=== PATIENT | female | born 1950 | race Caucasian/White ===

== ENCOUNTER 2016-12-27 14:44 | Observation (INO) | payer MEDICARE ==
[~2016-12-27] VITALS: Ht 157.5 cm; Wt 54.1 kg
[2016-12-27] MEDS ORDERED: ASPI1TAB PO (15:02)
[2016-12-27] MEDS ORDERED: POTA99TA PO (15:02)
[2016-12-27] MEDS ORDERED: VITA100066 PO (15:02)
[2016-12-27] MEDS ORDERED: SULF50TA PO (15:02)
[2016-12-27] MEDS ORDERED: B-12100010 PO (15:02)
[2016-12-27] MEDS ORDERED: LISI-538 PO (15:02)
[2016-12-27] MEDS ORDERED: COMBAER6 INH (15:02)
[2016-12-27] MEDS ORDERED: LABETALOL HCL 100 MG/20 ML VIAL IV STA (15:17)
[2016-12-27 15:29] LABS: BASO % 0.6 % (0.0-1.0); EOS # 0.1 K/mm3 (0.0-0.50); EOS % 1.9 % (0.0-3.0); LARGE UNSTAINED CELL # 0.1 K/mm3 (0.0-0.4); LYMPH # 1.9 K/mm3 (1.5-4.5); LYMPH % 31.5 % (24.0-44.0); MEAN CORPUSCULAR HGB CONC 33.1 g/dl (32.0-36.5); MEAN CORPUSCULAR VOLUME 96.8 fl (80.0-96.0); MONO # 0.3 K/mm3 (0.0-0.8); MONO % 5.4 % (0.0-5.0); NEUTROPHILS # 3.6 K/mm3 (1.8-7.7); NEUTROPHILS % 58.7 % (36.0-66.0); PLATELET COUNT, AUTOMATED 366 k/mm3 (150-450); RED CELL DISTRIBUTION WIDTH 13.3 % (11.5-14.5); WHITE BLOOD COUNT 6.2 K/mm3 (4.0-10.0)
[2016-12-27] MEDS ORDERED: GI COCKTAIL 50ML BTL(HYOSCYAMINE/MAALOX/LIDOCAINE VISCOUS)(1:3:1) PO ONE (15:30)
[2016-12-27] MEDS ORDERED: ASPIRIN 81 MG CHEW TABLET PO ONE (15:30)
[2016-12-27 15:53] LABS: ALBUMIN 4.2 GM/DL (3.2-5.2); ALBUMIN/GLOBULIN RATIO 1.68 (1.00-1.93); ALKALINE PHOSPHATASE 63 U/L (45-117); ALT/SGPT 17 U/L (12-78); ANION GAP 8 MEQ/L (8-16); AST/SGOT 19 U/L (15-37); BILIRUBIN,DIRECT 0.2 MG/DL (0.0-0.2); BILIRUBIN,TOTAL 0.5 MG/DL (0.2-1.0); BLOOD UREA NITROGEN 9 MG/DL (7-18); CALCIUM LEVEL 8.3 MG/DL (8.8-10.2); CARBON DIOXIDE LEVEL 26 MEQ/L (21-32); CHLORIDE LEVEL 100 MEQ/L (98-107); CREATININE FOR GFR 0.71 MG/DL (0.55-1.02); FREE T4 1.23 NG/DL (0.76-1.46); GLOMERULAR FILTRATION RATE > 60.0 (>45); GLUCOSE, FASTING 110 MG/DL (80-110); POTASSIUM SERUM 3.6 MEQ/L (3.5-5.1); SODIUM LEVEL 134 MEQ/L (136-145); TOTAL PROTEIN 6.7 GM/DL (6.4-8.2)
--- NOTE | 2016-12-27 17:18 | REP ---
CHEST, TWO VIEWS: REASON: Chest pain. FINDINGS: The superior mediastinal structures are midline. The cardiac silhouette is unremarkable in size, shape, and position. The diaphragmatic surfaces of the lungs are regular, and the costophrenic angles are clear. The pulmonary do are clear. The imaged osseous structures are intact. The lung do are hyper-expanded. IMPRESSION: There is no acute cardiopulmonary disease. Signed by Kvng Strickland DO 12/28/2016 09:55 A
[2016-12-27] MEDS ORDERED: METOPROLOL TART 25 MG TABLET PO ONE (17:30)
[2016-12-27] MEDS ORDERED: ENOXAPARIN 60 MG/0.6 ML SYR (J1650) SC ONE (21:15)
[2016-12-27] MEDS ORDERED: ACETAMINOPHEN 500 MG TAB PO PRN (22:30)
[2016-12-27] MEDS ORDERED: ARTI99.0 OU (22:45)
[2016-12-27] MEDS ORDERED: amLODIPine 10 MG TAB PO SCH (23:30)
[2016-12-27 23:45] VITALS: BP 173/83
[2016-12-28] MEDS: SENOKOT S TAB PO SCH ×3 (00:34→20:35)
[2016-12-28] MEDS: METOPROLOL TART 25 MG TABLET PO SCH ×3 (00:36→20:36)
[2016-12-28] MEDS: PANTOPRAZOLE 40MG INJ (PROTONIX) (C9113) IV SCH ×2 (00:36→20:36)
[2016-12-28] MEDS: sulfaSALAzine 500 MG TABEC PO SCH ×3 (00:37→20:35)
[2016-12-28] MEDS: IPRATROPIUM 0.5MG/ALBUTEROL 2.5MG INH SOL UD 3ML (DUONEB)(J7620) NEB SCH ×4 (01:25→23:33)
[2016-12-28 04:24] VITALS: BP 108/56
--- NOTE | 2016-12-28 06:36 | ECGEPIP ---
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
--- NOTE | 2016-12-28 06:48 | ECGEPIP ---
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
[2016-12-28 08:00] VITALS: BP 136/61
--- NOTE | 2016-12-28 08:29 | IPNPDOC ---
Subjective Date Seen The patient was seen on 12/28/16. Subjective Chief Complaint/HPI The patient is a 66-year-old female admitted with a reason for visit of Chest Pain;Hypertensive Urgency. Events since last encounter Pt states feeling better today. Pt denies any CP, SOB, Abd pain. Constitutional: Denies: Chills, Fever Pulmonary: Denies: Dyspnea Cardiovascular: Denies: Chest Pain, Palpitations Gastrointestinal: Denies: Nausea, Vomiting, Abdominal Pain Objective Physical Examination General Exam: Positive: Alert, No Acute Distress Neck Exam: Positive: Supple, Negative: JVD Chest Exam: Positive: Clear to auscultation Heart Exam: Positive: Rate Normal, Regular Rhythm Abdomen Exam: Positive: Normal bowel sounds, Soft, Negative: Tenderness Extremity Exam: Negative: Edema Assessment /Plan Problems (1) Elevated troponin Status: Acute Problem Specific Plan: Consult Specialist, Repeat Labs Problem Text: peak T-I 0.25 ( creatinine 0.6)/peak CPK 140 (baseline 70s) CAD risk factors: nicotine use, hyperlipidemia 2B (untreated), hypertension, RA , age 66, strong FH premature CAD (1 brother had first [place] at 38 and another of masssive [place] at 54! and 4/6 siblings c CAD) concern hypertensive response was 2 to ischemia-favor transfer for cath I consulted Dr Alvarez, who will seen the pt later. Dr Alvarez felt that pt's trop elevation was due to uncontrolled blood pressure which cause trop leak. Pt is on lisinopril and metoprolol. Pt is on aspirin. He defers checking echo and favors holding off on restarting statin therapy at present time due to pt's h/o intolerance to statins. 12/27/16 EKG NSR 85 bpm s repolarization abnormality 07/2013 low risk NST (2) Hypertensive urgency Status: Acute Problem Specific Plan: Consult Specialist, Repeat Labs Problem Text: I consulted Dr Alvarez, who will seen the pt later. Blood pressures improved. Pt is on lisinopril and metoprolol. (3) HTN (hypertension) Problem Text: Stable BPs on lisinopril and metoprolol. (4) Tobacco use Problem Text: Patient not ready to quit (5) Hyperlipemia Status: Chronic Response to Treatment: Uncontrolled Problem Text: intolerant to atorva 20 and rosuva 5 2 LE myalgia s CPK elevation t/c PCSK9i if confirmed CAD Plan/VTE VTE Prophylaxis Ordered?: Yes VS, I&O, 24H, Fishbone Vital Signs/I&O Vital Signs Date Time Temp Pulse Resp B/P (MAP) Pulse Ox O2 Delivery O2 Flow Rate FiO2 12/28/16 04:29 Room Air 12/28/16 04:24 98.8 59 18 108/56 (73) 93 I&O- Last 24 Hours up to 6 AM 12/28/16 06:00 Intake Total 240 ml Output Total 1250 ml Balance -1010 ml Laboratory Data 24H LABS Laboratory Tests 2 12/27/16 15:18: White Blood Count 6.2, Red Blood Count 4.54, Hemoglobin 14.5, Hematocrit 43.9, Mean Corpuscular Volume 96.8H, Mean Corpuscular Hemoglobin 32.0, Mean Corpuscular Hemoglobin Concent 33.1, Red Cell Distribution Width 13.3, Platelet Count 366, Neutrophils (%) (Auto) 58.7, Lymphocytes (%) (Auto) 31.5, Monocytes ( %) (Auto) 5.4H, Eosinophils (%) (Auto) 1.9, Basophils (%) (Auto) 0.6, Neutrophils # (Auto) 3.6, Lymphocytes # (Auto) 1.9, Monocytes # (Auto) 0.3, Eosinophils # (Auto) 0.1, Basophils # (Auto) 0.0, Large Unclassified Cells % 2.0 , Large Unclassified Cells # 0.1, Anion Gap 8, Glomerular Filtration Rate > 60.0 , Calcium Level 8.3L, Aspartate Amino Transf (AST/SGOT) 19, Alanine Aminotransferase (ALT/SGPT) 17, Alkaline Phosphatase 63, Total Bilirubin 0.5, Direct Bilirubin 0.2, Total Creatine Kinase 140, Creatine Kinase MB 1.7, Creatine Kinase MB Relative Index 1.21, Troponin I < 0.02, B-Type Natriuretic Peptide 27.2, Total Protein 6.7, Albumin 4.2, Albumin/Globulin Ratio 1.68, Thyroid Stimulating Hormone (TSH) 2.430, Free Thyroxine 1.23 12/27/16 19:44: Total Creatine Kinase 115, Creatine Kinase MB 1.8, Creatine Kinase MB Relative Index 1.56, Troponin I 0.25#H 12/28/16 01:53: Total Creatine Kinase 112, Creatine Kinase MB 2.3, Creatine Kinase MB Relative Index 2.05, Troponin I 0.16#H CBC/BMP Laboratory Tests 12/27/16 15:18 Red Blood Count 4.54, Mean Corpuscular Volume 96.8 H, Mean Corpuscular Hemoglobin 32.0, Mean Corpuscular Hemoglobin Concent 33.1, Red Cell Distribution Width 13.3, Neutrophils (%) (Auto) 58.7, Lymphocytes (%) (Auto) 31.5, Monocytes (%) (Auto) 5.4 H, Eosinophils (%) (Auto) 1.9, Basophils (%) ( Auto) 0.6, Neutrophils # (Auto) 3.6, Lymphocytes # (Auto) 1.9, Monocytes # (Auto ) 0.3, Eosinophils # (Auto) 0.1, Basophils # (Auto) 0.0 Jose Elias Jane December 28, 2016 08:29 Alex Johnson M.D. December 28, 2016 16:58
[2016-12-28] MEDS ORDERED: LISINOPRIL 20 MG TAB PO SCH (09:00)
[2016-12-28] MEDS: VITAMIN D 1,000 INTERNATIONAL UNITS TABLET PO SCH (09:12)
[2016-12-28] MEDS: CYANOCOBALAMIN 500 MCG TAB PO SCH (09:13)
[2016-12-28] MEDS: POLYVINYL ALCOHOL OPHTH SOLN 15 ML(LIQUITEARS) OU SCH (09:14)
[2016-12-28] MEDS: ASPIRIN 81 MG ENTERIC TAB PO SCH (09:14)
[2016-12-28 09:27] LABS: ALBUMIN 3.6 GM/DL (3.2-5.2); ALBUMIN/GLOBULIN RATIO 1.57 (1.00-1.93); ALKALINE PHOSPHATASE 58 U/L (45-117); ALT/SGPT 17 U/L (12-78); ANION GAP 7 MEQ/L (8-16); AST/SGOT 17 U/L (15-37); BILIRUBIN,TOTAL 0.7 MG/DL (0.2-1.0); BLOOD UREA NITROGEN 7 MG/DL (7-18); CALCIUM LEVEL 8.2 MG/DL (8.8-10.2); CARBON DIOXIDE LEVEL 28 MEQ/L (21-32); CHLORIDE LEVEL 99 MEQ/L (98-107); CREATININE FOR GFR 0.64 MG/DL (0.55-1.02); GLOMERULAR FILTRATION RATE > 60.0 (>45); GLUCOSE, FASTING 95 MG/DL (80-110); POTASSIUM SERUM 4.3 MEQ/L (3.5-5.1); SODIUM LEVEL 134 MEQ/L (136-145); TOTAL PROTEIN 5.9 GM/DL (6.4-8.2)
--- NOTE | 2016-12-28 09:35 | HPE ---
DATE OF ADMISSION: 12/27/2016 PRIMARY CARE PROVIDER: Ami Magdaleno. CHIEF COMPLAINT: Tingling and burning sensation across the chest wall. Very high blood pressures noted at home. PAST MEDICAL HISTORY: Hypertension. Hyperlipidemia. Chronic obstructive pulmonary disease (COPD). Gastroesophageal reflux disease (GERD). Anxiety. Panic disorder. Chronic sinusitis. MRIs. Rheumatoid arthritis. Vitamin D deficiency. HISTORY OF PRESENT ILLNESS: This is a 66-year-old female who had been very stressed out at work for the past 2 weeks and has been having higher than her usual blood pressure ranges at home. Today she felt a little off from her usual self. She felt kind of burning sensation and pain across her chest. She checked her blood pressure which showed 191/100 at home so she came to the emergency room for evaluation. In the ED, she continued to complain of this chest discomfort, tingling and numbness and on initial presentation, her blood pressure was noted to be 216/106. Patient was diagnosed with hypertensive urgency, received 20 mg of labetalol IV followed by metoprolol by mouth and aspirin. Her blood pressure improved. She has blood work done with cardiac enzymes and EKG. All blood work was within normal limits and the EKG showed sinus rhythm without any signs of any ischemia. In view of her persisting chest pain, her cardiac enzymes were repeated after 4 hours which showed mild elevation in troponins to 0.25 with normal CK and CK-MB. Repeat EKG did not show any active changes to this type of ischemia. The ED physician consulted with seasonal greenery bundler social media executive and he suggested to admit the patient for observation overnight and to give her one dose of therapeutic Lovenox 1 mg/kg. So the patient has been admitted to the Family Medicine service for chest pain, rule out ACS and hypertensive urgency. PAST SURGICAL HISTORY: Cholecystectomy. Appendectomy. Total abdominal hysterectomy. Anterior discectomy and fusion with cadaver bone and hardware at the cervical spine. ALLERGIES: ATORVASTATIN causes leg cramps and weakness. FAMILY HISTORY: Nothing significant. SOCIAL HISTORY: Patient smokes about half a pack per day. Does not drink alcohol or use any recreational drugs. HOME MEDICATIONS: - Combivent inhaler one puff four times a day - Artificial tears one drops both eyes daily - aspirin 81 mg daily - cholecalciferol 1000 mg daily - cyanocobalamin 1000 mcg by mouth daily - lisinopril 20 mg by mouth daily - potassium 99 mg by mouth daily - sulfasalazine 500 mg by mouth twice daily REVIEW OF SYSTEMS: Patient denied any fever or chills. Denied any cough or phlegm. Does complain of some congestion and chronic sinus congestion. Denies any palpitations but does say that she feels very tense and nervous and she continued to complain of persistent pain and burning sensation across her chest wall. She does also feel bloated and some epigastric discomfort and she feels her stomach is pressing up causing her difficulty in breathing. She denied any constipation. Denies any diarrhea, any vomiting or nausea. PHYSICAL EXAMINATION: Vital signs: Blood pressure 169/94, pulse 69, temperature 98.1, pulse oximetry 93% on room air. General: Patient awake, alert, oriented times three, lying down in bed in no acute distress. HEENT: Normocephalic, atraumatic. Moist mucous membranes. Anicteric eyes. Chest: Clear to auscultation. Cardiovascular: S1, S2, regular. No rub, murmur or gallop. Abdomen: Soft, nontender, bowel sounds present. Extremities: No edema. LABORATORY DATA: WBC 6.2, hemoglobin 14.5, platelets 366. Sodium 134, potassium 3.6, chloride 100, bicarbonate 26, BUN 9, creatinine 0.7, glucose 110, calcium 8.3. Cardiac enzymes first set negative. Second set has positive troponins of 0.25. BNP 27.2. Liver function tests are normal. TSH is 2.43. Chest x-ray did not show any acute cardiopulmonary disease. EKG reviewed showed sinus rhythm. No acute ST-T changes. ASSESSMENT AND PLAN: This is a 66-year-old female admitted for chest pain, rule out ACS and hypertensive urgency. PLAN: Chest pain. Will repeat cardiac enzymes. Will repeat EKG if required. Patient received one dose of therapeutic Lovenox. If troponins remain elevated or are rising , we will continue with Lovenox therapeutic dosage. Will continue with aspirin. Patient already received beta shira in the ED. Will continue with beta shira from tomorrow morning. Patient does not want to take any statin because it gives her leg cramps and pain. Hypertensive urgency. Patient received labetalol and metoprolol in the ED. Will continue the patient on lisinopril home doses and will add amlodipine 10 mg daily. Will also continue metoprolol twice daily from tomorrow morning. Chronic obstructive pulmonary disease (COPD). Will continue with albuterol/ipratropium inhalation and nebulizer solution. Gastroesophageal reflux disease. Will start the patient on pantoprazole. Hyperlipidemia. Patient does not like to take statins. Deep venous thrombosis (DVT) prophylaxis has been ordered. Gastrointestinal (GI ) prophylaxis has been ordered. MTDD
[2016-12-28] MEDS ORDERED: SLF 3 ML SYR IV PRN (10:00)
[2016-12-28 12:00] VITALS: BP 130/63
[2016-12-28] MEDS: SLF 3 ML SYR IV SCH ×2 (14:27→20:37)
[2016-12-28 16:00] VITALS: BP_SYST 155; BP_DIAS 50; BP_DIAS 62
[2016-12-28 17:40] LABS: CHOLESTEROL LEVEL 186 MG/DL (<200); TRIGLYCERIDES LEVEL 69 MG/DL (<150)
[2016-12-28] MEDS: CARVedilol 6.25 MG TAB PO SCH (18:00)
[2016-12-28 19:01] VITALS: BP 128/65
--- NOTE | 2016-12-28 20:17 | ECGEPIP ---
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
[2016-12-28 20:30] VITALS: BP 143/74
[2016-12-28] MEDS: LISINOPRIL 10 MG TAB PO SCH (20:35)
[2016-12-28] MEDS ORDERED: ENOXAPARIN 40 MG/0.4 ML SYRINGE (J1650) SC SCH (21:00)
[2016-12-29 00:32] VITALS: BP 131/70
[2016-12-29] MEDS: CARVedilol 6.25 MG TAB PO SCH ×3 (00:52→11:53)
[2016-12-29 04:32] VITALS: BP 130/68
[2016-12-29] MEDS: SLF 3 ML SYR IV SCH ×2 (05:10→13:20)
[2016-12-29 05:53] LABS: BASO % 0.7 % (0.0-1.0); EOS # 0.2 K/mm3 (0.0-0.50); EOS % 2.9 % (0.0-3.0); LARGE UNSTAINED CELL # 0.2 K/mm3 (0.0-0.4); LARGE UNSTAINED CELL % 2.2 % (0.0-4.0); LYMPH # 2.6 K/mm3 (1.5-4.5); LYMPH % 39.2 % (24.0-44.0); MEAN CORPUSCULAR HEMOGLOBIN 32.4 pg (27.0-33.0); MEAN CORPUSCULAR HGB CONC 33.3 g/dl (32.0-36.5); MEAN CORPUSCULAR VOLUME 97.2 fl (80.0-96.0); MONO # 0.6 K/mm3 (0.0-0.8); MONO % 8.8 % (0.0-5.0); NEUTROPHILS # 3.1 K/mm3 (1.8-7.7); NEUTROPHILS % 46.1 % (36.0-66.0); PLATELET COUNT, AUTOMATED 322 k/mm3 (150-450); RED CELL DISTRIBUTION WIDTH 13.6 % (11.5-14.5); WHITE BLOOD COUNT 6.6 K/mm3 (4.0-10.0)
[2016-12-29 06:15] LABS: ALBUMIN 3.1 GM/DL (3.2-5.2); ALBUMIN/GLOBULIN RATIO 1.29 (1.00-1.93); ALKALINE PHOSPHATASE 57 U/L (45-117); ALT/SGPT 16 U/L (12-78); ANION GAP 4 MEQ/L (8-16); AST/SGOT 15 U/L (15-37); BILIRUBIN,TOTAL 0.3 MG/DL (0.2-1.0); BLOOD UREA NITROGEN 11 MG/DL (7-18); CALCIUM LEVEL 7.6 MG/DL (8.8-10.2); CARBON DIOXIDE LEVEL 29 MEQ/L (21-32); CHLORIDE LEVEL 102 MEQ/L (98-107); CREATININE FOR GFR 0.61 MG/DL (0.55-1.02); GLOMERULAR FILTRATION RATE > 60.0 (>45); GLUCOSE, FASTING 89 MG/DL (80-110); POTASSIUM SERUM 3.8 MEQ/L (3.5-5.1); SODIUM LEVEL 135 MEQ/L (136-145); TOTAL PROTEIN 5.5 GM/DL (6.4-8.2)
--- NOTE | 2016-12-29 07:36 | IPNPDOC ---
Subjective Date Seen The patient was seen on 12/29/16. Subjective Chief Complaint/HPI The patient is a 66-year-old female admitted with a reason for visit of Chest Pain;Hypertensive Urgency. Events since last encounter Pt states she feels about the same. Denies CP, SOB, Abd pain. Constitutional: Denies: Chills, Fever Pulmonary: Denies: Dyspnea Cardiovascular: Denies: Chest Pain Gastrointestinal: Denies: Nausea, Vomiting, Abdominal Pain Objective Physical Examination General Exam: Positive: Alert, No Acute Distress Neck Exam: Positive: Supple, Negative: JVD Chest Exam: Positive: Clear to auscultation Heart Exam: Positive: Rate Normal, Regular Rhythm Abdomen Exam: Positive: Normal bowel sounds, Soft, Negative: Tenderness Extremity Exam: Negative: Edema Assessment /Plan Problems (1) Elevated troponin Status: Acute Problem Specific Plan: Consult Specialist, Repeat Labs Problem Text: 12/29 - Cardiology consulted. Most recent Trops have trended down and returned to normal. 12/28 - peak T-I 0.25 ( creatinine 0.6)/peak CPK 140 (baseline 70s) CAD risk factors: nicotine use, hyperlipidemia 2B (untreated), hypertension, RA , age 66, strong FH premature CAD (1 brother had first [place] at 38 and another of masssive [place] at 54! and 4/6 siblings c CAD) concern hypertensive response was 2 to ischemia-favor transfer for cath I consulted Dr Alvarez, who will seen the pt later. Dr Alvarez felt that pt's trop elevation was due to uncontrolled blood pressure which cause trop leak. Pt is on lisinopril and metoprolol. Pt is on aspirin. He defers checking echo and favors holding off on restarting statin therapy at present time due to pt's h/o intolerance to statins. 12/27/16 EKG NSR 85 bpm s repolarization abnormality 07/2013 low risk NST (2) Hypertensive urgency Status: Acute Problem Specific Plan: Consult Specialist, Repeat Labs Problem Text: 12/29 - Cardiology consulted 12/28 - I consulted Dr Alvarez, who will seen the pt later. Blood pressures improved. Pt is on lisinopril and metoprolol. (3) HTN (hypertension) Problem Text: Stable BPs on lisinopril and metoprolol. (4) Tobacco use Problem Text: Patient states not ready to quit. Declined Alcides patch. (5) Hyperlipemia Status: Chronic Response to Treatment: Uncontrolled Problem Text: intolerant to atorva 20 and rosuva 5 2 LE myalgia s CPK elevation t/c PCSK9i if confirmed CAD Plan/VTE VTE Prophylaxis Ordered?: Yes VS, I&O, 24H, Fishbone Vital Signs/I&O Vital Signs Date Time Temp Pulse Resp B/P (MAP) Pulse Ox O2 Delivery O2 Flow Rate FiO2 12/29/16 05:10 52 130/76 12/29/16 04:32 99.4 18 94 Room Air I&O- Last 24 Hours up to 6 AM 12/29/16 06:00 Intake Total 1920 ml Output Total 2000 ml Balance -80 ml Laboratory Data 24H LABS Laboratory Tests 2 12/28/16 08:01: Anion Gap 7L, Glomerular Filtration Rate > 60.0, Blood Urea Nitrogen 7, Creatinine 0.64, Sodium Level 134L, Potassium Level 4.3, Chloride Level 99, Carbon Dioxide Level 28, Calcium Level 8.2L, Aspartate Amino Transf (AST/SGOT) 17, Alanine Aminotransferase (ALT/SGPT) 17, Alkaline Phosphatase 58, Total Bilirubin 0.7, Triglycerides Level 69, LDL Cholesterol 105.2H, Total Protein 5.9L, Albumin 3.6, C-Reactive Protein, Quantitative < 0.30, Albumin/Globulin Ratio 1.57, Total Cholesterol 186, Non-HDL Cholesterol (LDL + VLDL) 119, Total HDL Cholesterol 67, Cholesterol/HDL Ratio 2.776, Vitamin B12 Level 1423H 12/28/16 08:03: Total Creatine Kinase 118, Creatine Kinase MB 1.9, Creatine Kinase MB Relative Index 1.61, Troponin I 0.09# 12/28/16 13:56: Total Creatine Kinase 129, Creatine Kinase MB 1.3, Creatine Kinase MB Relative Index 1.00, Troponin I 0.06# 12/29/16 05:33: Anion Gap 4L, Glomerular Filtration Rate > 60.0, Blood Urea Nitrogen 11#, Creatinine 0.61, Sodium Level 135L, Potassium Level 3.8, Chloride Level 102, Carbon Dioxide Level 29, Calcium Level 7.6L, Aspartate Amino Transf (AST/SGOT) 15, Alanine Aminotransferase (ALT/SGPT) 16, Alkaline Phosphatase 57, Total Bilirubin 0.3#, Total Protein 5.5L, Albumin 3.1L, Albumin/Globulin Ratio 1.29, White Blood Count 6.6, Red Blood Count 3.98L, Hemoglobin 12.9, Hematocrit 38.7, Mean Corpuscular Volume 97.2H, Mean Corpuscular Hemoglobin 32.4, Mean Corpuscular Hemoglobin Concent 33.3, Red Cell Distribution Width 13.6, Platelet Count 322, Neutrophils (%) (Auto) 46.1, Lymphocytes (%) (Auto) 39.2, Monocytes ( %) (Auto) 8.8H, Eosinophils (%) (Auto) 2.9, Basophils (%) (Auto) 0.7, Neutrophils # (Auto) 3.1, Lymphocytes # (Auto) 2.6, Monocytes # (Auto) 0.6, Eosinophils # (Auto) 0.2, Basophils # (Auto) 0.0, Large Unclassified Cells % 2.2 , Large Unclassified Cells # 0.2 CBC/BMP Laboratory Tests 12/28/16 08:01 Calcium Level 8.2 L, Aspartate Amino Transf (AST/SGOT) 17, Alanine Aminotransferase (ALT/SGPT) 17, Alkaline Phosphatase 58, Total Bilirubin 0.7, Triglycerides Level 69, LDL Cholesterol 105.2 H, Total Protein 5.9 L, Albumin 3.6 12/29/16 05:33 Calcium Level 7.6 L, Aspartate Amino Transf (AST/SGOT) 15, Alanine Aminotransferase (ALT/SGPT) 16, Alkaline Phosphatase 57, Total Bilirubin 0.3 #, Total Protein 5.5 L, Albumin 3.1 L, Red Blood Count 3.98 L, Mean Corpuscular Volume 97.2 H, Mean Corpuscular Hemoglobin 32.4, Mean Corpuscular Hemoglobin Concent 33.3, Red Cell Distribution Width 13.6, Neutrophils (%) (Auto) 46.1, Lymphocytes (%) (Auto) 39.2, Monocytes (%) (Auto) 8.8 H, Eosinophils (%) (Auto) 2.9, Basophils (%) (Auto) 0.7, Neutrophils # (Auto) 3.1, Lymphocytes # (Auto) 2.6, Monocytes # (Auto) 0.6, Eosinophils # (Auto) 0.2, Basophils # (Auto) 0.0 Jose Elias Jane RPA-Kiley December 29, 2016 07:36
[2016-12-29 08:00] VITALS: BP 127/79
--- NOTE | 2016-12-29 08:18 | REP ---
Duplex carotid sonography: History: Bruit. Comparison carotid sonography is from May 13, 2015. Findings: Antegrade flow was observed in both vertebral arteries. Right carotid: The right common carotid artery is remarkable for some minimal plaquing and diffuse intimal thickening. There is moderate mixed plaquing in the bulb and proximal ICA and proximal ECA on the right side on two-dimensional scanning. Color-flow and spectral Doppler interrogation are unremarkable in the ICA. ICA velocities have not increased since the prior study. Velocity chart right carotid: Right CCA PSV 91 cm/s ICA PSV 84 EDV 19 Right ECA PSV 138 Right ICA/CCA ratio normal 0.9 Impression: 16-49% category narrowing the right ICA by Doppler velocity criteria. Velocities have not increased since the prior study. Left carotid: Left common carotid artery shows diffuse intimal thickening. There is moderate mixed plaquing in the bulb and proximal ICA on two-dimensional scanning on the left side. Color flow and spectral Doppler interrogation are unremarkable on the left. No significantly elevated velocities are seen. Velocity chart left carotid: Left CCA PSV 98 cm/s Left ICA PSV 110 EDV 30 Left ECA PSV 89 Left ICA/CCA ratio normal 1.1 Impression: 16-49% category narrowing in the left ICA by Doppler velocity criteria. Velocities have not increased significantly on the left since the prior study. Signed by Car Macias MD 12/29/2016 08:28 A
[2016-12-29] MEDS: METOPROLOL TART 25 MG TABLET PO SCH (08:27)
[2016-12-29] MEDS: LISINOPRIL 10 MG TAB PO SCH (08:27)
[2016-12-29] MEDS: SENOKOT S TAB PO SCH (08:27)
[2016-12-29] MEDS: CYANOCOBALAMIN 500 MCG TAB PO SCH (08:28)
[2016-12-29] MEDS: sulfaSALAzine 500 MG TABEC PO SCH (08:28)
[2016-12-29] MEDS: VITAMIN D 1,000 INTERNATIONAL UNITS TABLET PO SCH (08:28)
[2016-12-29] MEDS: POLYVINYL ALCOHOL OPHTH SOLN 15 ML(LIQUITEARS) OU SCH (08:28)
[2016-12-29] MEDS: ASPIRIN 81 MG ENTERIC TAB PO SCH (08:28)
[2016-12-29] MEDS: IPRATROPIUM 0.5MG/ALBUTEROL 2.5MG INH SOL UD 3ML (DUONEB)(J7620) NEB SCH (08:34)
[2016-12-29 11:53] VITALS: BP 129/74
[2016-12-29 12:00] VITALS: BP 129/74
[2016-12-29] MEDS ORDERED: METO25TAB PO (12:16)
[2016-12-29] MEDS ORDERED: CARV12.5 PO (12:16)
[2016-12-29] MEDS ORDERED: CARVedilol 6.25 MG TAB PO SCH ×2 (13:41→18:00)
--- NOTE | 2016-12-29 21:37 | DSES ---
DATE OF ADMISSION: 12/27/2016 DATE OF DISCHARGE: 12/29/2016 REASON FOR ADMISSION: The patient was admitted on the evening of December 27 after presenting with transient substernal burning and chest discomfort associated with dramatically high blood pressure. Blood pressures documented in the ED were over 200, specifically 226/105, that was the highest on December 27 at 15:31 and 15:41. She received amlodipine, which was not continued. She received metoprolol, which was continued. She received 20 mg IV labetalol dose. After admission her medication continued with lisinopril 10 mg by mouth twice a day, carvedilol 6.25 mg every 6 hours and metoprolol 25 mg by mouth twice a day. She is also on sulfasalazine 500 mg twice a day, Senokot and albuterol, ipratropium nebs which is chronic medication related to COPD. She does smoke one half pack per day despite having multiple family members with coronary artery disease and being closely monitored very cardiology with frequent EKG stress tests or nuclear medicine stress tests, the last with being slightly or 2 years ago and she is scheduled for a new one soon. Her estate administrator is Dr. Alvarez. During her ER observation and it was noted that her laboratory findings demonstrated a slightly elevated troponin, specifically 0.02, less than 0.020 at 15:18 on 12/27. Repeat at 19:44 was 0.25. At 01:53 on December 28 was 0.16 and it is been 0.09 and 0.06 subsequently. EKG did not show ST-segment changes or evidence of infarction. Cardiology has been consulted and cell phone call has been made to Dr. Alvarez to follow up on this consult to advise that the is being discharged and request instructions for followup. At this time condition is satisfactory. She remained symptom free. Blood pressures is 129/74. She is relatively bradycardic with pulse of 56-48. She ambulates well on the unit without lightheadedness, chest pain, palpitations or dyspnea. She denies wheezing. On exam she has no wheezing. Good air flow throughout and regular rhythm, although she has is slow, she has no pedal edema. IMPRESSION: Accelerated hypertensive urgency with troponin elevation which is likely a product of <<3:25>> . So at this point the patient will be discharged. She will have a pharmacologic stress test scheduled for tomorrow with Dr. Alvarez. He will see of the following day. For now we will send her home on the metoprolol 25 mg by mouth twice a day. Although carvedilol has been ordered at 6.25 mg four times a day she has only received one of these doses, the others have been held through so it looks like she does not require the carvedilol and so she will go namita just on metoprolol 25 twice a day along with lisinopril 20 mg daily. Activity will be as tolerated. She is encouraged to quit smoking and pharmacologic assistance is offered. Follow up as noted. She should follow a 2 grams sodium diet.
--- NOTE | 2016-12-30 09:32 | ECHO ---
DATE OF PROCEDURE: 12/28/2016 AGE: 66 GENDER: Female REFERRING PHYSICIAN: Dr. Alex Johnson. HEIGHT: 62 inches. WEIGHT: 119 pounds. BODY SURFACE AREA: 1.54 sq m. INPATIENT: PCU Room 3227 INDICATION: Chest pain. MEASUREMENTS: 2D MEASUREMENTS: RV - 2.9 cm LV- 4.2 cm Septum - 1.0 cm Posterior wall - 1.0 cm Aortic root - 3.5 cm LA - 3.4 cm LVEF - 65% DOPPLER MEASUREMENTS: AV - 1.4 m/s LVOT - 1.2 m/s LVOT diameter - 2.0 cm MV-E: 79 A: 76 EA ratio 1 Early mitral deacceleration time 183 ms E-prime - 6 A-prime - 9 E/E prime ratio 12.9 PV - 0.8 m/s Pulmonary artery acceleration time 162 ms RVSP - 30 mmHg IVC - 1.9 cm COMMENTS: Normal sinus rhythm without intraventricular conduction disturbance. Normal cardiac chamber sizes and LV wall thickness. On real-time imaging from the parasternal and apical projections, wall motion was symmetrical and normal to hyperkinetic. Mildly thickened mitral annulus but normal leaflet thickness and excursion with no posterior systolic buckling. Three equal size aortic cusps with marginally thickened cusp edges but adequate cusp separation. Normal aortic root size. No apparent intracardiac mass or pericardial effusion. Color flow Doppler study taken from the parasternal and apical projection showed very mild mitral but no aortic insufficiency and very mild tricuspid insufficiency. Guided continuous wave Doppler of her aortic valve showed a normal peak systolic velocity against LV outflow tract obstruction. Pulsed and continuous wave Doppler of her LV inflow tract taken from the apical four-chamber projection showed normal diastolic filling velocities against mitral stenosis. The filling pattern was currently normal against LV diastolic dysfunction. Current estimated mean left atrial pressure using pulsed and tissue Doppler of her mitral annulus was within normal limits. Pulsed and continuous wave Doppler of her pulmonary trunk showed a normal peak systolic velocity against RV outflow tract obstruction. Her pulmonary artery acceleration time was normal against an elevated pulmonary vascular resistance. Guided continuous wave Doppler of her tricuspid valve allowed our estimation of her right ventricular systolic pressure (upper limits of normal to borderline increased). Her inferior vena cava was of normal size with normal respiratory collapse against an elevated central venous pressure at this time. CONCLUSIONS: Normal left ventricular size, wall thickness and wall motion. Normal left atrial size in current Doppler assessment of LV diastolic function and estimated mean left atrial pressure. Normal right heart chamber sizes and contraction with Doppler evidence of borderline pulmonary hypertension. Mild degenerative changes of the mitral and aortic valvular apparatus without functional valvular abnormality.
== END 2016-12-29 14:32 | disposition home or self-care (01) ==
LOC: M ED 15:40 → M ED INP 22:28 → M PCU 23:46
PROVIDERS: ADMIT Internal Medicine Nephrology; ATTEND Family Medicine
DX: I16.0 Hypertensive urgency (principal); R07.9 Chest pain, unspecified; E78.4 Other hyperlipidemia; K21.9 Gastro-esophageal reflux disease without esophagitis; F41.9 Anxiety disorder, unspecified; E55.9 Vitamin D deficiency, unspecified; M06.9 Rheumatoid arthritis, unspecified; Z79.82 Long term (current) use of aspirin; Z79.899 Other long term (current) drug therapy; R06.02 Shortness of breath
CPT/HCPCS: 36415; 71020; 80048; 80053; 80061; 80076; 82550; 82553; 82607; 83880; 84439; 84443; 84484; 85025; 86140; 93005; 93041; 93306; 93880; 94640; 94760; 96372; 96374; 96375; 96376; 99285; C9113; G0378; J1650

== ENCOUNTER → 2017-01-20 | Outpatient (CLI) | payer MEDICARE ==
[~2017-01-20] MED LIST: ARTI99.0 OU; ASPI1TAB PO; B-12100010 PO; CARV12.5 PO; COMBAER6 INH; LISI-538 PO; METO25TAB PO; POTA99TA PO; SULF50TA PO; VITA100066 PO
[2017-01-20 18:13] LABS: ALBUMIN 4.1 GM/DL (3.2-5.2); ANION GAP 7 MEQ/L (8-16); BLOOD UREA NITROGEN 7 MG/DL (7-18); CALCIUM LEVEL 9.2 MG/DL (8.8-10.2); CARBON DIOXIDE LEVEL 31 MEQ/L (21-32); CHLORIDE LEVEL 94 MEQ/L (98-107); CREATININE FOR GFR 0.68 MG/DL (0.55-1.02); GLOMERULAR FILTRATION RATE > 60.0 (>45); GLUCOSE, FASTING 140 MG/DL (80-110); MAGNESIUM LEVEL 2.2 MG/DL (1.8-2.4); PHOSPHORUS LEVEL 2.8 MG/DL (2.5-4.9); POTASSIUM SERUM 3.8 MEQ/L (3.5-5.1); SODIUM LEVEL 132 MEQ/L (136-145)
== END ==
LOC: M LAB 17:07
PROVIDERS: ATTEND Internal Medicine Cardiovascular Disease
DX: I11.9 Hypertensive heart disease without heart failure (principal)

== ENCOUNTER → 2017-07-29 | Outpatient (CLI) | payer MEDICARE ==
[~2017-07-29] MED LIST changes: +METO25TA4 PO; -METO25TAB PO
[2017-07-29 13:31] LABS: ALBUMIN/GLOBULIN RATIO 1.48 (1.00-1.93); ALKALINE PHOSPHATASE 59 U/L (45-117); ALT/SGPT 10 U/L (12-78); ANION GAP 10 MEQ/L (8-16); AST/SGOT 13 U/L (7-37); BILIRUBIN,TOTAL 0.5 MG/DL (0.2-1.0); BLOOD UREA NITROGEN 12 MG/DL (7-18); CALCIUM LEVEL 8.8 MG/DL (8.8-10.2); CARBON DIOXIDE LEVEL 28 MEQ/L (21-32); CHLORIDE LEVEL 96 MEQ/L (98-107); CHOLESTEROL LEVEL 191 MG/DL (<200); CREATININE FOR GFR 0.54 MG/DL (0.55-1.02); GLOMERULAR FILTRATION RATE > 60.0 (>45); GLUCOSE, FASTING 79 MG/DL (80-110); POTASSIUM SERUM 3.9 MEQ/L (3.5-5.1); SODIUM LEVEL 134 MEQ/L (136-145); TOTAL PROTEIN 6.7 GM/DL (6.4-8.2); TRIGLYCERIDES LEVEL 44 MG/DL (<150)
== END ==
LOC: M WUC 09:40
PROVIDERS: ATTEND Physician Assistant
DX: I11.9 Hypertensive heart disease without heart failure (principal); E78.00 Pure hypercholesterolemia, unspecified

== ENCOUNTER → 2018-02-01 | Outpatient (CLI) | payer MEDICARE ==
[2018-02-01 08:19] LABS: ALBUMIN 3.8 GM/DL (3.2-5.2); ALBUMIN/GLOBULIN RATIO 1.58 (1.00-1.93); ALKALINE PHOSPHATASE 61 U/L (45-117); ALT/SGPT 14 U/L (12-78); ANION GAP 5 MEQ/L (8-16); AST/SGOT 17 U/L (7-37); BILIRUBIN,TOTAL 0.4 MG/DL (0.2-1.0); BLOOD UREA NITROGEN 12 MG/DL (7-18); CALCIUM LEVEL 8.7 MG/DL (8.8-10.2); CARBON DIOXIDE LEVEL 29 MEQ/L (21-32); CHLORIDE LEVEL 105 MEQ/L (98-107); CREATININE FOR GFR 0.69 MG/DL (0.55-1.30); GLOMERULAR FILTRATION RATE > 60.0 (>45); GLUCOSE, FASTING 90 MG/DL (70-100); POTASSIUM SERUM 4.6 MEQ/L (3.5-5.1); SODIUM LEVEL 139 MEQ/L (136-145); TOTAL PROTEIN 6.2 GM/DL (6.4-8.2)
== END ==
LOC: M LAB 07:24
DX: I11.9 Hypertensive heart disease without heart failure (principal); E78.00 Pure hypercholesterolemia, unspecified
CPT/HCPCS: 80053

== ENCOUNTER → 2018-08-04 | Outpatient (CLI) | payer MEDICARE ==
[2018-08-04 07:38] LABS: ALBUMIN 3.7 GM/DL (3.2-5.2); ALBUMIN/GLOBULIN RATIO 1.48 (1.00-1.93); ALKALINE PHOSPHATASE 59 U/L (45-117); ALT/SGPT 13 U/L (12-78); ANION GAP 8 MEQ/L (8-16); AST/SGOT 16 U/L (7-37); BILIRUBIN,TOTAL 0.4 MG/DL (0.2-1.0); BLOOD UREA NITROGEN 10 MG/DL (7-18); CALCIUM LEVEL 8.6 MG/DL (8.8-10.2); CARBON DIOXIDE LEVEL 27 MEQ/L (21-32); CHLORIDE LEVEL 106 MEQ/L (98-107); CHOLESTEROL LEVEL 200 MG/DL (<200); CREATININE FOR GFR 0.64 MG/DL (0.55-1.30); GLOMERULAR FILTRATION RATE > 60.0 (>45); GLUCOSE, FASTING 99 MG/DL (70-100); HDL CHOLESTEROL 66 MG/DL (>40); LDL CHOLESTEROL 125 MG/DL (<100); NON-HDL-C 134 MG/DL; POTASSIUM SERUM 4.3 MEQ/L (3.5-5.1); SODIUM LEVEL 141 MEQ/L (136-145); TOTAL PROTEIN 6.2 GM/DL (6.4-8.2); TRIGLYCERIDES LEVEL 46 MG/DL (<150)
== END ==
LOC: M LAB 06:44
DX: I11.9 Hypertensive heart disease without heart failure (principal); E78.00 Pure hypercholesterolemia, unspecified
CPT/HCPCS: 80053

== ENCOUNTER → 2018-08-10 | Outpatient (CLI) | payer MEDICARE ==
--- NOTE | 2018-08-10 20:08 | REP ---
HISTORY: Carotid arterial disease followup. COMPARISON: 12/28/2016. There is echogenic material seen along the carotid arterial phan bilaterally and some of which casts and acoustic shadow. Right Left CCA systolic 91.0 cm/s 85.8 cm/s CCA diastolic 28.8 cm/s 30.5 cm/s ICA systolic 73.9 cm/s 92.9 cm/s ICA diastolic 29.7 cm/s 46.1 cm/s ICA/CCA ratio 0.81 1.08 Analysis of the spectral waveforms shows bilateral internal carotid arterial spectral broadening. IMPRESSION: There has been essentially no change from the prior exam. There is evidence of less than 50% stenosis of the internal carotid artery bilaterally and secondary to both calcified and noncalcified plaque formation. This is according to the NASCET consensus criteria. Electronically Signed by Kvng Strickland DO 08/11/2018 03:49 P
== END ==
LOC: M RAD 13:44
PROVIDERS: ATTEND Physician Assistant
DX: I65.23 Occlusion and stenosis of bilateral carotid arteries (principal)

== ENCOUNTER → 2020-02-06 | Outpatient (REF) | payer MEDICARE ==
[~2020-02-06] MED LIST changes: -ARTI99.0 OU; -ASPI1TAB PO; +ASPI81TA26 PO; -LISI-538 PO; +LISI20TA33 PO; +POLYOPD OU; +SULF500T41 PO; -SULF50TA PO
[2020-02-06 13:41] LABS: ALBUMIN 3.8 GM/DL (3.2-5.2); ALT/SGPT 17 U/L (12-78); BILIRUBIN,TOTAL 0.5 MG/DL (0.2-1.0); BLOOD UREA NITROGEN 11 MG/DL (7-18); CALCIUM LEVEL 9.1 MG/DL (8.8-10.2); CARBON DIOXIDE LEVEL 29 MEQ/L (21-32); CHLORIDE LEVEL 98 MEQ/L (98-107); CHOLESTEROL LEVEL 195 MG/DL (<200); CREATININE FOR GFR 0.64 MG/DL (0.55-1.30); FREE T4 1.23 NG/DL (0.76-1.46); GLOMERULAR FILTRATION RATE > 60.0 (>45); GLUCOSE, FASTING 82 MG/DL (70-100); HDL CHOLESTEROL 60 MG/DL (>40); LDL CHOLESTEROL 119 MG/DL (<100); NON-HDL-C 135 MG/DL; POTASSIUM SERUM 4.8 MEQ/L (3.5-5.1); SODIUM LEVEL 133 MEQ/L (136-145); TOTAL PROTEIN 6.4 GM/DL (6.4-8.2); TRIGLYCERIDES LEVEL 80 MG/DL (<150)
[2020-02-06 13:50] LABS: MALB URINE SIEMENS 15.4 MG/L; MAU/CREAT RATIO 13.7 MCG/MG (0.0-30.0)
[2020-02-06 13:57] LABS: HEMATOCRIT 43.7 % (36.0-47.0); HEMOGLOBIN 14.5 g/dl (12.0-15.5); MEAN CORPUSCULAR HEMOGLOBIN 31.4 pg (27.0-33.0); MEAN CORPUSCULAR HGB CONC 33.2 g/dl (32.0-36.5); MEAN CORPUSCULAR VOLUME 94.6 fl (80.0-96.0); PLATELET COUNT, AUTOMATED 363 10^3/uL (150-450); RED BLOOD COUNT 4.62 10^6/uL (4.00-5.40); WHITE BLOOD COUNT 5.8 10^3/uL (4.0-10.0)
== END ==
LOC: M SFHCADAM 10:58
PROVIDERS: ATTEND Physician Assistant
DX: J44.9 Chronic obstructive pulmonary disease, unspecified (principal); I25.10 Atherosclerotic heart disease of native coronary artery without angina pectoris; I10 Essential (primary) hypertension; F17.218 Nicotine dependence, cigarettes, with other nicotine-induced disorders; E78.2 Mixed hyperlipidemia; Z12.11 Encounter for screening for malignant neoplasm of colon

== ENCOUNTER → 2020-05-22 | Outpatient (CLI) | payer MEDICARE ==
[~2020-05-22] MED LIST changes: +LISI-538 PO; -LISI20TA33 PO
--- NOTE | 2020-05-29 14:37 | REP ---
CT CHEST WITHOUT CONTRAST: LOW-DOSE SCREENING EXAM HISTORY: Nicotine dependence. COMPARISON: No comparison chest CT. Comparison chest x-ray 12/27/2016. CT FINDINGS: The lungs are quite hyperinflated and advanced emphysematous changes are noted bilaterally in the upper lobes and to a lesser extent in the lower lobes. There is no evidence of pleural effusion, mass, or infiltrate. There is some linear fibrosis in the right middle lobe anteriorly. There is granulomatous calcification in the left upper lobe on Page 44 of 95. There is a tiny subpleural granulomatous nodule in the right lower lobe on Page 55. There is another tiny granulomatous subpleural nodule in the right upper lobe on Page 23. No significant noncalcified pulmonary nodule is seen. Vascular calcification is observed. IMPRESSION: Advanced emphysematous changes. Lung-RADS Category 1 findings. Repeat screening exam suggested in one year. MTDD
== END ==
LOC: M RAD 09:37
PROVIDERS: ATTEND Nurse Practitioner Adult Health
DX: Z12.2 Encounter for screening for malignant neoplasm of respiratory organs (principal); F17.218 Nicotine dependence, cigarettes, with other nicotine-induced disorders; J43.9 Emphysema, unspecified

== ENCOUNTER → 2020-10-02 | Outpatient (CLI) | payer MEDICARE ==
[~2020-10-02] MED LIST changes: -LISI-538 PO; +LISI20TA33 PO
[2020-10-02 11:04] LABS: BLOOD UREA NITROGEN 11 MG/DL (7-18); CALCIUM LEVEL 9.1 MG/DL (8.8-10.2); CARBON DIOXIDE LEVEL 30 MEQ/L (21-32); CHLORIDE LEVEL 98 MEQ/L (98-107); CREATININE FOR GFR 0.58 MG/DL (0.55-1.30); GLOMERULAR FILTRATION RATE > 60.0 (>39); GLUCOSE, FASTING 100 MG/DL (70-100); POTASSIUM SERUM 4.3 MEQ/L (3.5-5.1); SODIUM LEVEL 135 MEQ/L (136-145)
== END ==
LOC: M LAB 09:53
PROVIDERS: ATTEND Physician Assistant
DX: I11.9 Hypertensive heart disease without heart failure (principal)

== ENCOUNTER → 2021-02-04 | Outpatient (CLI) | payer MEDICARE ==
--- NOTE | 2021-02-04 18:27 | REP ---
INDICATION: ACUTE RIGHT SIDED LOW BACK PAIN WITHOUT SCIATICA. COMPARISON: None. TECHNIQUE: Five views lumbosacral spine. FINDINGS: There is no compression fracture or malalignment. There is normal lumbar lordosis. There is very mild disc space narrowing at virtually all levels. There is sclerosis and spurring at the posterior facet joints of L5-S1. Posterior elements are intact. Metallic clips are seen in the right upper quadrant. There appears to be some degree of osteopenia. IMPRESSION: No fracture or dislocation. Mild degenerative changes. <Electronically signed by Nickolas Peters > 02/04/21 [id number]
== END ==
LOC: M ADAMS 15:25
PROVIDERS: ATTEND Physician Assistant
DX: M51.37 Other intervertebral disc degeneration, lumbosacral region (principal); M54.5 Low back pain

== ENCOUNTER → 2021-04-22 | Outpatient (CLI) | payer MEDICARE ==
[2021-04-22 14:12] LABS: BASO % 0.4 % (0.0-1.0); HEMOGLOBIN 14.9 g/dl (12.0-15.5); LYMPH # 1.2 10^3/uL (1.5-5.0); LYMPH % 13.5 % (24.0-44.0); MEAN CORPUSCULAR HEMOGLOBIN 31.5 pg (27.0-33.0); MEAN CORPUSCULAR HGB CONC 33.9 g/dl (32.0-36.5); MONO # 0.5 10^3/uL (0.0-0.8); MONO % 5.3 % (2.0-8.0); NEUTROPHILS # 7.2 10^3/uL (1.5-8.5); NEUTROPHILS % 80.1 % (36.0-66.0); PLATELET COUNT, AUTOMATED 482 10^3/uL (150-450); RED BLOOD COUNT 4.73 10^6/uL (4.00-5.40)
[2021-04-22 14:55] LABS: ALBUMIN 3.8 GM/DL (3.2-5.2); ALT/SGPT 21 U/L (12-78); BILIRUBIN,TOTAL 0.5 MG/DL (0.2-1.0); BLOOD UREA NITROGEN 9 MG/DL (7-18); CALCIUM LEVEL 9.4 MG/DL (8.8-10.2); CARBON DIOXIDE LEVEL 29 MEQ/L (21-32); CHLORIDE LEVEL 97 MEQ/L (98-107); CHOLESTEROL LEVEL 215 MG/DL (<200); CHOLESTEROL RISK RATIO 2.687 (<5); CREATININE FOR GFR 0.53 MG/DL (0.55-1.30); FREE T4 1.09 NG/DL (0.76-1.46); GLOMERULAR FILTRATION RATE > 60.0 (>39); GLUCOSE, FASTING 98 MG/DL (70-100); HDL CHOLESTEROL 80 MG/DL (>40); LDL CHOLESTEROL 124 MG/DL (<100); NON-HDL-C 135 MG/DL; POTASSIUM SERUM 4.7 MEQ/L (3.5-5.1); SODIUM LEVEL 132 MEQ/L (136-145); TOTAL PROTEIN 6.6 GM/DL (6.4-8.2); TRIGLYCERIDES LEVEL 53 MG/DL (<150)
[2021-04-22 14:59] LABS: CREATININE, URINE 26.8 MG/DL; MALB URINE SIEMENS < 5.0 MG/L; MAU/CREAT RATIO 18.6 MCG/MG (0.0-30.0)
[2021-04-22 16:53] LABS: TOTAL 25(OH) VITAMIN D 59.8 NG/ML (30.0-100.0)
== END ==
LOC: M LAB 12:52
PROVIDERS: ATTEND Physician Assistant
DX: E78.2 Mixed hyperlipidemia (principal); I10 Essential (primary) hypertension; J44.9 Chronic obstructive pulmonary disease, unspecified; I25.10 Atherosclerotic heart disease of native coronary artery without angina pectoris; F17.218 Nicotine dependence, cigarettes, with other nicotine-induced disorders; Z79.899 Other long term (current) drug therapy

== ENCOUNTER → 2021-05-02 | Outpatient (CLI) | payer MEDICARE ==
--- NOTE | 2021-05-02 13:06 | REP ---
INDICATION: OCCLUSION AND STENOSIS OF MIAH CAROTID COMPARISON: 08/10/2018. TECHNIQUE: Real-time ultrasound evaluation and duplex Doppler interrogation of the extracranial carotid vasculature is performed. FINDINGS: There is moderate plaquing and narrowing in both carotid bulbs extending into the internal and external carotid arteries. Luminal narrowing is less than 50%. There is no evidence of hemodynamically significant stenosis of either internal carotid artery. Normal flow velocities are seen. The vertebral arteries demonstrate normal direction of flow. RIGHT LEFT Peak systolic velocity ICA 92.0 cm/s 92.5 cm/s End diastolic velocity ICA 20.3 cm/s 28.9 cm/s Peak systolic velocity CCA 87.3 cm/s 120.3cm/s Peak systolic velocity ECA 137 cm/s 101.8 cm/s ICA/CCA ratio 1.05 0.77 IMPRESSION: Bilateral luminal narrowing of the internal carotid arteries less than 50%. No evidence of hemodynamically significant stenosis. <Electronically signed by Nickolas Peters > 05/02/21 [id number]
== END ==
LOC: M RAD 10:01
PROVIDERS: ATTEND Physician Assistant
DX: I65.23 Occlusion and stenosis of bilateral carotid arteries (principal)

== ENCOUNTER 2021-05-20 11:20 | Emergency (ER) | payer MEDICARE ==
[~2021-05-20] VITALS: Ht 154.9 cm; Wt 51.8 kg
[2021-05-20] MEDS ORDERED: PARO30TA4 (11:53)
[2021-05-20] MEDS ORDERED: LOSA50TA88 (11:53)
[2021-05-20] MEDS ORDERED: SPIR12.9 (11:53)
[2021-05-20] MEDS ORDERED: SYMB16INH (11:53)
[2021-05-20] MEDS ORDERED: SPIR-10 (11:53)
[2021-05-20] MEDS ORDERED: BISO5TAB14 (11:53)
[2021-05-20] MEDS ORDERED: CYCL5TAB (11:53)
[2021-05-20] MEDS ORDERED: NAPR-837 PO (12:56)
[2021-05-20] MEDS ORDERED: CYCL-707 PO (12:56)
[2021-05-20 13:17] VITALS: BP 166/93
== END 2021-05-20 13:24 | disposition home or self-care (01) ==
LOC: M ED 11:20
DX: S23.3XXA Sprain of ligaments of thoracic spine, initial encounter (principal); X58.XXXA Exposure to other specified factors, initial encounter; Y92.9 Unspecified place or not applicable; Y93.9 Activity, unspecified; Y99.9 Unspecified external cause status; I11.9 Hypertensive heart disease without heart failure; J44.9 Chronic obstructive pulmonary disease, unspecified; F17.200 Nicotine dependence, unspecified, uncomplicated; Z79.82 Long term (current) use of aspirin; Z79.899 Other long term (current) drug therapy

== ENCOUNTER → 2021-06-09 | Outpatient (CLI) | payer MEDICARE ==
[~2021-06-09] MED LIST changes: +BISO5TAB14; +CYCL-707 PO; +CYCL5TAB; +LOSA50TA88; +NAPR-837 PO; +PARO30TA4; +SPIR-10; +SPIR12.9; +SYMB16INH
--- NOTE | 2021-06-09 09:55 | REP ---
INDICATION: NICOTINE DEPENDENCE COMPARISON: 05/22/2020 TECHNIQUE: Axial noncontrast images from the thoracic inlet to the upper abdomen using low-dose lung screening technique (LDCT). FINDINGS: Advanced emphysematous changes with scattered scarring again noted and essentially unchanged. No acute consolidation, suspicious nodule, or mass. No effusion. No pneumothorax. Tracheobronchial tree is patent. Mediastinum demonstrates stable atherosclerotic changes to the aorta and coronary arteries. IMPRESSION: Lung-RADS category 1. Advanced emphysematous changes. Management recommendations include annual low-dose CT surveillance. <Electronically signed by Stephen Jordan > 06/09/21 0920
== END ==
LOC: M RAD 08:55
PROVIDERS: ATTEND Nurse Practitioner Adult Health
DX: Z12.2 Encounter for screening for malignant neoplasm of respiratory organs (principal); F17.210 Nicotine dependence, cigarettes, uncomplicated

== ENCOUNTER → 2021-07-21 | Outpatient (CLI) | payer MEDICARE ==
[~2021-07-21] MED LIST changes: +AUGM875T28 PO; +LOSA50TA28; -LOSA50TA88
== END ==
LOC: M RAD 15:31
PROVIDERS: ATTEND Nurse Practitioner Adult Health
DX: R05.9 Cough, unspecified (principal); R06.02 Shortness of breath; J43.9 Emphysema, unspecified

== ENCOUNTER → 2021-07-22 | Outpatient (REF) | payer MEDICARE | LOC: M LAB REF 12:37 | PROVIDERS: ATTEND Nurse Practitioner Adult Health | DX: R05.9 Cough, unspecified (principal); R06.02 Shortness of breath ==

== ENCOUNTER → 2021-08-05 | Outpatient (CLI) | payer MEDICARE ==
[~2021-08-05] MED LIST changes: -AUGM875T28 PO; -LOSA50TA28; +LOSA50TA88
--- NOTE | 2021-08-05 16:44 | REP ---
INDICATION: CHR OBSTRUCTIVE PULMON DISEASE WITH (ACUTE) LOWER RESP INFCT. COMPARISON: 07/21/2021 TECHNIQUE: PA and lateral FINDINGS: The cardiomediastinal silhouette lung do are unchanged. Persistent bibasilar opacities are noted status quo. There is evidence of bullous emphysematous change status quo. There is no change in the osseous structures. There is thoracic kyphosis and multiple thoracic vertebral body compression deformities of various grades status quo. IMPRESSION: Persistent bibasilar opacities an although unchanged from 07/21/2021 representing a change from the next latest prior of 12/27/2016. Contrast-enhanced chest CT is warranted. <Electronically signed by Kvng Strickland > 08/05/21 1640
== END ==
LOC: M RAD 15:55
PROVIDERS: ATTEND Nurse Practitioner Adult Health
DX: J44.0 Chronic obstructive pulmonary disease with (acute) lower respiratory infection (principal)

== ENCOUNTER → 2021-08-06 | Outpatient (CLI) | payer MEDICARE ==
--- NOTE | 2021-08-06 15:29 | REPVR ---
PROCEDURE INFORMATION: Exam: MR Lumbar Spine Without Contrast Exam date and time: 08/06/2021 2:42 PM Age: 71 years old Clinical indication: Low back pain; Additional info: Vertebrogenic low back pain TECHNIQUE: Imaging protocol: Multiplanar magnetic resonance images of the lumbar spine without intravenous contrast. COMPARISON: DX SPINE LS COMPLETE 02/04/2021 3:06 PM FINDINGS: Vertebrae: Mild exaggeration of the lumbar lordosis. 2 mm of grade 1 degenerative anterolisthesis of L4 on L5. Recent appearing acute or subacute [id number] T11 superior endplate compression without retropulsion; moderate bone marrow edema evident on the STIR sequence with correlative T1 hypointensity as well as conspicuity of fracture line on the sagittal T2 weighted sequence. Spinal epidural space: No evidence of epidural hematoma. Spinal cord: The conus medullaris ends normally. Disc desiccation throughout. Mild disc height loss at L4-L5. There is mild lower thoracic degenerative disc disease consisting mostly of prevertebral spondylosis. T10-T11: Evaluated on the sagittal imaging. Mild degenerative changes. No stenoses. L1-L2: Mild disc bulge as well as moderate facet arthropathy and ligamentum flavum buckling. No stenoses. L2-L3: Moderate facet arthropathy and ligamentum flavum buckling. No stenoses. L3-L4: Moderate facet arthropathy and ligamentum flavum buckling causing mild left lateral recess stenosis. The central spinal canal is patent. No significant foraminal stenoses. L4-L5: Anterolisthesis with pseudobulging of the intervertebral disc. Severe facet arthropathy with ankylosis across the facet joint spaces. The central spinal canal remains patent. No significant foraminal stenoses. L5-S1: Mild disc bulge as well as moderate facet arthropathy. The central spinal canal remains patent. Right lateral recess stenosis is mild. No significant foraminal stenoses. Other bones/joints: Bone marrow signal intensity appears diffusely heterogeneous on the T1 weighted imaging probably reflecting osseous demineralization. Soft tissues: Unremarkable. 1.9 cm cystic lesion in the left paravertebral region at the T12-L1 level assessed on the sagittal imaging only, image 1 series 401, probably benign potentially an exophytic kidney cyst. IMPRESSION: A recent, acute or subacute [id number] T11 superior endplate compression fracture. Electronically signed by: Precious Bautista On 08/06/2021 15:28:46 PM
== END ==
LOC: M RAD 13:48
PROVIDERS: ATTEND Physician Assistant
DX: M54.51 Vertebrogenic low back pain (principal)

== ENCOUNTER → 2021-08-08 | Outpatient (REF) | payer MEDICARE ==
[~2021-08-08] MED LIST changes: +AUGM875T28 PO; +LOSA50TA28; -LOSA50TA88
== END ==
LOC: M LAB REF 13:56
PROVIDERS: ATTEND Nurse Practitioner Adult Health
DX: J44.0 Chronic obstructive pulmonary disease with (acute) lower respiratory infection (principal)

== ENCOUNTER → 2021-09-12 | Outpatient (CLI) | payer MEDICARE | LOC: M RAD 15:34 | PROVIDERS: ATTEND Physician Assistant | DX: S22.060A Wedge compression fracture of T7-T8 vertebra, initial encounter for closed fracture (principal); M51.24 Other intervertebral disc displacement, thoracic region ==

== ENCOUNTER → 2021-10-06 | Outpatient (CLI) | payer MEDICARE ==
[2021-10-06 14:53] LABS: BASO # 0.1 10^3/uL (0.0-0.2); BASO % 0.8 % (0.0-1.0); HEMATOCRIT 49.8 % (36.0-47.0); HEMOGLOBIN 16.8 g/dl (12.0-15.5); LYMPH # 1.4 10^3/uL (1.5-5.0); LYMPH % 19.8 % (24.0-44.0); MEAN CORPUSCULAR HEMOGLOBIN 30.3 pg (27.0-33.0); MEAN CORPUSCULAR HGB CONC 33.7 g/dl (32.0-36.5); MEAN CORPUSCULAR VOLUME 89.7 fl (80.0-96.0); MONO # 0.8 10^3/uL (0.0-0.8); NEUTROPHILS # 4.9 10^3/uL (1.5-8.5); NEUTROPHILS % 67.8 % (36.0-66.0); PLATELET COUNT, AUTOMATED 440 10^3/uL (150-450); RED BLOOD COUNT 5.55 10^6/uL (4.00-5.40); WHITE BLOOD COUNT 7.3 10^3/uL (4.0-10.0)
[2021-10-06 15:19] LABS: CALCIUM LEVEL 9.8 MG/DL (8.8-10.2); CREATININE FOR GFR 1.02 MG/DL (0.55-1.30); GLOMERULAR FILTRATION RATE 56.9 (>39); POTASSIUM SERUM 4.1 MEQ/L (3.5-5.1)
== END ==
LOC: M LAB 14:17
PROVIDERS: ATTEND Physician Assistant
DX: R06.02 Shortness of breath (principal)

== ENCOUNTER 2021-12-19 09:30 | Outpatient (RCR) | payer MEDICARE | END 2021-12-20 | LOC: M PT 09:30 | PROVIDERS: ATTEND Orthopaedic Surgery | DX: M48.54XD Collapsed vertebra, not elsewhere classified, thoracic region, subsequent encounter for fracture with routine healing (principal) ==

== ENCOUNTER 2022-01-14 09:28 | Outpatient (RCR) | payer MEDICARE | END 2022-01-20 | LOC: M PT 09:28 | PROVIDERS: ATTEND Orthopaedic Surgery | DX: M48.54XD Collapsed vertebra, not elsewhere classified, thoracic region, subsequent encounter for fracture with routine healing (principal) ==

== ENCOUNTER 2022-02-04 09:27 | Outpatient (RCR) | payer MEDICARE | END 2022-02-19 | LOC: M PT 09:27 | PROVIDERS: ATTEND Orthopaedic Surgery | DX: M48.54XD Collapsed vertebra, not elsewhere classified, thoracic region, subsequent encounter for fracture with routine healing (principal) ==

== ENCOUNTER 2022-03-10 13:06 | Inpatient (IN) | payer MEDICARE ==
[~2022-03-10] VITALS: Ht 157.5 cm; Wt 48.3 kg
[~2022-03-10 13:06] MED LIST changes: -BISO5TAB14; +BISO5TAB14 PO; -LOSA50TA28; +LOSA50TA28 PO; -PARO30TA4; +PARO30TA4 PO; -SYMB16INH; +SYMB16INH INH
[2022-03-10 14:09] LABS: BASO % 0.7 % (0.0-1.0); EOS % 0.5 % (0.0-3.0); HEMATOCRIT 41.5 % (36.0-47.0); HEMOGLOBIN 14.3 g/dl (12.0-15.5); LYMPH # 1.4 10^3/uL (1.5-5.0); LYMPH % 25.3 % (24.0-44.0); MEAN CORPUSCULAR HEMOGLOBIN 31.6 pg (27.0-33.0); MEAN CORPUSCULAR HGB CONC 34.5 g/dl (32.0-36.5); MEAN CORPUSCULAR VOLUME 91.8 fl (80.0-96.0); MONO # 0.6 10^3/uL (0.0-0.8); MONO % 10.8 % (2.0-8.0); NEUTROPHILS # 3.4 10^3/uL (1.5-8.5); NEUTROPHILS % 62.3 % (36.0-66.0); PLATELET COUNT, AUTOMATED 351 10^3/uL (150-450); RED BLOOD COUNT 4.52 10^6/uL (4.00-5.40); WHITE BLOOD COUNT 5.5 10^3/uL (4.0-10.0)
[2022-03-10] MEDS ORDERED: COMBIVENT RESPIMAT 100-20MCG INHALER 4GM INH STA (14:43)
[2022-03-10 14:45] LABS: ALBUMIN 3.9 GM/DL (3.2-5.2); ALT/SGPT 13 U/L (12-78); BILIRUBIN,DIRECT 0.2 MG/DL (0.0-0.2); BILIRUBIN,TOTAL 0.7 MG/DL (0.2-1.0); BLOOD UREA NITROGEN 11 MG/DL (7-18); CALCIUM LEVEL 9.3 MG/DL (8.8-10.2); CARBON DIOXIDE LEVEL 27 MEQ/L (21-32); CHLORIDE LEVEL 99 MEQ/L (98-107); CREATININE FOR GFR 0.61 MG/DL (0.55-1.30); GLOMERULAR FILTRATION RATE > 60.0 (>39); GLUCOSE, FASTING 102 MG/DL (70-100); POTASSIUM SERUM 4.4 MEQ/L (3.5-5.1); SODIUM LEVEL 130 MEQ/L (136-145); TOTAL PROTEIN 6.6 GM/DL (6.4-8.2)
[2022-03-10] MEDS ORDERED: ONDANSETRON 4MG 2ML VIAL IV ONE (14:45)
[2022-03-10] MEDS ORDERED: methylPREDNISolone 125MG 2ML VIAL IV ONE (14:45)
[2022-03-10 14:59] LABS: BASO % 0.4 % (0.0-1.0); HEMATOCRIT 42.1 % (36.0-47.0); HEMOGLOBIN 14.6 g/dl (12.0-15.5); LYMPH # 1.2 10^3/uL (1.5-5.0); MEAN CORPUSCULAR HEMOGLOBIN 31.7 pg (27.0-33.0); MEAN CORPUSCULAR HGB CONC 34.7 g/dl (32.0-36.5); MEAN CORPUSCULAR VOLUME 91.3 fl (80.0-96.0); MONO # 0.7 10^3/uL (0.0-0.8); MONO % 8.6 % (2.0-8.0); NEUTROPHILS % 75.6 % (36.0-66.0); PLATELET COUNT, AUTOMATED 339 10^3/uL (150-450); RED BLOOD COUNT 4.61 10^6/uL (4.00-5.40)
[2022-03-10 15:32] LABS: CK-MB VALUE MASS 2.9 NG/ML (<3.6); MB/CK RELATIVE INDEX 2.87 (< OR =4)
[2022-03-10 15:39] LABS: BLOOD UREA NITROGEN 10 MG/DL (7-18); CALCIUM LEVEL 9.1 MG/DL (8.8-10.2); CARBON DIOXIDE LEVEL 26 MEQ/L (21-32); CHLORIDE LEVEL 99 MEQ/L (98-107); CREATININE FOR GFR 0.57 MG/DL (0.55-1.30); FREE T4 1.26 NG/DL (0.76-1.46); GLOMERULAR FILTRATION RATE > 60.0 (>39); GLUCOSE, FASTING 103 MG/DL (70-100); LIPASE 114 U/L (73-393); NT-PRO BNP 177 PG/ML (<125); POTASSIUM SERUM 4.2 MEQ/L (3.5-5.1); SODIUM LEVEL 130 MEQ/L (136-145)
[2022-03-10 16:32] LABS: CK-MB VALUE MASS 2.6 NG/ML (<3.6); MB/CK RELATIVE INDEX 3.21 (< OR =4)
[2022-03-10] MEDS ORDERED: ISOVUE-370 76% 100ML VIAL As Ordered ONE (16:54)
[2022-03-10] MEDS: SYMBICORT 160/4.5MCG INHALER 6GM INH SCH (20:00)
[2022-03-10] MEDS ORDERED: MOM 30ML SUSPENSION UDC PO PRN (22:10)
[2022-03-10] MEDS ORDERED: guaiFENesin DM LIQ 10ML UD PO PRN (22:10)
[2022-03-10] MEDS ORDERED: ACETAMINOPHEN TAB 650MG DOSE (2X325MG) PO PRN (22:10)
[2022-03-10] MEDS ORDERED: SULF500T41 PO (22:17)
[2022-03-10] MEDS ORDERED: POTA99CA2 PO (22:17)
[2022-03-10] MEDS ORDERED: HOME MED LIST COMPLETE! XX SCH (22:20)
[2022-03-10] MEDS ORDERED: POLYVINYL ALCOHOL OPHTH SOLN 15 ML(LIQUITEARS) OU PRN (22:45)
[2022-03-10] MEDS: methylPREDNISolone 125MG 2ML VIAL IV SCH (23:11)
[2022-03-10] MEDS: guaiFENesin ER 600 MG TAB PO SCH (23:11)
[2022-03-11] VITALS (9 sets, daily range): BP systolic 111–133; BP diastolic 55–71; O2SAT 94–96
[2022-03-11] MEDS: sulfaSALAzine 500 MG TABEC PO SCH ×3 (01:48→21:11)
[2022-03-11] MEDS: IPRATROPIUM 0.5MG/ALBUTEROL 2.5MG INH SOL UD 3ML (DUONEB) NEB SCH ×4 (02:00→19:29)
[2022-03-11 06:31] LABS: HEMATOCRIT 41.3 % (36.0-47.0); HEMOGLOBIN 14.3 g/dl (12.0-15.5); MEAN CORPUSCULAR HEMOGLOBIN 31.7 pg (27.0-33.0); MEAN CORPUSCULAR HGB CONC 34.6 g/dl (32.0-36.5); MEAN CORPUSCULAR VOLUME 91.6 fl (80.0-96.0); PLATELET COUNT, AUTOMATED 339 10^3/uL (150-450); RED BLOOD COUNT 4.51 10^6/uL (4.00-5.40); WHITE BLOOD COUNT 7.5 10^3/uL (4.0-10.0)
[2022-03-11] MEDS: methylPREDNISolone 125MG 2ML VIAL IV SCH ×3 (06:39→23:45)
[2022-03-11 06:48] LABS: INR 1.05; PROTHROMBIN TIME 14.1 SECONDS (12.7-14.5)
[2022-03-11 07:00] LABS: BLOOD UREA NITROGEN 21 MG/DL (7-18); CALCIUM LEVEL 8.5 MG/DL (8.8-10.2); CARBON DIOXIDE LEVEL 26 MEQ/L (21-32); CHLORIDE LEVEL 95 MEQ/L (98-107); CREATININE FOR GFR 0.63 MG/DL (0.55-1.30); GLOMERULAR FILTRATION RATE > 60.0 (>39); GLUCOSE, FASTING 119 MG/DL (70-100); POTASSIUM SERUM 4.4 MEQ/L (3.5-5.1); SODIUM LEVEL 127 MEQ/L (136-145)
[2022-03-11] MEDS: TIOTROPIUM INHALER/CAPSULE (SPIRIVA) INH SCH (08:52)
[2022-03-11] MEDS: SYMBICORT 160/4.5MCG INHALER 6GM INH SCH ×2 (08:52→19:31)
[2022-03-11] MEDS: amLODIPine 5 MG TAB PO SCH ×2 (09:00→21:00)
[2022-03-11] MEDS: bisoproloL fumarate 5 MG TAB PO SCH (09:00)
[2022-03-11] MEDS ORDERED: SPIRONOLACTONE 12.5MG PER 1/2 TABLET PO SCH (09:00)
[2022-03-11] MEDS ORDERED: LOSARTAN 50MG TABLET PO SCH (09:00)
[2022-03-11] MEDS: ENOXAPARIN 40MG/0.4ML SYRINGE (J1650 PER 10MG) SC SCH (11:23)
[2022-03-11] MEDS: ASPIRIN 81MG ENTERIC TABLET PO SCH (11:24)
[2022-03-11] MEDS: guaiFENesin ER 600 MG TAB PO SCH ×2 (11:24→21:10)
[2022-03-11] MEDS: ALBUTEROL SULFATE 2.5 MG/0.5 ML INH NEB SOLN NEB PRN (12:23)
[2022-03-11] MEDS: SODIUM CHLORIDE 1 GM TAB PO SCH ×2 (12:30→18:11)
[2022-03-12] VITALS (14 sets, daily range): BP systolic 113–119; BP diastolic 58–62; O2SAT 92–96
[2022-03-12] MEDS: IPRATROPIUM 0.5MG/ALBUTEROL 2.5MG INH SOL UD 3ML (DUONEB) NEB SCH ×4 (02:00→19:37)
[2022-03-12] MEDS: methylPREDNISolone 125MG 2ML VIAL IV SCH ×3 (06:41→23:35)
[2022-03-12 07:56] LABS: HEMOGLOBIN 13.4 g/dl (12.0-15.5); MEAN CORPUSCULAR HEMOGLOBIN 31.2 pg (27.0-33.0); MEAN CORPUSCULAR HGB CONC 33.5 g/dl (32.0-36.5); PLATELET COUNT, AUTOMATED 357 10^3/uL (150-450); WHITE BLOOD COUNT 10.8 10^3/uL (4.0-10.0)
[2022-03-12 08:22] LABS: BLOOD UREA NITROGEN 27 MG/DL (7-18); CALCIUM LEVEL 8.5 MG/DL (8.8-10.2); CARBON DIOXIDE LEVEL 27 MEQ/L (21-32); CHLORIDE LEVEL 95 MEQ/L (98-107); CREATININE FOR GFR 0.59 MG/DL (0.55-1.30); GLOMERULAR FILTRATION RATE > 60.0 (>39); GLUCOSE, FASTING 119 MG/DL (70-100); MAGNESIUM LEVEL 1.9 MG/DL (1.8-2.4); POTASSIUM SERUM 4.7 MEQ/L (3.5-5.1); SODIUM LEVEL 128 MEQ/L (136-145)
[2022-03-12] MEDS: TIOTROPIUM INHALER/CAPSULE (SPIRIVA) INH SCH (08:48)
[2022-03-12] MEDS: SYMBICORT 160/4.5MCG INHALER 6GM INH SCH ×2 (08:49→19:37)
[2022-03-12] MEDS: amLODIPine 5 MG TAB PO SCH ×2 (09:00→21:00)
[2022-03-12] MEDS: SODIUM CHLORIDE 1 GM TAB PO SCH (09:05)
[2022-03-12] MEDS: sulfaSALAzine 500 MG TABEC PO SCH ×2 (09:06→22:59)
[2022-03-12] MEDS: ASPIRIN 81MG ENTERIC TABLET PO SCH (09:07)
[2022-03-12] MEDS: guaiFENesin ER 600 MG TAB PO SCH ×2 (09:07→22:59)
[2022-03-12] MEDS: bisoproloL fumarate 5 MG TAB PO SCH (09:07)
[2022-03-12] MEDS: ENOXAPARIN 40MG/0.4ML SYRINGE (J1650 PER 10MG) SC SCH (09:08)
[2022-03-12] MEDS ORDERED: TOLVAPTAN 7.5 MG HALF-TAB PO ONE (12:00)
[2022-03-12 13:24] LABS: BLOOD UREA NITROGEN 26 MG/DL (7-18); CALCIUM LEVEL 8.6 MG/DL (8.8-10.2); CARBON DIOXIDE LEVEL 26 MEQ/L (21-32); CHLORIDE LEVEL 99 MEQ/L (98-107); CREATININE FOR GFR 0.59 MG/DL (0.55-1.30); GLOMERULAR FILTRATION RATE > 60.0 (>39); GLUCOSE, FASTING 107 MG/DL (70-100); POTASSIUM SERUM 4.9 MEQ/L (3.5-5.1); SODIUM LEVEL 131 MEQ/L (136-145)
[2022-03-12] MEDS ORDERED: PROHANCE 279.3MG/ML 15ML VIAL As Ordered ONE (15:39)
[2022-03-12 18:48] LABS: BLOOD UREA NITROGEN 21 MG/DL (7-18); CALCIUM LEVEL 8.8 MG/DL (8.8-10.2); CARBON DIOXIDE LEVEL 32 MEQ/L (21-32); CHLORIDE LEVEL 98 MEQ/L (98-107); CREATININE FOR GFR 0.56 MG/DL (0.55-1.30); GLOMERULAR FILTRATION RATE > 60.0 (>39); GLUCOSE, FASTING 102 MG/DL (70-100); POTASSIUM SERUM 4.6 MEQ/L (3.5-5.1); SODIUM LEVEL 132 MEQ/L (136-145)
[2022-03-13] VITALS (11 sets, daily range): BP systolic 116–146; BP diastolic 57–70; O2SAT 93–97
[2022-03-13] MEDS: ALBUTEROL SULFATE 2.5 MG/0.5 ML INH NEB SOLN NEB PRN (00:46)
[2022-03-13] MEDS: IPRATROPIUM 0.5MG/ALBUTEROL 2.5MG INH SOL UD 3ML (DUONEB) NEB SCH ×7 (02:00→23:09)
[2022-03-13 06:47] LABS: HEMATOCRIT 42.1 % (36.0-47.0); HEMOGLOBIN 14.1 g/dl (12.0-15.5); MEAN CORPUSCULAR HEMOGLOBIN 31.2 pg (27.0-33.0); MEAN CORPUSCULAR HGB CONC 33.5 g/dl (32.0-36.5); MEAN CORPUSCULAR VOLUME 93.1 fl (80.0-96.0); PLATELET COUNT, AUTOMATED 362 10^3/uL (150-450); RED BLOOD COUNT 4.52 10^6/uL (4.00-5.40); WHITE BLOOD COUNT 8.9 10^3/uL (4.0-10.0)
[2022-03-13] MEDS: methylPREDNISolone 125MG 2ML VIAL IV SCH ×3 (06:51→23:13)
[2022-03-13 07:46] LABS: BLOOD UREA NITROGEN 22 MG/DL (7-18); CALCIUM LEVEL 8.7 MG/DL (8.8-10.2); CARBON DIOXIDE LEVEL 31 MEQ/L (21-32); CHLORIDE LEVEL 98 MEQ/L (98-107); CREATININE FOR GFR 0.62 MG/DL (0.55-1.30); GLOMERULAR FILTRATION RATE > 60.0 (>39); GLUCOSE, FASTING 116 MG/DL (70-100); MAGNESIUM LEVEL 2.1 MG/DL (1.8-2.4); POTASSIUM SERUM 4.8 MEQ/L (3.5-5.1); SODIUM LEVEL 133 MEQ/L (136-145)
[2022-03-13] MEDS: SYMBICORT 160/4.5MCG INHALER 6GM INH SCH ×2 (07:47→20:20)
[2022-03-13] MEDS: TIOTROPIUM INHALER/CAPSULE (SPIRIVA) INH SCH (07:47)
[2022-03-13] MEDS: sulfaSALAzine 500 MG TABEC PO SCH ×2 (08:39→20:59)
[2022-03-13] MEDS: ENOXAPARIN 40MG/0.4ML SYRINGE (J1650 PER 10MG) SC SCH (08:39)
[2022-03-13] MEDS: amLODIPine 5 MG TAB PO SCH ×2 (08:40→20:54)
[2022-03-13] MEDS: ASPIRIN 81MG ENTERIC TABLET PO SCH (08:40)
[2022-03-13] MEDS: bisoproloL fumarate 5 MG TAB PO SCH (08:40)
[2022-03-13] MEDS: guaiFENesin ER 600 MG TAB PO SCH ×2 (08:40→20:59)
[2022-03-13] MEDS: MAALOX 30 ML SUSP *UDC PO PRN (08:49)
[2022-03-13] MEDS ORDERED: guaiFENesin ER 600 MG TAB PO ONE (09:15)
[2022-03-14] VITALS: BP 129/72
[2022-03-14 04:00] VITALS: BP 141/82
[2022-03-14] MEDS: IPRATROPIUM 0.5MG/ALBUTEROL 2.5MG INH SOL UD 3ML (DUONEB) NEB SCH ×5 (04:39→19:40)
[2022-03-14 05:54] LABS: HEMATOCRIT 37.9 % (36.0-47.0); MEAN CORPUSCULAR HGB CONC 34.3 g/dl (32.0-36.5); MEAN CORPUSCULAR VOLUME 90.5 fl (80.0-96.0); PLATELET COUNT, AUTOMATED 308 10^3/uL (150-450); RED BLOOD COUNT 4.19 10^6/uL (4.00-5.40)
[2022-03-14 06:21] LABS: BLOOD UREA NITROGEN 20 MG/DL (7-18); CALCIUM LEVEL 8.3 MG/DL (8.8-10.2); CARBON DIOXIDE LEVEL 25 MEQ/L (21-32); CHLORIDE LEVEL 97 MEQ/L (98-107); CREATININE FOR GFR 0.52 MG/DL (0.55-1.30); GLOMERULAR FILTRATION RATE > 60.0 (>39); GLUCOSE, FASTING 112 MG/DL (70-100); MAGNESIUM LEVEL 1.8 MG/DL (1.8-2.4); POTASSIUM SERUM 4.5 MEQ/L (3.5-5.1); SODIUM LEVEL 129 MEQ/L (136-145)
[2022-03-14] MEDS: methylPREDNISolone 125MG 2ML VIAL IV SCH (06:24)
[2022-03-14] MEDS: SYMBICORT 160/4.5MCG INHALER 6GM INH SCH ×2 (07:40→19:41)
[2022-03-14] MEDS: TIOTROPIUM INHALER/CAPSULE (SPIRIVA) INH SCH (07:40)
[2022-03-14] MEDS: sulfaSALAzine 500 MG TABEC PO SCH ×2 (09:23→20:34)
[2022-03-14] MEDS: ASPIRIN 81MG ENTERIC TABLET PO SCH (09:23)
[2022-03-14] MEDS: guaiFENesin ER 600 MG TAB PO SCH ×2 (09:23→20:34)
[2022-03-14] MEDS: amLODIPine 5 MG TAB PO SCH ×2 (09:23→20:34)
[2022-03-14] MEDS: bisoproloL fumarate 5 MG TAB PO SCH (09:24)
[2022-03-14] MEDS: ENOXAPARIN 40MG/0.4ML SYRINGE (J1650 PER 10MG) SC SCH (09:24)
[2022-03-14] MEDS: MAALOX 30 ML SUSP *UDC PO PRN (09:29)
[2022-03-14] MEDS ORDERED: TOLVAPTAN 15 MG TAB (SAMSCA) PO ONE (09:30)
[2022-03-14] MEDS: methylPREDNISolone 40MG 1ML VIAL IV SCH ×2 (13:16→22:07)
[2022-03-14 14:00] VITALS: BP 166/70
[2022-03-14 20:00] VITALS: BP 136/70
[2022-03-15] MEDS: IPRATROPIUM 0.5MG/ALBUTEROL 2.5MG INH SOL UD 3ML (DUONEB) NEB SCH ×7 (01:07→23:34)
[2022-03-15] MEDS: methylPREDNISolone 40MG 1ML VIAL IV SCH ×3 (05:53→22:11)
[2022-03-15 06:58] LABS: HEMATOCRIT 38.3 % (36.0-47.0); HEMOGLOBIN 13.3 g/dl (12.0-15.5); MEAN CORPUSCULAR HEMOGLOBIN 31.1 pg (27.0-33.0); MEAN CORPUSCULAR HGB CONC 34.7 g/dl (32.0-36.5); MEAN CORPUSCULAR VOLUME 89.7 fl (80.0-96.0); PLATELET COUNT, AUTOMATED 314 10^3/uL (150-450); RED BLOOD COUNT 4.27 10^6/uL (4.00-5.40)
[2022-03-15 07:27] LABS: BLOOD UREA NITROGEN 15 MG/DL (7-18); CALCIUM LEVEL 7.8 MG/DL (8.8-10.2); CARBON DIOXIDE LEVEL 25 MEQ/L (21-32); CHLORIDE LEVEL 93 MEQ/L (98-107); CREATININE FOR GFR 0.45 MG/DL (0.55-1.30); GLOMERULAR FILTRATION RATE > 60.0 (>39); GLUCOSE, FASTING 97 MG/DL (70-100); MAGNESIUM LEVEL 1.9 MG/DL (1.8-2.4); POTASSIUM SERUM 4.3 MEQ/L (3.5-5.1); SODIUM LEVEL 126 MEQ/L (136-145)
[2022-03-15] MEDS ORDERED: TOLVAPTAN 15 MG TAB (SAMSCA) PO ONE (07:35)
[2022-03-15] MEDS ORDERED: MUCI600T31 PO (07:36)
[2022-03-15] MEDS ORDERED: PRED10TA2 PO (07:36)
[2022-03-15] MEDS ORDERED: AMLO1TAB24 PO (07:36)
[2022-03-15] MEDS ORDERED: BACITAB PO (07:38)
[2022-03-15] MEDS: SYMBICORT 160/4.5MCG INHALER 6GM INH SCH ×2 (07:38→19:52)
[2022-03-15] MEDS: TIOTROPIUM INHALER/CAPSULE (SPIRIVA) INH SCH (07:38)
[2022-03-15] MEDS ORDERED: MOXI1TAB PO (07:38)
[2022-03-15] MEDS: ASPIRIN 81MG ENTERIC TABLET PO SCH (08:52)
[2022-03-15] MEDS: amLODIPine 5 MG TAB PO SCH ×2 (08:52→22:12)
[2022-03-15] MEDS: guaiFENesin ER 600 MG TAB PO SCH ×2 (08:52→22:12)
[2022-03-15] MEDS: sulfaSALAzine 500 MG TABEC PO SCH ×2 (08:52→22:12)
[2022-03-15] MEDS: ENOXAPARIN 40MG/0.4ML SYRINGE (J1650 PER 10MG) SC SCH (08:53)
[2022-03-15] MEDS: bisoproloL fumarate 5 MG TAB PO SCH (08:53)
[2022-03-15] MEDS: SODIUM CHLORIDE 1 GM TAB PO SCH ×3 (09:16→22:11)
[2022-03-15] MEDS: MAALOX 30 ML SUSP *UDC PO PRN (09:39)
[2022-03-15 10:15] VITALS: O2SAT 94
[2022-03-15 12:00] VITALS: BP 145/75
[2022-03-15 14:27] LABS: BLOOD UREA NITROGEN 13 MG/DL (7-18); CALCIUM LEVEL 7.9 MG/DL (8.8-10.2); CARBON DIOXIDE LEVEL 29 MEQ/L (21-32); CHLORIDE LEVEL 93 MEQ/L (98-107); CREATININE FOR GFR 0.47 MG/DL (0.55-1.30); GLOMERULAR FILTRATION RATE > 60.0 (>39); GLUCOSE, FASTING 95 MG/DL (70-100); POTASSIUM SERUM 4.1 MEQ/L (3.5-5.1); SODIUM LEVEL 127 MEQ/L (136-145)
[2022-03-15 20:00] VITALS: O2SAT 93
[2022-03-15 20:33] LABS: BLOOD UREA NITROGEN 14 MG/DL (7-18); CALCIUM LEVEL 7.8 MG/DL (8.8-10.2); CARBON DIOXIDE LEVEL 26 MEQ/L (21-32); CHLORIDE LEVEL 97 MEQ/L (98-107); GLOMERULAR FILTRATION RATE > 60.0 (>39); GLUCOSE, FASTING 123 MG/DL (70-100); POTASSIUM SERUM 4.1 MEQ/L (3.5-5.1); SODIUM LEVEL 130 MEQ/L (136-145)
[2022-03-15 21:00] VITALS: O2SAT 95
[2022-03-15 22:00] VITALS: O2SAT 93
[2022-03-15 23:00] VITALS: O2SAT 91
[2022-03-16] VITALS (10 sets, daily range): BP systolic 168–190; BP diastolic 80–81; O2SAT 91–96
[2022-03-16 02:13] LABS: BLOOD UREA NITROGEN 12 MG/DL (7-18); CALCIUM LEVEL 7.6 MG/DL (8.8-10.2); CARBON DIOXIDE LEVEL 27 MEQ/L (21-32); CHLORIDE LEVEL 97 MEQ/L (98-107); CREATININE FOR GFR 0.44 MG/DL (0.55-1.30); GLOMERULAR FILTRATION RATE > 60.0 (>39); GLUCOSE, FASTING 114 MG/DL (70-100); POTASSIUM SERUM 4.1 MEQ/L (3.5-5.1); SODIUM LEVEL 129 MEQ/L (136-145)
[2022-03-16] MEDS: IPRATROPIUM 0.5MG/ALBUTEROL 2.5MG INH SOL UD 3ML (DUONEB) NEB SCH ×2 (04:00→07:22)
[2022-03-16] MEDS ORDERED: bisoproloL fumarate 5 MG TAB PO SCH (06:10)
[2022-03-16] MEDS: methylPREDNISolone 40MG 1ML VIAL IV SCH (06:55)
[2022-03-16] MEDS: TIOTROPIUM INHALER/CAPSULE (SPIRIVA) INH SCH (07:22)
[2022-03-16] MEDS: SYMBICORT 160/4.5MCG INHALER 6GM INH SCH (07:22)
[2022-03-16] MEDS: sulfaSALAzine 500 MG TABEC PO SCH (07:27)
[2022-03-16] MEDS: ASPIRIN 81MG ENTERIC TABLET PO SCH (07:28)
[2022-03-16] MEDS: guaiFENesin ER 600 MG TAB PO SCH (07:28)
[2022-03-16] MEDS: ENOXAPARIN 40MG/0.4ML SYRINGE (J1650 PER 10MG) SC SCH (07:29)
[2022-03-16 07:42] LABS: HEMATOCRIT 40.3 % (36.0-47.0); HEMOGLOBIN 14.1 g/dl (12.0-15.5); MEAN CORPUSCULAR HEMOGLOBIN 31.3 pg (27.0-33.0); MEAN CORPUSCULAR VOLUME 89.4 fl (80.0-96.0); PLATELET COUNT, AUTOMATED 341 10^3/uL (150-450); RED BLOOD COUNT 4.51 10^6/uL (4.00-5.40); WHITE BLOOD COUNT 7.6 10^3/uL (4.0-10.0)
[2022-03-16 08:10] LABS: BLOOD UREA NITROGEN 11 MG/DL (7-18); CALCIUM LEVEL 8.4 MG/DL (8.8-10.2); CARBON DIOXIDE LEVEL 26 MEQ/L (21-32); CHLORIDE LEVEL 97 MEQ/L (98-107); GLOMERULAR FILTRATION RATE > 60.0 (>39); GLUCOSE, FASTING 90 MG/DL (70-100); MAGNESIUM LEVEL 1.9 MG/DL (1.8-2.4); POTASSIUM SERUM 4.5 MEQ/L (3.5-5.1); SODIUM LEVEL 128 MEQ/L (136-145)
[2022-03-16] MEDS: SODIUM CHLORIDE 1 GM TAB PO SCH (09:00)
[2022-03-16] MEDS ORDERED: COZA50TA PO (10:29)
[2022-03-16] MEDS ORDERED: LOSARTAN 50MG TABLET PO ONE (10:45)
[2022-03-17] MEDS ORDERED: LOSARTAN 50MG TABLET PO SCH (09:00)
== END 2022-03-16 12:35 | disposition home or self-care (01) | DRG 189 ==
LOC: M ED 13:06 → M ED INP 22:10 → M 4MAIN 03-11 01:11
PROVIDERS: ADMIT Internal Medicine; ATTEND General Practice
DX: J96.21 Acute and chronic respiratory failure with hypoxia (principal); J44.1 Chronic obstructive pulmonary disease with (acute) exacerbation; E87.1 Hypo-osmolality and hyponatremia; I10 Essential (primary) hypertension; E78.5 Hyperlipidemia, unspecified; F17.210 Nicotine dependence, cigarettes, uncomplicated; M06.9 Rheumatoid arthritis, unspecified; I16.0 Hypertensive urgency; K76.9 Liver disease, unspecified; Z79.899 Other long term (current) drug therapy; Z79.82 Long term (current) use of aspirin; Z79.52 Long term (current) use of systemic steroids

== ENCOUNTER → 2022-04-21 | Outpatient (REF) | payer MEDICARE ==
[~2022-04-21] MED LIST changes: +AMLO1TAB24 PO; +BACITAB PO; +COZA50TA PO; +MOXI1TAB PO; +MUCI600T31 PO; +POTA99CA2 PO; +PRED10TA2 PO
[2022-04-21 15:00] LABS: BASO % 0.4 % (0.0-1.0); HEMATOCRIT 38.7 % (36.0-47.0); LYMPH # 1.5 10^3/uL (1.5-5.0); LYMPH % 18.9 % (24.0-44.0); MEAN CORPUSCULAR HEMOGLOBIN 31.2 pg (27.0-33.0); MEAN CORPUSCULAR HGB CONC 33.6 g/dl (32.0-36.5); MEAN CORPUSCULAR VOLUME 92.8 fl (80.0-96.0); MONO # 0.9 10^3/uL (0.0-0.8); MONO % 10.8 % (2.0-8.0); NEUTROPHILS # 5.6 10^3/uL (1.5-8.5); NEUTROPHILS % 69.3 % (36.0-66.0); PLATELET COUNT, AUTOMATED 354 10^3/uL (150-450); RED BLOOD COUNT 4.17 10^6/uL (4.00-5.40); WHITE BLOOD COUNT 8.1 10^3/uL (4.0-10.0)
[2022-04-21 15:47] LABS: ALBUMIN 3.8 GM/DL (3.2-5.2); ALT/SGPT 15 U/L (12-78); BILIRUBIN,TOTAL 0.6 MG/DL (0.2-1.0); BLOOD UREA NITROGEN 17 MG/DL (7-18); CALCIUM LEVEL 9.4 MG/DL (8.8-10.2); CARBON DIOXIDE LEVEL 28 MEQ/L (21-32); CHLORIDE LEVEL 98 MEQ/L (98-107); GLOMERULAR FILTRATION RATE > 60.0 (>39); GLUCOSE, FASTING 103 MG/DL (70-100); POTASSIUM SERUM 4.8 MEQ/L (3.5-5.1); SODIUM LEVEL 132 MEQ/L (136-145); TOTAL PROTEIN 6.7 GM/DL (6.4-8.2)
== END ==
LOC: M SFHCADAM 12:10
PROVIDERS: ATTEND Physician Assistant
DX: K76.9 Liver disease, unspecified (principal); R63.4 Abnormal weight loss; E87.1 Hypo-osmolality and hyponatremia

== ENCOUNTER → 2022-09-23 | Outpatient (CLI) | payer MEDICARE ==
[2022-09-23 12:51] LABS: BLOOD UREA NITROGEN 19 MG/DL (9-23); CALCIUM LEVEL 9.3 MG/DL (8.3-10.6); CARBON DIOXIDE LEVEL 31 MMOL/L (20-31); CHLORIDE LEVEL 103 MMOL/L (98-107); CREATININE FOR GFR 0.66 MG/DL (0.55-1.30); GLOMERULAR FILTRATION RATE > 60.0 (>39); GLUCOSE, FASTING 83 MG/DL (74-106); POTASSIUM SERUM 4.2 MMOL/L (3.5-5.1); SODIUM LEVEL 139 MMOL/L (136-145)
== END ==
LOC: M LAB 11:35
PROVIDERS: ATTEND Nurse Practitioner Adult Health
DX: I10 Essential (primary) hypertension (principal); K76.9 Liver disease, unspecified

== ENCOUNTER → 2022-09-25 | Outpatient (CLI) | payer MEDICARE ==
[~2022-09-25] MED LIST changes: +ISOVUE-370 76% 100ML VIAL As Ordered ONE
== END ==
LOC: M RAD 16:01
PROVIDERS: ATTEND Physician Assistant
DX: K76.9 Liver disease, unspecified (principal)
CPT/HCPCS: 74177; Q9967

== ENCOUNTER → 2022-10-12 | Outpatient (CLI) | payer MEDICARE ==
[~2022-10-12] MED LIST changes: -ISOVUE-370 76% 100ML VIAL As Ordered ONE
== END ==
LOC: M RAD 15:10
PROVIDERS: ATTEND Nurse Practitioner Adult Health
DX: J44.9 Chronic obstructive pulmonary disease, unspecified (principal)

== ENCOUNTER → 2022-10-12 | Outpatient (REF) | payer MEDICARE | LOC: M LAB REF 16:54 | PROVIDERS: ATTEND Nurse Practitioner Adult Health | DX: J44.9 Chronic obstructive pulmonary disease, unspecified (principal) ==

== ENCOUNTER → 2022-11-11 | Outpatient (REF) | payer MEDICARE | LOC: M LAB REF 12:54 | PROVIDERS: ATTEND Nurse Practitioner Adult Health | DX: J44.0 Chronic obstructive pulmonary disease with (acute) lower respiratory infection (principal) ==

== ENCOUNTER → 2022-11-16 | Outpatient (REF) | payer MEDICARE | LOC: M LAB REF 16:16 | PROVIDERS: ATTEND Nurse Practitioner Adult Health | DX: J44.0 Chronic obstructive pulmonary disease with (acute) lower respiratory infection (principal) ==

== ENCOUNTER → 2022-12-02 | Outpatient (REF) | payer MEDICARE ==
[~2022-12-02] MED LIST changes: +ARTIDRO4 OU; -POLYOPD OU; +PRED20TA PO
== END ==
LOC: M LAB REF 18:10
PROVIDERS: ATTEND Nurse Practitioner Adult Health
DX: J44.0 Chronic obstructive pulmonary disease with (acute) lower respiratory infection (principal)

== ENCOUNTER → 2022-12-04 | Outpatient (CLI) | payer MEDICARE ==
[2022-12-04 14:12] LABS: CALCIUM LEVEL 9.1 MG/DL (8.3-10.6); POTASSIUM SERUM 4.2 MMOL/L (3.5-5.1)
== END ==
LOC: M LAB 12:58
PROVIDERS: ATTEND Internal Medicine Critical Care Medicine
DX: J47.9 Bronchiectasis, uncomplicated (principal)

== ENCOUNTER 2022-12-08 10:32 | Emergency (ER) | payer MEDICARE ==
[~2022-12-08] VITALS: Ht 154.9 cm; Wt 50.9 kg
[~2022-12-08 10:32] MED LIST changes: -PRED20TA PO
[2022-12-08] MEDS ORDERED: methylPREDNISolone 125MG 2ML VIAL IV ONE (11:30)
[2022-12-08] MEDS ORDERED: IPRATROPIUM 0.5MG/ALBUTEROL 2.5MG INH SOL UD 3ML (DUONEB) NEB ONE (11:30)
[2022-12-08 12:33] LABS: VENOUS BASE EXCESS 2.8 (-2.0-2.0); VENOUS HCO3 29.1 MEQ/L (23.0-27.0); VENOUS O2 SATURATION 95.1 % (60.0-80.0); VENOUS PARTIAL PRESSURE CO2 51.9 mmHg (38.0-50.0); VENOUS PARTIAL PRESSURE O2 76.1 mmHg (30.0-50.0); VENOUS PH 7.367 UNITS (7.330-7.430); VENOUS STANDARD HCO3 26.9 MEQ/L; VENOUS TOTAL CO2 30.7 MEQ/L (24.0-28.0)
[2022-12-08 12:48] LABS: BASO % 0.4 % (0.0-1.0); EOS % 0.1 % (0.0-3.0); HEMATOCRIT 36.4 % (36.0-47.0); HEMOGLOBIN 12.2 g/dl (12.0-15.5); LYMPH # 1.1 10^3/uL (1.5-5.0); LYMPH % 13.5 % (24.0-44.0); MEAN CORPUSCULAR HEMOGLOBIN 31.2 pg (27.0-33.0); MEAN CORPUSCULAR HGB CONC 33.5 g/dl (32.0-36.5); MEAN CORPUSCULAR VOLUME 93.1 fl (80.0-96.0); MONO # 0.7 10^3/uL (0.0-0.8); MONO % 8.8 % (2.0-8.0); NEUTROPHILS # 6.4 10^3/uL (1.5-8.5); NEUTROPHILS % 76.7 % (36.0-66.0); PLATELET COUNT, AUTOMATED 372 10^3/uL (150-450); RED BLOOD COUNT 3.91 10^6/uL (4.00-5.40); WHITE BLOOD COUNT 8.3 10^3/uL (4.0-10.0)
[2022-12-08 12:56] LABS: ALBUMIN 3.6 G/DL (3.2-5.2); ALKALINE PHOSPHATASE 73 U/L (46-116); ALT/SGPT < 9 U/L (7.0-40); AST/SGOT 17 U/L (<34); BILIRUBIN,DIRECT 0.3 MG/DL (<0.4); BLOOD UREA NITROGEN 16 MG/DL (9-23); CALCIUM LEVEL 8.9 MG/DL (8.3-10.6); CARBON DIOXIDE LEVEL 29 MMOL/L (20-31); CHLORIDE LEVEL 100 MMOL/L (98-107); CREATININE FOR GFR 0.64 MG/DL (0.55-1.30); GLOMERULAR FILTRATION RATE > 60.0 (>39); GLUCOSE, FASTING 84 MG/DL (74-106); POTASSIUM SERUM 4.2 MMOL/L (3.5-5.1); SODIUM LEVEL 135 MMOL/L (136-145); TOTAL PROTEIN 6.3 G/DL (5.7-8.2)
[2022-12-08 12:58] LABS: THYROID STIMULATING HORMONE 2.085 uIU/ML (0.55-4.78)
[2022-12-08] MEDS ORDERED: ACETAMINOPHEN 500 MG TAB PO ONE (14:30)
[2022-12-08 14:45] VITALS: BP 139/84
[2022-12-08] MEDS ORDERED: PRED20TA PO (14:56)
== END 2022-12-08 15:25 | disposition home or self-care (01) ==
LOC: M ED 10:32
DX: J44.1 Chronic obstructive pulmonary disease with (acute) exacerbation (principal); I10 Essential (primary) hypertension; E78.5 Hyperlipidemia, unspecified; F41.0 Panic disorder [episodic paroxysmal anxiety]; Z87.891 Personal history of nicotine dependence; Z88.1 Allergy status to other antibiotic agents; Z79.82 Long term (current) use of aspirin; Z79.52 Long term (current) use of systemic steroids; Z79.899 Other long term (current) drug therapy
CPT/HCPCS: 36415; 71045; 80048; 80076; 82803; 83605; 83880; 84443; 85025; 87040; 87486; 87581; 87633; 87798; 93005; 94640; 94760; 96374; 99285; J2930

== ENCOUNTER 2022-12-26 14:15 | Inpatient (IN) | payer MEDICARE ==
[~2022-12-26] VITALS: Ht 152.4 cm; Wt 55.6 kg
[~2022-12-26 14:15] MED LIST changes: -COZA50TA PO; +LOSA-528 PO; +PRED20TA PO
[2022-12-26] MEDS ORDERED: IPRATROPIUM 0.02% SOLN 0.5MG 2.5ML NEB NEB ONE (14:30)
[2022-12-26] MEDS ORDERED: methylPREDNISolone 125MG 2ML VIAL IV ONE (14:30)
[2022-12-26] MEDS ORDERED: LEVALBUTEROL 1.25MG 0.5ML CONCENTRATE NEB NEB ONE (14:30)
[2022-12-26] MEDS ORDERED: ACETAMINOPHEN 325 MG TAB PO ONE (14:40)
[2022-12-26 15:05] LABS: BASO % 0.3 % (0.0-1.0); EOS % 0.1 % (0.0-3.0); HEMATOCRIT 37.6 % (36.0-47.0); HEMOGLOBIN 12.8 g/dl (12.0-15.5); LYMPH # 0.5 10^3/uL (1.5-5.0); LYMPH % 3.3 % (24.0-44.0); MEAN CORPUSCULAR VOLUME 88.3 fl (80.0-96.0); MONO # 0.8 10^3/uL (0.0-0.8); MONO % 5.3 % (2.0-8.0); NEUTROPHILS # 14.1 10^3/uL (1.5-8.5); NEUTROPHILS % 90.3 % (36.0-66.0); PLATELET COUNT, AUTOMATED 359 10^3/uL (150-450); RED BLOOD COUNT 4.26 10^6/uL (4.00-5.40); WHITE BLOOD COUNT 15.6 10^3/uL (4.0-10.0)
[2022-12-26 15:28] LABS: ALBUMIN 2.8 G/DL (3.2-5.2); ALKALINE PHOSPHATASE 79 U/L (46-116); ALT/SGPT 14 U/L (7.0-40); AST/SGOT 26 U/L (<34); BILIRUBIN,DIRECT 0.5 MG/DL (<0.4); BILIRUBIN,TOTAL 1.3 MG/DL (0.3-1.2); BLOOD UREA NITROGEN 18 MG/DL (9-23); CALCIUM LEVEL 8.1 MG/DL (8.3-10.6); CARBON DIOXIDE LEVEL 26 MMOL/L (20-31); CHLORIDE LEVEL 87 MMOL/L (98-107); CREATININE FOR GFR 0.72 MG/DL (0.55-1.30); GLOMERULAR FILTRATION RATE > 60.0 (>39); GLUCOSE, FASTING 104 MG/DL (74-106); POTASSIUM SERUM 4.6 MMOL/L (3.5-5.1); SODIUM LEVEL 123 MMOL/L (136-145)
[2022-12-26 15:30] LABS: THYROXINE (T4) 7.9 UG/DL (4.5-10.9)
[2022-12-26 15:31] LABS: THYROID STIMULATING HORMONE 1.764 uIU/ML (0.55-4.78)
[2022-12-26] MEDS ORDERED: cefTRIAXone SOD 1 GM in D5W MINI-BAG PLUS 50 ML IV ONE (16:00)
[2022-12-26] MEDS ORDERED: AZITHROMYCIN INJ 500 MG, VIAL MATE ADAPTER 1 EACH in D5W 250 ML IV ONE (16:00)
[2022-12-26] MEDS ORDERED: ISOVUE-370 76% 100ML VIAL As Ordered ONE (16:00)
[2022-12-26] MEDS ORDERED: ACETAMINOPHEN TAB 650MG DOSE (2X325MG) PO PRN (18:00)
[2022-12-26] MEDS ORDERED: PRED10TA2 PO (18:16)
[2022-12-26] MEDS ORDERED: LOSA100T46 PO (18:16)
[2022-12-26] MEDS ORDERED: HYDR-643 PO (18:16)
[2022-12-26] MEDS ORDERED: SPIR-10 PO (18:16)
[2022-12-26] MEDS ORDERED: AMOX875T PO (18:16)
[2022-12-26] MEDS ORDERED: ALBU2.5V10 NEB (18:16)
[2022-12-26] MEDS ORDERED: HOME MED LIST COMPLETE! XX SCH (18:20)
[2022-12-26] MEDS: SYMBICORT 160/4.5MCG INHALER 6GM INH SCH (20:00)
[2022-12-26] MEDS: ALBUTEROL SULFATE 2.5MG/0.5ML INH NEB SOLN NEB SCH ×2 (20:00→23:19)
[2022-12-26 20:25] VITALS: BP 100/64
[2022-12-27] VITALS (7 sets, daily range): BP systolic 106–117; BP diastolic 64–74; O2SAT 91–94
[2022-12-27] MEDS ORDERED: IPRATROPIUM 0.5MG/ALBUTEROL 2.5MG INH SOL UD 3ML (DUONEB) NEB PRN (00:25)
[2022-12-27 01:04] LABS: BLOOD UREA NITROGEN 18 MG/DL (9-23); CALCIUM LEVEL 7.7 MG/DL (8.3-10.6); CARBON DIOXIDE LEVEL 27 MMOL/L (20-31); CHLORIDE LEVEL 88 MMOL/L (98-107); CREATININE FOR GFR 0.64 MG/DL (0.55-1.30); GLOMERULAR FILTRATION RATE > 60.0 (>39); GLUCOSE, FASTING 174 MG/DL (74-106); SODIUM LEVEL 122 MMOL/L (136-145)
[2022-12-27] MEDS: SODIUM CHLORIDE 1 GM TAB PO SCH ×2 (01:08→08:50)
[2022-12-27] MEDS: ALBUTEROL SULFATE 2.5MG/0.5ML INH NEB SOLN NEB SCH ×6 (02:44→23:49)
[2022-12-27 04:00] LABS: OSMOLALITY URINE 586 MOSM/KG (50-1400)
[2022-12-27 04:31] LABS: SODIUM,RANDOM URINE < 10 MMOL/L
[2022-12-27] MEDS: NS 1,000 ML IV SCH ×2 (07:05→17:13)
[2022-12-27 07:18] LABS: BASO % 0.1 % (0.0-1.0); HEMATOCRIT 34.1 % (36.0-47.0); HEMOGLOBIN 11.7 g/dl (12.0-15.5); LYMPH # 0.5 10^3/uL (1.5-5.0); LYMPH % 5.5 % (24.0-44.0); MEAN CORPUSCULAR HEMOGLOBIN 30.2 pg (27.0-33.0); MEAN CORPUSCULAR HGB CONC 34.3 g/dl (32.0-36.5); MEAN CORPUSCULAR VOLUME 88.1 fl (80.0-96.0); MONO # 0.3 10^3/uL (0.0-0.8); NEUTROPHILS # 7.8 10^3/uL (1.5-8.5); NEUTROPHILS % 90.8 % (36.0-66.0); PLATELET COUNT, AUTOMATED 352 10^3/uL (150-450); RED BLOOD COUNT 3.87 10^6/uL (4.00-5.40); WHITE BLOOD COUNT 8.5 10^3/uL (4.0-10.0)
[2022-12-27] MEDS: SYMBICORT 160/4.5MCG INHALER 6GM INH SCH ×2 (07:21→19:08)
[2022-12-27] MEDS: TIOTROPIUM INHALER/CAPSULE (SPIRIVA) INH SCH (07:21)
[2022-12-27 07:46] LABS: BLOOD UREA NITROGEN 17 MG/DL (9-23); CALCIUM LEVEL 7.8 MG/DL (8.3-10.6); CARBON DIOXIDE LEVEL 29 MMOL/L (20-31); CHLORIDE LEVEL 90 MMOL/L (98-107); CREATININE FOR GFR 0.61 MG/DL (0.55-1.30); GLOMERULAR FILTRATION RATE > 60.0 (>39); GLUCOSE, FASTING 124 MG/DL (74-106); POTASSIUM SERUM 4.3 MMOL/L (3.5-5.1); SODIUM LEVEL 123 MMOL/L (136-145)
[2022-12-27] MEDS ORDERED: methylPREDNISolone 40MG 1ML VIAL IV SCH (08:00)
[2022-12-27] MEDS: methylPREDNISolone 40MG 1ML VIAL IV SCH ×2 (08:49→17:12)
[2022-12-27] MEDS: PANTOPRAZOLE 40MG TAB (PROTONIX) PO SCH (08:50)
[2022-12-27] MEDS: ASPIRIN 81MG ENTERIC TABLET PO SCH (08:50)
[2022-12-27] MEDS: bisoproloL fumarate 5 MG TAB PO SCH (09:00)
[2022-12-27 14:39] LABS: BLOOD UREA NITROGEN 19 MG/DL (9-23); CALCIUM LEVEL 8.3 MG/DL (8.3-10.6); CARBON DIOXIDE LEVEL 25 MMOL/L (20-31); CHLORIDE LEVEL 92 MMOL/L (98-107); CREATININE FOR GFR 0.58 MG/DL (0.55-1.30); GLOMERULAR FILTRATION RATE > 60.0 (>39); GLUCOSE, FASTING 131 MG/DL (74-106); POTASSIUM SERUM 3.7 MMOL/L (3.5-5.1); SODIUM LEVEL 124 MMOL/L (136-145)
[2022-12-27] MEDS: cefTRIAXone SOD 1 GM in D5W MINI-BAG PLUS 50 ML IV SCH (17:12)
[2022-12-27] MEDS: AZITHROMYCIN 250MG TABLET PO SCH (20:26)
[2022-12-27 21:58] LABS: BLOOD UREA NITROGEN 20 MG/DL (9-23); CALCIUM LEVEL 7.6 MG/DL (8.3-10.6); CARBON DIOXIDE LEVEL 26 MMOL/L (20-31); CHLORIDE LEVEL 94 MMOL/L (98-107); CREATININE FOR GFR 0.61 MG/DL (0.55-1.30); GLOMERULAR FILTRATION RATE > 60.0 (>39); GLUCOSE, FASTING 160 MG/DL (74-106); SODIUM LEVEL 126 MMOL/L (136-145)
[2022-12-28] MEDS: methylPREDNISolone 40MG 1ML VIAL IV SCH ×3 (00:20→16:36)
[2022-12-28] MEDS: NS 1,000 ML IV SCH ×3 (03:22→21:31)
[2022-12-28] MEDS: ALBUTEROL SULFATE 2.5MG/0.5ML INH NEB SOLN NEB SCH ×6 (03:25→23:12)
[2022-12-28 06:00] VITALS: BP 132/79
[2022-12-28 06:00] LABS: BASO % 0.2 % (0.0-1.0); HEMATOCRIT 28.3 % (36.0-47.0); HEMOGLOBIN 9.8 g/dl (12.0-15.5); LYMPH # 0.5 10^3/uL (1.5-5.0); LYMPH % 3.8 % (24.0-44.0); MEAN CORPUSCULAR HEMOGLOBIN 31.1 pg (27.0-33.0); MEAN CORPUSCULAR HGB CONC 34.6 g/dl (32.0-36.5); MEAN CORPUSCULAR VOLUME 89.8 fl (80.0-96.0); MONO # 0.3 10^3/uL (0.0-0.8); MONO % 2.6 % (2.0-8.0); NEUTROPHILS # 11.3 10^3/uL (1.5-8.5); NEUTROPHILS % 92.6 % (36.0-66.0); PLATELET COUNT, AUTOMATED 314 10^3/uL (150-450); RED BLOOD COUNT 3.15 10^6/uL (4.00-5.40); WHITE BLOOD COUNT 12.2 10^3/uL (4.0-10.0)
[2022-12-28] MEDS: SYMBICORT 160/4.5MCG INHALER 6GM INH SCH ×2 (06:12→18:57)
[2022-12-28] MEDS: TIOTROPIUM INHALER/CAPSULE (SPIRIVA) INH SCH (06:12)
[2022-12-28 06:30] LABS: BLOOD UREA NITROGEN 16 MG/DL (9-23); CALCIUM LEVEL 7.7 MG/DL (8.3-10.6); CARBON DIOXIDE LEVEL 24 MMOL/L (20-31); CHLORIDE LEVEL 97 MMOL/L (98-107); CREATININE FOR GFR 0.58 MG/DL (0.55-1.30); GLOMERULAR FILTRATION RATE > 60.0 (>39); GLUCOSE, FASTING 131 MG/DL (74-106); POTASSIUM SERUM 4.7 MMOL/L (3.5-5.1); SODIUM LEVEL 129 MMOL/L (136-145)
[2022-12-28] MEDS: ASPIRIN 81MG ENTERIC TABLET PO SCH (08:50)
[2022-12-28] MEDS: PANTOPRAZOLE 40MG TAB (PROTONIX) PO SCH (08:50)
[2022-12-28] MEDS: bisoproloL fumarate 5 MG TAB PO SCH (08:51)
[2022-12-28 09:13] LABS: OSMOLALITY URINE 422 MOSM/KG (50-1400)
[2022-12-28 09:41] LABS: SODIUM,RANDOM URINE < 10 MMOL/L
[2022-12-28 14:00] VITALS: BP 110/61
[2022-12-28] MEDS: cefTRIAXone SOD 1 GM in D5W MINI-BAG PLUS 50 ML IV SCH (17:00)
[2022-12-28 17:19] LABS: BLOOD UREA NITROGEN 19 MG/DL (9-23); CALCIUM LEVEL 7.5 MG/DL (8.3-10.6); CARBON DIOXIDE LEVEL 24 MMOL/L (20-31); CHLORIDE LEVEL 99 MMOL/L (98-107); CREATININE FOR GFR 0.59 MG/DL (0.55-1.30); GLOMERULAR FILTRATION RATE > 60.0 (>39); GLUCOSE, FASTING 141 MG/DL (74-106); POTASSIUM SERUM 4.2 MMOL/L (3.5-5.1); SODIUM LEVEL 130 MMOL/L (136-145)
[2022-12-28 21:00] VITALS: BP 112/63
[2022-12-28] MEDS: AZITHROMYCIN 250MG TABLET PO SCH (21:29)
[2022-12-29] MEDS: methylPREDNISolone 40MG 1ML VIAL IV SCH ×3 (00:22→21:09)
[2022-12-29] MEDS: ALBUTEROL SULFATE 2.5MG/0.5ML INH NEB SOLN NEB SCH ×3 (03:21→11:16)
[2022-12-29 05:58] LABS: BASO % 0.1 % (0.0-1.0); HEMATOCRIT 28.4 % (36.0-47.0); HEMOGLOBIN 9.5 g/dl (12.0-15.5); LYMPH # 0.5 10^3/uL (1.5-5.0); LYMPH % 4.4 % (24.0-44.0); MEAN CORPUSCULAR HEMOGLOBIN 30.4 pg (27.0-33.0); MEAN CORPUSCULAR HGB CONC 33.5 g/dl (32.0-36.5); MEAN CORPUSCULAR VOLUME 90.7 fl (80.0-96.0); MONO # 0.2 10^3/uL (0.0-0.8); MONO % 2.1 % (2.0-8.0); NEUTROPHILS # 9.6 10^3/uL (1.5-8.5); NEUTROPHILS % 92.4 % (36.0-66.0); PLATELET COUNT, AUTOMATED 334 10^3/uL (150-450); RED BLOOD COUNT 3.13 10^6/uL (4.00-5.40); WHITE BLOOD COUNT 10.4 10^3/uL (4.0-10.0)
[2022-12-29 06:00] VITALS: BP 136/88
[2022-12-29 06:18] LABS: BLOOD UREA NITROGEN 16 MG/DL (9-23); CALCIUM LEVEL 7.6 MG/DL (8.3-10.6); CARBON DIOXIDE LEVEL 26 MMOL/L (20-31); CHLORIDE LEVEL 100 MMOL/L (98-107); CREATININE FOR GFR 0.62 MG/DL (0.55-1.30); GLOMERULAR FILTRATION RATE > 60.0 (>39); GLUCOSE, FASTING 116 MG/DL (74-106); POTASSIUM SERUM 4.4 MMOL/L (3.5-5.1); SODIUM LEVEL 132 MMOL/L (136-145)
[2022-12-29] MEDS: NS 1,000 ML IV SCH (07:42)
[2022-12-29] MEDS: SYMBICORT 160/4.5MCG INHALER 6GM INH SCH ×2 (07:58→19:46)
[2022-12-29] MEDS: TIOTROPIUM INHALER/CAPSULE (SPIRIVA) INH SCH (07:58)
[2022-12-29] MEDS: bisoproloL fumarate 5 MG TAB PO SCH (08:50)
[2022-12-29] MEDS: PANTOPRAZOLE 40MG TAB (PROTONIX) PO SCH (08:50)
[2022-12-29] MEDS: ASPIRIN 81MG ENTERIC TABLET PO SCH (08:50)
[2022-12-29] MEDS: guaiFENesin ER 600 MG TAB PO SCH ×2 (13:06→21:09)
[2022-12-29] MEDS: CEFEPIME HCL 2 GM in D5W MINI-BAG PLUS 50 ML IV SCH (13:06)
[2022-12-29 14:00] VITALS: BP 150/74
[2022-12-29] MEDS: IPRATROPIUM 0.5MG/ALBUTEROL 2.5MG INH SOL UD 3ML (DUONEB) NEB SCH ×3 (15:11→23:12)
[2022-12-29] MEDS: LOSARTAN 50MG TABLET PO SCH (17:05)
[2022-12-29 20:00] VITALS: BP 123/65
[2022-12-29] MEDS: AZITHROMYCIN 250MG TABLET PO SCH (21:09)
[2022-12-30] MEDS: CEFEPIME HCL 2 GM in D5W MINI-BAG PLUS 50 ML IV SCH ×3 (00:01→20:23)
[2022-12-30] MEDS: IPRATROPIUM 0.5MG/ALBUTEROL 2.5MG INH SOL UD 3ML (DUONEB) NEB SCH ×6 (02:59→23:21)
[2022-12-30 06:00] VITALS: BP 145/70
[2022-12-30 06:25] VITALS: BP 145/70
[2022-12-30 06:42] LABS: BASO % 0.1 % (0.0-1.0); HEMATOCRIT 32.3 % (36.0-47.0); HEMOGLOBIN 10.5 g/dl (12.0-15.5); LYMPH # 0.6 10^3/uL (1.5-5.0); LYMPH % 6.5 % (24.0-44.0); MEAN CORPUSCULAR HEMOGLOBIN 29.9 pg (27.0-33.0); MEAN CORPUSCULAR HGB CONC 32.5 g/dl (32.0-36.5); MONO # 0.4 10^3/uL (0.0-0.8); MONO % 3.9 % (2.0-8.0); NEUTROPHILS # 8.7 10^3/uL (1.5-8.5); NEUTROPHILS % 88.4 % (36.0-66.0); PLATELET COUNT, AUTOMATED 433 10^3/uL (150-450); RED BLOOD COUNT 3.51 10^6/uL (4.00-5.40); WHITE BLOOD COUNT 9.9 10^3/uL (4.0-10.0)
[2022-12-30 07:00] LABS: BLOOD UREA NITROGEN 14 MG/DL (9-23); CALCIUM LEVEL 7.9 MG/DL (8.3-10.6); CARBON DIOXIDE LEVEL 28 MMOL/L (20-31); CHLORIDE LEVEL 102 MMOL/L (98-107); CREATININE FOR GFR 0.57 MG/DL (0.55-1.30); GLOMERULAR FILTRATION RATE > 60.0 (>39); GLUCOSE, FASTING 102 MG/DL (74-106); POTASSIUM SERUM 4.6 MMOL/L (3.5-5.1); SODIUM LEVEL 134 MMOL/L (136-145)
[2022-12-30] MEDS: TIOTROPIUM INHALER/CAPSULE (SPIRIVA) INH SCH (07:32)
[2022-12-30] MEDS: SYMBICORT 160/4.5MCG INHALER 6GM INH SCH ×2 (07:32→19:08)
[2022-12-30] MEDS: guaiFENesin ER 600 MG TAB PO SCH ×2 (08:37→20:23)
[2022-12-30] MEDS: LOSARTAN 50MG TABLET PO SCH (08:37)
[2022-12-30] MEDS: ASPIRIN 81MG ENTERIC TABLET PO SCH (08:37)
[2022-12-30] MEDS: bisoproloL fumarate 5 MG TAB PO SCH (08:38)
[2022-12-30] MEDS: methylPREDNISolone 40MG 1ML VIAL IV SCH ×2 (08:38→20:23)
[2022-12-30] MEDS: PANTOPRAZOLE 40MG TAB (PROTONIX) PO SCH (08:38)
[2022-12-30] MEDS: ENOXAPARIN 40MG/0.4ML SYRINGE (J1650 PER 10MG) SC SCH (08:38)
[2022-12-30] MEDS: MIRALAX *UNIT DOSE* 17GM PACKET PO SCH (13:41)
[2022-12-30 14:00] VITALS: BP 135/80
[2022-12-30 20:00] VITALS: BP 135/79
[2022-12-31] MEDS: IPRATROPIUM 0.5MG/ALBUTEROL 2.5MG INH SOL UD 3ML (DUONEB) NEB SCH ×5 (03:22→19:48)
[2022-12-31] MEDS: CEFEPIME HCL 2 GM in D5W MINI-BAG PLUS 50 ML IV SCH (04:23)
[2022-12-31 05:39] LABS: BASO % 0.1 % (0.0-1.0); HEMOGLOBIN 10.2 g/dl (12.0-15.5); LYMPH # 0.6 10^3/uL (1.5-5.0); LYMPH % 6.8 % (24.0-44.0); MEAN CORPUSCULAR HEMOGLOBIN 29.9 pg (27.0-33.0); MEAN CORPUSCULAR HGB CONC 32.9 g/dl (32.0-36.5); MEAN CORPUSCULAR VOLUME 90.9 fl (80.0-96.0); MONO # 0.3 10^3/uL (0.0-0.8); MONO % 3.6 % (2.0-8.0); NEUTROPHILS # 7.1 10^3/uL (1.5-8.5); NEUTROPHILS % 88.3 % (36.0-66.0); PLATELET COUNT, AUTOMATED 435 10^3/uL (150-450); RED BLOOD COUNT 3.41 10^6/uL (4.00-5.40)
[2022-12-31 05:58] LABS: BLOOD UREA NITROGEN 17 MG/DL (9-23); CALCIUM LEVEL 7.6 MG/DL (8.3-10.6); CARBON DIOXIDE LEVEL 30 MMOL/L (20-31); CHLORIDE LEVEL 102 MMOL/L (98-107); CREATININE FOR GFR 0.63 MG/DL (0.55-1.30); GLOMERULAR FILTRATION RATE > 60.0 (>39); GLUCOSE, FASTING 117 MG/DL (74-106); POTASSIUM SERUM 4.6 MMOL/L (3.5-5.1); SODIUM LEVEL 134 MMOL/L (136-145)
[2022-12-31 06:00] VITALS: BP 142/78
[2022-12-31] MEDS: SYMBICORT 160/4.5MCG INHALER 6GM INH SCH ×2 (07:39→19:48)
[2022-12-31] MEDS: TIOTROPIUM INHALER/CAPSULE (SPIRIVA) INH SCH (07:39)
[2022-12-31] MEDS: CIPROFLOXACIN 250MG TAB PO SCH ×2 (07:48→17:31)
[2022-12-31] MEDS: MIRALAX *UNIT DOSE* 17GM PACKET PO SCH ×2 (08:58→21:04)
[2022-12-31] MEDS: methylPREDNISolone 40MG 1ML VIAL IV SCH ×2 (08:58→21:04)
[2022-12-31] MEDS: ENOXAPARIN 40MG/0.4ML SYRINGE (J1650 PER 10MG) SC SCH (08:59)
[2022-12-31] MEDS: PANTOPRAZOLE 40MG TAB (PROTONIX) PO SCH (08:59)
[2022-12-31] MEDS: ASPIRIN 81MG ENTERIC TABLET PO SCH (08:59)
[2022-12-31] MEDS: guaiFENesin ER 600 MG TAB PO SCH ×2 (08:59→21:07)
[2022-12-31] MEDS: LOSARTAN 50MG TABLET PO SCH (09:00)
[2022-12-31] MEDS: bisoproloL fumarate 5 MG TAB PO SCH (09:01)
[2022-12-31] MEDS ORDERED: MOM 30ML SUSPENSION UDC PO ONE (10:30)
[2022-12-31] MEDS: DOCUSATE SODIUM 100MG CAPSULE PO SCH ×2 (10:43→21:04)
[2022-12-31 14:00] VITALS: BP 142/78
[2022-12-31] MEDS ORDERED: BISACODYL 10MG SUPP PR PRN (14:00)
[2022-12-31] MEDS ORDERED: LACTULOSE 20GM/30ML SYRUP UDC PO ONE (19:20)
[2022-12-31 20:00] VITALS: BP 159/78
[2023-01-01] MEDS: IPRATROPIUM 0.5MG/ALBUTEROL 2.5MG INH SOL UD 3ML (DUONEB) NEB SCH ×2 (01:56→07:12)
[2023-01-01] MEDS: CIPROFLOXACIN 250MG TAB PO SCH (05:33)
[2023-01-01 06:00] VITALS: BP 152/74
[2023-01-01 06:36] LABS: BASO % 0.2 % (0.0-1.0); HEMATOCRIT 32.1 % (36.0-47.0); HEMOGLOBIN 10.6 g/dl (12.0-15.5); LYMPH # 0.9 10^3/uL (1.5-5.0); MEAN CORPUSCULAR HEMOGLOBIN 30.3 pg (27.0-33.0); MEAN CORPUSCULAR VOLUME 91.7 fl (80.0-96.0); MONO # 0.6 10^3/uL (0.0-0.8); MONO % 6.7 % (2.0-8.0); NEUTROPHILS # 7.6 10^3/uL (1.5-8.5); NEUTROPHILS % 81.3 % (36.0-66.0); PLATELET COUNT, AUTOMATED 499 10^3/uL (150-450); WHITE BLOOD COUNT 9.4 10^3/uL (4.0-10.0)
[2023-01-01 07:00] LABS: BLOOD UREA NITROGEN 19 MG/DL (9-23); CALCIUM LEVEL 7.7 MG/DL (8.3-10.6); CARBON DIOXIDE LEVEL 34 MMOL/L (20-31); CHLORIDE LEVEL 97 MMOL/L (98-107); CREATININE FOR GFR 0.65 MG/DL (0.55-1.30); GLOMERULAR FILTRATION RATE > 60.0 (>39); GLUCOSE, FASTING 105 MG/DL (74-106); POTASSIUM SERUM 4.6 MMOL/L (3.5-5.1); SODIUM LEVEL 134 MMOL/L (136-145)
[2023-01-01] MEDS: TIOTROPIUM INHALER/CAPSULE (SPIRIVA) INH SCH (07:10)
[2023-01-01] MEDS: SYMBICORT 160/4.5MCG INHALER 6GM INH SCH (07:11)
[2023-01-01] MEDS: DOCUSATE SODIUM 100MG CAPSULE PO SCH (08:29)
[2023-01-01] MEDS: MIRALAX *UNIT DOSE* 17GM PACKET PO SCH (08:29)
[2023-01-01] MEDS: ASPIRIN 81MG ENTERIC TABLET PO SCH (08:30)
[2023-01-01] MEDS: guaiFENesin ER 600 MG TAB PO SCH (08:30)
[2023-01-01] MEDS: PANTOPRAZOLE 40MG TAB (PROTONIX) PO SCH (08:30)
[2023-01-01] MEDS: ENOXAPARIN 40MG/0.4ML SYRINGE (J1650 PER 10MG) SC SCH (08:31)
[2023-01-01 08:33] VITALS: BP 146/78
[2023-01-01] MEDS: bisoproloL fumarate 5 MG TAB PO SCH (08:33)
[2023-01-01] MEDS: LOSARTAN 50MG TABLET PO SCH (08:33)
[2023-01-01] MEDS ORDERED: predniSONE 20 MG TAB PO SCH (09:00)
[2023-01-01] MEDS ORDERED: SPIRONOLACTONE 12.5MG PER 1/2 TABLET PO SCH (09:00)
[2023-01-01] MEDS ORDERED: CIPR750T2 PO (10:42)
[2023-01-01] MEDS ORDERED: MUCI600T31 PO (10:42)
[2023-01-01] MEDS ORDERED: PRED10TA2 PO (10:42)
[2023-01-01] MEDS ORDERED: MIRA1POW3 PO (10:42)
== END 2023-01-01 13:00 | disposition home or self-care (01) | DRG 178 ==
LOC: M ED 14:15 → M ED INP 17:57 → M MSPAV 20:25
PROVIDERS: ADMIT Internal Medicine Nephrology; ATTEND Internal Medicine
DX: J15.1 Pneumonia due to Pseudomonas (principal); J44.0 Chronic obstructive pulmonary disease with (acute) lower respiratory infection; J96.11 Chronic respiratory failure with hypoxia; E87.1 Hypo-osmolality and hyponatremia; I10 Essential (primary) hypertension; K59.00 Constipation, unspecified; E78.5 Hyperlipidemia, unspecified; M06.9 Rheumatoid arthritis, unspecified; R91.8 Other nonspecific abnormal finding of lung field; K21.9 Gastro-esophageal reflux disease without esophagitis; K64.8 Other hemorrhoids; E55.9 Vitamin D deficiency, unspecified; K44.9 Diaphragmatic hernia without obstruction or gangrene; Z88.8 Allergy status to other drugs, medicaments and biological substances; Z79.899 Other long term (current) drug therapy; Z79.82 Long term (current) use of aspirin; Z79.52 Long term (current) use of systemic steroids; M40.204 Unspecified kyphosis, thoracic region

== ENCOUNTER → 2023-01-08 | Outpatient (CLI) | payer MEDICARE ==
[~2023-01-08] MED LIST changes: +ALBU2.5V10 NEB; +AMOX875T PO; +CIPR750T2 PO; +HYDR-643 PO; +LOSA100T46 PO; +MIRA1POW3 PO; +SPIR-10 PO
== END ==
LOC: M RAD 11:16
PROVIDERS: ATTEND Physician Assistant
DX: R60.0 Localized edema (principal)

== ENCOUNTER → 2023-01-08 | Outpatient (REF) | payer MEDICARE ==
[2023-01-08 13:33] LABS: ALBUMIN 3.2 G/DL (3.2-5.2); ALKALINE PHOSPHATASE 53 U/L (46-116); ALT/SGPT 23 U/L (7.0-40); AST/SGOT 16 U/L (<34); BILIRUBIN,TOTAL 0.9 MG/DL (0.3-1.2); BLOOD UREA NITROGEN 15 MG/DL (9-23); CALCIUM LEVEL 8.6 MG/DL (8.3-10.6); CARBON DIOXIDE LEVEL 37 MMOL/L (20-31); CHLORIDE LEVEL 98 MMOL/L (98-107); CREATININE FOR GFR 0.71 MG/DL (0.55-1.30); GLOMERULAR FILTRATION RATE > 60.0 (>39); GLUCOSE, FASTING 68 MG/DL (74-106); POTASSIUM SERUM 4.2 MMOL/L (3.5-5.1); SODIUM LEVEL 138 MMOL/L (136-145); TOTAL PROTEIN 5.5 G/DL (5.7-8.2)
== END ==
LOC: M SFHCADAM 10:22
PROVIDERS: ATTEND Physician Assistant
DX: R60.0 Localized edema (principal); E87.1 Hypo-osmolality and hyponatremia; J15.1 Pneumonia due to Pseudomonas

== ENCOUNTER → 2023-01-14 | Outpatient (REF) | payer MEDICARE | LOC: M LAB REF 14:39 | PROVIDERS: ATTEND Internal Medicine Pulmonary Disease | DX: J44.0 Chronic obstructive pulmonary disease with (acute) lower respiratory infection (principal) ==

== ENCOUNTER → 2023-01-20 | Outpatient (CLI) | payer MEDICARE | LOC: M RAD 11:55 | PROVIDERS: ATTEND Internal Medicine Pulmonary Disease | DX: J44.0 Chronic obstructive pulmonary disease with (acute) lower respiratory infection (principal) ==

== ENCOUNTER → 2023-02-24 | Outpatient (CLI) | payer MEDICARE | LOC: M RAD 09:57 | PROVIDERS: ATTEND Internal Medicine Pulmonary Disease | DX: J44.0 Chronic obstructive pulmonary disease with (acute) lower respiratory infection (principal) ==

== ENCOUNTER 2023-03-15 19:37 | Emergency (ER) | payer MEDICARE ==
[~2023-03-15] VITALS: Ht 154.9 cm; Wt 56.5 kg
[2023-03-15] MEDS ORDERED: ROCURONIUM BROMIDE 50MG/5ML VIAL ONE (19:38)
[2023-03-15] MEDS ORDERED: ETOMIDATE INJ 20MG/10ML VIAL ONE (19:38)
[2023-03-15] MEDS ORDERED: propofoL 200 MG/20 ML VIAL As Ordered ONE (19:59)
[2023-03-15] MEDS ORDERED: PROPOFOL 1,000 MG/100 ML VIAL As Ordered ONE (20:00)
[2023-03-15] MEDS: propofoL 1,000 MG in IV 1 EA IV SCH (20:05)
[2023-03-15] MEDS ORDERED: NS 1,000 ML IV ONE (20:05)
[2023-03-15 20:09] LABS: BASO # 0.1 10^3/uL (0.0-0.2); BASO % 0.4 % (0.0-1.0); EOS # 0.1 10^3/uL (0.0-0.5); EOS % 0.7 % (0.0-3.0); HEMATOCRIT 37.1 % (36.0-47.0); HEMOGLOBIN 11.6 g/dl (12.0-15.5); LYMPH # 3.2 10^3/uL (1.5-5.0); LYMPH % 23.4 % (24.0-44.0); MEAN CORPUSCULAR HEMOGLOBIN 29.9 pg (27.0-33.0); MEAN CORPUSCULAR HGB CONC 31.3 g/dl (32.0-36.5); MEAN CORPUSCULAR VOLUME 95.6 fl (80.0-96.0); MONO # 1.1 10^3/uL (0.0-0.8); MONO % 7.7 % (2.0-8.0); NEUTROPHILS % 66.5 % (36.0-66.0); PLATELET COUNT, AUTOMATED 471 10^3/uL (150-450); RED BLOOD COUNT 3.88 10^6/uL (4.00-5.40); WHITE BLOOD COUNT 13.6 10^3/uL (4.0-10.0)
[2023-03-15 20:23] LABS: ABG BASE EXCESS -0.6 (-2.0-2.0); ABG HCO3 25.1 MMOL/L (22.0-26.0); ABG O2 SATURATION 99.4 % (95.0-99.0); ABG PARTIAL PRESSURE CO2 45.5 mmHg (35.0-45.0); ABG PARTIAL PRESSURE O2 245.9 mmHg (75.0-100.0); ABG TOTAL CO2 26.5 MMOL/L (23.0-31.0); ABG pH (ARTERIAL) 7.359 UNITS (7.350-7.450)
[2023-03-15 20:27] LABS: ALBUMIN 3.5 G/DL (3.2-5.2); ALKALINE PHOSPHATASE 67 U/L (46-116); ALT/SGPT 16 U/L (7.0-40); AST/SGOT 25 U/L (<34); BILIRUBIN,TOTAL 0.4 MG/DL (0.3-1.2); BLOOD UREA NITROGEN 14 MG/DL (9-23); CALCIUM LEVEL 8.6 MG/DL (8.3-10.6); CARBON DIOXIDE LEVEL 26 MMOL/L (20-31); CHLORIDE LEVEL 100 MMOL/L (98-107); GLOMERULAR FILTRATION RATE > 60.0 (>39); GLUCOSE, FASTING 194 MG/DL (74-106); POTASSIUM SERUM 4.3 MMOL/L (3.5-5.1); SODIUM LEVEL 135 MMOL/L (136-145); TOTAL PROTEIN 6.1 G/DL (5.7-8.2)
[2023-03-15 20:38] LABS: PROCALCITONIN 0.08 ng/ml
[2023-03-15] MEDS ORDERED: LR 1,000 ML IV SCH (21:25)
[2023-03-15] MEDS ORDERED: MIDAZOLAM INJ 2MG/2ML VIAL IV ONE (22:00)
[2023-03-15] MEDS ORDERED: MIDAZOLAM INJ 2MG/2ML VIAL As Ordered ONE (22:01)
[2023-03-15] MEDS ORDERED: MIDAZOLAM 100MG/100ML-0.9%NACL 100 MG in IV 1 EA IV SCH (22:20)
[2023-03-15 22:23] VITALS: O2SAT 100
[2023-03-15] MEDS ORDERED: dexmedeTOMidine 200 MCG in IV 1 EA IV SCH (23:55)
[2023-03-16] MEDS: propofoL 1,000 MG in IV 1 EA IV SCH (00:04)
[2023-03-16] MEDS ORDERED: NOREPINEPHRINE 4MG IN D5 250ML 4 MG in IV 1 EA IV SCH ×2 (00:55)
[2023-03-16 01:17] VITALS: BP 116/76; TEMP 97.9; O2SAT 100
== END 2023-03-16 02:20 | disposition short-term general hospital (02) ==
LOC: M ED 19:37
DX: J96.90 Respiratory failure, unspecified, unspecified whether with hypoxia or hypercapnia (principal); T20.00XA Burn of unspecified degree of head, face, and neck, unspecified site, initial encounter; T31.0 Burns involving less than 10% of body surface; W36.8XXA Explosion and rupture of other gas cylinder, initial encounter; I10 Essential (primary) hypertension; J44.9 Chronic obstructive pulmonary disease, unspecified; F17.200 Nicotine dependence, unspecified, uncomplicated; F10.10 Alcohol abuse, uncomplicated; Z79.52 Long term (current) use of systemic steroids; Z79.82 Long term (current) use of aspirin; Z79.899 Other long term (current) drug therapy
CPT/HCPCS: 31500; 36600; 71045; 80053; 82375; 82803; 83605; 83735; 83880; 84145; 85025; 87635; 93005; 96365; 96366; 96375; 99285; J2250

== ENCOUNTER → 2023-04-12 | Outpatient (REF) | payer MEDICARE | LOC: M LAB REF 14:27 | PROVIDERS: ATTEND Internal Medicine Pulmonary Disease | DX: J44.0 Chronic obstructive pulmonary disease with (acute) lower respiratory infection (principal) ==

== ENCOUNTER → 2023-05-24 | Outpatient (REF) | payer MEDICARE ==
[~2023-05-24] MED LIST changes: +ALBU8.5H INH; +FLUT22IN INH; +PARO5TAB PO
== END ==
LOC: M LAB REF 17:34
PROVIDERS: ATTEND Internal Medicine Pulmonary Disease
DX: J44.9 Chronic obstructive pulmonary disease, unspecified (principal)

== ENCOUNTER 2023-05-27 03:18 | Inpatient (IN) | payer MEDICARE ==
[~2023-05-27] VITALS: Ht 154.9 cm; Wt 48.3 kg
[~2023-05-27 03:18] MED LIST changes: -ALBU8.5H INH; -FLUT22IN INH; -PARO5TAB PO; -SPIR12.9; +SPIR12.9 INH
[2023-05-27] MEDS: IPRATROPIUM 0.5MG/ALBUTEROL 2.5MG INH SOL UD 3ML (DUONEB) NEB SCH ×3 (03:39→04:29)
[2023-05-27 03:41] LABS: ABG BASE EXCESS 0.6 (-2.0-2.0); ABG HCO3 27.2 MMOL/L (22.0-26.0); ABG O2 SATURATION 94.3 % (95.0-99.0); ABG PARTIAL PRESSURE CO2 51.8 mmHg (35.0-45.0); ABG PARTIAL PRESSURE O2 73.7 mmHg (75.0-100.0); ABG TOTAL CO2 28.8 MMOL/L (23.0-31.0); ABG pH (ARTERIAL) 7.338 UNITS (7.350-7.450)
[2023-05-27 03:43] LABS: BASO # 0.1 10^3/uL (0.0-0.2); BASO % 0.5 % (0.0-1.0); EOS # 0.1 10^3/uL (0.0-0.5); EOS % 1.1 % (0.0-3.0); HEMATOCRIT 38.1 % (36.0-47.0); HEMOGLOBIN 12.4 g/dl (12.0-15.5); LYMPH % 17.3 % (24.0-44.0); MEAN CORPUSCULAR HEMOGLOBIN 29.4 pg (27.0-33.0); MEAN CORPUSCULAR HGB CONC 32.5 g/dl (32.0-36.5); MEAN CORPUSCULAR VOLUME 90.3 fl (80.0-96.0); MONO # 1.2 10^3/uL (0.0-0.8); MONO % 10.2 % (2.0-8.0); NEUTROPHILS # 8.1 10^3/uL (1.5-8.5); NEUTROPHILS % 70.2 % (36.0-66.0); PLATELET COUNT, AUTOMATED 491 10^3/uL (150-450); RED BLOOD COUNT 4.22 10^6/uL (4.00-5.40); WHITE BLOOD COUNT 11.6 10^3/uL (4.0-10.0)
[2023-05-27 04:08] LABS: CK-MB VALUE MASS 3.5 NG/ML (<3.6)
[2023-05-27 04:11] LABS: ALBUMIN 3.4 G/DL (3.2-5.2); ALKALINE PHOSPHATASE 84 U/L (46-116); ALT/SGPT 10 U/L (7.0-40); AST/SGOT 20 U/L (<34); BILIRUBIN,DIRECT 0.2 MG/DL (<0.4); BILIRUBIN,TOTAL 0.5 MG/DL (0.3-1.2); BLOOD UREA NITROGEN 18 MG/DL (9-23); CALCIUM LEVEL 8.9 MG/DL (8.3-10.6); CARBON DIOXIDE LEVEL 30 MMOL/L (20-31); CHLORIDE LEVEL 99 MMOL/L (98-107); CPK CREATINE PHOSPHOKINASE 65 U/L (34-145); CREATININE FOR GFR 0.71 MG/DL (0.55-1.30); GLOMERULAR FILTRATION RATE > 60.0 (>39); GLUCOSE, FASTING 131 MG/DL (74-106); MB/CK RELATIVE INDEX 5.38 (< OR =4); POTASSIUM SERUM 4.4 MMOL/L (3.5-5.1); SODIUM LEVEL 130 MMOL/L (136-145); TOTAL PROTEIN 6.1 G/DL (5.7-8.2)
[2023-05-27] MEDS ORDERED: ISOVUE-370 76% 100ML VIAL As Ordered ONE (05:09)
[2023-05-27 05:50] LABS: CK-MB VALUE MASS 3.6 NG/ML (<3.6)
[2023-05-27 05:51] LABS: MB/CK RELATIVE INDEX 5.9 (< OR =4)
[2023-05-27] MEDS ORDERED: MED REC IN PROGRESS XX SCH (07:10)
[2023-05-27] MEDS ORDERED: PRED10TA2 PO (07:47)
[2023-05-27] MEDS ORDERED: PARO5TAB PO (07:47)
[2023-05-27] MEDS ORDERED: AMLO1TAB24 PO (07:47)
[2023-05-27] MEDS ORDERED: ALBU8.5H INH (07:47)
[2023-05-27] MEDS ORDERED: FLUT22IN INH (07:47)
[2023-05-27] MEDS ORDERED: HOME MED LIST COMPLETE! XX SCH (07:50)
[2023-05-27] MEDS: FLUTICASONE HFA 220 MCG 12 GM INHALER (FLOVENT) INH SCH ×2 (08:00→20:00)
[2023-05-27] MEDS ORDERED: amLODIPine 5 MG TAB PO SCH (09:00)
[2023-05-27] MEDS ORDERED: SPIRONOLACTONE 12.5MG PER 1/2 TABLET PO SCH (09:00)
[2023-05-27] MEDS: methylPREDNISolone 40MG 1ML VIAL IV SCH ×2 (09:01→17:45)
[2023-05-27] MEDS: ENOXAPARIN 40MG/0.4ML SYRINGE (J1650 PER 10MG) SC SCH (09:01)
[2023-05-27] MEDS: ASPIRIN 81MG ENTERIC TABLET PO SCH (09:01)
[2023-05-27] MEDS: PARoxetine 10MG TABLET PO SCH (09:02)
[2023-05-27] MEDS: bisoproloL fumarate 5 MG TAB PO SCH (09:02)
[2023-05-27] MEDS: ALBUTEROL SULFATE 2.5MG/0.5ML INH NEB SOLN NEB SCH ×5 (09:14→23:45)
[2023-05-27] MEDS: TIOTROPIUM INHALER/CAPSULE (SPIRIVA) INH SCH (09:15)
[2023-05-27] MEDS: SYMBICORT 160/4.5MCG INHALER 6GM INH SCH ×2 (09:15→19:12)
[2023-05-27 09:32] VITALS: BP 152/82; TEMP 97.9; O2SAT 98
[2023-05-27] MEDS: DOXYCYCLINE HYCLATE 100MG TABLET PO SCH ×2 (12:03→20:53)
[2023-05-27 14:00] VITALS: BP 125/66; TEMP 98.2; O2SAT 94
[2023-05-27] MEDS: DICLOFENAC EPOLAMINE 1.3% PATCH TOP SCH (17:48)
[2023-05-27 22:05] VITALS: BP 129/68; TEMP 98.2; O2SAT 90
[2023-05-28] MEDS: methylPREDNISolone 40MG 1ML VIAL IV SCH ×3 (00:56→17:19)
[2023-05-28] MEDS: ALBUTEROL SULFATE 2.5MG/0.5ML INH NEB SOLN NEB SCH ×6 (03:13→23:01)
[2023-05-28] MEDS: DICLOFENAC EPOLAMINE 1.3% PATCH TOP SCH ×2 (05:34→17:19)
[2023-05-28 06:20] VITALS: BP 129/70; TEMP 98.1; O2SAT 94
[2023-05-28 06:50] LABS: BASO % 0.1 % (0.0-1.0); HEMATOCRIT 35.6 % (36.0-47.0); HEMOGLOBIN 11.9 g/dl (12.0-15.5); LYMPH % 6.7 % (24.0-44.0); MEAN CORPUSCULAR HEMOGLOBIN 29.7 pg (27.0-33.0); MEAN CORPUSCULAR HGB CONC 33.4 g/dl (32.0-36.5); MEAN CORPUSCULAR VOLUME 88.8 fl (80.0-96.0); MONO # 0.5 10^3/uL (0.0-0.8); MONO % 3.1 % (2.0-8.0); NEUTROPHILS # 13.9 10^3/uL (1.5-8.5); NEUTROPHILS % 89.4 % (36.0-66.0); PLATELET COUNT, AUTOMATED 491 10^3/uL (150-450); RED BLOOD COUNT 4.01 10^6/uL (4.00-5.40); WHITE BLOOD COUNT 15.5 10^3/uL (4.0-10.0)
[2023-05-28] MEDS ORDERED: ACETAMINOPHEN TAB 650MG DOSE (2X325MG) PO ONE (07:00)
[2023-05-28 07:08] LABS: BLOOD UREA NITROGEN 30 MG/DL (9-23); CALCIUM LEVEL 8.8 MG/DL (8.3-10.6); CARBON DIOXIDE LEVEL 29 MMOL/L (20-31); CHLORIDE LEVEL 96 MMOL/L (98-107); GLOMERULAR FILTRATION RATE > 60.0 (>39); GLUCOSE, FASTING 128 MG/DL (74-106); POTASSIUM SERUM 4.7 MMOL/L (3.5-5.1); SODIUM LEVEL 131 MMOL/L (136-145)
[2023-05-28] MEDS: TIOTROPIUM INHALER/CAPSULE (SPIRIVA) INH SCH (07:40)
[2023-05-28] MEDS: SYMBICORT 160/4.5MCG INHALER 6GM INH SCH ×2 (07:40→19:38)
[2023-05-28] MEDS: FLUTICASONE HFA 220 MCG 12 GM INHALER (FLOVENT) INH SCH ×2 (07:41→19:36)
[2023-05-28] MEDS: DOXYCYCLINE HYCLATE 100MG TABLET PO SCH ×2 (08:28→22:28)
[2023-05-28] MEDS: ENOXAPARIN 40MG/0.4ML SYRINGE (J1650 PER 10MG) SC SCH (08:28)
[2023-05-28] MEDS: ASPIRIN 81MG ENTERIC TABLET PO SCH (08:28)
[2023-05-28] MEDS: PARoxetine 10MG TABLET PO SCH (08:29)
[2023-05-28] MEDS: bisoproloL fumarate 5 MG TAB PO SCH (08:29)
[2023-05-28] MEDS ORDERED: ONDANSETRON 4MG 2ML VIAL IV PRN (10:20)
[2023-05-28] MEDS: guaiFENesin ER TABLET 600 MG TAB PO SCH ×2 (11:16→22:28)
[2023-05-28] MEDS: SENNA 8.6 MG TAB (SENOKOT) PO SCH ×2 (11:16→22:28)
[2023-05-28 14:00] VITALS: BP 132/86; TEMP 97.7; O2SAT 93
[2023-05-28 20:16] VITALS: BP 134/85; TEMP 98.2; O2SAT 92
[2023-05-28 22:15] VITALS: O2SAT 92
[2023-05-29] VITALS (11 sets, daily range): BP systolic 135–140; BP diastolic 83; TEMP 97.9–98.2; O2SAT 91–96
[2023-05-29] MEDS ORDERED: MAALOX 30 ML SUSP *UDC PO ONE
[2023-05-29] MEDS: methylPREDNISolone 40MG 1ML VIAL IV SCH ×4 (00:06→23:06)
[2023-05-29] MEDS: ALBUTEROL SULFATE 2.5MG/0.5ML INH NEB SOLN NEB SCH ×6 (03:00→23:21)
[2023-05-29] MEDS: DICLOFENAC EPOLAMINE 1.3% PATCH TOP SCH ×2 (05:31→17:47)
[2023-05-29 06:16] LABS: BASO % 0.1 % (0.0-1.0); HEMOGLOBIN 12.1 g/dl (12.0-15.5); LYMPH # 0.9 10^3/uL (1.5-5.0); LYMPH % 5.1 % (24.0-44.0); MEAN CORPUSCULAR HEMOGLOBIN 29.7 pg (27.0-33.0); MEAN CORPUSCULAR HGB CONC 33.6 g/dl (32.0-36.5); MEAN CORPUSCULAR VOLUME 88.2 fl (80.0-96.0); MONO # 0.6 10^3/uL (0.0-0.8); MONO % 3.5 % (2.0-8.0); NEUTROPHILS # 15.4 10^3/uL (1.5-8.5); NEUTROPHILS % 90.7 % (36.0-66.0); PLATELET COUNT, AUTOMATED 548 10^3/uL (150-450); RED BLOOD COUNT 4.08 10^6/uL (4.00-5.40)
[2023-05-29 06:42] LABS: BLOOD UREA NITROGEN 34 MG/DL (9-23); CARBON DIOXIDE LEVEL 28 MMOL/L (20-31); CHLORIDE LEVEL 96 MMOL/L (98-107); CREATININE FOR GFR 0.78 MG/DL (0.55-1.30); GLOMERULAR FILTRATION RATE > 60.0 (>39); GLUCOSE, FASTING 121 MG/DL (74-106); POTASSIUM SERUM 4.8 MMOL/L (3.5-5.1); SODIUM LEVEL 132 MMOL/L (136-145)
[2023-05-29] MEDS: TIOTROPIUM INHALER/CAPSULE (SPIRIVA) INH SCH (07:51)
[2023-05-29] MEDS: FLUTICASONE HFA 220 MCG 12 GM INHALER (FLOVENT) INH SCH ×2 (07:51→19:47)
[2023-05-29] MEDS: SYMBICORT 160/4.5MCG INHALER 6GM INH SCH ×2 (07:51→19:47)
[2023-05-29] MEDS: bisoproloL fumarate 5 MG TAB PO SCH (08:20)
[2023-05-29] MEDS: PARoxetine 10MG TABLET PO SCH (08:20)
[2023-05-29] MEDS: ASPIRIN 81MG ENTERIC TABLET PO SCH (08:20)
[2023-05-29] MEDS: DOXYCYCLINE HYCLATE 100MG TABLET PO SCH ×2 (08:20→23:06)
[2023-05-29] MEDS: ENOXAPARIN 40MG/0.4ML SYRINGE (J1650 PER 10MG) SC SCH (08:20)
[2023-05-29] MEDS: SENNA 8.6 MG TAB (SENOKOT) PO SCH ×2 (08:21→23:06)
[2023-05-29] MEDS: guaiFENesin ER TABLET 600 MG TAB PO SCH ×2 (08:21→23:06)
[2023-05-29] MEDS: OMEPRAZOLE 20MG CAP PO SCH (17:02)
[2023-05-29] MEDS ORDERED: NS 1,000 ML IV ONE (18:00)
[2023-05-30] MEDS: methylPREDNISolone 40MG 1ML VIAL IV SCH ×4 (03:12→20:28)
[2023-05-30] MEDS: ALBUTEROL SULFATE 2.5MG/0.5ML INH NEB SOLN NEB SCH ×6 (03:20→23:15)
[2023-05-30 05:25] VITALS: BP 150/86; TEMP 97.6; O2SAT 96
[2023-05-30] MEDS: DICLOFENAC EPOLAMINE 1.3% PATCH TOP SCH ×2 (05:45→18:04)
[2023-05-30 06:21] LABS: BASO % 0.1 % (0.0-1.0); HEMATOCRIT 35.9 % (36.0-47.0); HEMOGLOBIN 12.1 g/dl (12.0-15.5); LYMPH # 0.8 10^3/uL (1.5-5.0); LYMPH % 5.6 % (24.0-44.0); MEAN CORPUSCULAR HEMOGLOBIN 29.9 pg (27.0-33.0); MEAN CORPUSCULAR HGB CONC 33.7 g/dl (32.0-36.5); MEAN CORPUSCULAR VOLUME 88.6 fl (80.0-96.0); MONO # 0.4 10^3/uL (0.0-0.8); NEUTROPHILS # 12.4 10^3/uL (1.5-8.5); NEUTROPHILS % 90.5 % (36.0-66.0); PLATELET COUNT, AUTOMATED 486 10^3/uL (150-450); RED BLOOD COUNT 4.05 10^6/uL (4.00-5.40); WHITE BLOOD COUNT 13.7 10^3/uL (4.0-10.0)
[2023-05-30 06:45] LABS: BLOOD UREA NITROGEN 32 MG/DL (9-23); CALCIUM LEVEL 8.5 MG/DL (8.3-10.6); CARBON DIOXIDE LEVEL 28 MMOL/L (20-31); CHLORIDE LEVEL 100 MMOL/L (98-107); CREATININE FOR GFR 0.71 MG/DL (0.55-1.30); GLOMERULAR FILTRATION RATE > 60.0 (>39); GLUCOSE, FASTING 105 MG/DL (74-106); POTASSIUM SERUM 4.9 MMOL/L (3.5-5.1); SODIUM LEVEL 132 MMOL/L (136-145)
[2023-05-30] MEDS: SYMBICORT 160/4.5MCG INHALER 6GM INH SCH ×2 (07:44→19:20)
[2023-05-30] MEDS: TIOTROPIUM INHALER/CAPSULE (SPIRIVA) INH SCH (07:45)
[2023-05-30] MEDS: FLUTICASONE HFA 220 MCG 12 GM INHALER (FLOVENT) INH SCH ×2 (07:47→19:20)
[2023-05-30] MEDS: ENOXAPARIN 40MG/0.4ML SYRINGE (J1650 PER 10MG) SC SCH (08:56)
[2023-05-30] MEDS: OMEPRAZOLE 20MG CAP PO SCH (08:56)
[2023-05-30] MEDS: DOXYCYCLINE HYCLATE 100MG TABLET PO SCH ×2 (08:57→20:28)
[2023-05-30] MEDS: PARoxetine 10MG TABLET PO SCH (08:57)
[2023-05-30] MEDS: SENNA 8.6 MG TAB (SENOKOT) PO SCH ×2 (08:57→20:28)
[2023-05-30] MEDS: bisoproloL fumarate 5 MG TAB PO SCH (08:58)
[2023-05-30] MEDS: ASPIRIN 81MG ENTERIC TABLET PO SCH (08:59)
[2023-05-30] MEDS: guaiFENesin ER TABLET 600 MG TAB PO SCH ×2 (08:59→20:28)
[2023-05-30] MEDS ORDERED: SODIUM CHLORIDE 0.9% 500 ML IV ONE (11:00)
[2023-05-30 14:00] VITALS: BP 158/91; TEMP 98.2; O2SAT 96
[2023-05-30] MEDS: amLODIPine 5 MG TAB PO SCH (15:17)
[2023-05-30 19:24] VITALS: O2SAT 93
[2023-05-30 20:48] VITALS: BP 143/78; TEMP 97.2; O2SAT 97
[2023-05-31] MEDS: methylPREDNISolone 40MG 1ML VIAL IV SCH ×4 (02:59→20:51)
[2023-05-31] MEDS: ALBUTEROL SULFATE 2.5MG/0.5ML INH NEB SOLN NEB SCH ×6 (03:23→23:48)
[2023-05-31 05:53] VITALS: BP 142/78; TEMP 98.1; O2SAT 94
[2023-05-31] MEDS: DICLOFENAC EPOLAMINE 1.3% PATCH TOP SCH ×2 (06:01→18:21)
[2023-05-31 06:22] LABS: BASO % 0.1 % (0.0-1.0); HEMATOCRIT 33.8 % (36.0-47.0); HEMOGLOBIN 11.5 g/dl (12.0-15.5); LYMPH # 0.7 10^3/uL (1.5-5.0); LYMPH % 6.3 % (24.0-44.0); MEAN CORPUSCULAR VOLUME 88.3 fl (80.0-96.0); MONO # 0.6 10^3/uL (0.0-0.8); MONO % 5.2 % (2.0-8.0); NEUTROPHILS # 9.2 10^3/uL (1.5-8.5); NEUTROPHILS % 87.5 % (36.0-66.0); PLATELET COUNT, AUTOMATED 458 10^3/uL (150-450); RED BLOOD COUNT 3.83 10^6/uL (4.00-5.40); WHITE BLOOD COUNT 10.6 10^3/uL (4.0-10.0)
[2023-05-31 06:40] LABS: BLOOD UREA NITROGEN 31 MG/DL (9-23); CALCIUM LEVEL 8.5 MG/DL (8.3-10.6); CARBON DIOXIDE LEVEL 28 MMOL/L (20-31); CHLORIDE LEVEL 100 MMOL/L (98-107); CREATININE FOR GFR 0.61 MG/DL (0.55-1.30); GLOMERULAR FILTRATION RATE > 60.0 (>39); GLUCOSE, FASTING 110 MG/DL (74-106); POTASSIUM SERUM 4.5 MMOL/L (3.5-5.1); SODIUM LEVEL 131 MMOL/L (136-145)
[2023-05-31] MEDS: TIOTROPIUM INHALER/CAPSULE (SPIRIVA) INH SCH (07:22)
[2023-05-31] MEDS: SYMBICORT 160/4.5MCG INHALER 6GM INH SCH ×2 (07:23→20:25)
[2023-05-31] MEDS: FLUTICASONE HFA 220 MCG 12 GM INHALER (FLOVENT) INH SCH ×2 (07:23→20:25)
[2023-05-31] MEDS: ASPIRIN 81MG ENTERIC TABLET PO SCH (08:52)
[2023-05-31] MEDS: OMEPRAZOLE 20MG CAP PO SCH (08:52)
[2023-05-31] MEDS: PARoxetine 10MG TABLET PO SCH (08:53)
[2023-05-31] MEDS: MIRALAX *UNIT DOSE* 17GM PACKET PO SCH (08:53)
[2023-05-31] MEDS: DOXYCYCLINE HYCLATE 100MG TABLET PO SCH (08:53)
[2023-05-31] MEDS: SENNA 8.6 MG TAB (SENOKOT) PO SCH ×2 (08:53→20:53)
[2023-05-31] MEDS: guaiFENesin ER TABLET 600 MG TAB PO SCH ×2 (08:53→20:52)
[2023-05-31] MEDS: ENOXAPARIN 40MG/0.4ML SYRINGE (J1650 PER 10MG) SC SCH (08:54)
[2023-05-31] MEDS: bisoproloL fumarate 5 MG TAB PO SCH (08:56)
[2023-05-31] MEDS: amLODIPine 5 MG TAB PO SCH (08:56)
[2023-05-31] MEDS ORDERED: NS 1,000 ML IV ONE (10:45)
[2023-05-31 14:00] VITALS: BP 139/79; TEMP 98.1; O2SAT 96
[2023-05-31 20:46] VITALS: BP 142/80; TEMP 97.5; O2SAT 94
[2023-05-31] MEDS: CEFDINIR 300 MG CAP (OMNICEF) PO SCH (20:51)
[2023-06-01] MEDS: methylPREDNISolone 40MG 1ML VIAL IV SCH ×4 (03:21→20:58)
[2023-06-01] MEDS: ALBUTEROL SULFATE 2.5MG/0.5ML INH NEB SOLN NEB SCH ×4 (03:50→15:07)
[2023-06-01 05:15] VITALS: BP 140/72; TEMP 97.9; O2SAT 94
[2023-06-01] MEDS: DICLOFENAC EPOLAMINE 1.3% PATCH TOP SCH ×2 (05:44→17:04)
[2023-06-01 06:24] LABS: BASO % 0.1 % (0.0-1.0); HEMATOCRIT 33.6 % (36.0-47.0); HEMOGLOBIN 11.2 g/dl (12.0-15.5); LYMPH # 0.7 10^3/uL (1.5-5.0); LYMPH % 5.9 % (24.0-44.0); MEAN CORPUSCULAR HEMOGLOBIN 29.7 pg (27.0-33.0); MEAN CORPUSCULAR HGB CONC 33.3 g/dl (32.0-36.5); MEAN CORPUSCULAR VOLUME 89.1 fl (80.0-96.0); MONO # 0.6 10^3/uL (0.0-0.8); NEUTROPHILS # 9.7 10^3/uL (1.5-8.5); PLATELET COUNT, AUTOMATED 451 10^3/uL (150-450); RED BLOOD COUNT 3.77 10^6/uL (4.00-5.40)
[2023-06-01 06:42] LABS: BLOOD UREA NITROGEN 29 MG/DL (9-23); CALCIUM LEVEL 8.3 MG/DL (8.3-10.6); CARBON DIOXIDE LEVEL 28 MMOL/L (20-31); CHLORIDE LEVEL 100 MMOL/L (98-107); CREATININE FOR GFR 0.57 MG/DL (0.55-1.30); GLOMERULAR FILTRATION RATE > 60.0 (>39); GLUCOSE, FASTING 112 MG/DL (74-106); POTASSIUM SERUM 4.5 MMOL/L (3.5-5.1); SODIUM LEVEL 132 MMOL/L (136-145)
[2023-06-01] MEDS: TIOTROPIUM INHALER/CAPSULE (SPIRIVA) INH SCH (07:30)
[2023-06-01] MEDS: SYMBICORT 160/4.5MCG INHALER 6GM INH SCH (07:31)
[2023-06-01] MEDS: FLUTICASONE HFA 220 MCG 12 GM INHALER (FLOVENT) INH SCH ×2 (07:31→19:51)
[2023-06-01] MEDS: MIRALAX *UNIT DOSE* 17GM PACKET PO SCH (09:00)
[2023-06-01] MEDS: CEFDINIR 300 MG CAP (OMNICEF) PO SCH (09:41)
[2023-06-01] MEDS: ASPIRIN 81MG ENTERIC TABLET PO SCH (09:41)
[2023-06-01] MEDS: guaiFENesin ER TABLET 600 MG TAB PO SCH ×2 (09:42→20:59)
[2023-06-01] MEDS: OMEPRAZOLE 20MG CAP PO SCH (09:42)
[2023-06-01] MEDS: SENNA 8.6 MG TAB (SENOKOT) PO SCH ×2 (09:42→20:58)
[2023-06-01] MEDS: PARoxetine 10MG TABLET PO SCH (09:42)
[2023-06-01] MEDS: amLODIPine 5 MG TAB PO SCH (09:43)
[2023-06-01] MEDS: bisoproloL fumarate 5 MG TAB PO SCH (09:43)
[2023-06-01] MEDS: ENOXAPARIN 40MG/0.4ML SYRINGE (J1650 PER 10MG) SC SCH (09:43)
[2023-06-01] MEDS: DOXYCYCLINE HYCLATE 100MG TABLET PO SCH ×2 (10:32→20:59)
[2023-06-01 14:00] VITALS: BP 156/86; TEMP 98.2; O2SAT 94
[2023-06-01 14:59] LABS: OSMOLALITY URINE 886 MOSM/KG (50-1400)
[2023-06-01 15:04] LABS: SODIUM,RANDOM URINE 47 MMOL/L
[2023-06-01] MEDS: CEFEPIME HCL 2 GM in D5W MINI-BAG PLUS 50 ML IV SCH (17:39)
[2023-06-01] MEDS: FORMOTEROL FUMARATE 20 MCG/2 ML INHALATION SOLUTION (PERFOROMIST) INH SCH (19:55)
[2023-06-01] MEDS: IPRATROPIUM 0.5MG/ALBUTEROL 2.5MG INH SOL UD 3ML (DUONEB) NEB SCH (19:55)
[2023-06-01 20:48] VITALS: BP 157/87; TEMP 98.6; O2SAT 94
[2023-06-02] MEDS: IPRATROPIUM 0.5MG/ALBUTEROL 2.5MG INH SOL UD 3ML (DUONEB) NEB SCH ×7 (00:20→23:20)
[2023-06-02] MEDS: CEFEPIME HCL 2 GM in D5W MINI-BAG PLUS 50 ML IV SCH ×3 (01:01→17:07)
[2023-06-02] MEDS: methylPREDNISolone 40MG 1ML VIAL IV SCH ×4 (02:00→20:18)
[2023-06-02 05:00] VITALS: BP 157/81; TEMP 98.1; O2SAT 94
[2023-06-02] MEDS: DICLOFENAC EPOLAMINE 1.3% PATCH TOP SCH ×2 (05:53→17:06)
[2023-06-02 06:33] LABS: BASO % 0.1 % (0.0-1.0); HEMATOCRIT 33.9 % (36.0-47.0); HEMOGLOBIN 11.3 g/dl (12.0-15.5); LYMPH # 0.7 10^3/uL (1.5-5.0); LYMPH % 4.7 % (24.0-44.0); MEAN CORPUSCULAR HEMOGLOBIN 29.4 pg (27.0-33.0); MEAN CORPUSCULAR HGB CONC 33.3 g/dl (32.0-36.5); MEAN CORPUSCULAR VOLUME 88.3 fl (80.0-96.0); MONO # 0.7 10^3/uL (0.0-0.8); MONO % 4.8 % (2.0-8.0); NEUTROPHILS # 13.7 10^3/uL (1.5-8.5); NEUTROPHILS % 89.6 % (36.0-66.0); PLATELET COUNT, AUTOMATED 446 10^3/uL (150-450); RED BLOOD COUNT 3.84 10^6/uL (4.00-5.40); WHITE BLOOD COUNT 15.3 10^3/uL (4.0-10.0)
[2023-06-02 06:43] LABS: BLOOD UREA NITROGEN 29 MG/DL (9-23); CALCIUM LEVEL 8.1 MG/DL (8.3-10.6); CARBON DIOXIDE LEVEL 27 MMOL/L (20-31); CHLORIDE LEVEL 99 MMOL/L (98-107); CREATININE FOR GFR 0.56 MG/DL (0.55-1.30); GLOMERULAR FILTRATION RATE > 60.0 (>39); GLUCOSE, FASTING 118 MG/DL (74-106); POTASSIUM SERUM 4.5 MMOL/L (3.5-5.1); SODIUM LEVEL 130 MMOL/L (136-145)
[2023-06-02] MEDS: FLUTICASONE HFA 220 MCG 12 GM INHALER (FLOVENT) INH SCH ×2 (07:10→19:17)
[2023-06-02] MEDS: SODIUM CHLORIDE HYPERTONIC 3% 4ML NEB SOL INH SCH (07:20)
[2023-06-02] MEDS: FORMOTEROL FUMARATE 20 MCG/2 ML INHALATION SOLUTION (PERFOROMIST) INH SCH ×2 (07:20→19:17)
[2023-06-02 07:51] VITALS: BP 157/82; O2SAT 95
[2023-06-02] MEDS: MIRALAX *UNIT DOSE* 17GM PACKET PO SCH (08:48)
[2023-06-02] MEDS: SENNA 8.6 MG TAB (SENOKOT) PO SCH ×2 (08:49→20:18)
[2023-06-02] MEDS: amLODIPine 5 MG TAB PO SCH ×2 (08:50→20:19)
[2023-06-02] MEDS: OMEPRAZOLE 20MG CAP PO SCH (08:50)
[2023-06-02] MEDS: ASPIRIN 81MG ENTERIC TABLET PO SCH (08:50)
[2023-06-02] MEDS: PARoxetine 10MG TABLET PO SCH (08:50)
[2023-06-02] MEDS: guaiFENesin ER TABLET 600 MG TAB PO SCH ×2 (08:51→20:18)
[2023-06-02] MEDS: DOXYCYCLINE HYCLATE 100MG TABLET PO SCH ×2 (08:51→20:18)
[2023-06-02] MEDS: ENOXAPARIN 40MG/0.4ML SYRINGE (J1650 PER 10MG) SC SCH (08:51)
[2023-06-02] MEDS: bisoproloL fumarate 5 MG TAB PO SCH (09:25)
[2023-06-02 14:00] VITALS: BP 140/76; TEMP 98.4; O2SAT 96
[2023-06-02] MEDS ORDERED: SALIVA SUBSTITUTE(MOUTHKOTE) BTL MT PRN (16:30)
[2023-06-02 20:57] VITALS: BP 146/82; TEMP 98.2; O2SAT 93
[2023-06-03] MEDS: CEFEPIME HCL 2 GM in D5W MINI-BAG PLUS 50 ML IV SCH ×3 (01:22→17:03)
[2023-06-03] MEDS: methylPREDNISolone 40MG 1ML VIAL IV SCH ×4 (02:06→20:26)
[2023-06-03] MEDS: IPRATROPIUM 0.5MG/ALBUTEROL 2.5MG INH SOL UD 3ML (DUONEB) NEB SCH ×6 (03:02→23:17)
[2023-06-03] MEDS: DICLOFENAC EPOLAMINE 1.3% PATCH TOP SCH ×2 (05:03→17:06)
[2023-06-03 05:42] VITALS: BP 142/76; TEMP 98.2; O2SAT 94
[2023-06-03 06:28] LABS: BASO % 0.1 % (0.0-1.0); HEMOGLOBIN 11.1 g/dl (12.0-15.5); LYMPH # 0.7 10^3/uL (1.5-5.0); LYMPH % 5.2 % (24.0-44.0); MEAN CORPUSCULAR HEMOGLOBIN 29.8 pg (27.0-33.0); MEAN CORPUSCULAR HGB CONC 34.7 g/dl (32.0-36.5); MONO # 0.7 10^3/uL (0.0-0.8); MONO % 5.1 % (2.0-8.0); NEUTROPHILS # 12.3 10^3/uL (1.5-8.5); NEUTROPHILS % 88.4 % (36.0-66.0); PLATELET COUNT, AUTOMATED 448 10^3/uL (150-450); RED BLOOD COUNT 3.72 10^6/uL (4.00-5.40); WHITE BLOOD COUNT 13.9 10^3/uL (4.0-10.0)
[2023-06-03 06:35] LABS: BLOOD UREA NITROGEN 34 MG/DL (9-23); CALCIUM LEVEL 8.4 MG/DL (8.3-10.6); CARBON DIOXIDE LEVEL 29 MMOL/L (20-31); CHLORIDE LEVEL 98 MMOL/L (98-107); CREATININE FOR GFR 0.57 MG/DL (0.55-1.30); GLOMERULAR FILTRATION RATE > 60.0 (>39); GLUCOSE, FASTING 100 MG/DL (74-106); POTASSIUM SERUM 4.5 MMOL/L (3.5-5.1); SODIUM LEVEL 131 MMOL/L (136-145)
[2023-06-03] MEDS: FORMOTEROL FUMARATE 20 MCG/2 ML INHALATION SOLUTION (PERFOROMIST) INH SCH ×2 (07:28→20:04)
[2023-06-03] MEDS: SODIUM CHLORIDE HYPERTONIC 3% 4ML NEB SOL INH SCH (07:28)
[2023-06-03] MEDS: FLUTICASONE HFA 220 MCG 12 GM INHALER (FLOVENT) INH SCH ×2 (07:29→20:04)
[2023-06-03] MEDS: SENNA 8.6 MG TAB (SENOKOT) PO SCH ×2 (09:23→20:26)
[2023-06-03] MEDS: ASPIRIN 81MG ENTERIC TABLET PO SCH (09:23)
[2023-06-03] MEDS: ENOXAPARIN 40MG/0.4ML SYRINGE (J1650 PER 10MG) SC SCH (09:23)
[2023-06-03] MEDS: OMEPRAZOLE 20MG CAP PO SCH (09:23)
[2023-06-03] MEDS: MIRALAX *UNIT DOSE* 17GM PACKET PO SCH (09:23)
[2023-06-03] MEDS: PARoxetine 10MG TABLET PO SCH (09:24)
[2023-06-03] MEDS: guaiFENesin ER TABLET 600 MG TAB PO SCH ×2 (09:24→20:26)
[2023-06-03] MEDS: amLODIPine 5 MG TAB PO SCH ×2 (09:24→20:27)
[2023-06-03] MEDS: bisoproloL fumarate 5 MG TAB PO SCH (09:24)
[2023-06-03] MEDS: DOXYCYCLINE HYCLATE 100MG TABLET PO SCH ×2 (10:24→20:26)
[2023-06-03 14:00] VITALS: BP 154/86; TEMP 98.1; O2SAT 96
[2023-06-03 20:22] VITALS: BP 154/85; TEMP 98.2; O2SAT 96
[2023-06-04] MEDS: CEFEPIME HCL 2 GM in D5W MINI-BAG PLUS 50 ML IV SCH ×3 (01:17→17:33)
[2023-06-04] MEDS: methylPREDNISolone 40MG 1ML VIAL IV SCH ×4 (02:01→21:11)
[2023-06-04] MEDS: IPRATROPIUM 0.5MG/ALBUTEROL 2.5MG INH SOL UD 3ML (DUONEB) NEB SCH ×6 (03:03→23:19)
[2023-06-04] MEDS: DICLOFENAC EPOLAMINE 1.3% PATCH TOP SCH ×2 (05:41→17:34)
[2023-06-04 06:00] VITALS: BP 144/70; TEMP 97.7; O2SAT 93
[2023-06-04] MEDS: FORMOTEROL FUMARATE 20 MCG/2 ML INHALATION SOLUTION (PERFOROMIST) INH SCH ×2 (07:54→19:40)
[2023-06-04] MEDS: SODIUM CHLORIDE HYPERTONIC 3% 4ML NEB SOL INH SCH (07:54)
[2023-06-04] MEDS: FLUTICASONE HFA 220 MCG 12 GM INHALER (FLOVENT) INH SCH ×2 (07:54→19:40)
[2023-06-04] MEDS: SENNA 8.6 MG TAB (SENOKOT) PO SCH ×2 (09:00→21:12)
[2023-06-04] MEDS ORDERED: BISACODYL 5MG TAB PO SCH (09:00)
[2023-06-04] MEDS: ENOXAPARIN 40MG/0.4ML SYRINGE (J1650 PER 10MG) SC SCH (09:34)
[2023-06-04] MEDS: DOXYCYCLINE HYCLATE 100MG TABLET PO SCH (09:34)
[2023-06-04] MEDS: ASPIRIN 81MG ENTERIC TABLET PO SCH (09:34)
[2023-06-04] MEDS: OMEPRAZOLE 20MG CAP PO SCH (09:35)
[2023-06-04] MEDS: guaiFENesin ER TABLET 600 MG TAB PO SCH ×2 (09:35→21:11)
[2023-06-04] MEDS: amLODIPine 5 MG TAB PO SCH ×2 (09:35→21:12)
[2023-06-04] MEDS: MIRALAX *UNIT DOSE* 17GM PACKET PO SCH (09:35)
[2023-06-04] MEDS: PARoxetine 10MG TABLET PO SCH (09:35)
[2023-06-04] MEDS: bisoproloL fumarate 5 MG TAB PO SCH (09:36)
[2023-06-04] MEDS: DOCUSATE SODIUM 100MG CAPSULE PO SCH ×2 (10:28→21:11)
[2023-06-04 14:00] VITALS: BP 131/73; TEMP 98.4; O2SAT 95
[2023-06-04 20:52] VITALS: BP 136/76; TEMP 98.1; O2SAT 94
[2023-06-04] MEDS: CEPACOL LOZENGE PO PRN (21:13)
[2023-06-05] MEDS: IPRATROPIUM 0.5MG/ALBUTEROL 2.5MG INH SOL UD 3ML (DUONEB) NEB SCH ×6 (03:00→23:08)
[2023-06-05] MEDS: methylPREDNISolone 40MG 1ML VIAL IV SCH ×2 (03:18→16:05)
[2023-06-05] MEDS: CEFEPIME HCL 2 GM in D5W MINI-BAG PLUS 50 ML IV SCH ×3 (03:18→17:05)
[2023-06-05 05:25] VITALS: BP 155/73; TEMP 97.5; O2SAT 92
[2023-06-05] MEDS: DICLOFENAC EPOLAMINE 1.3% PATCH TOP SCH ×2 (05:41→17:05)
[2023-06-05] MEDS: FLUTICASONE HFA 220 MCG 12 GM INHALER (FLOVENT) INH SCH ×2 (07:54→19:34)
[2023-06-05] MEDS: FORMOTEROL FUMARATE 20 MCG/2 ML INHALATION SOLUTION (PERFOROMIST) INH SCH ×2 (07:54→19:34)
[2023-06-05] MEDS: SODIUM CHLORIDE HYPERTONIC 3% 4ML NEB SOL INH SCH (08:22)
[2023-06-05] MEDS: SENNA 8.6 MG TAB (SENOKOT) PO SCH ×3 (09:00→21:23)
[2023-06-05] MEDS: DOCUSATE SODIUM 100MG CAPSULE PO SCH ×2 (09:00→21:23)
[2023-06-05] MEDS: ASPIRIN 81MG ENTERIC TABLET PO SCH (09:33)
[2023-06-05] MEDS: OMEPRAZOLE 20MG CAP PO SCH (09:33)
[2023-06-05] MEDS: guaiFENesin ER TABLET 600 MG TAB PO SCH ×2 (09:33→21:23)
[2023-06-05] MEDS: PARoxetine 10MG TABLET PO SCH (09:34)
[2023-06-05] MEDS: amLODIPine 5 MG TAB PO SCH ×2 (09:34→21:23)
[2023-06-05] MEDS: bisoproloL fumarate 5 MG TAB PO SCH (09:34)
[2023-06-05] MEDS: ENOXAPARIN 40MG/0.4ML SYRINGE (J1650 PER 10MG) SC SCH (09:35)
[2023-06-05] MEDS ORDERED: MAGNESIUM CITRATE 300ML BTL PO ONE (10:00)
[2023-06-05] MEDS: BISACODYL 10MG SUPP PR SCH ×3 (10:39→17:54)
[2023-06-05] MEDS: NYSTATIN 500,000U/5ML SUSP UDC SS SCH ×2 (12:29→17:05)
[2023-06-05 14:00] VITALS: BP 143/81; TEMP 98.2; O2SAT 93
[2023-06-05 19:52] VITALS: BP 146/81; TEMP 98.4; O2SAT 95
[2023-06-06] MEDS: CEFEPIME HCL 2 GM in D5W MINI-BAG PLUS 50 ML IV SCH ×3 (02:14→18:56)
[2023-06-06] MEDS: methylPREDNISolone 40MG 1ML VIAL IV SCH ×2 (02:14→15:58)
[2023-06-06] MEDS: NYSTATIN 500,000U/5ML SUSP UDC SS SCH ×5 (02:14→22:24)
[2023-06-06] MEDS: IPRATROPIUM 0.5MG/ALBUTEROL 2.5MG INH SOL UD 3ML (DUONEB) NEB SCH ×6 (03:02→22:42)
[2023-06-06] MEDS: DICLOFENAC EPOLAMINE 1.3% PATCH TOP SCH ×2 (05:49→18:00)
[2023-06-06 05:56] LABS: BASO % 0.1 % (0.0-1.0); HEMATOCRIT 33.6 % (36.0-47.0); HEMOGLOBIN 11.3 g/dl (12.0-15.5); LYMPH # 0.6 10^3/uL (1.5-5.0); LYMPH % 5.5 % (24.0-44.0); MEAN CORPUSCULAR HGB CONC 33.6 g/dl (32.0-36.5); MEAN CORPUSCULAR VOLUME 86.2 fl (80.0-96.0); MONO # 0.8 10^3/uL (0.0-0.8); MONO % 6.9 % (2.0-8.0); NEUTROPHILS # 9.8 10^3/uL (1.5-8.5); NEUTROPHILS % 86.1 % (36.0-66.0); PLATELET COUNT, AUTOMATED 460 10^3/uL (150-450); WHITE BLOOD COUNT 11.4 10^3/uL (4.0-10.0)
[2023-06-06 06:05] VITALS: BP 145/81; TEMP 98.2; O2SAT 93
[2023-06-06 06:27] LABS: BLOOD UREA NITROGEN 30 MG/DL (9-23); CALCIUM LEVEL 8.1 MG/DL (8.3-10.6); CARBON DIOXIDE LEVEL 30 MMOL/L (20-31); CHLORIDE LEVEL 97 MMOL/L (98-107); CREATININE FOR GFR 0.48 MG/DL (0.55-1.30); GLOMERULAR FILTRATION RATE > 60.0 (>39); GLUCOSE, FASTING 92 MG/DL (74-106); POTASSIUM SERUM 4.8 MMOL/L (3.5-5.1); SODIUM LEVEL 130 MMOL/L (136-145)
[2023-06-06] MEDS: FLUTICASONE HFA 220 MCG 12 GM INHALER (FLOVENT) INH SCH ×2 (07:24→20:00)
[2023-06-06] MEDS: FORMOTEROL FUMARATE 20 MCG/2 ML INHALATION SOLUTION (PERFOROMIST) INH SCH ×2 (07:24→22:42)
[2023-06-06] MEDS: SODIUM CHLORIDE HYPERTONIC 3% 4ML NEB SOL INH SCH (07:24)
[2023-06-06] MEDS: MOM 30ML SUSPENSION UDC PO SCH (09:17)
[2023-06-06] MEDS: ASPIRIN 81MG ENTERIC TABLET PO SCH (09:17)
[2023-06-06] MEDS: DOCUSATE SODIUM 100MG CAPSULE PO SCH ×2 (09:17→21:00)
[2023-06-06] MEDS: amLODIPine 5 MG TAB PO SCH ×2 (09:17→22:25)
[2023-06-06] MEDS: OMEPRAZOLE 20MG CAP PO SCH (09:18)
[2023-06-06] MEDS: guaiFENesin ER TABLET 600 MG TAB PO SCH ×2 (09:18→21:00)
[2023-06-06] MEDS: SENNA 8.6 MG TAB (SENOKOT) PO SCH ×2 (09:18→21:00)
[2023-06-06] MEDS: PARoxetine 10MG TABLET PO SCH (09:18)
[2023-06-06] MEDS: ENOXAPARIN 40MG/0.4ML SYRINGE (J1650 PER 10MG) SC SCH (09:19)
[2023-06-06] MEDS: bisoproloL fumarate 5 MG TAB PO SCH (09:22)
[2023-06-06 14:00] VITALS: BP 144/82; TEMP 98.1; O2SAT 94
[2023-06-06] MEDS ORDERED: FLEET ENEMA PR ONE (18:30)
[2023-06-06] MEDS ORDERED: OXYMETAZOLINE 0.05% NASAL SPRAY (AFRIN) ONE (20:05)
[2023-06-06 20:22] VITALS: BP 157/92; TEMP 98.2; O2SAT 92
[2023-06-06] MEDS ORDERED: SODIUM CHLORIDE NASAL 0.65% SPRAY BTL (OCEAN) SCH (21:00)
[2023-06-06 22:22] LABS: HEMATOCRIT 33.9 % (36.0-47.0); HEMOGLOBIN 11.6 g/dl (12.0-15.5)
[2023-06-06] MEDS ORDERED: ACETAMINOPHEN TAB 650MG DOSE (2X325MG) PO PRN (22:25)
[2023-06-06 23:01] VITALS: O2SAT 98
[2023-06-07] MEDS: CEFEPIME HCL 2 GM in D5W MINI-BAG PLUS 50 ML IV SCH ×3 (02:17→18:00)
[2023-06-07] MEDS: methylPREDNISolone 40MG 1ML VIAL IV SCH ×2 (02:17→15:45)
[2023-06-07] MEDS: IPRATROPIUM 0.5MG/ALBUTEROL 2.5MG INH SOL UD 3ML (DUONEB) NEB SCH ×6 (03:33→22:45)
[2023-06-07 06:00] VITALS: BP 157/92; TEMP 98.1; O2SAT 92
[2023-06-07] MEDS: DICLOFENAC EPOLAMINE 1.3% PATCH TOP SCH ×2 (06:10→18:00)
[2023-06-07] MEDS: NYSTATIN 500,000U/5ML SUSP UDC SS SCH ×3 (06:10→18:00)
[2023-06-07] MEDS: FLUTICASONE HFA 220 MCG 12 GM INHALER (FLOVENT) INH SCH ×2 (07:26→20:36)
[2023-06-07] MEDS: SODIUM CHLORIDE HYPERTONIC 3% 4ML NEB SOL INH SCH (07:26)
[2023-06-07] MEDS: FORMOTEROL FUMARATE 20 MCG/2 ML INHALATION SOLUTION (PERFOROMIST) INH SCH ×3 (07:26→23:00)
[2023-06-07 08:52] LABS: BASO % 0.1 % (0.0-1.0); HEMATOCRIT 34.2 % (36.0-47.0); HEMOGLOBIN 11.8 g/dl (12.0-15.5); LYMPH # 0.7 10^3/uL (1.5-5.0); LYMPH % 5.5 % (24.0-44.0); MEAN CORPUSCULAR HEMOGLOBIN 29.7 pg (27.0-33.0); MEAN CORPUSCULAR HGB CONC 34.5 g/dl (32.0-36.5); MEAN CORPUSCULAR VOLUME 86.1 fl (80.0-96.0); MONO # 0.8 10^3/uL (0.0-0.8); MONO % 5.7 % (2.0-8.0); NEUTROPHILS # 11.8 10^3/uL (1.5-8.5); NEUTROPHILS % 87.3 % (36.0-66.0); PLATELET COUNT, AUTOMATED 486 10^3/uL (150-450); RED BLOOD COUNT 3.97 10^6/uL (4.00-5.40); WHITE BLOOD COUNT 13.5 10^3/uL (4.0-10.0)
[2023-06-07] MEDS: DOCUSATE SODIUM 100MG CAPSULE PO SCH ×2 (09:00→20:19)
[2023-06-07] MEDS: SENNA 8.6 MG TAB (SENOKOT) PO SCH ×2 (09:00→20:21)
[2023-06-07] MEDS: ENOXAPARIN 40MG/0.4ML SYRINGE (J1650 PER 10MG) SC SCH (09:00)
[2023-06-07] MEDS: MOM 30ML SUSPENSION UDC PO SCH (09:00)
[2023-06-07] MEDS ORDERED: DOXYCYCLINE HYCLATE 100MG TABLET PO SCH (09:00)
[2023-06-07] MEDS: PARoxetine 10MG TABLET PO SCH (09:02)
[2023-06-07] MEDS: guaiFENesin ER TABLET 600 MG TAB PO SCH ×2 (09:02→20:20)
[2023-06-07] MEDS: OMEPRAZOLE 20MG CAP PO SCH (09:02)
[2023-06-07] MEDS: ASPIRIN 81MG ENTERIC TABLET PO SCH (09:02)
[2023-06-07] MEDS: amLODIPine 5 MG TAB PO SCH ×2 (09:04→20:20)
[2023-06-07] MEDS: bisoproloL fumarate 5 MG TAB PO SCH (09:05)
[2023-06-07 09:18] LABS: BLOOD UREA NITROGEN 34 MG/DL (9-23); CALCIUM LEVEL 8.1 MG/DL (8.3-10.6); CARBON DIOXIDE LEVEL 29 MMOL/L (20-31); CHLORIDE LEVEL 96 MMOL/L (98-107); CREATININE FOR GFR 0.48 MG/DL (0.55-1.30); GLOMERULAR FILTRATION RATE > 60.0 (>39); GLUCOSE, FASTING 126 MG/DL (74-106); MAGNESIUM LEVEL 2.1 MG/DL (1.8-2.4); POTASSIUM SERUM 4.7 MMOL/L (3.5-5.1); SODIUM LEVEL 128 MMOL/L (136-145)
[2023-06-07 12:25] LABS: ABG BASE EXCESS 3.7 (-2.0-2.0); ABG O2 SATURATION 93.2 % (95.0-99.0); ABG PARTIAL PRESSURE CO2 36.3 mmHg (35.0-45.0); ABG PARTIAL PRESSURE O2 60.8 mmHg (75.0-100.0); ABG STANDARD HCO3 27.6 MMOL/L. (22.0-26.0); ABG TOTAL CO2 28.1 MMOL/L (23.0-31.0); ABG pH (ARTERIAL) 7.489 UNITS (7.350-7.450)
[2023-06-07 14:00] VITALS: BP 169/92; TEMP 97.5; O2SAT 94
[2023-06-07 19:00] VITALS: O2SAT 92
[2023-06-07 20:11] VITALS: BP 166/92; TEMP 97.4; O2SAT 90
[2023-06-07] MEDS: CEPACOL LOZENGE PO PRN (20:20)
[2023-06-08] MEDS: CEFEPIME HCL 2 GM in D5W MINI-BAG PLUS 50 ML IV SCH ×2 (01:03→08:46)
[2023-06-08] MEDS: NYSTATIN 500,000U/5ML SUSP UDC SS SCH ×4 (01:03→17:37)
[2023-06-08] MEDS: IPRATROPIUM 0.5MG/ALBUTEROL 2.5MG INH SOL UD 3ML (DUONEB) NEB SCH ×6 (03:54→23:12)
[2023-06-08 04:59] VITALS: BP 166/91; TEMP 97.9; O2SAT 89
[2023-06-08] MEDS: DICLOFENAC EPOLAMINE 1.3% PATCH TOP SCH ×2 (05:38→17:38)
[2023-06-08 06:10] LABS: BASO % 0.1 % (0.0-1.0); EOS % 0.1 % (0.0-3.0); HEMATOCRIT 33.4 % (36.0-47.0); HEMOGLOBIN 11.4 g/dl (12.0-15.5); LYMPH # 1.5 10^3/uL (1.5-5.0); LYMPH % 9.2 % (24.0-44.0); MEAN CORPUSCULAR HEMOGLOBIN 29.5 pg (27.0-33.0); MEAN CORPUSCULAR HGB CONC 34.1 g/dl (32.0-36.5); MEAN CORPUSCULAR VOLUME 86.3 fl (80.0-96.0); MONO % 10.7 % (2.0-8.0); NEUTROPHILS # 12.4 10^3/uL (1.5-8.5); NEUTROPHILS % 78.6 % (36.0-66.0); PLATELET COUNT, AUTOMATED 464 10^3/uL (150-450); RED BLOOD COUNT 3.87 10^6/uL (4.00-5.40); WHITE BLOOD COUNT 15.8 10^3/uL (4.0-10.0)
[2023-06-08 06:38] LABS: BLOOD UREA NITROGEN 31 MG/DL (9-23); CALCIUM LEVEL 8.6 MG/DL (8.3-10.6); CARBON DIOXIDE LEVEL 32 MMOL/L (20-31); CHLORIDE LEVEL 93 MMOL/L (98-107); CREATININE FOR GFR 0.48 MG/DL (0.55-1.30); GLOMERULAR FILTRATION RATE > 60.0 (>39); GLUCOSE, FASTING 79 MG/DL (74-106); POTASSIUM SERUM 4.7 MMOL/L (3.5-5.1); SODIUM LEVEL 127 MMOL/L (136-145)
[2023-06-08 07:11] LABS: MONO # 1.7 10^3/uL (0.0-0.8)
[2023-06-08] MEDS: FORMOTEROL FUMARATE 20 MCG/2 ML INHALATION SOLUTION (PERFOROMIST) INH SCH ×2 (07:32→19:15)
[2023-06-08] MEDS: FLUTICASONE HFA 220 MCG 12 GM INHALER (FLOVENT) INH SCH ×2 (07:32→19:15)
[2023-06-08] MEDS: SODIUM CHLORIDE HYPERTONIC 3% 4ML NEB SOL INH SCH (07:33)
[2023-06-08 08:16] LABS: C REACTIVE PROTEIN QUANTITATIV < 0.40 MG/DL (<1.0)
[2023-06-08] MEDS: methylPREDNISolone 40MG 1ML VIAL IV SCH (08:47)
[2023-06-08] MEDS: MOM 30ML SUSPENSION UDC PO SCH ×2 (08:47→21:33)
[2023-06-08] MEDS: OMEPRAZOLE 20MG CAP PO SCH (08:47)
[2023-06-08] MEDS: SENNA 8.6 MG TAB (SENOKOT) PO SCH (08:48)
[2023-06-08] MEDS: ASPIRIN 81MG ENTERIC TABLET PO SCH (08:50)
[2023-06-08] MEDS: amLODIPine 5 MG TAB PO SCH ×2 (08:50→21:35)
[2023-06-08] MEDS: PARoxetine 10MG TABLET PO SCH (08:50)
[2023-06-08] MEDS: DOCUSATE SODIUM 100MG CAPSULE PO SCH (08:51)
[2023-06-08] MEDS: guaiFENesin ER TABLET 600 MG TAB PO SCH ×2 (08:52→21:34)
[2023-06-08] MEDS: bisoproloL fumarate 5 MG TAB PO SCH (08:52)
[2023-06-08] MEDS ORDERED: LIDOCAINE 2% JELLY 6ML SYRINGE TOP ONE (11:10)
[2023-06-08] MEDS: SILVER NITRATE APPLICATOR (1 = QTY 10) TOP ONE ×2 (11:50→11:58)
[2023-06-08] MEDS ORDERED: TOLVAPTAN 7.5 MG HALF-TAB PO ONE (12:00)
[2023-06-08 14:00] VITALS: BP 137/93; TEMP 97.5; O2SAT 93
[2023-06-08] MEDS: TOBRAMYCIN INHAL 300 MG/5 ML SOLN INH SCH (19:15)
[2023-06-08 20:00] VITALS: BP 118/77; TEMP 99; O2SAT 91
[2023-06-08] MEDS: SENOKOT S TAB PO SCH (21:00)
[2023-06-08] MEDS: MIRALAX *UNIT DOSE* 17GM PACKET PO SCH (21:00)
[2023-06-09] MEDS: NYSTATIN 500,000U/5ML SUSP UDC SS SCH ×4 (00:05→17:39)
[2023-06-09] MEDS: IPRATROPIUM 0.5MG/ALBUTEROL 2.5MG INH SOL UD 3ML (DUONEB) NEB SCH ×6 (03:10→23:03)
[2023-06-09] MEDS: DICLOFENAC EPOLAMINE 1.3% PATCH TOP SCH ×2 (05:11→17:40)
[2023-06-09 06:33] LABS: BASO % 0.1 % (0.0-1.0); HEMATOCRIT 30.6 % (36.0-47.0); HEMOGLOBIN 10.7 g/dl (12.0-15.5); LYMPH # 1.9 10^3/uL (1.5-5.0); LYMPH % 14.3 % (24.0-44.0); MEAN CORPUSCULAR VOLUME 85.7 fl (80.0-96.0); MONO % 12.4 % (2.0-8.0); NEUTROPHILS # 9.8 10^3/uL (1.5-8.5); NEUTROPHILS % 72.1 % (36.0-66.0); PLATELET COUNT, AUTOMATED 426 10^3/uL (150-450); RED BLOOD COUNT 3.57 10^6/uL (4.00-5.40); WHITE BLOOD COUNT 13.5 10^3/uL (4.0-10.0)
[2023-06-09 06:34] VITALS: BP 129/78; TEMP 97.7; O2SAT 93
[2023-06-09 06:57] LABS: C REACTIVE PROTEIN QUANTITATIV < 0.40 MG/DL (<1.0)
[2023-06-09 06:58] LABS: BLOOD UREA NITROGEN 23 MG/DL (9-23); CALCIUM LEVEL 8.1 MG/DL (8.3-10.6); CARBON DIOXIDE LEVEL 34 MMOL/L (20-31); CHLORIDE LEVEL 98 MMOL/L (98-107); CREATININE FOR GFR 0.53 MG/DL (0.55-1.30); GLOMERULAR FILTRATION RATE > 60.0 (>39); GLUCOSE, FASTING 89 MG/DL (74-106); MAGNESIUM LEVEL 2.2 MG/DL (1.8-2.4); POTASSIUM SERUM 3.9 MMOL/L (3.5-5.1); SODIUM LEVEL 135 MMOL/L (136-145)
[2023-06-09] MEDS: TOBRAMYCIN INHAL 300 MG/5 ML SOLN INH SCH ×2 (07:02→20:18)
[2023-06-09] MEDS: FORMOTEROL FUMARATE 20 MCG/2 ML INHALATION SOLUTION (PERFOROMIST) INH SCH ×2 (07:02→20:17)
[2023-06-09] MEDS: SODIUM CHLORIDE HYPERTONIC 3% 4ML NEB SOL INH SCH (07:02)
[2023-06-09] MEDS: FLUTICASONE HFA 220 MCG 12 GM INHALER (FLOVENT) INH SCH ×2 (07:03→20:18)
[2023-06-09 07:25] LABS: MONO # 1.7 10^3/uL (0.0-0.8)
[2023-06-09 07:33] LABS: IMMUNOGLOBULIN A 115.4 MG/DL (40-350); IMMUNOGLOBULIN M 60.9 MG/DL (50-300)
[2023-06-09] MEDS: methylPREDNISolone 40MG 1ML VIAL IV SCH (08:12)
[2023-06-09] MEDS: OMEPRAZOLE 20MG CAP PO SCH (08:12)
[2023-06-09] MEDS: MOM 30ML SUSPENSION UDC PO SCH ×2 (08:13→21:43)
[2023-06-09] MEDS: amLODIPine 5 MG TAB PO SCH ×2 (08:13→21:44)
[2023-06-09] MEDS: MIRALAX *UNIT DOSE* 17GM PACKET PO SCH ×2 (08:13→21:00)
[2023-06-09] MEDS: guaiFENesin ER TABLET 600 MG TAB PO SCH ×2 (08:14→21:44)
[2023-06-09] MEDS: SENOKOT S TAB PO SCH ×2 (08:14→21:43)
[2023-06-09] MEDS: PARoxetine 10MG TABLET PO SCH (08:14)
[2023-06-09] MEDS: AZITHROMYCIN 250MG TABLET PO SCH (08:14)
[2023-06-09] MEDS: ASPIRIN 81MG ENTERIC TABLET PO SCH (08:15)
[2023-06-09] MEDS: bisoproloL fumarate 5 MG TAB PO SCH (08:15)
[2023-06-09 11:35] VITALS: O2SAT 93
[2023-06-09 14:00] VITALS: BP 121/70; TEMP 97.9; O2SAT 93
[2023-06-09 15:30] VITALS: O2SAT 93
[2023-06-09 21:45] VITALS: BP 144/82; TEMP 97.3; O2SAT 91
[2023-06-10] VITALS (10 sets, daily range): BP systolic 121–138; BP diastolic 74–86; TEMP 97–98.1; O2SAT 86–94
[2023-06-10] MEDS: NYSTATIN 500,000U/5ML SUSP UDC SS SCH ×5 (00:20→23:47)
[2023-06-10] MEDS: IPRATROPIUM 0.5MG/ALBUTEROL 2.5MG INH SOL UD 3ML (DUONEB) NEB SCH ×6 (03:23→23:24)
[2023-06-10] MEDS: DICLOFENAC EPOLAMINE 1.3% PATCH TOP SCH ×2 (05:46→17:35)
[2023-06-10] MEDS: FORMOTEROL FUMARATE 20 MCG/2 ML INHALATION SOLUTION (PERFOROMIST) INH SCH ×2 (07:42→19:23)
[2023-06-10] MEDS: FLUTICASONE HFA 220 MCG 12 GM INHALER (FLOVENT) INH SCH ×2 (07:42→19:23)
[2023-06-10] MEDS: TOBRAMYCIN INHAL 300 MG/5 ML SOLN INH SCH ×2 (07:42→19:37)
[2023-06-10] MEDS: SODIUM CHLORIDE HYPERTONIC 3% 4ML NEB SOL INH SCH (07:42)
[2023-06-10 07:50] LABS: BASO % 0.1 % (0.0-1.0); EOS % 0.2 % (0.0-3.0); HEMATOCRIT 31.4 % (36.0-47.0); HEMOGLOBIN 10.5 g/dl (12.0-15.5); LYMPH # 2.3 10^3/uL (1.5-5.0); LYMPH % 14.8 % (24.0-44.0); MEAN CORPUSCULAR HGB CONC 33.4 g/dl (32.0-36.5); MEAN CORPUSCULAR VOLUME 86.7 fl (80.0-96.0); MONO % 10.9 % (2.0-8.0); NEUTROPHILS # 11.5 10^3/uL (1.5-8.5); NEUTROPHILS % 72.9 % (36.0-66.0); PLATELET COUNT, AUTOMATED 427 10^3/uL (150-450); RED BLOOD COUNT 3.62 10^6/uL (4.00-5.40); WHITE BLOOD COUNT 15.7 10^3/uL (4.0-10.0)
[2023-06-10 08:13] LABS: C REACTIVE PROTEIN QUANTITATIV < 0.40 MG/DL (<1.0)
[2023-06-10 08:14] LABS: BLOOD UREA NITROGEN 24 MG/DL (9-23); CALCIUM LEVEL 8.2 MG/DL (8.3-10.6); CARBON DIOXIDE LEVEL 34 MMOL/L (20-31); CHLORIDE LEVEL 95 MMOL/L (98-107); CREATININE FOR GFR 0.49 MG/DL (0.55-1.30); GLOMERULAR FILTRATION RATE > 60.0 (>39); GLUCOSE, FASTING 82 MG/DL (74-106); MAGNESIUM LEVEL 2.3 MG/DL (1.8-2.4); POTASSIUM SERUM 3.7 MMOL/L (3.5-5.1); SODIUM LEVEL 131 MMOL/L (136-145)
[2023-06-10 08:21] LABS: MONO # 1.7 10^3/uL (0.0-0.8)
[2023-06-10] MEDS: MIRALAX *UNIT DOSE* 17GM PACKET PO SCH ×2 (09:00→20:47)
[2023-06-10] MEDS: MOM 30ML SUSPENSION UDC PO SCH ×2 (09:21→20:45)
[2023-06-10] MEDS: ASPIRIN 81MG ENTERIC TABLET PO SCH (09:23)
[2023-06-10] MEDS: amLODIPine 5 MG TAB PO SCH ×2 (09:23→20:46)
[2023-06-10] MEDS: guaiFENesin ER TABLET 600 MG TAB PO SCH ×2 (09:24→20:45)
[2023-06-10] MEDS: OMEPRAZOLE 20MG CAP PO SCH (09:25)
[2023-06-10] MEDS: bisoproloL fumarate 5 MG TAB PO SCH (09:26)
[2023-06-10] MEDS: PARoxetine 10MG TABLET PO SCH (09:26)
[2023-06-10] MEDS: SENOKOT S TAB PO SCH ×2 (09:27→20:47)
[2023-06-10] MEDS: methylPREDNISolone 40MG 1ML VIAL IV SCH (09:27)
[2023-06-10] MEDS ORDERED: TOLVAPTAN 7.5 MG HALF-TAB PO ONE (12:00)
[2023-06-11] VITALS (13 sets, daily range): BP systolic 103–135; BP diastolic 65–87; TEMP 97.5–98.2; O2SAT 86–99
[2023-06-11] MEDS: IPRATROPIUM 0.5MG/ALBUTEROL 2.5MG INH SOL UD 3ML (DUONEB) NEB SCH ×6 (03:32→23:09)
[2023-06-11] MEDS: NYSTATIN 500,000U/5ML SUSP UDC SS SCH ×3 (05:28→17:02)
[2023-06-11] MEDS: DICLOFENAC EPOLAMINE 1.3% PATCH TOP SCH ×2 (05:29→17:03)
[2023-06-11 05:55] LABS: BASO % 0.1 % (0.0-1.0); EOS % 0.2 % (0.0-3.0); HEMATOCRIT 27.3 % (36.0-47.0); HEMOGLOBIN 9.3 g/dl (12.0-15.5); LYMPH # 2.2 10^3/uL (1.5-5.0); LYMPH % 14.2 % (24.0-44.0); MEAN CORPUSCULAR HEMOGLOBIN 29.7 pg (27.0-33.0); MEAN CORPUSCULAR HGB CONC 34.1 g/dl (32.0-36.5); MEAN CORPUSCULAR VOLUME 87.2 fl (80.0-96.0); MONO # 1.5 10^3/uL (0.0-0.8); MONO % 9.5 % (2.0-8.0); NEUTROPHILS # 11.4 10^3/uL (1.5-8.5); NEUTROPHILS % 74.8 % (36.0-66.0); PLATELET COUNT, AUTOMATED 364 10^3/uL (150-450); RED BLOOD COUNT 3.13 10^6/uL (4.00-5.40); WHITE BLOOD COUNT 15.2 10^3/uL (4.0-10.0)
[2023-06-11] MEDS ORDERED: TOBRAMYCIN INHAL 300 MG/5 ML SOLN INH SCH ×3 (07:22→08:00)
[2023-06-11] MEDS: FLUTICASONE HFA 220 MCG 12 GM INHALER (FLOVENT) INH SCH ×2 (07:22→19:03)
[2023-06-11] MEDS: SODIUM CHLORIDE HYPERTONIC 3% 4ML NEB SOL INH SCH (07:23)
[2023-06-11] MEDS: FORMOTEROL FUMARATE 20 MCG/2 ML INHALATION SOLUTION (PERFOROMIST) INH SCH ×2 (07:23→19:03)
[2023-06-11] MEDS: methylPREDNISolone 40MG 1ML VIAL IV SCH (08:48)
[2023-06-11] MEDS: PARoxetine 10MG TABLET PO SCH (08:48)
[2023-06-11] MEDS: MOM 30ML SUSPENSION UDC PO SCH ×2 (08:49→21:21)
[2023-06-11] MEDS: bisoproloL fumarate 5 MG TAB PO SCH (08:49)
[2023-06-11] MEDS: ASPIRIN 81MG ENTERIC TABLET PO SCH (08:49)
[2023-06-11] MEDS: AZITHROMYCIN 250MG TABLET PO SCH (08:49)
[2023-06-11] MEDS: amLODIPine 5 MG TAB PO SCH ×2 (08:49→21:26)
[2023-06-11] MEDS: guaiFENesin ER TABLET 600 MG TAB PO SCH ×2 (08:49→21:22)
[2023-06-11] MEDS: OMEPRAZOLE 20MG CAP PO SCH (08:49)
[2023-06-11] MEDS: SENOKOT S TAB PO SCH ×2 (08:50→21:00)
[2023-06-11] MEDS: MIRALAX *UNIT DOSE* 17GM PACKET PO SCH ×2 (08:50→21:00)
[2023-06-11 09:08] LABS: ABG BASE EXCESS 8.3 (-2.0-2.0); ABG HCO3 32.6 MMOL/L (22.0-26.0); ABG O2 SATURATION 93.5 % (95.0-99.0); ABG PARTIAL PRESSURE CO2 44.4 mmHg (35.0-45.0); ABG pH (ARTERIAL) 7.484 UNITS (7.350-7.450)
[2023-06-11] MEDS: CEFEPIME HCL 2 GM in D5W MINI-BAG PLUS 50 ML IV SCH ×2 (11:21→21:22)
[2023-06-11] MEDS: ENOXAPARIN 40MG/0.4ML SYRINGE (J1650 PER 10MG) SC SCH (11:22)
[2023-06-11] MEDS ORDERED: ISOVUE-370 76% 100ML VIAL As Ordered ONE (11:27)
[2023-06-11] MEDS: SODIUM CHLORIDE 1 GM TAB PO SCH ×3 (12:32→21:22)
[2023-06-11] MEDS: FUROSEMIDE 10MG PER 1/2 TABLET PO SCH (12:32)
[2023-06-11 14:41] LABS: BLOOD UREA NITROGEN 19 MG/DL (7-21); CREATININE FOR GFR 0.4 MG/DL (0.7-1.5); GLOMERULAR FILTRATION RATE > 60.0 (>39); GLUCOSE, FASTING 74 MG/DL
[2023-06-11 14:42] LABS: CARBON DIOXIDE LEVEL 31 MEQ/L (22-30); CHLORIDE LEVEL 98 MEQ/L (98-107); POTASSIUM SERUM 3.7 MEQ/L (3.6-5.0); SODIUM LEVEL 138 MEQ/L (134-153)
[2023-06-11 14:43] LABS: C REACTIVE PROTEIN QUANTITATIV 2.19 MG/L (1.00-3.00); CALCIUM LEVEL 8.4 MG/DL (8.8-10.2); MAGNESIUM LEVEL 2.6 MG/DL (1.7-2.2)
[2023-06-12] VITALS (10 sets, daily range): BP systolic 110–126; BP diastolic 67–79; TEMP 97.5–98.5; O2SAT 92–97
[2023-06-12] MEDS: IPRATROPIUM 0.5MG/ALBUTEROL 2.5MG INH SOL UD 3ML (DUONEB) NEB SCH ×6 (03:18→23:07)
[2023-06-12 04:23] LABS: BASO % 0.1 % (0.0-1.0); EOS # 0.1 10^3/uL (0.0-0.5); EOS % 0.4 % (0.0-3.0); HEMATOCRIT 30.8 % (36.0-47.0); HEMOGLOBIN 10.5 g/dl (12.0-15.5); LYMPH # 1.7 10^3/uL (1.5-5.0); LYMPH % 11.2 % (24.0-44.0); MEAN CORPUSCULAR HEMOGLOBIN 29.6 pg (27.0-33.0); MEAN CORPUSCULAR HGB CONC 34.1 g/dl (32.0-36.5); MEAN CORPUSCULAR VOLUME 86.8 fl (80.0-96.0); MONO # 0.9 10^3/uL (0.0-0.8); MONO % 5.8 % (2.0-8.0); NEUTROPHILS # 12.5 10^3/uL (1.5-8.5); NEUTROPHILS % 80.9 % (36.0-66.0); PLATELET COUNT, AUTOMATED 398 10^3/uL (150-450); RED BLOOD COUNT 3.55 10^6/uL (4.00-5.40); WHITE BLOOD COUNT 15.4 10^3/uL (4.0-10.0)
[2023-06-12] MEDS: CEFEPIME HCL 2 GM in D5W MINI-BAG PLUS 50 ML IV SCH ×3 (04:31→20:13)
[2023-06-12] MEDS: NYSTATIN 500,000U/5ML SUSP UDC SS SCH ×4 (06:15→16:47)
[2023-06-12] MEDS: DICLOFENAC EPOLAMINE 1.3% PATCH TOP SCH ×2 (06:15→18:35)
[2023-06-12] MEDS: SODIUM CHLORIDE HYPERTONIC 3% 4ML NEB SOL INH SCH (07:37)
[2023-06-12] MEDS: FORMOTEROL FUMARATE 20 MCG/2 ML INHALATION SOLUTION (PERFOROMIST) INH SCH ×2 (07:38→19:03)
[2023-06-12] MEDS: FLUTICASONE HFA 220 MCG 12 GM INHALER (FLOVENT) INH SCH ×2 (07:38→19:03)
[2023-06-12] MEDS: SODIUM CHLORIDE 1 GM TAB PO SCH ×3 (08:18→20:13)
[2023-06-12] MEDS: guaiFENesin ER TABLET 600 MG TAB PO SCH ×2 (08:18→20:13)
[2023-06-12] MEDS: OMEPRAZOLE 20MG CAP PO SCH (08:19)
[2023-06-12] MEDS: ASPIRIN 81MG ENTERIC TABLET PO SCH (08:19)
[2023-06-12] MEDS: amLODIPine 5 MG TAB PO SCH ×2 (08:20→20:15)
[2023-06-12] MEDS: SENOKOT S TAB PO SCH ×2 (08:21→20:03)
[2023-06-12] MEDS: MIRALAX *UNIT DOSE* 17GM PACKET PO SCH ×2 (08:21→20:13)
[2023-06-12] MEDS: FUROSEMIDE 10MG PER 1/2 TABLET PO SCH (08:22)
[2023-06-12] MEDS: methylPREDNISolone 40MG 1ML VIAL IV SCH (08:22)
[2023-06-12] MEDS: ENOXAPARIN 40MG/0.4ML SYRINGE (J1650 PER 10MG) SC SCH (08:23)
[2023-06-12] MEDS: MOM 30ML SUSPENSION UDC PO SCH ×2 (08:23→20:15)
[2023-06-12] MEDS ORDERED: BISACODYL 10MG SUPP PR PRN (08:50)
[2023-06-12] MEDS: PARoxetine 10MG TABLET PO SCH (11:35)
[2023-06-13] VITALS (8 sets, daily range): BP systolic 120–140; BP diastolic 66–84; TEMP 98.2–99; O2SAT 89–99
[2023-06-13] MEDS: NYSTATIN 500,000U/5ML SUSP UDC SS SCH ×4 (00:38→18:00)
[2023-06-13] MEDS: IPRATROPIUM 0.5MG/ALBUTEROL 2.5MG INH SOL UD 3ML (DUONEB) NEB SCH ×5 (03:03→19:13)
[2023-06-13] MEDS: CEFEPIME HCL 2 GM in D5W MINI-BAG PLUS 50 ML IV SCH ×3 (04:12→19:38)
[2023-06-13 04:19] LABS: BASO % 0.1 % (0.0-1.0); HEMATOCRIT 27.1 % (36.0-47.0); LYMPH # 0.8 10^3/uL (1.5-5.0); LYMPH % 6.1 % (24.0-44.0); MEAN CORPUSCULAR HEMOGLOBIN 28.8 pg (27.0-33.0); MEAN CORPUSCULAR HGB CONC 33.2 g/dl (32.0-36.5); MEAN CORPUSCULAR VOLUME 86.6 fl (80.0-96.0); MONO # 0.9 10^3/uL (0.0-0.8); MONO % 7.2 % (2.0-8.0); NEUTROPHILS # 10.9 10^3/uL (1.5-8.5); NEUTROPHILS % 85.5 % (36.0-66.0); PLATELET COUNT, AUTOMATED 336 10^3/uL (150-450); RED BLOOD COUNT 3.13 10^6/uL (4.00-5.40); WHITE BLOOD COUNT 12.7 10^3/uL (4.0-10.0)
[2023-06-13] MEDS: DICLOFENAC EPOLAMINE 1.3% PATCH TOP SCH ×2 (06:00→18:00)
[2023-06-13] MEDS: FLUTICASONE HFA 220 MCG 12 GM INHALER (FLOVENT) INH SCH ×2 (07:27→19:14)
[2023-06-13] MEDS: SODIUM CHLORIDE HYPERTONIC 3% 4ML NEB SOL INH SCH (07:27)
[2023-06-13] MEDS: FORMOTEROL FUMARATE 20 MCG/2 ML INHALATION SOLUTION (PERFOROMIST) INH SCH ×2 (07:27→19:13)
[2023-06-13 07:39] LABS: BLOOD UREA NITROGEN 21 MG/DL (7-21); CREATININE FOR GFR 0.5 MG/DL (0.7-1.5); GLOMERULAR FILTRATION RATE > 60.0 (>39); GLUCOSE, FASTING 82 MG/DL
[2023-06-13 07:40] LABS: CARBON DIOXIDE LEVEL 32 MEQ/L (22-30); CHLORIDE LEVEL 94 MEQ/L (98-107); POTASSIUM SERUM 3.8 MEQ/L (3.6-5.0); SODIUM LEVEL 135 MEQ/L (134-153)
[2023-06-13 07:41] LABS: C REACTIVE PROTEIN QUANTITATIV 5.88 MG/L (1.00-3.00); CALCIUM LEVEL 8.6 MG/DL (8.8-10.2); MAGNESIUM LEVEL 2.5 MG/DL (1.7-2.2)
[2023-06-13] MEDS: FUROSEMIDE 10MG PER 1/2 TABLET PO SCH (08:22)
[2023-06-13] MEDS: MIRALAX *UNIT DOSE* 17GM PACKET PO SCH ×2 (08:22→20:37)
[2023-06-13] MEDS: ASPIRIN 81MG ENTERIC TABLET PO SCH (08:22)
[2023-06-13] MEDS: amLODIPine 5 MG TAB PO SCH ×2 (08:23→20:42)
[2023-06-13] MEDS: methylPREDNISolone 40MG 1ML VIAL IV SCH (08:23)
[2023-06-13] MEDS: guaiFENesin ER TABLET 600 MG TAB PO SCH ×2 (08:24→20:41)
[2023-06-13] MEDS: SENOKOT S TAB PO SCH ×2 (08:24→19:49)
[2023-06-13] MEDS: OMEPRAZOLE 20MG CAP PO SCH (08:24)
[2023-06-13] MEDS: SODIUM CHLORIDE 1 GM TAB PO SCH ×3 (08:24→20:40)
[2023-06-13] MEDS: ENOXAPARIN 40MG/0.4ML SYRINGE (J1650 PER 10MG) SC SCH (08:24)
[2023-06-13] MEDS: MOM 30ML SUSPENSION UDC PO SCH ×2 (08:25→19:49)
[2023-06-13] MEDS: PARoxetine 10MG TABLET PO SCH (08:25)
[2023-06-14] VITALS (18 sets, daily range): BP systolic 113–141; BP diastolic 62–87; TEMP 96.4–98.5; O2SAT 86–99
[2023-06-14] MEDS: IPRATROPIUM 0.5MG/ALBUTEROL 2.5MG INH SOL UD 3ML (DUONEB) NEB SCH ×7 (02:59→23:07)
[2023-06-14] MEDS: CEFEPIME HCL 2 GM in D5W MINI-BAG PLUS 50 ML IV SCH ×2 (03:45→16:42)
[2023-06-14 05:09] LABS: BASO % 0.1 % (0.0-1.0); EOS % 0.1 % (0.0-3.0); HEMATOCRIT 27.4 % (36.0-47.0); HEMOGLOBIN 9.1 g/dl (12.0-15.5); LYMPH # 1.1 10^3/uL (1.5-5.0); LYMPH % 8.4 % (24.0-44.0); MEAN CORPUSCULAR HEMOGLOBIN 29.2 pg (27.0-33.0); MEAN CORPUSCULAR HGB CONC 33.2 g/dl (32.0-36.5); MEAN CORPUSCULAR VOLUME 87.8 fl (80.0-96.0); MONO # 0.8 10^3/uL (0.0-0.8); MONO % 6.3 % (2.0-8.0); NEUTROPHILS # 11.3 10^3/uL (1.5-8.5); NEUTROPHILS % 84.2 % (36.0-66.0); PLATELET COUNT, AUTOMATED 324 10^3/uL (150-450); RED BLOOD COUNT 3.12 10^6/uL (4.00-5.40); WHITE BLOOD COUNT 13.4 10^3/uL (4.0-10.0)
[2023-06-14] MEDS: NYSTATIN 500,000U/5ML SUSP UDC SS SCH ×4 (05:25→17:49)
[2023-06-14] MEDS: DICLOFENAC EPOLAMINE 1.3% PATCH TOP SCH ×2 (05:25→17:49)
[2023-06-14] MEDS: SODIUM CHLORIDE HYPERTONIC 3% 4ML NEB SOL INH SCH (07:20)
[2023-06-14] MEDS: FORMOTEROL FUMARATE 20 MCG/2 ML INHALATION SOLUTION (PERFOROMIST) INH SCH ×2 (07:20→19:28)
[2023-06-14] MEDS: FLUTICASONE HFA 220 MCG 12 GM INHALER (FLOVENT) INH SCH ×2 (07:21→19:29)
[2023-06-14] MEDS: OMEPRAZOLE 20MG CAP PO SCH (08:23)
[2023-06-14] MEDS: AZITHROMYCIN 250MG TABLET PO SCH (08:23)
[2023-06-14] MEDS: ASPIRIN 81MG ENTERIC TABLET PO SCH (08:23)
[2023-06-14] MEDS: predniSONE 20 MG TAB PO SCH (08:24)
[2023-06-14] MEDS: guaiFENesin ER TABLET 600 MG TAB PO SCH ×2 (08:24→21:13)
[2023-06-14] MEDS: amLODIPine 5 MG TAB PO SCH ×2 (08:24→21:16)
[2023-06-14] MEDS: FUROSEMIDE 10MG PER 1/2 TABLET PO SCH (08:24)
[2023-06-14] MEDS: PARoxetine 10MG TABLET PO SCH (08:25)
[2023-06-14] MEDS: SODIUM CHLORIDE 1 GM TAB PO SCH ×3 (08:25→21:14)
[2023-06-14] MEDS: SENOKOT S TAB PO SCH ×2 (08:25→21:00)
[2023-06-14] MEDS: MOM 30ML SUSPENSION UDC PO SCH (08:25)
[2023-06-14] MEDS: MIRALAX *UNIT DOSE* 17GM PACKET PO SCH (08:25)
[2023-06-14] MEDS: ENOXAPARIN 40MG/0.4ML SYRINGE (J1650 PER 10MG) SC SCH (08:26)
[2023-06-14] MEDS ORDERED: POTASSIUM CHLORIDE 10MEQ SR TABLET PO ONE (11:00)
[2023-06-14] MEDS ORDERED: CEFEPIME 2GM VIAL (MAXIPIME) IV SCH (14:00)
[2023-06-14 14:17] LABS: BLOOD UREA NITROGEN 20 MG/DL (7-21); CARBON DIOXIDE LEVEL 29 MEQ/L (22-30); CHLORIDE LEVEL 93 MEQ/L (98-107); CREATININE FOR GFR 0.4 MG/DL (0.7-1.5); GLOMERULAR FILTRATION RATE > 60.0 (>39); GLUCOSE, FASTING 110 MG/DL; MAGNESIUM LEVEL 2.2 MG/DL (1.7-2.2); POTASSIUM SERUM 3.3 MEQ/L (3.6-5.0); SODIUM LEVEL 133 MEQ/L (134-153)
[2023-06-14 14:18] LABS: CALCIUM LEVEL 8.3 MG/DL (8.8-10.2)
[2023-06-14] MEDS: POTASSIUM CHLORIDE 10MEQ SR TABLET PO SCH (21:15)
[2023-06-15] VITALS (20 sets, daily range): BP systolic 110–129; BP diastolic 69–80; TEMP 97.4–98.3; O2SAT 88–99
[2023-06-15 00:07] LABS: IgG SERUM (part of Subclasses) 377 mg/dL (586-1602); IgG Subclass 1 178 mg/dL (248-810); IgG Subclass 2 124 mg/dL (130-555); IgG Subclass 3 52 mg/dL (15-102); IgG Subclass 4 8 mg/dL (2-96)
[2023-06-15] MEDS: CEFEPIME HCL 2 GM in D5W MINI-BAG PLUS 50 ML IV SCH ×3 (01:30→16:47)
[2023-06-15] MEDS: IPRATROPIUM 0.5MG/ALBUTEROL 2.5MG INH SOL UD 3ML (DUONEB) NEB SCH ×5 (03:30→18:55)
[2023-06-15 06:30] LABS: BASO % 0.2 % (0.0-1.0); EOS # 0.1 10^3/uL (0.0-0.5); EOS % 0.8 % (0.0-3.0); HEMATOCRIT 25.5 % (36.0-47.0); HEMOGLOBIN 8.6 g/dl (12.0-15.5); LYMPH # 1.3 10^3/uL (1.5-5.0); LYMPH % 10.7 % (24.0-44.0); MEAN CORPUSCULAR HEMOGLOBIN 29.4 pg (27.0-33.0); MEAN CORPUSCULAR HGB CONC 33.7 g/dl (32.0-36.5); MONO # 0.9 10^3/uL (0.0-0.8); MONO % 7.7 % (2.0-8.0); NEUTROPHILS # 9.3 10^3/uL (1.5-8.5); NEUTROPHILS % 79.3 % (36.0-66.0); PLATELET COUNT, AUTOMATED 299 10^3/uL (150-450); RED BLOOD COUNT 2.93 10^6/uL (4.00-5.40); WHITE BLOOD COUNT 11.7 10^3/uL (4.0-10.0)
[2023-06-15] MEDS: DICLOFENAC EPOLAMINE 1.3% PATCH TOP SCH ×2 (06:38→18:00)
[2023-06-15] MEDS: NYSTATIN 500,000U/5ML SUSP UDC SS SCH ×5 (06:38→23:40)
[2023-06-15 06:46] LABS: BLOOD UREA NITROGEN 21 MG/DL (9-23); CALCIUM LEVEL 7.9 MG/DL (8.3-10.6); CARBON DIOXIDE LEVEL 33 MMOL/L (20-31); CHLORIDE LEVEL 98 MMOL/L (98-107); GLOMERULAR FILTRATION RATE > 60.0 (>39); GLUCOSE, FASTING 74 MG/DL (74-106); MAGNESIUM LEVEL 2.1 MG/DL (1.8-2.4); POTASSIUM SERUM 3.8 MMOL/L (3.5-5.1); SODIUM LEVEL 135 MMOL/L (136-145)
[2023-06-15] MEDS: SODIUM CHLORIDE HYPERTONIC 3% 4ML NEB SOL INH SCH (07:12)
[2023-06-15] MEDS: FORMOTEROL FUMARATE 20 MCG/2 ML INHALATION SOLUTION (PERFOROMIST) INH SCH ×2 (07:12→18:56)
[2023-06-15] MEDS: FLUTICASONE HFA 220 MCG 12 GM INHALER (FLOVENT) INH SCH ×2 (07:13→18:55)
[2023-06-15] MEDS: ENOXAPARIN 40MG/0.4ML SYRINGE (J1650 PER 10MG) SC SCH (08:23)
[2023-06-15] MEDS: SODIUM CHLORIDE 1 GM TAB PO SCH ×3 (08:24→20:16)
[2023-06-15] MEDS: amLODIPine 5 MG TAB PO SCH ×2 (08:24→20:16)
[2023-06-15] MEDS: OMEPRAZOLE 20MG CAP PO SCH (08:24)
[2023-06-15] MEDS: ASPIRIN 81MG ENTERIC TABLET PO SCH (08:24)
[2023-06-15] MEDS: FUROSEMIDE 10MG PER 1/2 TABLET PO SCH (08:24)
[2023-06-15] MEDS: predniSONE 20 MG TAB PO SCH (08:24)
[2023-06-15] MEDS: guaiFENesin ER TABLET 600 MG TAB PO SCH ×2 (08:25→20:17)
[2023-06-15] MEDS: POTASSIUM CHLORIDE 10MEQ SR TABLET PO SCH ×2 (08:25→20:17)
[2023-06-15] MEDS: PARoxetine 10MG TABLET PO SCH (08:25)
[2023-06-15] MEDS: SENOKOT S TAB PO SCH ×2 (08:29→20:17)
[2023-06-15 12:08] LABS: IRON (FE) 43 UG/DL (50-170)
[2023-06-15 12:10] LABS: TOTAL IRON BINDING CAPACITY 226 UG/DL (250-425)
[2023-06-15 12:25] LABS: C REACTIVE PROTEIN QUANTITATIV < 0.40 MG/DL (<1.0)
[2023-06-15 14:26] LABS: BLOOD UREA NITROGEN 22 MG/DL (7-21); C REACTIVE PROTEIN QUANTITATIV 12.29 MG/L (1.00-3.00); CALCIUM LEVEL 8.2 MG/DL (8.8-10.2); CARBON DIOXIDE LEVEL 29 MEQ/L (22-30); CHLORIDE LEVEL 95 MEQ/L (98-107); CREATININE FOR GFR 0.4 MG/DL (0.7-1.5); GLOMERULAR FILTRATION RATE > 60.0 (>39); GLUCOSE, FASTING 101 MG/DL; MAGNESIUM LEVEL 2.5 MG/DL (1.7-2.2); POTASSIUM SERUM 3.6 MEQ/L (3.6-5.0); SODIUM LEVEL 133 MEQ/L (134-153)
[2023-06-15] MEDS: RAMELTEON 8 MG TAB (ROZEREM) PO SCH (20:16)
[2023-06-16] MEDS: IPRATROPIUM 0.5MG/ALBUTEROL 2.5MG INH SOL UD 3ML (DUONEB) NEB SCH ×7 (00:02→23:10)
[2023-06-16] MEDS: CEFEPIME HCL 2 GM in D5W MINI-BAG PLUS 50 ML IV SCH ×3 (00:19→17:32)
[2023-06-16 03:44] VITALS: BP 128/74; TEMP 97.4; O2SAT 92
[2023-06-16] MEDS: NYSTATIN 500,000U/5ML SUSP UDC SS SCH ×3 (06:11→17:32)
[2023-06-16] MEDS: DICLOFENAC EPOLAMINE 1.3% PATCH TOP SCH ×2 (06:14→17:33)
[2023-06-16] MEDS: FLUTICASONE HFA 220 MCG 12 GM INHALER (FLOVENT) INH SCH ×2 (07:38→19:40)
[2023-06-16] MEDS: SODIUM CHLORIDE HYPERTONIC 3% 4ML NEB SOL INH SCH (07:38)
[2023-06-16 07:54] LABS: BASO % 0.2 % (0.0-1.0); EOS % 0.3 % (0.0-3.0); HEMATOCRIT 25.1 % (36.0-47.0); HEMOGLOBIN 8.3 g/dl (12.0-15.5); LYMPH # 1.3 10^3/uL (1.5-5.0); LYMPH % 10.5 % (24.0-44.0); MEAN CORPUSCULAR HGB CONC 33.1 g/dl (32.0-36.5); MEAN CORPUSCULAR VOLUME 90.6 fl (80.0-96.0); MONO % 7.9 % (2.0-8.0); NEUTROPHILS # 10.1 10^3/uL (1.5-8.5); NEUTROPHILS % 79.7 % (36.0-66.0); PLATELET COUNT, AUTOMATED 246 10^3/uL (150-450); RED BLOOD COUNT 2.77 10^6/uL (4.00-5.40); WHITE BLOOD COUNT 12.7 10^3/uL (4.0-10.0)
[2023-06-16 07:59] VITALS: BP 141/74; TEMP 98.3; O2SAT 94
[2023-06-16 08:04] LABS: BLOOD UREA NITROGEN 22 MG/DL (9-23); CALCIUM LEVEL 7.6 MG/DL (8.3-10.6); CARBON DIOXIDE LEVEL 29 MMOL/L (20-31); CHLORIDE LEVEL 96 MMOL/L (98-107); CREATININE FOR GFR 0.47 MG/DL (0.55-1.30); GLOMERULAR FILTRATION RATE > 60.0 (>39); GLUCOSE, FASTING 79 MG/DL (74-106); MAGNESIUM LEVEL 1.8 MG/DL (1.8-2.4); POTASSIUM SERUM 4.2 MMOL/L (3.5-5.1); SODIUM LEVEL 128 MMOL/L (136-145)
[2023-06-16] MEDS: FORMOTEROL FUMARATE 20 MCG/2 ML INHALATION SOLUTION (PERFOROMIST) INH SCH ×2 (08:18→19:39)
[2023-06-16] MEDS: SENOKOT S TAB PO SCH ×2 (09:00→20:50)
[2023-06-16] MEDS: FUROSEMIDE 10MG PER 1/2 TABLET PO SCH (09:28)
[2023-06-16] MEDS: PARoxetine 10MG TABLET PO SCH (09:28)
[2023-06-16] MEDS: SODIUM CHLORIDE 1 GM TAB PO SCH ×3 (09:28→20:49)
[2023-06-16] MEDS: ENOXAPARIN 40MG/0.4ML SYRINGE (J1650 PER 10MG) SC SCH (09:28)
[2023-06-16] MEDS: AZITHROMYCIN 250MG TABLET PO SCH (09:28)
[2023-06-16] MEDS: amLODIPine 5 MG TAB PO SCH ×2 (09:29→20:49)
[2023-06-16] MEDS: guaiFENesin ER TABLET 600 MG TAB PO SCH ×2 (09:29→20:48)
[2023-06-16] MEDS: ASPIRIN 81MG ENTERIC TABLET PO SCH (09:29)
[2023-06-16] MEDS: OMEPRAZOLE 20MG CAP PO SCH (09:29)
[2023-06-16] MEDS: predniSONE 20 MG TAB PO SCH (09:29)
[2023-06-16] MEDS: POTASSIUM CHLORIDE 10MEQ SR TABLET PO SCH ×2 (09:30→20:48)
[2023-06-16] MEDS ORDERED: TOLVAPTAN 7.5 MG HALF-TAB PO ONE (11:00)
[2023-06-16 12:00] VITALS: BP 118/83; TEMP 98.5; O2SAT 94
[2023-06-16 12:01] LABS: BLOOD UREA NITROGEN 23 MG/DL (9-23); CALCIUM LEVEL 7.9 MG/DL (8.3-10.6); CARBON DIOXIDE LEVEL 27 MMOL/L (20-31); CHLORIDE LEVEL 95 MMOL/L (98-107); CREATININE FOR GFR 0.45 MG/DL (0.55-1.30); GLOMERULAR FILTRATION RATE > 60.0 (>39); GLUCOSE, FASTING 87 MG/DL (74-106); POTASSIUM SERUM 4.6 MMOL/L (3.5-5.1); SODIUM LEVEL 128 MMOL/L (136-145)
[2023-06-16 16:00] VITALS: BP 120/74; TEMP 97.9; O2SAT 94
[2023-06-16] MEDS ORDERED: SODIUM CHLORIDE 0.9% NASAL GEL 15GM (AYR) PRN (16:40)
[2023-06-16 20:00] VITALS: BP 130/79; TEMP 97.2; O2SAT 96
[2023-06-16] MEDS: RAMELTEON 8 MG TAB (ROZEREM) PO SCH (21:00)
[2023-06-17] VITALS: BP 130/76; TEMP 97.9; O2SAT 99
[2023-06-17] MEDS: CEFEPIME HCL 2 GM in D5W MINI-BAG PLUS 50 ML IV SCH ×3 (00:10→16:48)
[2023-06-17] MEDS: NYSTATIN 500,000U/5ML SUSP UDC SS SCH ×4 (00:10→18:28)
[2023-06-17 04:00] VITALS: BP 121/74; TEMP 97.2; O2SAT 96
[2023-06-17] MEDS: IPRATROPIUM 0.5MG/ALBUTEROL 2.5MG INH SOL UD 3ML (DUONEB) NEB SCH ×6 (04:08→23:16)
[2023-06-17 04:38] LABS: BASO % 0.1 % (0.0-1.0); EOS % 0.2 % (0.0-3.0); HEMATOCRIT 25.7 % (36.0-47.0); HEMOGLOBIN 8.5 g/dl (12.0-15.5); LYMPH # 1.1 10^3/uL (1.5-5.0); LYMPH % 9.5 % (24.0-44.0); MEAN CORPUSCULAR HEMOGLOBIN 29.4 pg (27.0-33.0); MEAN CORPUSCULAR HGB CONC 33.1 g/dl (32.0-36.5); MEAN CORPUSCULAR VOLUME 88.9 fl (80.0-96.0); MONO # 0.8 10^3/uL (0.0-0.8); NEUTROPHILS # 9.1 10^3/uL (1.5-8.5); PLATELET COUNT, AUTOMATED 275 10^3/uL (150-450); RED BLOOD COUNT 2.89 10^6/uL (4.00-5.40)
[2023-06-17 05:11] LABS: BLOOD UREA NITROGEN 19 MG/DL (9-23); CARBON DIOXIDE LEVEL 30 MMOL/L (20-31); CHLORIDE LEVEL 100 MMOL/L (98-107); GLOMERULAR FILTRATION RATE > 60.0 (>39); GLUCOSE, FASTING 75 MG/DL (74-106); MAGNESIUM LEVEL 1.9 MG/DL (1.8-2.4); POTASSIUM SERUM 4.2 MMOL/L (3.5-5.1); SODIUM LEVEL 136 MMOL/L (136-145)
[2023-06-17] MEDS: DICLOFENAC EPOLAMINE 1.3% PATCH TOP SCH ×2 (05:54→18:28)
[2023-06-17 07:27] VITALS: BP 143/67; TEMP 96.8; O2SAT 97
[2023-06-17] MEDS: FLUTICASONE HFA 220 MCG 12 GM INHALER (FLOVENT) INH SCH ×2 (07:39→19:51)
[2023-06-17] MEDS: FORMOTEROL FUMARATE 20 MCG/2 ML INHALATION SOLUTION (PERFOROMIST) INH SCH ×2 (07:39→19:51)
[2023-06-17] MEDS: SENOKOT S TAB PO SCH ×2 (09:00→21:29)
[2023-06-17] MEDS: predniSONE 10MG TAB PO SCH (09:17)
[2023-06-17] MEDS: POTASSIUM CHLORIDE 10MEQ SR TABLET PO SCH ×2 (09:17→21:29)
[2023-06-17] MEDS: guaiFENesin ER TABLET 600 MG TAB PO SCH ×2 (09:17→21:28)
[2023-06-17] MEDS: OMEPRAZOLE 20MG CAP PO SCH (09:17)
[2023-06-17] MEDS: SODIUM CHLORIDE 1 GM TAB PO SCH ×3 (09:18→21:28)
[2023-06-17] MEDS: ENOXAPARIN 40MG/0.4ML SYRINGE (J1650 PER 10MG) SC SCH (09:18)
[2023-06-17] MEDS: FUROSEMIDE 10MG PER 1/2 TABLET PO SCH (09:18)
[2023-06-17] MEDS: PARoxetine 10MG TABLET PO SCH (09:18)
[2023-06-17] MEDS: ASPIRIN 81MG ENTERIC TABLET PO SCH (09:18)
[2023-06-17] MEDS: amLODIPine 5 MG TAB PO SCH ×2 (09:21→21:29)
[2023-06-17] MEDS: SODIUM CHLORIDE HYPERTONIC 3% 4ML NEB SOL INH SCH (11:17)
[2023-06-17 12:06] VITALS: BP 125/77; TEMP 97.7; O2SAT 94
[2023-06-17] MEDS ORDERED: FUROSEMIDE 20 MG TAB PO ONE (12:20)
[2023-06-17 13:51] VITALS: BP 122/76; TEMP 97.9; O2SAT 97
[2023-06-17 20:07] VITALS: BP 122/79; TEMP 97.9; O2SAT 93
[2023-06-17] MEDS: RAMELTEON 8 MG TAB (ROZEREM) PO SCH (21:29)
[2023-06-18] MEDS: CEFEPIME HCL 2 GM in D5W MINI-BAG PLUS 50 ML IV SCH ×2 (00:23→08:51)
[2023-06-18] MEDS: NYSTATIN 500,000U/5ML SUSP UDC SS SCH ×4 (00:23→17:02)
[2023-06-18] MEDS: IPRATROPIUM 0.5MG/ALBUTEROL 2.5MG INH SOL UD 3ML (DUONEB) NEB SCH ×6 (03:45→23:13)
[2023-06-18 05:45] VITALS: BP 131/84; TEMP 97.7; O2SAT 95
[2023-06-18] MEDS: DICLOFENAC EPOLAMINE 1.3% PATCH TOP SCH ×2 (06:03→17:03)
[2023-06-18 06:12] LABS: BASO % 0.1 % (0.0-1.0); EOS # 0.1 10^3/uL (0.0-0.5); EOS % 0.4 % (0.0-3.0); HEMATOCRIT 26.3 % (36.0-47.0); HEMOGLOBIN 8.7 g/dl (12.0-15.5); LYMPH # 1.5 10^3/uL (1.5-5.0); LYMPH % 13.6 % (24.0-44.0); MEAN CORPUSCULAR HEMOGLOBIN 29.7 pg (27.0-33.0); MEAN CORPUSCULAR HGB CONC 33.1 g/dl (32.0-36.5); MEAN CORPUSCULAR VOLUME 89.8 fl (80.0-96.0); MONO # 0.8 10^3/uL (0.0-0.8); MONO % 6.7 % (2.0-8.0); NEUTROPHILS # 8.7 10^3/uL (1.5-8.5); NEUTROPHILS % 77.9 % (36.0-66.0); PLATELET COUNT, AUTOMATED 284 10^3/uL (150-450); RED BLOOD COUNT 2.93 10^6/uL (4.00-5.40); WHITE BLOOD COUNT 11.2 10^3/uL (4.0-10.0)
[2023-06-18 06:41] LABS: BLOOD UREA NITROGEN 15 MG/DL (9-23); CALCIUM LEVEL 8.3 MG/DL (8.3-10.6); CARBON DIOXIDE LEVEL 32 MMOL/L (20-31); CHLORIDE LEVEL 95 MMOL/L (98-107); CREATININE FOR GFR 0.49 MG/DL (0.55-1.30); GLOMERULAR FILTRATION RATE > 60.0 (>39); GLUCOSE, FASTING 78 MG/DL (74-106); MAGNESIUM LEVEL 1.8 MG/DL (1.8-2.4); SODIUM LEVEL 134 MMOL/L (136-145)
[2023-06-18] MEDS: SODIUM CHLORIDE HYPERTONIC 3% 4ML NEB SOL INH SCH (07:54)
[2023-06-18] MEDS: FLUTICASONE HFA 220 MCG 12 GM INHALER (FLOVENT) INH SCH ×2 (07:54→19:14)
[2023-06-18] MEDS: FORMOTEROL FUMARATE 20 MCG/2 ML INHALATION SOLUTION (PERFOROMIST) INH SCH ×2 (07:54→19:13)
[2023-06-18] MEDS: ENOXAPARIN 40MG/0.4ML SYRINGE (J1650 PER 10MG) SC SCH (08:51)
[2023-06-18] MEDS: FUROSEMIDE 20 MG TAB PO SCH (08:52)
[2023-06-18] MEDS: ASPIRIN 81MG ENTERIC TABLET PO SCH (08:52)
[2023-06-18] MEDS: AZITHROMYCIN 250MG TABLET PO SCH (08:52)
[2023-06-18] MEDS: SENOKOT S TAB PO SCH ×2 (08:52→21:00)
[2023-06-18] MEDS: guaiFENesin ER TABLET 600 MG TAB PO SCH ×2 (08:53→21:39)
[2023-06-18] MEDS: POTASSIUM CHLORIDE 10MEQ SR TABLET PO SCH ×2 (08:56→21:39)
[2023-06-18] MEDS: OMEPRAZOLE 20MG CAP PO SCH (08:56)
[2023-06-18] MEDS: PARoxetine 10MG TABLET PO SCH (08:56)
[2023-06-18] MEDS: predniSONE 10MG TAB PO SCH (08:56)
[2023-06-18] MEDS: SODIUM CHLORIDE 1 GM TAB PO SCH ×3 (08:56→21:38)
[2023-06-18] MEDS: amLODIPine 5 MG TAB PO SCH ×2 (08:58→21:39)
[2023-06-18 14:00] VITALS: BP 123/79; TEMP 97.7; O2SAT 94
[2023-06-18 19:14] VITALS: O2SAT 98
[2023-06-18] MEDS: RAMELTEON 8 MG TAB (ROZEREM) PO SCH (21:38)
[2023-06-18 22:06] VITALS: BP 122/79; TEMP 95.9; O2SAT 93
[2023-06-19] VITALS (8 sets, daily range): BP systolic 120–159; BP diastolic 64–88; TEMP 97.9–98.8; O2SAT 90–98
[2023-06-19] MEDS: IPRATROPIUM 0.5MG/ALBUTEROL 2.5MG INH SOL UD 3ML (DUONEB) NEB SCH ×6 (03:18→23:38)
[2023-06-19] MEDS: DICLOFENAC EPOLAMINE 1.3% PATCH TOP SCH ×2 (05:24→17:24)
[2023-06-19] MEDS: NYSTATIN 500,000U/5ML SUSP UDC SS SCH ×5 (05:25→23:42)
[2023-06-19 06:13] LABS: BASO % 0.1 % (0.0-1.0); EOS % 0.3 % (0.0-3.0); HEMATOCRIT 23.4 % (36.0-47.0); HEMOGLOBIN 7.7 g/dl (12.0-15.5); LYMPH # 1.3 10^3/uL (1.5-5.0); LYMPH % 13.9 % (24.0-44.0); MEAN CORPUSCULAR HEMOGLOBIN 29.8 pg (27.0-33.0); MEAN CORPUSCULAR HGB CONC 32.9 g/dl (32.0-36.5); MEAN CORPUSCULAR VOLUME 90.7 fl (80.0-96.0); MONO # 0.7 10^3/uL (0.0-0.8); MONO % 7.4 % (2.0-8.0); NEUTROPHILS % 77.3 % (36.0-66.0); PLATELET COUNT, AUTOMATED 238 10^3/uL (150-450); RED BLOOD COUNT 2.58 10^6/uL (4.00-5.40); WHITE BLOOD COUNT 9.1 10^3/uL (4.0-10.0)
[2023-06-19 06:41] LABS: BLOOD UREA NITROGEN 20 MG/DL (9-23); CALCIUM LEVEL 7.9 MG/DL (8.3-10.6); CARBON DIOXIDE LEVEL 31 MMOL/L (20-31); CHLORIDE LEVEL 95 MMOL/L (98-107); CREATININE FOR GFR 0.49 MG/DL (0.55-1.30); GLOMERULAR FILTRATION RATE > 60.0 (>39); GLUCOSE, FASTING 81 MG/DL (74-106); MAGNESIUM LEVEL 1.8 MG/DL (1.8-2.4); POTASSIUM SERUM 4.1 MMOL/L (3.5-5.1); SODIUM LEVEL 132 MMOL/L (136-145)
[2023-06-19] MEDS: SODIUM CHLORIDE HYPERTONIC 3% 4ML NEB SOL INH SCH (07:30)
[2023-06-19] MEDS: FLUTICASONE HFA 220 MCG 12 GM INHALER (FLOVENT) INH SCH ×2 (07:30→20:00)
[2023-06-19] MEDS: FORMOTEROL FUMARATE 20 MCG/2 ML INHALATION SOLUTION (PERFOROMIST) INH SCH ×2 (07:30→20:00)
[2023-06-19] MEDS: SENOKOT S TAB PO SCH ×2 (09:00→21:00)
[2023-06-19] MEDS: guaiFENesin ER TABLET 600 MG TAB PO SCH ×2 (09:05→21:20)
[2023-06-19] MEDS: amLODIPine 5 MG TAB PO SCH ×2 (09:05→21:19)
[2023-06-19] MEDS: ASPIRIN 81MG ENTERIC TABLET PO SCH (09:05)
[2023-06-19] MEDS: SODIUM CHLORIDE 1 GM TAB PO SCH ×3 (09:05→21:20)
[2023-06-19] MEDS: PARoxetine 10MG TABLET PO SCH (09:05)
[2023-06-19] MEDS: FUROSEMIDE 20 MG TAB PO SCH (09:05)
[2023-06-19] MEDS: OMEPRAZOLE 20MG CAP PO SCH (09:05)
[2023-06-19] MEDS: POTASSIUM CHLORIDE 10MEQ SR TABLET PO SCH ×2 (09:06→21:20)
[2023-06-19] MEDS: predniSONE 10MG TAB PO SCH (09:06)
[2023-06-19] MEDS: ENOXAPARIN 40MG/0.4ML SYRINGE (J1650 PER 10MG) SC SCH (09:06)
[2023-06-19] MEDS ORDERED: TOLVAPTAN 7.5 MG HALF-TAB PO ONE (11:45)
[2023-06-19 17:04] LABS: HEMATOCRIT 31.5 % (36.0-47.0)
[2023-06-19 17:08] LABS: HEMOGLOBIN 10.7 g/dl (12.0-15.5)
[2023-06-19] MEDS: RAMELTEON 8 MG TAB (ROZEREM) PO SCH (21:19)
[2023-06-20] MEDS: IPRATROPIUM 0.5MG/ALBUTEROL 2.5MG INH SOL UD 3ML (DUONEB) NEB SCH ×5 (03:40→20:01)
[2023-06-20] MEDS: NYSTATIN 500,000U/5ML SUSP UDC SS SCH ×4 (05:45→23:31)
[2023-06-20] MEDS: DICLOFENAC EPOLAMINE 1.3% PATCH TOP SCH ×2 (05:45→17:20)
[2023-06-20 06:09] LABS: BASO % 0.1 % (0.0-1.0); EOS % 0.3 % (0.0-3.0); HEMATOCRIT 30.4 % (36.0-47.0); HEMOGLOBIN 10.2 g/dl (12.0-15.5); LYMPH # 1.4 10^3/uL (1.5-5.0); LYMPH % 17.3 % (24.0-44.0); MEAN CORPUSCULAR HEMOGLOBIN 29.9 pg (27.0-33.0); MEAN CORPUSCULAR HGB CONC 33.6 g/dl (32.0-36.5); MEAN CORPUSCULAR VOLUME 89.1 fl (80.0-96.0); MONO # 0.7 10^3/uL (0.0-0.8); MONO % 8.8 % (2.0-8.0); NEUTROPHILS # 5.8 10^3/uL (1.5-8.5); NEUTROPHILS % 72.6 % (36.0-66.0); PLATELET COUNT, AUTOMATED 259 10^3/uL (150-450); RED BLOOD COUNT 3.41 10^6/uL (4.00-5.40); WHITE BLOOD COUNT 7.9 10^3/uL (4.0-10.0)
[2023-06-20 06:33] LABS: BLOOD UREA NITROGEN 20 MG/DL (9-23); CALCIUM LEVEL 8.3 MG/DL (8.3-10.6); CARBON DIOXIDE LEVEL 32 MMOL/L (20-31); CHLORIDE LEVEL 96 MMOL/L (98-107); CREATININE FOR GFR 0.47 MG/DL (0.55-1.30); GLOMERULAR FILTRATION RATE > 60.0 (>39); GLUCOSE, FASTING 81 MG/DL (74-106); MAGNESIUM LEVEL 1.8 MG/DL (1.8-2.4); POTASSIUM SERUM 4.1 MMOL/L (3.5-5.1); SODIUM LEVEL 135 MMOL/L (136-145)
[2023-06-20 06:54] VITALS: BP 134/80; TEMP 98.2; O2SAT 97
[2023-06-20] MEDS: FORMOTEROL FUMARATE 20 MCG/2 ML INHALATION SOLUTION (PERFOROMIST) INH SCH (07:19)
[2023-06-20] MEDS: SODIUM CHLORIDE HYPERTONIC 3% 4ML NEB SOL INH SCH (07:19)
[2023-06-20] MEDS: FLUTICASONE HFA 220 MCG 12 GM INHALER (FLOVENT) INH SCH ×2 (07:19→20:01)
[2023-06-20] MEDS: SODIUM CHLORIDE 1 GM TAB PO SCH ×3 (08:46→21:21)
[2023-06-20] MEDS: OMEPRAZOLE 20MG CAP PO SCH (08:46)
[2023-06-20] MEDS: predniSONE 20 MG TAB PO SCH (08:46)
[2023-06-20] MEDS: ASPIRIN 81MG ENTERIC TABLET PO SCH (08:46)
[2023-06-20] MEDS: PARoxetine 10MG TABLET PO SCH (08:46)
[2023-06-20] MEDS: SENOKOT S TAB PO SCH ×2 (08:46→21:00)
[2023-06-20] MEDS: POTASSIUM CHLORIDE 10MEQ SR TABLET PO SCH ×2 (08:47→21:20)
[2023-06-20] MEDS: FUROSEMIDE 20 MG TAB PO SCH (08:47)
[2023-06-20] MEDS: amLODIPine 5 MG TAB PO SCH ×2 (08:47→21:21)
[2023-06-20] MEDS: guaiFENesin ER TABLET 600 MG TAB PO SCH ×2 (08:47→21:21)
[2023-06-20] MEDS: ENOXAPARIN 40MG/0.4ML SYRINGE (J1650 PER 10MG) SC SCH (08:48)
[2023-06-20 14:00] VITALS: BP 122/83; TEMP 97.7; O2SAT 93
[2023-06-20] MEDS: SYMBICORT 160/4.5MCG INHALER 6GM INH SCH (20:01)
[2023-06-20 20:30] VITALS: BP 123/82; TEMP 97.7; O2SAT 98
[2023-06-20] MEDS: RAMELTEON 8 MG TAB (ROZEREM) PO SCH (21:20)
[2023-06-20] MEDS: ALBUTEROL SULFATE 2.5MG/0.5ML INH NEB SOLN NEB PRN (23:09)
[2023-06-21] MEDS: IPRATROPIUM 0.5MG/ALBUTEROL 2.5MG INH SOL UD 3ML (DUONEB) NEB SCH ×6 (03:14→23:24)
[2023-06-21] MEDS: DICLOFENAC EPOLAMINE 1.3% PATCH TOP SCH ×2 (05:21→17:29)
[2023-06-21] MEDS: NYSTATIN 500,000U/5ML SUSP UDC SS SCH ×4 (05:21→23:39)
[2023-06-21 05:57] VITALS: BP 129/61; TEMP 98.8; O2SAT 87
[2023-06-21 06:53] LABS: C REACTIVE PROTEIN QUANTITATIV 0.7 MG/DL (<1.0); MAGNESIUM LEVEL 1.8 MG/DL (1.8-2.4)
[2023-06-21] MEDS: SYMBICORT 160/4.5MCG INHALER 6GM INH SCH (08:00)
[2023-06-21] MEDS: SODIUM CHLORIDE HYPERTONIC 3% 4ML NEB SOL INH SCH (08:15)
[2023-06-21] MEDS: FLUTICASONE HFA 220 MCG 12 GM INHALER (FLOVENT) INH SCH (08:16)
[2023-06-21] MEDS: ENOXAPARIN 40MG/0.4ML SYRINGE (J1650 PER 10MG) SC SCH (08:58)
[2023-06-21] MEDS: ASPIRIN 81MG ENTERIC TABLET PO SCH (08:58)
[2023-06-21] MEDS: SENOKOT S TAB PO SCH ×2 (08:58→20:46)
[2023-06-21] MEDS: SODIUM CHLORIDE 1 GM TAB PO SCH ×3 (08:58→20:46)
[2023-06-21] MEDS: FUROSEMIDE 20 MG TAB PO SCH (08:59)
[2023-06-21] MEDS: PARoxetine 10MG TABLET PO SCH (08:59)
[2023-06-21] MEDS: AZITHROMYCIN 250MG TABLET PO SCH (08:59)
[2023-06-21] MEDS: OMEPRAZOLE 20MG CAP PO SCH (08:59)
[2023-06-21] MEDS: POTASSIUM CHLORIDE 10MEQ SR TABLET PO SCH ×2 (09:00→20:45)
[2023-06-21] MEDS: guaiFENesin ER TABLET 600 MG TAB PO SCH ×2 (09:00→20:45)
[2023-06-21] MEDS: predniSONE 20 MG TAB PO SCH (09:00)
[2023-06-21] MEDS: amLODIPine 5 MG TAB PO SCH ×2 (09:00→20:46)
[2023-06-21] MEDS ORDERED: IPRA0.00 INH (09:08)
[2023-06-21] MEDS ORDERED: FORM20VI2 IH (09:08)
[2023-06-21] MEDS: FORMOTEROL FUMARATE 20 MCG/2 ML INHALATION SOLUTION (PERFOROMIST) INH SCH ×2 (11:22→19:06)
[2023-06-21] MEDS: BUDESONIDE 0.5 MG/2 ML INHALATION SUSPENSION INH SCH ×2 (11:22→19:06)
[2023-06-21] MEDS ORDERED: BUDE0.5S6 INH (13:26)
[2023-06-21 19:06] VITALS: O2SAT 98
[2023-06-21 20:00] VITALS: BP 142/87; TEMP 98.1; O2SAT 99
[2023-06-21] MEDS ORDERED: FORMOTEROL FUMARATE 20 MCG/2 ML INHALATION SOLUTION (PERFOROMIST) INH SCH (20:00)
[2023-06-21] MEDS: RAMELTEON 8 MG TAB (ROZEREM) PO SCH (20:45)
[2023-06-22] MEDS: IPRATROPIUM 0.5MG/ALBUTEROL 2.5MG INH SOL UD 3ML (DUONEB) NEB SCH ×6 (03:02→23:10)
[2023-06-22] MEDS: NYSTATIN 500,000U/5ML SUSP UDC SS SCH ×4 (05:18→23:47)
[2023-06-22] MEDS: DICLOFENAC EPOLAMINE 1.3% PATCH TOP SCH ×2 (05:19→16:56)
[2023-06-22 05:57] VITALS: BP 146/92; TEMP 99; O2SAT 90
[2023-06-22 06:14] LABS: BASO % 0.1 % (0.0-1.0); EOS # 0.1 10^3/uL (0.0-0.5); EOS % 1.4 % (0.0-3.0); HEMATOCRIT 31.9 % (36.0-47.0); HEMOGLOBIN 10.6 g/dl (12.0-15.5); LYMPH # 1.5 10^3/uL (1.5-5.0); LYMPH % 17.4 % (24.0-44.0); MEAN CORPUSCULAR HEMOGLOBIN 30.1 pg (27.0-33.0); MEAN CORPUSCULAR HGB CONC 33.2 g/dl (32.0-36.5); MEAN CORPUSCULAR VOLUME 90.6 fl (80.0-96.0); MONO # 0.9 10^3/uL (0.0-0.8); MONO % 10.2 % (2.0-8.0); NEUTROPHILS # 5.9 10^3/uL (1.5-8.5); NEUTROPHILS % 70.2 % (36.0-66.0); PLATELET COUNT, AUTOMATED 239 10^3/uL (150-450); RED BLOOD COUNT 3.52 10^6/uL (4.00-5.40); WHITE BLOOD COUNT 8.4 10^3/uL (4.0-10.0)
[2023-06-22 06:26] LABS: BLOOD UREA NITROGEN 16 MG/DL (9-23); CALCIUM LEVEL 8.4 MG/DL (8.3-10.6); CARBON DIOXIDE LEVEL 29 MMOL/L (20-31); CHLORIDE LEVEL 97 MMOL/L (98-107); CREATININE FOR GFR 0.46 MG/DL (0.55-1.30); GLOMERULAR FILTRATION RATE > 60.0 (>39); GLUCOSE, FASTING 81 MG/DL (74-106); SODIUM LEVEL 134 MMOL/L (136-145)
[2023-06-22] MEDS: SODIUM CHLORIDE HYPERTONIC 3% 4ML NEB SOL INH SCH (07:28)
[2023-06-22] MEDS: FORMOTEROL FUMARATE 20 MCG/2 ML INHALATION SOLUTION (PERFOROMIST) INH SCH ×2 (07:28→19:02)
[2023-06-22] MEDS: BUDESONIDE 0.5 MG/2 ML INHALATION SUSPENSION INH SCH ×2 (07:28→19:02)
[2023-06-22] MEDS: ASPIRIN 81MG ENTERIC TABLET PO SCH (08:38)
[2023-06-22] MEDS: SENOKOT S TAB PO SCH (08:38)
[2023-06-22] MEDS: POTASSIUM CHLORIDE 10MEQ SR TABLET PO SCH ×2 (08:39→20:31)
[2023-06-22] MEDS: FUROSEMIDE 20 MG TAB PO SCH (08:39)
[2023-06-22] MEDS: SODIUM CHLORIDE 1 GM TAB PO SCH ×3 (08:39→20:31)
[2023-06-22] MEDS: OMEPRAZOLE 20MG CAP PO SCH (08:39)
[2023-06-22] MEDS: guaiFENesin ER TABLET 600 MG TAB PO SCH ×2 (08:40→20:31)
[2023-06-22] MEDS: PARoxetine 10MG TABLET PO SCH (08:40)
[2023-06-22] MEDS: predniSONE 20 MG TAB PO SCH (08:41)
[2023-06-22] MEDS: amLODIPine 5 MG TAB PO SCH ×2 (08:41→20:32)
[2023-06-22] MEDS: ENOXAPARIN 40MG/0.4ML SYRINGE (J1650 PER 10MG) SC SCH (08:42)
[2023-06-22] MEDS ORDERED: FLEET ENEMA PR PRN (10:00)
[2023-06-22] MEDS: BISACODYL 10MG SUPP PR SCH ×2 (12:37→20:35)
[2023-06-22] MEDS: DOCUSATE SODIUM 100MG CAPSULE PO SCH ×2 (12:37→20:31)
[2023-06-22 14:00] VITALS: BP 143/92; TEMP 97.9; O2SAT 91
[2023-06-22 20:00] VITALS: BP 140/87; TEMP 98.2; O2SAT 97
[2023-06-22] MEDS: RAMELTEON 8 MG TAB (ROZEREM) PO SCH (20:31)
[2023-06-22] MEDS ORDERED: SENNA 8.6 MG TAB (SENOKOT) PO SCH (21:00)
[2023-06-23] MEDS: IPRATROPIUM 0.5MG/ALBUTEROL 2.5MG INH SOL UD 3ML (DUONEB) NEB SCH ×3 (03:51→11:26)
[2023-06-23] MEDS: NYSTATIN 500,000U/5ML SUSP UDC SS SCH ×2 (05:02→12:00)
[2023-06-23] MEDS: DICLOFENAC EPOLAMINE 1.3% PATCH TOP SCH (05:02)
[2023-06-23 06:00] VITALS: BP 138/86; TEMP 99; O2SAT 95
[2023-06-23 06:37] LABS: HEMATOCRIT 28.9 % (36.0-47.0); HEMOGLOBIN 9.5 g/dl (12.0-15.5); MEAN CORPUSCULAR HEMOGLOBIN 29.9 pg (27.0-33.0); MEAN CORPUSCULAR HGB CONC 32.9 g/dl (32.0-36.5); MEAN CORPUSCULAR VOLUME 90.9 fl (80.0-96.0); PLATELET COUNT, AUTOMATED 253 10^3/uL (150-450); RED BLOOD COUNT 3.18 10^6/uL (4.00-5.40); WHITE BLOOD COUNT 6.2 10^3/uL (4.0-10.0)
[2023-06-23 06:52] LABS: ALBUMIN 2.5 G/DL (3.2-5.2); ALKALINE PHOSPHATASE 61 U/L (46-116); ALT/SGPT 23 U/L (7.0-40); AST/SGOT 16 U/L (<34); BILIRUBIN,TOTAL 0.5 MG/DL (0.3-1.2); BLOOD UREA NITROGEN 14 MG/DL (9-23); CALCIUM LEVEL 8.1 MG/DL (8.3-10.6); CARBON DIOXIDE LEVEL 33 MMOL/L (20-31); CHLORIDE LEVEL 94 MMOL/L (98-107); CREATININE FOR GFR 0.47 MG/DL (0.55-1.30); GLOMERULAR FILTRATION RATE > 60.0 (>39); GLUCOSE, FASTING 80 MG/DL (74-106); POTASSIUM SERUM 3.8 MMOL/L (3.5-5.1); SODIUM LEVEL 132 MMOL/L (136-145); TOTAL PROTEIN 4.6 G/DL (5.7-8.2)
[2023-06-23] MEDS ORDERED: AZIT-12 PO ×2 (07:12→07:34)
[2023-06-23] MEDS ORDERED: AMLO1TAB24 PO (07:12)
[2023-06-23] MEDS: BUDESONIDE 0.5 MG/2 ML INHALATION SUSPENSION INH SCH (07:26)
[2023-06-23] MEDS ORDERED: SODI1TAB6 PO (07:26)
[2023-06-23] MEDS ORDERED: POTA-136 PO (07:26)
[2023-06-23] MEDS ORDERED: FURO20TA2 PO (07:26)
[2023-06-23] MEDS: FORMOTEROL FUMARATE 20 MCG/2 ML INHALATION SOLUTION (PERFOROMIST) INH SCH (07:26)
[2023-06-23] MEDS ORDERED: COLA100C5 PO (07:26)
[2023-06-23] MEDS ORDERED: PRED20TA PO (07:26)
[2023-06-23] MEDS ORDERED: MUCI600T31 PO (07:26)
[2023-06-23] MEDS: SODIUM CHLORIDE HYPERTONIC 3% 4ML NEB SOL INH SCH (08:00)
[2023-06-23] MEDS: BISACODYL 10MG SUPP PR SCH (09:00)
[2023-06-23] MEDS ORDERED: predniSONE 10MG TAB PO SCH (09:00)
[2023-06-23] MEDS ORDERED: predniSONE 20 MG TAB PO SCH (09:00)
[2023-06-23] MEDS: ENOXAPARIN 40MG/0.4ML SYRINGE (J1650 PER 10MG) SC SCH (09:20)
[2023-06-23] MEDS: ASPIRIN 81MG ENTERIC TABLET PO SCH (09:21)
[2023-06-23] MEDS: FUROSEMIDE 20 MG TAB PO SCH (09:21)
[2023-06-23] MEDS: AZITHROMYCIN 250MG TABLET PO SCH (09:21)
[2023-06-23 09:22] VITALS: BP 138/86
[2023-06-23] MEDS: PARoxetine 10MG TABLET PO SCH (09:22)
[2023-06-23] MEDS: DOCUSATE SODIUM 100MG CAPSULE PO SCH (09:22)
[2023-06-23] MEDS: guaiFENesin ER TABLET 600 MG TAB PO SCH (09:22)
[2023-06-23] MEDS: amLODIPine 5 MG TAB PO SCH (09:22)
[2023-06-23] MEDS: POTASSIUM CHLORIDE 10MEQ SR TABLET PO SCH (09:23)
[2023-06-23] MEDS: OMEPRAZOLE 20MG CAP PO SCH (09:23)
[2023-06-23] MEDS: SODIUM CHLORIDE 1 GM TAB PO SCH (09:23)
[2023-06-23] MEDS ORDERED: PANT20TA6 PO (12:05)
[2023-06-23 14:00] VITALS: BP 133/83; TEMP 97.9; O2SAT 97
[2023-06-23] MEDS: ALBUTEROL SULFATE 2.5MG/0.5ML INH NEB SOLN NEB PRN (14:19)
[2023-06-24] MEDS ORDERED: AZIT-12 PO (03:30)
[2023-06-24] MEDS ORDERED: POTA-150 PO (03:30)
[2023-06-24] MEDS ORDERED: MUCI600T31 PO (03:30)
[2023-06-24] MEDS ORDERED: BUDE0.5S6 INH (03:30)
[2023-06-24] MEDS ORDERED: ALEN70TA82 PO (03:30)
[2023-06-24] MEDS ORDERED: SODI1TAB12 PO (03:30)
[2023-06-24] MEDS ORDERED: PRED10TA2 PO (03:30)
[2023-06-24] MEDS ORDERED: ALBU2.5V10 INH (03:30)
[2023-06-24] MEDS ORDERED: IPRA0.00 INH (03:30)
[2023-06-24] MEDS ORDERED: FURO20TA2 PO (03:30)
[2023-06-24] MEDS ORDERED: PERF20NE2 INH (03:30)
[2023-06-24] MEDS ORDERED: DOCU100C16 PO (03:30)
[2023-06-24] MEDS ORDERED: PANT20TA6 PO (03:30)
[2023-06-24] MEDS ORDERED: AMLO1TAB24 PO (03:30)
== END 2023-06-23 15:15 | disposition home or self-care (01) | DRG 189 ==
LOC: EDBD 03:18 → M ED 06:31 → M ED INP 07:47 → ENRESERV 09:02 → M MSPAV 09:33 → M ICU 06-11 09:07 → M PCU 06-14 11:39 → M MSPAV 06-17 12:05
PROVIDERS: ADMIT Internal Medicine Nephrology; ATTEND Internal Medicine
PROC: B246ZZZ Ultrasonography of Right and Left Heart (ICD-10-PCS; 2023-06-10)
PROC: 30233N1 Transfusion of Nonautologous Red Blood Cells into Peripheral Vein, Percutaneous Approach (ICD-10-PCS; principal; 2023-06-19)
DX: J96.22 Acute and chronic respiratory failure with hypercapnia (principal); J98.11 Atelectasis; J44.1 Chronic obstructive pulmonary disease with (acute) exacerbation; S22.050A Wedge compression fracture of T5-T6 vertebra, initial encounter for closed fracture; S22.040A Wedge compression fracture of fourth thoracic vertebra, initial encounter for closed fracture; E22.2 Syndrome of inappropriate secretion of antidiuretic hormone; B37.0 Candidal stomatitis; J44.0 Chronic obstructive pulmonary disease with (acute) lower respiratory infection; R64 Cachexia; D80.1 Nonfamilial hypogammaglobulinemia; Z66 Do not resuscitate; J96.21 Acute and chronic respiratory failure with hypoxia; Z99.81 Dependence on supplemental oxygen; B34.8 Other viral infections of unspecified site; J43.9 Emphysema, unspecified; M85.88 Other specified disorders of bone density and structure, other site; M41.9 Scoliosis, unspecified; E78.5 Hyperlipidemia, unspecified; I10 Essential (primary) hypertension; M06.9 Rheumatoid arthritis, unspecified; E55.9 Vitamin D deficiency, unspecified; K44.9 Diaphragmatic hernia without obstruction or gangrene; K76.89 Other specified diseases of liver; J32.9 Chronic sinusitis, unspecified; M54.9 Dorsalgia, unspecified; R04.0 Epistaxis; J20.9 Acute bronchitis, unspecified; K59.00 Constipation, unspecified; K21.9 Gastro-esophageal reflux disease without esophagitis; E87.6 Hypokalemia; F41.9 Anxiety disorder, unspecified; F32.A Depression, unspecified; D64.9 Anemia, unspecified; F17.210 Nicotine dependence, cigarettes, uncomplicated; Z79.82 Long term (current) use of aspirin; Z79.52 Long term (current) use of systemic steroids; Z79.899 Other long term (current) drug therapy; Z88.1 Allergy status to other antibiotic agents; Z20.822 Contact with and (suspected) exposure to COVID-19; B96.1 Klebsiella pneumoniae [K. pneumoniae] as the cause of diseases classified elsewhere

== ENCOUNTER 2023-06-23 23:02 | Inpatient (IN) | payer MEDICARE ==
[~2023-06-23] VITALS: Ht 154.9 cm; Wt 49.1 kg
[~2023-06-23 23:02] MED LIST changes: +ALBU8.5H INH; +AZIT-12 PO; +BUDE0.5S6 INH; +COLA100C5 PO; +FLUT22IN INH; +FORM20VI2 IH; +FURO20TA2 PO; +IPRA0.00 INH; +PANT20TA6 PO; +PARO5TAB PO; +POTA-136 PO; +SODI1TAB6 PO
[2023-06-24 00:35] LABS: HEMOGLOBIN 9.7 g/dl (12.0-15.5); LYMPH # 0.4 10^3/uL (1.5-5.0); LYMPH % 5.5 % (24.0-44.0); MEAN CORPUSCULAR HEMOGLOBIN 30.2 pg (27.0-33.0); MEAN CORPUSCULAR HGB CONC 33.4 g/dl (32.0-36.5); MEAN CORPUSCULAR VOLUME 90.3 fl (80.0-96.0); MONO # 0.5 10^3/uL (0.0-0.8); MONO % 8.3 % (2.0-8.0); NEUTROPHILS # 5.6 10^3/uL (1.5-8.5); NEUTROPHILS % 85.3 % (36.0-66.0); PLATELET COUNT, AUTOMATED 272 10^3/uL (150-450); RED BLOOD COUNT 3.21 10^6/uL (4.00-5.40); WHITE BLOOD COUNT 6.5 10^3/uL (4.0-10.0)
[2023-06-24 00:47] LABS: CK-MB VALUE MASS 2.3 NG/ML (<3.6)
[2023-06-24 00:51] LABS: INR 1.03; PROTHROMBIN TIME 13.2 SECONDS (12.5-14.5)
[2023-06-24 00:52] LABS: PARTIAL THROMBOPLASTIN TIME 27.9 SECONDS (24.8-34.2)
[2023-06-24] MEDS ORDERED: MORPHINE 4 MG/ML 1ML VIAL As Ordered ONE (00:53)
[2023-06-24] MEDS ORDERED: ONDANSETRON 4MG 2ML VIAL As Ordered ONE (00:54)
[2023-06-24] MEDS ORDERED: ONDANSETRON 4MG 2ML VIAL IV ONE (00:55)
[2023-06-24 00:57] LABS: ALBUMIN 2.6 G/DL (3.2-5.2); ALKALINE PHOSPHATASE 62 U/L (46-116); ALT/SGPT 35 U/L (7.0-40); AST/SGOT 26 U/L (<34); BILIRUBIN,DIRECT 0.1 MG/DL (<0.4); BILIRUBIN,TOTAL 0.5 MG/DL (0.3-1.2); BLOOD UREA NITROGEN 16 MG/DL (9-23); CARBON DIOXIDE LEVEL 33 MMOL/L (20-31); CHLORIDE LEVEL 95 MMOL/L (98-107); CPK CREATINE PHOSPHOKINASE 62 U/L (34-145); CREATININE FOR GFR 0.62 MG/DL (0.55-1.30); GLOMERULAR FILTRATION RATE > 60.0 (>39); GLUCOSE, FASTING 126 MG/DL (74-106); POTASSIUM SERUM 4.5 MMOL/L (3.5-5.1); SODIUM LEVEL 132 MMOL/L (136-145)
[2023-06-24] MEDS: MORPHINE 4 MG/ML 1ML VIAL IV PRN ×2 (00:57→02:08)
[2023-06-24 01:26] LABS: RSV AMPLIFICATION NEGATIVE (NEGATIVE)
[2023-06-24] MEDS ORDERED: MOM 30ML SUSPENSION UDC PO PRN (01:50)
[2023-06-24] MEDS ORDERED: IPRATROPIUM 0.5MG/ALBUTEROL 2.5MG INH SOL UD 3ML (DUONEB) NEB PRN (02:40)
[2023-06-24] MEDS ORDERED: ALBU2.5V10 INH (03:30)
[2023-06-24] MEDS ORDERED: DOCU100C16 PO (03:30)
[2023-06-24] MEDS ORDERED: PANT20TA6 PO (03:30)
[2023-06-24] MEDS ORDERED: FURO20TA2 PO (03:30)
[2023-06-24] MEDS ORDERED: PRED10TA2 PO (03:30)
[2023-06-24] MEDS ORDERED: PERF20NE2 INH (03:30)
[2023-06-24] MEDS ORDERED: ALEN70TA82 PO (03:30)
[2023-06-24] MEDS ORDERED: POTA-150 PO (03:30)
[2023-06-24] MEDS ORDERED: AMLO1TAB24 PO (03:30)
[2023-06-24] MEDS ORDERED: BUDE0.5S6 INH (03:30)
[2023-06-24] MEDS ORDERED: MUCI600T31 PO (03:30)
[2023-06-24] MEDS ORDERED: AZIT-12 PO (03:30)
[2023-06-24] MEDS ORDERED: IPRA0.00 INH (03:30)
[2023-06-24] MEDS ORDERED: SODI1TAB12 PO (03:30)
[2023-06-24] MEDS ORDERED: HOME MED LIST COMPLETE! XX SCH (03:35)
[2023-06-24 03:45] VITALS: BP 142/80; TEMP 97.4; O2SAT 92
[2023-06-24 04:00] VITALS: O2SAT 97
[2023-06-24] MEDS: HEPARIN SOD (PORCINE) 5000UNITS/ML 1ML VIAL/SYRINGE SC SCH ×3 (05:12→21:32)
[2023-06-24 07:30] LABS: HEMATOCRIT 27.7 % (36.0-47.0); HEMOGLOBIN 9.1 g/dl (12.0-15.5); MEAN CORPUSCULAR HEMOGLOBIN 30.1 pg (27.0-33.0); MEAN CORPUSCULAR HGB CONC 32.9 g/dl (32.0-36.5); MEAN CORPUSCULAR VOLUME 91.7 fl (80.0-96.0); PLATELET COUNT, AUTOMATED 255 10^3/uL (150-450); RED BLOOD COUNT 3.02 10^6/uL (4.00-5.40); WHITE BLOOD COUNT 8.9 10^3/uL (4.0-10.0)
[2023-06-24 07:57] VITALS: BP 133/78; TEMP 98.3; O2SAT 95
[2023-06-24] MEDS: FORMOTEROL FUMARATE 20 MCG/2 ML INHALATION SOLUTION (PERFOROMIST) INH SCH ×2 (08:00→20:47)
[2023-06-24] MEDS: TIOTROPIUM INHALER/CAPSULE (SPIRIVA) INH SCH (08:00)
[2023-06-24] MEDS: FLUTICASONE HFA 220 MCG 12 GM INHALER (FLOVENT) INH SCH ×2 (08:00→20:47)
[2023-06-24] MEDS: BUDESONIDE 0.5 MG/2 ML INHALATION SUSPENSION INH SCH ×2 (08:00→20:47)
[2023-06-24] MEDS: IPRATROPIUM 0.5MG/ALBUTEROL 2.5MG INH SOL UD 3ML (DUONEB) INH SCH ×4 (08:00→20:47)
[2023-06-24 08:03] LABS: ALBUMIN 2.6 G/DL (3.2-5.2); ALKALINE PHOSPHATASE 71 U/L (46-116); ALT/SGPT 53 U/L (7.0-40); AST/SGOT 50 U/L (<34); BILIRUBIN,TOTAL 0.8 MG/DL (0.3-1.2); BLOOD UREA NITROGEN 19 MG/DL (9-23); CALCIUM LEVEL 8.4 MG/DL (8.3-10.6); CARBON DIOXIDE LEVEL 34 MMOL/L (20-31); CHLORIDE LEVEL 94 MMOL/L (98-107); CREATININE FOR GFR 0.78 MG/DL (0.55-1.30); GLOMERULAR FILTRATION RATE > 60.0 (>39); GLUCOSE, FASTING 97 MG/DL (74-106); POTASSIUM SERUM 4.3 MMOL/L (3.5-5.1); SODIUM LEVEL 134 MMOL/L (136-145); TOTAL PROTEIN 4.8 G/DL (5.7-8.2)
[2023-06-24] MEDS: methylPREDNISolone 40MG 1ML VIAL IV SCH (08:48)
[2023-06-24] MEDS: NS 1,000 ML IV SCH ×2 (08:48→21:32)
[2023-06-24] MEDS: DOCUSATE SODIUM 100MG CAPSULE PO SCH ×2 (08:49→21:00)
[2023-06-24] MEDS: POTASSIUM CHLORIDE 10MEQ SR TABLET PO SCH ×2 (08:49→21:32)
[2023-06-24] MEDS: PANTOPRAZOLE 20 MG TAB PO SCH (08:49)
[2023-06-24] MEDS: PARoxetine 10MG TABLET PO SCH (08:49)
[2023-06-24] MEDS: ASPIRIN 81MG ENTERIC TABLET PO SCH (08:50)
[2023-06-24] MEDS: FUROSEMIDE 20 MG TAB PO SCH (08:50)
[2023-06-24] MEDS: amLODIPine 5 MG TAB PO SCH ×2 (08:50→21:00)
[2023-06-24] MEDS: bisoproloL fumarate 5 MG TAB PO SCH (08:50)
[2023-06-24] MEDS: SODIUM CHLORIDE 1 GM TAB PO SCH ×3 (08:51→21:32)
[2023-06-24] MEDS: guaiFENesin ER TABLET 600 MG TAB PO SCH ×2 (08:51→21:32)
[2023-06-24] MEDS ORDERED: DOCUSATE SODIUM 100MG CAPSULE PO SCH (09:00)
[2023-06-24 11:42] VITALS: BP 123/72; TEMP 97.3; O2SAT 94
[2023-06-24 19:26] VITALS: BP 103/56; TEMP 98.6; O2SAT 94
[2023-06-25] VITALS (8 sets, daily range): BP systolic 105–130; BP diastolic 66–95; TEMP 96.8–98; O2SAT 91–98
[2023-06-25] MEDS: IPRATROPIUM 0.5MG/ALBUTEROL 2.5MG INH SOL UD 3ML (DUONEB) INH SCH ×7 (01:52→23:17)
[2023-06-25] MEDS: ACETAMINOPHEN TAB 650MG DOSE (2X325MG) PO PRN (02:49)
[2023-06-25] MEDS: HEPARIN SOD (PORCINE) 5000UNITS/ML 1ML VIAL/SYRINGE SC SCH (05:31)
[2023-06-25] MEDS: FORMOTEROL FUMARATE 20 MCG/2 ML INHALATION SOLUTION (PERFOROMIST) INH SCH ×2 (07:52→21:22)
[2023-06-25] MEDS: BUDESONIDE 0.5 MG/2 ML INHALATION SUSPENSION INH SCH ×2 (07:52→21:22)
[2023-06-25] MEDS: FLUTICASONE HFA 220 MCG 12 GM INHALER (FLOVENT) INH SCH ×2 (07:53→21:22)
[2023-06-25] MEDS: TIOTROPIUM INHALER/CAPSULE (SPIRIVA) INH SCH ×2 (07:53→08:00)
[2023-06-25] MEDS: ASPIRIN 81MG ENTERIC TABLET PO SCH (09:00)
[2023-06-25] MEDS: DOCUSATE SODIUM 100MG CAPSULE PO SCH ×2 (09:00→21:19)
[2023-06-25] MEDS: PANTOPRAZOLE 20 MG TAB PO SCH (09:00)
[2023-06-25] MEDS: FUROSEMIDE 20 MG TAB PO SCH (09:15)
[2023-06-25] MEDS: guaiFENesin ER TABLET 600 MG TAB PO SCH ×2 (09:16→21:20)
[2023-06-25] MEDS: POTASSIUM CHLORIDE 10MEQ SR TABLET PO SCH ×2 (09:16→21:20)
[2023-06-25] MEDS: amLODIPine 5 MG TAB PO SCH ×2 (09:17→21:00)
[2023-06-25] MEDS: bisoproloL fumarate 5 MG TAB PO SCH (09:18)
[2023-06-25] MEDS: SODIUM CHLORIDE 1 GM TAB PO SCH ×3 (09:18→21:20)
[2023-06-25] MEDS: PARoxetine 10MG TABLET PO SCH (09:18)
[2023-06-25] MEDS: AZITHROMYCIN 250MG TABLET PO SCH (09:19)
[2023-06-25] MEDS: methylPREDNISolone 40MG 1ML VIAL IV SCH (09:19)
[2023-06-25] MEDS: NS 1,000 ML IV SCH (09:25)
[2023-06-25 13:01] LABS: HEMATOCRIT 24.7 % (36.0-47.0); MEAN CORPUSCULAR HEMOGLOBIN 30.2 pg (27.0-33.0); MEAN CORPUSCULAR HGB CONC 32.4 g/dl (32.0-36.5); MEAN CORPUSCULAR VOLUME 93.2 fl (80.0-96.0); PLATELET COUNT, AUTOMATED 245 10^3/uL (150-450); RED BLOOD COUNT 2.65 10^6/uL (4.00-5.40); WHITE BLOOD COUNT 6.5 10^3/uL (4.0-10.0)
[2023-06-25 13:33] LABS: ALBUMIN 2.2 G/DL (3.2-5.2); ALKALINE PHOSPHATASE 59 U/L (46-116); ALT/SGPT 32 U/L (7.0-40); AST/SGOT 15 U/L (<34); BILIRUBIN,TOTAL 0.5 MG/DL (0.3-1.2); BLOOD UREA NITROGEN 20 MG/DL (9-23); CARBON DIOXIDE LEVEL 28 MMOL/L (20-31); CHLORIDE LEVEL 101 MMOL/L (98-107); CREATININE FOR GFR 0.46 MG/DL (0.55-1.30); GLOMERULAR FILTRATION RATE > 60.0 (>39); GLUCOSE, FASTING 127 MG/DL (74-106); POTASSIUM SERUM 3.6 MMOL/L (3.5-5.1); SODIUM LEVEL 136 MMOL/L (136-145); TOTAL PROTEIN 4.2 G/DL (5.7-8.2)
[2023-06-25] MEDS ORDERED: fentaNYL 100 MCG/2 ML INJECTION As Ordered ONE (16:46)
[2023-06-25] MEDS ORDERED: LIDOCAINE 2% 100MG/5ML SDV (FOR ANES.) As Ordered ONE (16:46)
[2023-06-25] MEDS ORDERED: MIDAZOLAM INJ 2MG/2ML VIAL As Ordered ONE (16:46)
[2023-06-25] MEDS ORDERED: propofoL 200 MG/20 ML VIAL As Ordered ONE (16:46)
[2023-06-25] MEDS ORDERED: CLINDAMYCIN 600MG/50ML PREMIX BAG As Ordered ONE (17:22)
[2023-06-25] MEDS ORDERED: ceFAZolin 1GM VIAL As Ordered ONE (17:24)
[2023-06-25] MEDS ORDERED: PHENYLephrine 500MCG 5ML (100MCG/ML) SYRINGE As Ordered ONE ×2 (18:02→18:52)
[2023-06-25] MEDS ORDERED: ceFAZolin 2 GM/D5W 50 ML IV BAG As Ordered ONE (18:23)
[2023-06-25] MEDS ORDERED: TRANEXAMIC ACID 100 MG/ML 10ML VIAL As Ordered ONE (18:26)
[2023-06-25] MEDS ORDERED: ePHEDrine SULFATE 25 MG/5 ML(5MG/ML) SYRINGE As Ordered ONE (18:28)
[2023-06-25] MEDS: MORPHINE 2 MG/ML 1ML VIAL IV PRN (22:26)
[2023-06-26] VITALS (16 sets, daily range): BP systolic 107–156; BP diastolic 61–85; TEMP 97.2–99; O2SAT 90–95
[2023-06-26] MEDS: MORPHINE 2 MG/ML 1ML VIAL IV PRN (02:34)
[2023-06-26] MEDS: IPRATROPIUM 0.5MG/ALBUTEROL 2.5MG INH SOL UD 3ML (DUONEB) INH SCH ×6 (03:07→23:06)
[2023-06-26] MEDS: LIDOCAINE 5% (LIDODERM) PATCH TD SCH (05:16)
[2023-06-26] MEDS: ACETAMINOPHEN TAB 650MG DOSE (2X325MG) PO PRN ×2 (05:39→21:21)
[2023-06-26 05:42] LABS: MEAN CORPUSCULAR HEMOGLOBIN 30.3 pg (27.0-33.0); MEAN CORPUSCULAR VOLUME 91.7 fl (80.0-96.0); PLATELET COUNT, AUTOMATED 246 10^3/uL (150-450); RED BLOOD COUNT 2.28 10^6/uL (4.00-5.40); WHITE BLOOD COUNT 5.4 10^3/uL (4.0-10.0)
[2023-06-26 05:57] LABS: HEMATOCRIT 20.9 % (36.0-47.0)
[2023-06-26 05:59] LABS: HEMOGLOBIN 6.9 g/dl (12.0-15.5)
[2023-06-26 06:15] LABS: ALBUMIN 2.1 G/DL (3.2-5.2); ALKALINE PHOSPHATASE 53 U/L (46-116); ALT/SGPT 28 U/L (7.0-40); AST/SGOT 15 U/L (<34); BILIRUBIN,TOTAL 0.4 MG/DL (0.3-1.2); BLOOD UREA NITROGEN 20 MG/DL (9-23); CALCIUM LEVEL 7.8 MG/DL (8.3-10.6); CARBON DIOXIDE LEVEL 30 MMOL/L (20-31); CHLORIDE LEVEL 98 MMOL/L (98-107); CREATININE FOR GFR 0.48 MG/DL (0.55-1.30); GLOMERULAR FILTRATION RATE > 60.0 (>39); GLUCOSE, FASTING 75 MG/DL (74-106); IRON (FE) 28 UG/DL (50-170); PERCENT SATURATION 11.9 % (13.2-45.0); PHOSPHORUS LEVEL 2.9 MG/DL (2.4-5.1); SODIUM LEVEL 135 MMOL/L (136-145); TOTAL IRON BINDING CAPACITY 235 UG/DL (250-425); TOTAL PROTEIN 4.1 G/DL (5.7-8.2)
[2023-06-26 06:18] LABS: FERRITIN 214.6 NG/ML (7.3-270.7)
[2023-06-26] MEDS: FORMOTEROL FUMARATE 20 MCG/2 ML INHALATION SOLUTION (PERFOROMIST) INH SCH ×2 (07:26→19:19)
[2023-06-26] MEDS: BUDESONIDE 0.5 MG/2 ML INHALATION SUSPENSION INH SCH ×2 (07:26→19:19)
[2023-06-26] MEDS: TIOTROPIUM INHALER/CAPSULE (SPIRIVA) INH SCH (07:27)
[2023-06-26] MEDS: FLUTICASONE HFA 220 MCG 12 GM INHALER (FLOVENT) INH SCH ×2 (07:27→19:20)
[2023-06-26] MEDS ORDERED: predniSONE 20 MG TAB PO SCH (09:00)
[2023-06-26] MEDS: SODIUM CHLORIDE 1 GM TAB PO SCH ×3 (09:13→21:22)
[2023-06-26] MEDS: ASPIRIN 81MG ENTERIC TABLET PO SCH (09:13)
[2023-06-26] MEDS: DOCUSATE SODIUM 100MG CAPSULE PO SCH ×2 (09:13→21:21)
[2023-06-26] MEDS: bisoproloL fumarate 5 MG TAB PO SCH (09:15)
[2023-06-26] MEDS: amLODIPine 5 MG TAB PO SCH ×2 (09:16→21:22)
[2023-06-26] MEDS: PARoxetine 10MG TABLET PO SCH (09:16)
[2023-06-26] MEDS: POTASSIUM CHLORIDE 10MEQ SR TABLET PO SCH ×2 (09:16→21:22)
[2023-06-26] MEDS: guaiFENesin ER TABLET 600 MG TAB PO SCH ×2 (09:16→21:22)
[2023-06-26] MEDS: FUROSEMIDE 20 MG TAB PO SCH (09:16)
[2023-06-26] MEDS: PANTOPRAZOLE 20 MG TAB PO SCH (09:16)
[2023-06-26] MEDS ORDERED: FUROSEMIDE 20MG/2ML VIAL IV ONE (11:25)
[2023-06-26 18:25] LABS: HEMOGLOBIN 11.5 g/dl (12.0-15.5)
[2023-06-26] MEDS: SODIUM CHLORIDE NASAL 0.65% SPRAY BTL (OCEAN) PRN (21:23)
[2023-06-27] MEDS: IPRATROPIUM 0.5MG/ALBUTEROL 2.5MG INH SOL UD 3ML (DUONEB) INH SCH ×6 (03:30→22:02)
[2023-06-27 03:41] VITALS: BP 133/81; TEMP 97.8; O2SAT 96
[2023-06-27] MEDS: ACETAMINOPHEN TAB 650MG DOSE (2X325MG) PO PRN (04:00)
[2023-06-27 05:19] LABS: HEMATOCRIT 32.8 % (36.0-47.0); HEMOGLOBIN 11.4 g/dl (12.0-15.5); MEAN CORPUSCULAR HEMOGLOBIN 30.7 pg (27.0-33.0); MEAN CORPUSCULAR HGB CONC 34.8 g/dl (32.0-36.5); MEAN CORPUSCULAR VOLUME 88.4 fl (80.0-96.0); PLATELET COUNT, AUTOMATED 269 10^3/uL (150-450); RED BLOOD COUNT 3.71 10^6/uL (4.00-5.40); WHITE BLOOD COUNT 7.7 10^3/uL (4.0-10.0)
[2023-06-27 05:53] LABS: ALBUMIN 2.3 G/DL (3.2-5.2); ALKALINE PHOSPHATASE 64 U/L (46-116); ALT/SGPT 25 U/L (7.0-40); AST/SGOT 21 U/L (<34); BILIRUBIN,TOTAL 1.4 MG/DL (0.3-1.2); BLOOD UREA NITROGEN 23 MG/DL (9-23); CALCIUM LEVEL 7.9 MG/DL (8.3-10.6); CARBON DIOXIDE LEVEL 34 MMOL/L (20-31); CHLORIDE LEVEL 98 MMOL/L (98-107); CREATININE FOR GFR 0.52 MG/DL (0.55-1.30); GLOMERULAR FILTRATION RATE > 60.0 (>39); GLUCOSE, FASTING 110 MG/DL (74-106); POTASSIUM SERUM 3.7 MMOL/L (3.5-5.1); SODIUM LEVEL 137 MMOL/L (136-145); TOTAL PROTEIN 4.6 G/DL (5.7-8.2)
[2023-06-27] MEDS: LIDOCAINE 5% (LIDODERM) PATCH TD SCH (06:06)
[2023-06-27] MEDS: FORMOTEROL FUMARATE 20 MCG/2 ML INHALATION SOLUTION (PERFOROMIST) INH SCH ×2 (07:16→19:14)
[2023-06-27] MEDS: TIOTROPIUM INHALER/CAPSULE (SPIRIVA) INH SCH (07:16)
[2023-06-27] MEDS: FLUTICASONE HFA 220 MCG 12 GM INHALER (FLOVENT) INH SCH ×2 (07:16→19:14)
[2023-06-27 07:27] VITALS: BP 135/79; TEMP 97.9; O2SAT 94
[2023-06-27] MEDS ORDERED: MIRALAX *UNIT DOSE* 17GM PACKET PO PRN (08:20)
[2023-06-27] MEDS: BUDESONIDE 0.5 MG/2 ML INHALATION SUSPENSION INH SCH ×2 (08:33→19:13)
[2023-06-27] MEDS: POTASSIUM CHLORIDE 10MEQ SR TABLET PO SCH ×2 (08:50→20:38)
[2023-06-27] MEDS: PANTOPRAZOLE 20 MG TAB PO SCH (08:50)
[2023-06-27] MEDS: SODIUM CHLORIDE 1 GM TAB PO SCH ×3 (08:50→20:37)
[2023-06-27] MEDS: DOCUSATE SODIUM 100MG CAPSULE PO SCH ×2 (08:51→20:38)
[2023-06-27] MEDS: FUROSEMIDE 20 MG TAB PO SCH (08:51)
[2023-06-27] MEDS: ASPIRIN 81MG ENTERIC TABLET PO SCH (08:51)
[2023-06-27] MEDS: guaiFENesin ER TABLET 600 MG TAB PO SCH ×2 (08:51→20:38)
[2023-06-27] MEDS: PARoxetine 10MG TABLET PO SCH (08:51)
[2023-06-27] MEDS: bisoproloL fumarate 5 MG TAB PO SCH (08:51)
[2023-06-27] MEDS: amLODIPine 5 MG TAB PO SCH ×2 (08:51→20:38)
[2023-06-27] MEDS: predniSONE 10MG TAB PO SCH (08:52)
[2023-06-27] MEDS ORDERED: ENOXAPARIN 40MG/0.4ML SYRINGE (J1650 PER 10MG) SC ONE (12:00)
[2023-06-27 15:31] VITALS: BP 123/79; TEMP 97; O2SAT 94
[2023-06-27 19:57] VITALS: BP 128/81; TEMP 97.3; O2SAT 95
[2023-06-27] MEDS: SODIUM CHLORIDE NASAL 0.65% SPRAY BTL (OCEAN) PRN (20:36)
[2023-06-27] MEDS: SENNA 8.6 MG TAB (SENOKOT) PO SCH ×2 (20:37→20:44)
[2023-06-27] MEDS: traMADol 50 MG TAB PO PRN (20:41)
[2023-06-28] MEDS: ACETAMINOPHEN TAB 650MG DOSE (2X325MG) PO PRN (00:02)
[2023-06-28] MEDS: IPRATROPIUM 0.5MG/ALBUTEROL 2.5MG INH SOL UD 3ML (DUONEB) INH SCH ×6 (03:16→23:59)
[2023-06-28 03:33] VITALS: BP 149/83; TEMP 97.5; O2SAT 94
[2023-06-28 06:17] LABS: HEMATOCRIT 29.8 % (36.0-47.0); HEMOGLOBIN 10.2 g/dl (12.0-15.5); MEAN CORPUSCULAR HEMOGLOBIN 30.5 pg (27.0-33.0); MEAN CORPUSCULAR HGB CONC 34.2 g/dl (32.0-36.5); MEAN CORPUSCULAR VOLUME 89.2 fl (80.0-96.0); PLATELET COUNT, AUTOMATED 288 10^3/uL (150-450); RED BLOOD COUNT 3.34 10^6/uL (4.00-5.40); WHITE BLOOD COUNT 5.8 10^3/uL (4.0-10.0)
[2023-06-28 07:14] LABS: ALBUMIN 2.1 G/DL (3.2-5.2); ALKALINE PHOSPHATASE 61 U/L (46-116); ALT/SGPT 16 U/L (7.0-40); AST/SGOT 17 U/L (<34); BILIRUBIN,TOTAL 0.7 MG/DL (0.3-1.2); BLOOD UREA NITROGEN 19 MG/DL (9-23); CARBON DIOXIDE LEVEL 33 MMOL/L (20-31); CHLORIDE LEVEL 97 MMOL/L (98-107); CREATININE FOR GFR 0.52 MG/DL (0.55-1.30); GLOMERULAR FILTRATION RATE > 60.0 (>39); GLUCOSE, FASTING 82 MG/DL (74-106); SODIUM LEVEL 133 MMOL/L (136-145); TOTAL PROTEIN 4.2 G/DL (5.7-8.2)
[2023-06-28] MEDS: FLUTICASONE HFA 220 MCG 12 GM INHALER (FLOVENT) INH SCH ×2 (07:53→19:09)
[2023-06-28] MEDS: FORMOTEROL FUMARATE 20 MCG/2 ML INHALATION SOLUTION (PERFOROMIST) INH SCH ×2 (07:53→19:09)
[2023-06-28] MEDS: TIOTROPIUM INHALER/CAPSULE (SPIRIVA) INH SCH (08:00)
[2023-06-28 08:08] VITALS: BP 159/82; TEMP 97.5; O2SAT 91
[2023-06-28] MEDS: BUDESONIDE 0.5 MG/2 ML INHALATION SUSPENSION INH SCH ×2 (08:45→19:09)
[2023-06-28] MEDS ORDERED: FUROSEMIDE 20MG/2ML VIAL IV ONE (09:40)
[2023-06-28] MEDS: traMADol 50 MG TAB PO PRN (09:41)
[2023-06-28] MEDS: AZITHROMYCIN 250MG TABLET PO SCH (09:45)
[2023-06-28] MEDS: predniSONE 10MG TAB PO SCH (09:45)
[2023-06-28] MEDS: PANTOPRAZOLE 20 MG TAB PO SCH (09:45)
[2023-06-28] MEDS: SODIUM CHLORIDE 1 GM TAB PO SCH ×3 (09:45→21:05)
[2023-06-28] MEDS: ASPIRIN 81MG ENTERIC TABLET PO SCH (09:45)
[2023-06-28] MEDS: FUROSEMIDE 20 MG TAB PO SCH (09:45)
[2023-06-28] MEDS: PARoxetine 10MG TABLET PO SCH (09:46)
[2023-06-28] MEDS: amLODIPine 5 MG TAB PO SCH ×2 (09:46→21:05)
[2023-06-28] MEDS: POTASSIUM CHLORIDE 10MEQ SR TABLET PO SCH ×2 (09:46→21:05)
[2023-06-28] MEDS: DOCUSATE SODIUM 100MG CAPSULE PO SCH ×2 (09:46→21:00)
[2023-06-28] MEDS: bisoproloL fumarate 5 MG TAB PO SCH (09:46)
[2023-06-28] MEDS: LIDOCAINE 5% (LIDODERM) PATCH TD SCH (09:47)
[2023-06-28] MEDS: ENOXAPARIN 40MG/0.4ML SYRINGE (J1650 PER 10MG) SC SCH (09:47)
[2023-06-28] MEDS: guaiFENesin ER TABLET 600 MG TAB PO SCH ×2 (09:48→21:05)
[2023-06-28] MEDS: SODIUM CHLORIDE NASAL 0.65% SPRAY BTL (OCEAN) PRN (09:55)
[2023-06-28] MEDS: MIRALAX *UNIT DOSE* 17GM PACKET PO SCH (10:00)
[2023-06-28 12:20] VITALS: BP 123/75; TEMP 97; O2SAT 93
[2023-06-28 20:00] VITALS: BP 116/72; TEMP 98; O2SAT 93
[2023-06-28] MEDS: SENNA 8.6 MG TAB (SENOKOT) PO SCH (21:00)
[2023-06-29 00:30] VITALS: BP 132/73; TEMP 97.7; O2SAT 90
[2023-06-29] MEDS: IPRATROPIUM 0.5MG/ALBUTEROL 2.5MG INH SOL UD 3ML (DUONEB) INH SCH ×5 (03:33→20:23)
[2023-06-29 06:13] VITALS: BP 122/71; TEMP 97.7; O2SAT 90
[2023-06-29] MEDS: traMADol 50 MG TAB PO PRN (06:22)
[2023-06-29 06:29] LABS: HEMATOCRIT 31.4 % (36.0-47.0); HEMOGLOBIN 10.6 g/dl (12.0-15.5); MEAN CORPUSCULAR HEMOGLOBIN 30.2 pg (27.0-33.0); MEAN CORPUSCULAR HGB CONC 33.8 g/dl (32.0-36.5); MEAN CORPUSCULAR VOLUME 89.5 fl (80.0-96.0); PLATELET COUNT, AUTOMATED 322 10^3/uL (150-450); RED BLOOD COUNT 3.51 10^6/uL (4.00-5.40); WHITE BLOOD COUNT 7.1 10^3/uL (4.0-10.0)
[2023-06-29 06:56] LABS: ALBUMIN 2.2 G/DL (3.2-5.2); ALKALINE PHOSPHATASE 65 U/L (46-116); ALT/SGPT 14 U/L (7.0-40); AST/SGOT 15 U/L (<34); BILIRUBIN,TOTAL 0.7 MG/DL (0.3-1.2); BLOOD UREA NITROGEN 20 MG/DL (9-23); CALCIUM LEVEL 7.9 MG/DL (8.3-10.6); CARBON DIOXIDE LEVEL 34 MMOL/L (20-31); CHLORIDE LEVEL 94 MMOL/L (98-107); CREATININE FOR GFR 0.52 MG/DL (0.55-1.30); GLOMERULAR FILTRATION RATE > 60.0 (>39); GLUCOSE, FASTING 75 MG/DL (74-106); POTASSIUM SERUM 3.9 MMOL/L (3.5-5.1); SODIUM LEVEL 134 MMOL/L (136-145); TOTAL PROTEIN 4.4 G/DL (5.7-8.2)
[2023-06-29] MEDS: FORMOTEROL FUMARATE 20 MCG/2 ML INHALATION SOLUTION (PERFOROMIST) INH SCH ×2 (07:13→20:23)
[2023-06-29] MEDS: FLUTICASONE HFA 220 MCG 12 GM INHALER (FLOVENT) INH SCH ×2 (07:13→20:23)
[2023-06-29] MEDS: TIOTROPIUM INHALER/CAPSULE (SPIRIVA) INH SCH (07:13)
[2023-06-29] MEDS: BUDESONIDE 0.5 MG/2 ML INHALATION SUSPENSION INH SCH ×2 (07:13→20:23)
[2023-06-29] MEDS: MIRALAX *UNIT DOSE* 17GM PACKET PO SCH (09:00)
[2023-06-29] MEDS: LIDOCAINE 5% (LIDODERM) PATCH TD SCH (09:00)
[2023-06-29] MEDS: DOCUSATE SODIUM 100MG CAPSULE PO SCH ×2 (09:30→22:37)
[2023-06-29] MEDS: bisoproloL fumarate 5 MG TAB PO SCH (09:30)
[2023-06-29] MEDS: guaiFENesin ER TABLET 600 MG TAB PO SCH ×2 (09:30→22:38)
[2023-06-29] MEDS: ASPIRIN 81MG ENTERIC TABLET PO SCH (09:30)
[2023-06-29] MEDS: POTASSIUM CHLORIDE 10MEQ SR TABLET PO SCH ×2 (09:31→22:38)
[2023-06-29] MEDS: FUROSEMIDE 20 MG TAB PO SCH (09:31)
[2023-06-29] MEDS: predniSONE 10MG TAB PO SCH (09:31)
[2023-06-29] MEDS: amLODIPine 5 MG TAB PO SCH ×2 (09:31→22:37)
[2023-06-29] MEDS: PARoxetine 10MG TABLET PO SCH (09:31)
[2023-06-29] MEDS: ENOXAPARIN 40MG/0.4ML SYRINGE (J1650 PER 10MG) SC SCH (09:32)
[2023-06-29] MEDS: PANTOPRAZOLE 20 MG TAB PO SCH (09:35)
[2023-06-29 10:00] VITALS: BP 121/71; TEMP 97.5; O2SAT 94
[2023-06-29] MEDS: SODIUM CHLORIDE 1 GM TAB PO SCH ×4 (13:30→21:00)
[2023-06-29 14:00] VITALS: BP 114/69; TEMP 97.5; O2SAT 92
[2023-06-29 18:00] VITALS: BP 117/71; TEMP 97.7; O2SAT 93
[2023-06-29] MEDS: SENNA 8.6 MG TAB (SENOKOT) PO SCH (21:00)
[2023-06-30] VITALS (7 sets, daily range): BP systolic 111–115; BP diastolic 66–69; TEMP 97.9–98.1; O2SAT 88–96
[2023-06-30] MEDS: IPRATROPIUM 0.5MG/ALBUTEROL 2.5MG INH SOL UD 3ML (DUONEB) INH SCH ×7 (00:04→23:35)
[2023-06-30 06:18] LABS: HEMATOCRIT 33.7 % (36.0-47.0); HEMOGLOBIN 11.1 g/dl (12.0-15.5); MEAN CORPUSCULAR HEMOGLOBIN 30.2 pg (27.0-33.0); MEAN CORPUSCULAR HGB CONC 32.9 g/dl (32.0-36.5); MEAN CORPUSCULAR VOLUME 91.6 fl (80.0-96.0); PLATELET COUNT, AUTOMATED 392 10^3/uL (150-450); RED BLOOD COUNT 3.68 10^6/uL (4.00-5.40); WHITE BLOOD COUNT 7.1 10^3/uL (4.0-10.0)
[2023-06-30 06:46] LABS: ALBUMIN 2.5 G/DL (3.2-5.2); ALKALINE PHOSPHATASE 74 U/L (46-116); ALT/SGPT 18 U/L (7.0-40); AST/SGOT 20 U/L (<34); BILIRUBIN,TOTAL 0.8 MG/DL (0.3-1.2); BLOOD UREA NITROGEN 25 MG/DL (9-23); CALCIUM LEVEL 8.1 MG/DL (8.3-10.6); CARBON DIOXIDE LEVEL 34 MMOL/L (20-31); CHLORIDE LEVEL 92 MMOL/L (98-107); CREATININE FOR GFR 0.52 MG/DL (0.55-1.30); GLOMERULAR FILTRATION RATE > 60.0 (>39); GLUCOSE, FASTING 80 MG/DL (74-106); POTASSIUM SERUM 3.9 MMOL/L (3.5-5.1); SODIUM LEVEL 132 MMOL/L (136-145)
[2023-06-30] MEDS: BUDESONIDE 0.5 MG/2 ML INHALATION SUSPENSION INH SCH ×2 (07:15→19:15)
[2023-06-30] MEDS: TIOTROPIUM INHALER/CAPSULE (SPIRIVA) INH SCH (08:00)
[2023-06-30] MEDS: FORMOTEROL FUMARATE 20 MCG/2 ML INHALATION SOLUTION (PERFOROMIST) INH SCH ×2 (08:45→19:15)
[2023-06-30] MEDS: FLUTICASONE HFA 220 MCG 12 GM INHALER (FLOVENT) INH SCH ×2 (08:45→19:17)
[2023-06-30] MEDS: MIRALAX *UNIT DOSE* 17GM PACKET PO SCH (09:00)
[2023-06-30] MEDS: LIDOCAINE 5% (LIDODERM) PATCH TD SCH (09:00)
[2023-06-30] MEDS: ENOXAPARIN 40MG/0.4ML SYRINGE (J1650 PER 10MG) SC SCH (09:57)
[2023-06-30] MEDS: guaiFENesin ER TABLET 600 MG TAB PO SCH ×2 (09:58→20:02)
[2023-06-30] MEDS: ASPIRIN 81MG ENTERIC TABLET PO SCH (09:58)
[2023-06-30] MEDS: traMADol 50 MG TAB PO PRN (09:58)
[2023-06-30] MEDS: DOCUSATE SODIUM 100MG CAPSULE PO SCH ×2 (09:59→20:02)
[2023-06-30] MEDS: FUROSEMIDE 20 MG TAB PO SCH (09:59)
[2023-06-30] MEDS: AZITHROMYCIN 250MG TABLET PO SCH (09:59)
[2023-06-30] MEDS: PARoxetine 10MG TABLET PO SCH (09:59)
[2023-06-30] MEDS: predniSONE 10MG TAB PO SCH (09:59)
[2023-06-30] MEDS: POTASSIUM CHLORIDE 10MEQ SR TABLET PO SCH ×2 (09:59→20:03)
[2023-06-30] MEDS: SODIUM CHLORIDE 1 GM TAB PO SCH ×3 (09:59→20:02)
[2023-06-30] MEDS: bisoproloL fumarate 5 MG TAB PO SCH (10:00)
[2023-06-30] MEDS: amLODIPine 5 MG TAB PO SCH ×2 (10:00→20:05)
[2023-06-30] MEDS: PANTOPRAZOLE 20 MG TAB PO SCH (10:01)
[2023-06-30] MEDS ORDERED: MAGNESIUM CITRATE 300ML BTL PO ONE (15:35)
[2023-06-30] MEDS: BISACODYL 10MG SUPP PR SCH (20:03)
[2023-06-30] MEDS: SENNA 8.6 MG TAB (SENOKOT) PO SCH (20:05)
[2023-07-01] MEDS: IPRATROPIUM 0.5MG/ALBUTEROL 2.5MG INH SOL UD 3ML (DUONEB) INH SCH ×5 (03:52→19:29)
[2023-07-01] MEDS: BUDESONIDE 0.5 MG/2 ML INHALATION SUSPENSION INH SCH ×2 (08:00→19:29)
[2023-07-01] MEDS: FORMOTEROL FUMARATE 20 MCG/2 ML INHALATION SOLUTION (PERFOROMIST) INH SCH ×2 (08:00→19:29)
[2023-07-01] MEDS: TIOTROPIUM INHALER/CAPSULE (SPIRIVA) INH SCH (08:00)
[2023-07-01] MEDS: FLUTICASONE HFA 220 MCG 12 GM INHALER (FLOVENT) INH SCH ×2 (08:00→19:30)
[2023-07-01] MEDS: MIRALAX *UNIT DOSE* 17GM PACKET PO SCH (09:00)
[2023-07-01] MEDS: BISACODYL 10MG SUPP PR SCH ×2 (09:00→21:00)
[2023-07-01] MEDS: LIDOCAINE 5% (LIDODERM) PATCH TD SCH (09:00)
[2023-07-01] MEDS: ASPIRIN 81MG ENTERIC TABLET PO SCH (09:47)
[2023-07-01] MEDS: DOCUSATE SODIUM 100MG CAPSULE PO SCH ×2 (09:47→21:33)
[2023-07-01] MEDS: amLODIPine 5 MG TAB PO SCH ×2 (09:48→21:33)
[2023-07-01] MEDS: ENOXAPARIN 40MG/0.4ML SYRINGE (J1650 PER 10MG) SC SCH (09:48)
[2023-07-01] MEDS: bisoproloL fumarate 5 MG TAB PO SCH (09:48)
[2023-07-01] MEDS: PANTOPRAZOLE 20 MG TAB PO SCH (09:56)
[2023-07-01] MEDS: guaiFENesin ER TABLET 600 MG TAB PO SCH ×2 (09:56→21:34)
[2023-07-01] MEDS: SODIUM CHLORIDE 1 GM TAB PO SCH ×3 (09:56→21:33)
[2023-07-01] MEDS: FUROSEMIDE 20 MG TAB PO SCH (09:56)
[2023-07-01] MEDS: PARoxetine 10MG TABLET PO SCH (09:57)
[2023-07-01] MEDS: POTASSIUM CHLORIDE 10MEQ SR TABLET PO SCH ×2 (09:57→21:33)
[2023-07-01] MEDS: predniSONE 10MG TAB PO SCH (09:57)
[2023-07-01] MEDS: PERCOCET 5MG/325MG TAB PO PRN (13:48)
[2023-07-01 19:31] VITALS: O2SAT 94
[2023-07-01] MEDS: SENNA 8.6 MG TAB (SENOKOT) PO SCH (21:33)
[2023-07-01] MEDS ORDERED: tiZANidine 4 MG TAB PO ONE (21:45)
[2023-07-01] MEDS ORDERED: PILL CUTTER 1 EACH XX PRN (21:50)
[2023-07-02] MEDS: IPRATROPIUM 0.5MG/ALBUTEROL 2.5MG INH SOL UD 3ML (DUONEB) INH SCH ×5 (00:41→15:01)
[2023-07-02 05:15] VITALS: BP 117/69; TEMP 97.9; O2SAT 93
[2023-07-02 06:24] LABS: HEMATOCRIT 29.9 % (36.0-47.0); HEMOGLOBIN 9.7 g/dl (12.0-15.5); MEAN CORPUSCULAR HEMOGLOBIN 30.6 pg (27.0-33.0); MEAN CORPUSCULAR HGB CONC 32.4 g/dl (32.0-36.5); MEAN CORPUSCULAR VOLUME 94.3 fl (80.0-96.0); PLATELET COUNT, AUTOMATED 457 10^3/uL (150-450); RED BLOOD COUNT 3.17 10^6/uL (4.00-5.40); WHITE BLOOD COUNT 8.1 10^3/uL (4.0-10.0)
[2023-07-02 06:56] LABS: BLOOD UREA NITROGEN 27 MG/DL (9-23); CALCIUM LEVEL 8.2 MG/DL (8.3-10.6); CARBON DIOXIDE LEVEL 33 MMOL/L (20-31); CHLORIDE LEVEL 97 MMOL/L (98-107); CREATININE FOR GFR 0.52 MG/DL (0.55-1.30); GLOMERULAR FILTRATION RATE > 60.0 (>39); GLUCOSE, FASTING 75 MG/DL (74-106); POTASSIUM SERUM 4.6 MMOL/L (3.5-5.1); SODIUM LEVEL 135 MMOL/L (136-145)
[2023-07-02] MEDS: TIOTROPIUM INHALER/CAPSULE (SPIRIVA) INH SCH (08:00)
[2023-07-02] MEDS: FLUTICASONE HFA 220 MCG 12 GM INHALER (FLOVENT) INH SCH (08:06)
[2023-07-02] MEDS: BUDESONIDE 0.5 MG/2 ML INHALATION SUSPENSION INH SCH (08:06)
[2023-07-02] MEDS: FORMOTEROL FUMARATE 20 MCG/2 ML INHALATION SOLUTION (PERFOROMIST) INH SCH (08:06)
[2023-07-02] MEDS: PARoxetine 10MG TABLET PO SCH (08:27)
[2023-07-02] MEDS: predniSONE 10MG TAB PO SCH (08:27)
[2023-07-02] MEDS: PERCOCET 5MG/325MG TAB PO PRN (08:28)
[2023-07-02] MEDS: guaiFENesin ER TABLET 600 MG TAB PO SCH (08:30)
[2023-07-02] MEDS: AZITHROMYCIN 250MG TABLET PO SCH (08:31)
[2023-07-02] MEDS: DOCUSATE SODIUM 100MG CAPSULE PO SCH (08:31)
[2023-07-02] MEDS: ASPIRIN 81MG ENTERIC TABLET PO SCH (08:31)
[2023-07-02] MEDS: SODIUM CHLORIDE 1 GM TAB PO SCH (08:31)
[2023-07-02] MEDS: PANTOPRAZOLE 20 MG TAB PO SCH (08:31)
[2023-07-02] MEDS: amLODIPine 5 MG TAB PO SCH (08:31)
[2023-07-02 08:32] VITALS: BP 117/69
[2023-07-02] MEDS: FUROSEMIDE 20 MG TAB PO SCH (08:32)
[2023-07-02] MEDS: POTASSIUM CHLORIDE 10MEQ SR TABLET PO SCH (08:32)
[2023-07-02] MEDS: MIRALAX *UNIT DOSE* 17GM PACKET PO SCH (08:32)
[2023-07-02] MEDS: bisoproloL fumarate 5 MG TAB PO SCH (08:32)
[2023-07-02] MEDS: LIDOCAINE 5% (LIDODERM) PATCH TD SCH (08:34)
[2023-07-02] MEDS: BISACODYL 10MG SUPP PR SCH (09:00)
[2023-07-02] MEDS ORDERED: tiZANidine 4 MG TAB PO ONE (11:10)
[2023-07-02] MEDS ORDERED: LIDO5TD TD (11:24)
[2023-07-02] MEDS ORDERED: CYCL5TAB PO (11:24)
[2023-07-02] MEDS ORDERED: ASPI81TAEC PO (11:24)
[2023-07-02] MEDS ORDERED: MIRA1POW3 PO (11:24)
[2023-07-02] MEDS ORDERED: PRED10TA2 PO (11:24)
[2023-07-02] MEDS ORDERED: PERCOCET PO (11:24)
[2023-07-02] MEDS ORDERED: PILL CUTTER 1 EACH XX PRN (11:45)
[2023-07-02] MEDS ORDERED: AMOX875T2 PO (13:13)
[2023-07-09] MEDS ORDERED: predniSONE 10MG TAB PO SCH (09:00)
== END 2023-07-02 15:25 | disposition home or self-care (01) | DRG 480 ==
LOC: EDBD 23:02 → M ED 23:02 → M ED INP 06-24 01:46 → M PCU 06-24 03:18 → M MS5PR 06-29 00:24
PROVIDERS: ADMIT Family Medicine; ATTEND Student in an Organized Health Care Education/Training Program
PROC: 0QS606Z Reposition Right Upper Femur with Intramedullary Internal Fixation Device, Open Approach (ICD-10-PCS; principal; 2023-06-25 16:00)
PROC: 30233N1 Transfusion of Nonautologous Red Blood Cells into Peripheral Vein, Percutaneous Approach (ICD-10-PCS; 2023-06-26)
DX: S72.141A Displaced intertrochanteric fracture of right femur, initial encounter for closed fracture (principal); J96.21 Acute and chronic respiratory failure with hypoxia; J96.22 Acute and chronic respiratory failure with hypercapnia; J44.1 Chronic obstructive pulmonary disease with (acute) exacerbation; D80.1 Nonfamilial hypogammaglobulinemia; E22.2 Syndrome of inappropriate secretion of antidiuretic hormone; B37.0 Candidal stomatitis; D62 Acute posthemorrhagic anemia; I10 Essential (primary) hypertension; E78.5 Hyperlipidemia, unspecified; Z99.81 Dependence on supplemental oxygen; K59.00 Constipation, unspecified; F41.9 Anxiety disorder, unspecified; F32.A Depression, unspecified; M81.0 Age-related osteoporosis without current pathological fracture; Z88.8 Allergy status to other drugs, medicaments and biological substances; Z79.899 Other long term (current) drug therapy; Z79.82 Long term (current) use of aspirin; M06.9 Rheumatoid arthritis, unspecified; M80.88XD Other osteoporosis with current pathological fracture, vertebra(e), subsequent encounter for fracture with routine healing; Z79.52 Long term (current) use of systemic steroids; G89.29 Other chronic pain; K64.8 Other hemorrhoids; B97.89 Other viral agents as the cause of diseases classified elsewhere; D63.8 Anemia in other chronic diseases classified elsewhere; J98.01 Acute bronchospasm; R04.0 Epistaxis; E87.6 Hypokalemia; W18.30XA Fall on same level, unspecified, initial encounter; Y92.009 Unspecified place in unspecified non-institutional (private) residence as the place of occurrence of the external cause

== ENCOUNTER → 2023-07-12 | Outpatient (CLI) | payer MEDICARE ==
[~2023-07-12] MED LIST changes: +ALBU2.5V10 INH; +ALEN70TA82 PO; +AMOX875T2 PO; +ASPI81TAEC PO; +CYCL5TAB PO; +DOCU100C16 PO; +LIDO5TD TD; +PERCOCET PO; +PERF20NE2 INH; +POTA-150 PO; +SODI1TAB12 PO
== END ==
LOC: M SOG 07:49
PROVIDERS: ATTEND Physician Assistant
DX: S72.141A Displaced intertrochanteric fracture of right femur, initial encounter for closed fracture (principal); X58.XXXA Exposure to other specified factors, initial encounter; Y92.9 Unspecified place or not applicable

== ENCOUNTER → 2023-08-04 | Outpatient (CLI) | payer MEDICARE | LOC: M SOG 07:55 | PROVIDERS: ATTEND Physician Assistant | DX: S72.141A Displaced intertrochanteric fracture of right femur, initial encounter for closed fracture (principal); X58.XXXA Exposure to other specified factors, initial encounter; Y92.9 Unspecified place or not applicable ==

== ENCOUNTER 2023-08-19 09:56 | Outpatient (RCR) | payer MEDICARE | END 2023-08-22 | LOC: M PT 09:56 | PROVIDERS: ATTEND Orthopaedic Surgery | DX: S72.141D Displaced intertrochanteric fracture of right femur, subsequent encounter for closed fracture with routine healing (principal) ==

== ENCOUNTER → 2023-08-19 | Outpatient (REF) | payer MEDICARE | LOC: M LAB REF 10:18 | PROVIDERS: ATTEND Internal Medicine Pulmonary Disease | DX: J44.9 Chronic obstructive pulmonary disease, unspecified (principal) ==

== ENCOUNTER → 2023-08-26 | Outpatient (REF) | payer MEDICARE ==
[2023-08-26 18:13] LABS: BASO # 0.1 10^3/uL (0.0-0.2); BASO % 0.4 % (0.0-1.0); EOS # 0.1 10^3/uL (0.0-0.5); EOS % 0.8 % (0.0-3.0); HEMATOCRIT 40.1 % (36.0-47.0); HEMOGLOBIN 12.4 g/dl (12.0-15.5); LYMPH # 1.3 10^3/uL (1.5-5.0); LYMPH % 9.1 % (24.0-44.0); MEAN CORPUSCULAR HEMOGLOBIN 29.5 pg (27.0-33.0); MEAN CORPUSCULAR HGB CONC 30.9 g/dl (32.0-36.5); MEAN CORPUSCULAR VOLUME 95.5 fl (80.0-96.0); MONO # 0.8 10^3/uL (0.0-0.8); NEUTROPHILS # 11.6 10^3/uL (1.5-8.5); NEUTROPHILS % 82.6 % (36.0-66.0); PLATELET COUNT, AUTOMATED 544 10^3/uL (150-450)
[2023-08-26 18:29] LABS: ALBUMIN 3.5 G/DL (3.2-5.2); ALKALINE PHOSPHATASE 165 U/L (46-116); ALT/SGPT 10 U/L (7.0-40); AST/SGOT 13 U/L (<34); BILIRUBIN,TOTAL 0.6 MG/DL (0.3-1.2); BLOOD UREA NITROGEN 15 MG/DL (9-23); CARBON DIOXIDE LEVEL 34 MMOL/L (20-31); CHLORIDE LEVEL 102 MMOL/L (98-107); CREATININE FOR GFR 0.67 MG/DL (0.55-1.30); GLOMERULAR FILTRATION RATE > 60.0 (>39); GLUCOSE, FASTING 72 MG/DL (74-106); SODIUM LEVEL 141 MMOL/L (136-145); TOTAL PROTEIN 6.2 G/DL (5.7-8.2)
== END ==
LOC: M SFHCADAM 13:57
PROVIDERS: ATTEND Physician Assistant
DX: F17.211 Nicotine dependence, cigarettes, in remission (principal); M80.00XD Age-related osteoporosis with current pathological fracture, unspecified site, subsequent encounter for fracture with routine healing; F43.23 Adjustment disorder with mixed anxiety and depressed mood; Z87.81 Personal history of (healed) traumatic fracture; M05.9 Rheumatoid arthritis with rheumatoid factor, unspecified; F41.9 Anxiety disorder, unspecified; Z99.81 Dependence on supplemental oxygen

== ENCOUNTER 2023-09-03 09:46 | Outpatient (RCR) | payer MEDICARE | END 2023-09-22 | LOC: M PT 09:46 | PROVIDERS: ATTEND Orthopaedic Surgery | DX: S72.141D Displaced intertrochanteric fracture of right femur, subsequent encounter for closed fracture with routine healing (principal) ==

== ENCOUNTER → 2023-09-15 | Outpatient (CLI) | payer MEDICARE | LOC: M SOG 07:51 | PROVIDERS: ATTEND Physician Assistant | DX: S72.141A Displaced intertrochanteric fracture of right femur, initial encounter for closed fracture (principal) ==

== ENCOUNTER → 2023-09-20 | Outpatient (CLI) | payer MEDICARE | LOC: M SOG 15:27 | PROVIDERS: ATTEND Orthopaedic Surgery | DX: M54.50 Low back pain, unspecified (principal); M85.88 Other specified disorders of bone density and structure, other site ==

== ENCOUNTER → 2023-09-27 | Outpatient (CLI) | payer MEDICARE | LOC: M RAD 13:26 | PROVIDERS: ATTEND Physician Assistant | DX: S22.080A Wedge compression fracture of T11-T12 vertebra, initial encounter for closed fracture (principal); X58.XXXA Exposure to other specified factors, initial encounter; Y92.9 Unspecified place or not applicable ==

== ENCOUNTER 2023-10-08 09:15 | Outpatient (RCR) | payer MEDICARE ==
[~2023-10-08 09:15] MED LIST changes: -MIRA1POW3 PO; +MIRA33506 PO
== END 2023-10-21 ==
LOC: M PT 09:15
PROVIDERS: ATTEND Orthopaedic Surgery
DX: S72.141D Displaced intertrochanteric fracture of right femur, subsequent encounter for closed fracture with routine healing (principal)

== ENCOUNTER → 2023-10-15 | Outpatient (CLI) | payer MEDICARE | LOC: M WHC 12:54 | PROVIDERS: ATTEND Physician Assistant | DX: S22.080A Wedge compression fracture of T11-T12 vertebra, initial encounter for closed fracture (principal); M85.89 Other specified disorders of bone density and structure, multiple sites; Y93.9 Activity, unspecified; Y92.9 Unspecified place or not applicable ==

== ENCOUNTER → 2023-10-21 | Outpatient (CLI) | payer MEDICARE ==
[2023-10-21 14:53] LABS: BASO # 0.1 10^3/uL (0.0-0.2); BASO % 0.5 % (0.0-1.0); EOS # 0.1 10^3/uL (0.0-0.5); EOS % 0.7 % (0.0-3.0); HEMATOCRIT 40.1 % (36.0-47.0); HEMOGLOBIN 12.8 g/dl (12.0-15.5); LYMPH # 1.4 10^3/uL (1.5-5.0); LYMPH % 8.9 % (24.0-44.0); MEAN CORPUSCULAR HEMOGLOBIN 28.7 pg (27.0-33.0); MEAN CORPUSCULAR HGB CONC 31.9 g/dl (32.0-36.5); MEAN CORPUSCULAR VOLUME 89.9 fl (80.0-96.0); MONO # 1.2 10^3/uL (0.0-0.8); MONO % 7.5 % (2.0-8.0); NEUTROPHILS % 81.2 % (36.0-66.0); PLATELET COUNT, AUTOMATED 497 10^3/uL (150-450); RED BLOOD COUNT 4.46 10^6/uL (4.00-5.40); WHITE BLOOD COUNT 16.1 10^3/uL (4.0-10.0)
[2023-10-21 15:17] LABS: ALBUMIN 3.6 G/DL (3.2-5.2); ALKALINE PHOSPHATASE 136 U/L (46-116); ALT/SGPT 10 U/L (7.0-40); AST/SGOT 16 U/L (<34); BILIRUBIN,DIRECT 0.2 MG/DL (<0.4); BILIRUBIN,TOTAL 0.7 MG/DL (0.3-1.2); BLOOD UREA NITROGEN 24 MG/DL (9-23); CALCIUM LEVEL 9.5 MG/DL (8.3-10.6); CARBON DIOXIDE LEVEL 33 MMOL/L (20-31); CHLORIDE LEVEL 99 MMOL/L (98-107); CREATININE FOR GFR 0.79 MG/DL (0.55-1.30); GLOMERULAR FILTRATION RATE > 60.0 (>39); GLUCOSE, FASTING 104 MG/DL (74-106); POTASSIUM SERUM 4.5 MMOL/L (3.5-5.1); PTH INTACT 145.9 PG/ML (18.5-88.0); SODIUM LEVEL 135 MMOL/L (136-145); TOTAL PROTEIN 6.3 G/DL (5.7-8.2)
[2023-10-21 15:19] LABS: THYROID STIMULATING HORMONE 2.887 uIU/ML (0.55-4.78)
== END ==
LOC: M LAB 14:09
PROVIDERS: ATTEND Physician Assistant
DX: S22.080A Wedge compression fracture of T11-T12 vertebra, initial encounter for closed fracture (principal); Z79.899 Other long term (current) drug therapy

== ENCOUNTER → 2023-10-27 | Outpatient (REF) | payer MEDICARE ==
[2023-10-27 14:41] LABS: BASO # 0.1 10^3/uL (0.0-0.2); BASO % 0.4 % (0.0-1.0); EOS # 0.2 10^3/uL (0.0-0.5); EOS % 1.3 % (0.0-3.0); HEMATOCRIT 38.7 % (36.0-47.0); HEMOGLOBIN 11.9 g/dl (12.0-15.5); LYMPH # 1.6 10^3/uL (1.5-5.0); LYMPH % 10.6 % (24.0-44.0); MEAN CORPUSCULAR HGB CONC 30.7 g/dl (32.0-36.5); MEAN CORPUSCULAR VOLUME 94.2 fl (80.0-96.0); MONO # 1.1 10^3/uL (0.0-0.8); MONO % 7.1 % (2.0-8.0); NEUTROPHILS # 12.1 10^3/uL (1.5-8.5); NEUTROPHILS % 79.6 % (36.0-66.0); PLATELET COUNT, AUTOMATED 451 10^3/uL (150-450); RED BLOOD COUNT 4.11 10^6/uL (4.00-5.40); WHITE BLOOD COUNT 15.2 10^3/uL (4.0-10.0)
== END ==
LOC: M SFHCADAM 10:23
PROVIDERS: ATTEND Physician Assistant
DX: D72.829 Elevated white blood cell count, unspecified (principal)

== ENCOUNTER → 2023-10-27 | Outpatient (CLI) | payer MEDICARE | LOC: M ADAMS 10:29 | PROVIDERS: ATTEND Physician Assistant | DX: D72.829 Elevated white blood cell count, unspecified (principal); J84.89 Other specified interstitial pulmonary diseases; M40.204 Unspecified kyphosis, thoracic region ==

== ENCOUNTER → 2023-10-29 | Outpatient (CLI) | payer MEDICARE | LOC: M SOG 08:00 | PROVIDERS: ATTEND Physician Assistant | DX: M48.48XA Fatigue fracture of vertebra, sacral and sacrococcygeal region, initial encounter for fracture (principal) ==

== ENCOUNTER → 2023-11-10 | Outpatient (REF) | payer MEDICARE | LOC: M LAB REF 14:16 | PROVIDERS: ATTEND Internal Medicine Pulmonary Disease | DX: J43.9 Emphysema, unspecified (principal) ==

== ENCOUNTER → 2023-11-10 | Outpatient (REF) | payer MEDICARE ==
[2023-11-10 14:50] LABS: APPEARANCE, URINE HAZY (CLEAR); BACTERIA, URINE AUTO NEGATIVE (NEGATIVE); BILIRUBIN, URINE AUTO NEGATIVE (NEGATIVE); BLOOD, URINE BLOOD NEGATIVE (NEGATIVE); COLOR, URINE AMBER (YELLOW); GLUCOSE, URINE (UA) AUTO NEGATIVE (NEGATIVE); KETONE, URINE AUTO NEGATIVE (NEGATIVE); LEUKOCYTE ESTERASE, URINE AUTO TRACE (NEGATIVE); MUCUS, URINE SMALL (NEGATIVE); NITRITE, URINE AUTO NEGATIVE (NEGATIVE); PROTEIN, URINE AUTO 1+ mg/dL (NEGATIVE); RBC, URINE AUTO 1 /HPF (0-3); SPECIFIC GRAVITY URINE AUTO 1.021 (1.002-1.035); SQUAMOUS EPITHELIAL CELL UR AU 3 /HPF (0-6); WBC, URINE AUTO 2 /HPF (0-3)
== END ==
LOC: M SFHCADAM 14:14
PROVIDERS: ATTEND Physician Assistant
DX: D72.829 Elevated white blood cell count, unspecified (principal)

== ENCOUNTER 2023-11-19 19:10 | Inpatient (IN) | payer MEDICARE ==
[2023-11-19 20:01] LABS: HEMOGLOBIN 11.6 g/dl (12.0-15.5); LYMPH % 12.3 % (24.0-44.0); MEAN CORPUSCULAR HEMOGLOBIN 30.2 pg (27.0-33.0); MEAN CORPUSCULAR HGB CONC 31.4 g/dl (32.0-36.5); MEAN CORPUSCULAR VOLUME 96.4 fl (80.0-96.0); NEUTROPHILS % 79.2 % (36.0-66.0); PLATELET COUNT, AUTOMATED 565 10^3/uL (150-450); RED BLOOD COUNT 3.84 10^6/uL (4.00-5.40); WHITE BLOOD COUNT 11.4 10^3/uL (4.0-10.0)
[2023-11-19 20:02] LABS: BASO % 0.2 % (0.0-1.0); LYMPH # 1.4 10^3/uL (1.5-5.0); MONO # 0.9 10^3/uL (0.0-0.8); MONO % 7.6 % (2.0-8.0)
[2023-11-19] MEDS: ALBUTEROL SULFATE 2.5MG/0.5ML INH NEB SOLN NEB ONE (20:03)
[2023-11-19] MEDS: IPRATROPIUM 0.5MG/ALBUTEROL 2.5MG INH SOL UD 3ML (DUONEB) NEB ONE (20:03)
[2023-11-19] MEDS: methylPREDNISolone 125MG 2ML VIAL IV ONE (20:07)
[2023-11-19 20:11] LABS: ALBUMIN 3.6 G/DL (3.2-5.2); ALKALINE PHOSPHATASE 128 U/L (46-116); ALT/SGPT 10 U/L (7.0-40); AST/SGOT 15 U/L (<34); BILIRUBIN,DIRECT 0.1 MG/DL (<0.4); BILIRUBIN,TOTAL 0.3 MG/DL (0.3-1.2); BLOOD UREA NITROGEN 23 MG/DL (9-23); CALCIUM LEVEL 9.1 MG/DL (8.3-10.6); CARBON DIOXIDE LEVEL 30 MMOL/L (20-31); CHLORIDE LEVEL 101 MMOL/L (98-107); CREATININE FOR GFR 0.67 MG/DL (0.55-1.30); GLOMERULAR FILTRATION RATE > 60.0 (>39); GLUCOSE, FASTING 180 MG/DL (74-106); POTASSIUM SERUM 4.3 MMOL/L (3.5-5.1); SODIUM LEVEL 139 MMOL/L (136-145); TOTAL PROTEIN 6.4 G/DL (5.7-8.2)
[2023-11-19 20:14] LABS: THYROID STIMULATING HORMONE 2.263 uIU/ML (0.55-4.78); THYROXINE (T4) 7.5 UG/DL (4.5-10.9)
[2023-11-19] MEDS: cefTRIAXone SOD 2GM VIAL IV ONE (20:30)
[2023-11-19] MEDS: NS 1,000 ML IV ONE (20:37)
[2023-11-19] MEDS: NS 500 ML IV ONE (22:53)
[2023-11-19] MEDS ORDERED: ZITHTAB PO (23:56)
[2023-11-19] MEDS ORDERED: AMOX875T2 PO (23:56)
[2023-11-19] MEDS ORDERED: PRED10TA2 PO (23:56)
[2023-11-19] MEDS: AUGMENTIN 875 MG TAB PO ONE (23:58)
[2023-11-20] VITALS (7 sets, daily range): BP systolic 131–169; BP diastolic 62–87; TEMP 97.2–98.8; O2SAT 92–100
[2023-11-20] MEDS: IPRATROPIUM 0.5MG/ALBUTEROL 2.5MG INH SOL UD 3ML (DUONEB) NEB ONE (01:11)
[2023-11-20] MEDS ORDERED: FLUT12AE3 IH (01:32)
[2023-11-20] MEDS ORDERED: DEXTROSE 50% 50ML SYRINGE IV PRN (01:35)
[2023-11-20] MEDS ORDERED: GLUCOSE 4GM CHEW TABLET PO PRN (01:35)
[2023-11-20] MEDS ORDERED: GLUCAGON INJ 1MG VIAL SC PRN (01:35)
[2023-11-20] MEDS ORDERED: ALBUTEROL SULFATE 2.5MG/0.5ML INH NEB SOLN NEB PRN (01:35)
[2023-11-20] MEDS ORDERED: HOME MED LIST COMPLETE! XX SCH (01:35)
[2023-11-20] MEDS: IPRATROPIUM 0.5MG/ALBUTEROL 2.5MG INH SOL UD 3ML (DUONEB) NEB SCH (02:25)
[2023-11-20] MEDS: MAG SULF 1GM/100ML (MAG RUN) 1 GM in IV 1 EA IV ONE (02:34)
[2023-11-20] MEDS: methylPREDNISolone 40MG 1ML VIAL IV SCH (03:19)
[2023-11-20] MEDS: NS 1,000 ML IV SCH (03:19)
[2023-11-20] MEDS: IPRATROPIUM 0.5MG/ALBUTEROL 2.5MG INH SOL UD 3ML (DUONEB) INH SCH (03:21)
[2023-11-20 04:17] LABS: BLOOD UREA NITROGEN 20 MG/DL (9-23); CALCIUM LEVEL 8.3 MG/DL (8.3-10.6); CARBON DIOXIDE LEVEL 29 MMOL/L (20-31); CHLORIDE LEVEL 104 MMOL/L (98-107); GLOMERULAR FILTRATION RATE > 60.0 (>39); GLUCOSE, FASTING 158 MG/DL (74-106); POTASSIUM SERUM 4.4 MMOL/L (3.5-5.1); SODIUM LEVEL 138 MMOL/L (136-145)
[2023-11-20] MEDS: HEPARIN SOD (PORCINE) 5000UNITS/ML 1ML VIAL/SYRINGE SC SCH (06:09)
[2023-11-20] MEDS: INSULIN LISPRO (NovoLOG) PER UNIT SC SCH ×2 (07:30→21:00)
[2023-11-20] MEDS: SYMBICORT 160/4.5MCG INHALER 6GM INH SCH (08:20)
[2023-11-20] MEDS: TIOTROPIUM INHALER/CAPSULE (SPIRIVA) INH SCH (08:20)
[2023-11-20] MEDS: FLUTICASONE HFA 220 MCG 12 GM INHALER (FLOVENT) INH SCH (08:36)
[2023-11-20] MEDS: PARoxetine 10MG TABLET PO SCH (09:04)
[2023-11-20] MEDS: DOXYCYCLINE HYCLATE 100MG TABLET PO SCH (09:04)
[2023-11-20] MEDS: amLODIPine 5 MG TAB PO SCH (09:05)
[2023-11-20] MEDS: LOSARTAN 50MG TABLET PO SCH (09:05)
[2023-11-20] MEDS: SPIRONOLACTONE 12.5MG PER 1/2 TABLET PO SCH (09:05)
[2023-11-20 12:35] LABS: VENOUS BASE EXCESS 1.1 (-2.0-2.0); VENOUS HCO3 25.7 MMOL/L (23.0-27.0); VENOUS O2 SATURATION 99.3 % (60.0-80.0); VENOUS PARTIAL PRESSURE CO2 40.7 mmHg (38.0-50.0); VENOUS PARTIAL PRESSURE O2 203.4 mmHg (30.0-50.0); VENOUS PH 7.418 UNITS (7.330-7.430); VENOUS STANDARD HCO3 25.5 MMOL/L; VENOUS TOTAL CO2 26.9 MMOL/L (24.0-28.0)
[2023-11-21 05:21] VITALS: BP 145/79; TEMP 97.8; O2SAT 98
[2023-11-21 06:33] LABS: HEMATOCRIT 32.9 % (36.0-47.0); HEMOGLOBIN 10.5 g/dl (12.0-15.5); MEAN CORPUSCULAR HEMOGLOBIN 29.7 pg (27.0-33.0); MEAN CORPUSCULAR HGB CONC 31.9 g/dl (32.0-36.5); MEAN CORPUSCULAR VOLUME 92.9 fl (80.0-96.0); PLATELET COUNT, AUTOMATED 463 10^3/uL (150-450); RED BLOOD COUNT 3.54 10^6/uL (4.00-5.40); WHITE BLOOD COUNT 15.1 10^3/uL (4.0-10.0)
[2023-11-21 06:59] LABS: BLOOD UREA NITROGEN 24 MG/DL (9-23); CALCIUM LEVEL 8.6 MG/DL (8.3-10.6); CARBON DIOXIDE LEVEL 31 MMOL/L (20-31); CHLORIDE LEVEL 103 MMOL/L (98-107); CREATININE FOR GFR 0.74 MG/DL (0.55-1.30); GLOMERULAR FILTRATION RATE > 60.0 (>39); GLUCOSE, FASTING 109 MG/DL (74-106); POTASSIUM SERUM 4.6 MMOL/L (3.5-5.1); SODIUM LEVEL 140 MMOL/L (136-145)
[2023-11-21 08:23] VITALS: BP 162/83; TEMP 98; O2SAT 99
[2023-11-21] MEDS ORDERED: DOXY100T PO (08:29)
[2023-11-21] MEDS ORDERED: PRED10TA2 PO (08:29)
[2023-11-21 09:56] VITALS: BP 146/78
[2023-11-21] MEDS: methylPREDNISolone 40MG 1ML VIAL IV SCH (10:05)
[2023-11-21 12:17] VITALS: BP 150/86; O2SAT 100
[2023-11-21 12:22] VITALS: BP 141/73
== END 2023-11-21 13:36 | disposition home or self-care (01) | DRG 191 ==
LOC: M ED 19:10 → M ED INP 11-20 01:34 → M PCU 11-20 03:03
PROVIDERS: ADMIT Internal Medicine; ATTEND Internal Medicine
DX: J44.1 Chronic obstructive pulmonary disease with (acute) exacerbation (principal); E87.20 Acidosis, unspecified; J96.11 Chronic respiratory failure with hypoxia; I10 Essential (primary) hypertension; J40 Bronchitis, not specified as acute or chronic; D75.839 Thrombocytosis, unspecified; Z90.49 Acquired absence of other specified parts of digestive tract; F41.9 Anxiety disorder, unspecified; Z90.79 Acquired absence of other genital organ(s); Z87.891 Personal history of nicotine dependence; Z79.899 Other long term (current) drug therapy; Z79.52 Long term (current) use of systemic steroids; Z88.0 Allergy status to penicillin; Z88.1 Allergy status to other antibiotic agents; Z88.8 Allergy status to other drugs, medicaments and biological substances; Z66 Do not resuscitate; Z99.81 Dependence on supplemental oxygen

== ENCOUNTER → 2023-12-01 | Outpatient (CLI) | payer MEDICARE ==
[~2023-12-01] MED LIST changes: +DOXY100T PO; +FLUT12AE3 IH; +ZITHTAB PO
== END ==
LOC: M SOG 10:10
PROVIDERS: ATTEND Physician Assistant
DX: S72.141A Displaced intertrochanteric fracture of right femur, initial encounter for closed fracture (principal); Y93.9 Activity, unspecified; Y92.9 Unspecified place or not applicable

== ENCOUNTER → 2024-01-05 | Outpatient (CLI) | payer MEDICARE | LOC: M RAD 10:54 | PROVIDERS: ATTEND Internal Medicine Pulmonary Disease | DX: J44.9 Chronic obstructive pulmonary disease, unspecified (principal) ==

== ENCOUNTER → 2024-02-11 | Outpatient (REF) | payer MEDICARE | LOC: M LAB REF 14:25 | PROVIDERS: ATTEND Internal Medicine Pulmonary Disease | DX: J47.9 Bronchiectasis, uncomplicated (principal) ==

== ENCOUNTER → 2024-02-29 | Outpatient (REF) | payer MEDICARE | LOC: M LAB REF 12:29 | PROVIDERS: ATTEND Nurse Practitioner Adult Health | DX: J44.1 Chronic obstructive pulmonary disease with (acute) exacerbation (principal) ==

== ENCOUNTER → 2024-03-01 | Outpatient (REF) | payer MEDICARE | LOC: M LAB REF 09:48 | PROVIDERS: ATTEND Nurse Practitioner Adult Health | DX: J44.1 Chronic obstructive pulmonary disease with (acute) exacerbation (principal); J47.9 Bronchiectasis, uncomplicated ==

== ENCOUNTER → 2024-04-20 | Outpatient (REF) ==
[~2024-04-20] MED LIST changes: +LEVA1.2525 INH; +QVAR80AE8 INH
== END ==
LOC: M EMP 09:09
PROVIDERS: ATTEND Family Medicine
DX: Z11.52 Encounter for screening for COVID-19 (principal)

== ENCOUNTER 2024-04-27 10:23 | Inpatient (IN) | payer MEDICARE ==
[~2024-04-27] VITALS: Ht 152.4 cm; Wt 49.8 kg
[2024-04-27] VITALS (10 sets, daily range): BP systolic 117–140; BP diastolic 61–75; TEMP 97.2–97.7; O2SAT 92–100
[~2024-04-27 10:23] MED LIST changes: -LEVA1.2525 INH; -QVAR80AE8 INH
[2024-04-27 11:06] LABS: VENOUS PH 7.275 UNITS (7.330-7.430)
[2024-04-27 11:07] LABS: VENOUS BASE EXCESS 8.7 (-2.0-2.0); VENOUS HCO3 38.6 MMOL/L (23.0-27.0); VENOUS O2 SATURATION 58.3 % (60.0-80.0); VENOUS PARTIAL PRESSURE CO2 84.9 mmHg (38.0-50.0); VENOUS PARTIAL PRESSURE O2 30.9 mmHg (30.0-50.0); VENOUS STANDARD HCO3 31.5 MMOL/L; VENOUS TOTAL CO2 41.2 MMOL/L (24.0-28.0)
[2024-04-27 11:24] LABS: BASO # 0.1 10^3/uL (0.0-0.2); BASO % 0.4 % (0.0-1.0); EOS # 0.2 10^3/uL (0.0-0.5); EOS % 1.6 % (0.0-3.0); HEMATOCRIT 37.5 % (36.0-47.0); HEMOGLOBIN 11.3 g/dl (12.0-15.5); LYMPH # 2.3 10^3/uL (1.5-5.0); MEAN CORPUSCULAR HEMOGLOBIN 28.7 pg (27.0-33.0); MEAN CORPUSCULAR HGB CONC 30.1 g/dl (32.0-36.5); MEAN CORPUSCULAR VOLUME 95.2 fl (80.0-96.0); MONO # 1.5 10^3/uL (0.0-0.8); MONO % 12.8 % (2.0-8.0); NEUTROPHILS # 7.4 10^3/uL (1.5-8.5); NEUTROPHILS % 64.8 % (36.0-66.0); PLATELET COUNT, AUTOMATED 480 10^3/uL (150-450); RED BLOOD COUNT 3.94 10^6/uL (4.00-5.40); WHITE BLOOD COUNT 11.4 10^3/uL (4.0-10.0)
[2024-04-27] MEDS: methylPREDNISolone 125MG 2ML VIAL IV ONE (11:41)
[2024-04-27 11:42] LABS: CPK CREATINE PHOSPHOKINASE 71 U/L (34-145)
[2024-04-27] MEDS: IPRATROPIUM 0.5MG/ALBUTEROL 2.5MG INH SOL UD 3ML (DUONEB) NEB SCH (11:46)
[2024-04-27 11:50] LABS: ALBUMIN 3.7 G/DL (3.2-5.2); ALKALINE PHOSPHATASE 107 U/L (46-116); ALT/SGPT 9 U/L (7.0-40); AST/SGOT 14 U/L (<34); BILIRUBIN,DIRECT 0.1 MG/DL (<0.4); BILIRUBIN,TOTAL 0.5 MG/DL (0.3-1.2); BLOOD UREA NITROGEN 17 MG/DL (9-23); CALCIUM LEVEL 9.6 MG/DL (8.3-10.6); CARBON DIOXIDE LEVEL > 40.0 MMOL/L (20-31); CHLORIDE LEVEL 100 MMOL/L (98-107); CK-MB VALUE MASS 3.6 NG/ML (<3.6); CREATININE FOR GFR 0.66 MG/DL (0.55-1.30); GLOMERULAR FILTRATION RATE > 60.0 (>39); GLUCOSE, FASTING 108 MG/DL (74-106); MB/CK RELATIVE INDEX 5.07 (< OR =4); POTASSIUM SERUM 3.5 MMOL/L (3.5-5.1); SODIUM LEVEL 141 MMOL/L (136-145); TOTAL PROTEIN 6.9 G/DL (5.7-8.2)
[2024-04-27] MEDS: CEFEPIME HCL 2 GM in D5W MINI-BAG PLUS 50 ML IV ONE (12:39)
[2024-04-27] MEDS ORDERED: LEVA1.2525 INH (14:11)
[2024-04-27] MEDS ORDERED: QVAR80AE8 INH (14:11)
[2024-04-27] MEDS ORDERED: HOME MED LIST COMPLETE! XX SCH (14:15)
[2024-04-27 15:32] LABS: ERYTHROCYTE SEDIMENTATION RATE 29 mm/hr (0-30)
[2024-04-27] MEDS: PARoxetine 10MG TABLET PO SCH (15:39)
[2024-04-27] MEDS: FUROSEMIDE 20 MG TAB PO SCH (15:39)
[2024-04-27] MEDS: LOSARTAN 50MG TABLET PO SCH (15:39)
[2024-04-27] MEDS: amLODIPine 5 MG TAB PO SCH (15:39)
[2024-04-27] MEDS: LEVALBUTEROL 1.25MG 0.5ML CONCENTRATE NEB INH SCH (15:52)
[2024-04-27] MEDS: methylPREDNISolone 125MG 2ML VIAL IV SCH (17:16)
[2024-04-27] MEDS: PIPERACILLIN/TAZOBACTAM SOD 4.5 GM in D5W MINI-BAG PLUS 50 ML IV SCH (17:16)
[2024-04-27] MEDS: FLUTICASONE HFA 220 MCG 12 GM INHALER (FLOVENT) INH SCH (18:56)
[2024-04-27] MEDS: SYMBICORT 160/4.5MCG INHALER 6GM INH SCH (19:25)
[2024-04-27] MEDS: guaiFENesin ER TABLET 600 MG TAB PO SCH (20:16)
[2024-04-27] MEDS: HEPARIN SOD (PORCINE) 5000UNITS/ML 1ML VIAL/SYRINGE SQ SCH (20:19)
[2024-04-28] VITALS (10 sets, daily range): BP systolic 107–145; BP diastolic 60–79; TEMP 96.8–98.5; O2SAT 94–99
[2024-04-28 06:57] LABS: BASO % 0.1 % (0.0-1.0); HEMATOCRIT 32.9 % (36.0-47.0); LYMPH # 0.7 10^3/uL (1.5-5.0); LYMPH % 5.8 % (24.0-44.0); MEAN CORPUSCULAR HEMOGLOBIN 28.2 pg (27.0-33.0); MEAN CORPUSCULAR HGB CONC 30.4 g/dl (32.0-36.5); MEAN CORPUSCULAR VOLUME 92.9 fl (80.0-96.0); MONO # 0.2 10^3/uL (0.0-0.8); MONO % 1.4 % (2.0-8.0); NEUTROPHILS # 11.6 10^3/uL (1.5-8.5); PLATELET COUNT, AUTOMATED 419 10^3/uL (150-450); RED BLOOD COUNT 3.54 10^6/uL (4.00-5.40); WHITE BLOOD COUNT 12.6 10^3/uL (4.0-10.0)
[2024-04-28 07:30] LABS: BLOOD UREA NITROGEN 25 MG/DL (9-23); CALCIUM LEVEL 8.8 MG/DL (8.3-10.6); CARBON DIOXIDE LEVEL 35 MMOL/L (20-31); CHLORIDE LEVEL 98 MMOL/L (98-107); GLOMERULAR FILTRATION RATE > 60.0 (>39); GLUCOSE, FASTING 141 MG/DL (74-106); POTASSIUM SERUM 3.7 MMOL/L (3.5-5.1); SODIUM LEVEL 139 MMOL/L (136-145)
[2024-04-28] MEDS ORDERED: CEFEPIME HCL 1 GM in D5W MINI-BAG PLUS 50 ML IV SCH (09:00)
[2024-04-28] MEDS: SPIRONOLACTONE 12.5MG PER 1/2 TABLET PO SCH (09:05)
[2024-04-28 13:21] LABS: PROCALCITONIN 0.09 ng/ml
[2024-04-29 04:00] VITALS: BP 139/70; TEMP 97; O2SAT 94
[2024-04-29 05:33] LABS: BASO % 0.1 % (0.0-1.0); HEMATOCRIT 28.4 % (36.0-47.0); HEMOGLOBIN 8.9 g/dl (12.0-15.5); LYMPH # 0.5 10^3/uL (1.5-5.0); LYMPH % 3.2 % (24.0-44.0); MEAN CORPUSCULAR HEMOGLOBIN 28.7 pg (27.0-33.0); MEAN CORPUSCULAR HGB CONC 31.3 g/dl (32.0-36.5); MEAN CORPUSCULAR VOLUME 91.6 fl (80.0-96.0); MONO # 0.5 10^3/uL (0.0-0.8); MONO % 3.2 % (2.0-8.0); NEUTROPHILS # 15.1 10^3/uL (1.5-8.5); NEUTROPHILS % 91.9 % (36.0-66.0); PLATELET COUNT, AUTOMATED 361 10^3/uL (150-450); WHITE BLOOD COUNT 16.4 10^3/uL (4.0-10.0)
[2024-04-29 05:57] LABS: BLOOD UREA NITROGEN 29 MG/DL (9-23); CALCIUM LEVEL 8.6 MG/DL (8.3-10.6); CARBON DIOXIDE LEVEL 38 MMOL/L (20-31); CHLORIDE LEVEL 101 MMOL/L (98-107); CREATININE FOR GFR 0.92 MG/DL (0.55-1.30); GLOMERULAR FILTRATION RATE > 60.0 (>39); GLUCOSE, FASTING 127 MG/DL (74-106); POTASSIUM SERUM 3.2 MMOL/L (3.5-5.1); SODIUM LEVEL 143 MMOL/L (136-145)
[2024-04-29 08:17] VITALS: BP 163/93; TEMP 97.9; O2SAT 99
[2024-04-29] MEDS: DOCUSATE SODIUM 100MG CAPSULE PO ONE (09:58)
[2024-04-29] MEDS: TIOTROPIUM INHALER/CAPSULE (SPIRIVA) INH SCH (11:19)
[2024-04-29] MEDS ORDERED: VANCOMYCIN HCL 1,000 MG, VIAL MATE ADAPTER 1 EACH in D5W 250 ML IV SCH (11:20)
[2024-04-29 11:51] VITALS: BP 110/65; TEMP 98.4; O2SAT 99
[2024-04-29] MEDS: VANCOMYCIN HCL 1,000 MG, VIAL MATE ADAPTER 1 EACH in D5W 250 ML IV ONE (12:49)
[2024-04-29] MEDS: POTASSIUM CHLORIDE 10MEQ SR TABLET PO ONE (12:50)
[2024-04-29 16:28] VITALS: BP 115/64; TEMP 98.2; O2SAT 98
[2024-04-29 20:51] VITALS: BP 120/68; TEMP 97.1; O2SAT 98
[2024-04-29] MEDS: cefTRIAXone SOD 1 GM in D5W MINI-BAG PLUS 50 ML IV SCH (20:58)
[2024-04-29 23:50] VITALS: BP 144/84; TEMP 98.2; O2SAT 96
[2024-04-30] VITALS (10 sets, daily range): BP systolic 128–152; BP diastolic 64–80; TEMP 97–100; O2SAT 92–99
[2024-04-30] MEDS: VANCOMYCIN HCL 500 MG in D5W MINI-BAG PLUS 100 ML IV SCH ×2 (00:13→12:16)
[2024-04-30] MEDS: methylPREDNISolone 125MG 2ML VIAL IV SCH (05:21)
[2024-04-30 05:28] LABS: BASO % 0.1 % (0.0-1.0); HEMOGLOBIN 8.7 g/dl (12.0-15.5); LYMPH # 0.7 10^3/uL (1.5-5.0); LYMPH % 4.9 % (24.0-44.0); MEAN CORPUSCULAR HEMOGLOBIN 27.8 pg (27.0-33.0); MEAN CORPUSCULAR VOLUME 92.7 fl (80.0-96.0); MONO # 1.4 10^3/uL (0.0-0.8); MONO % 9.4 % (2.0-8.0); NEUTROPHILS # 12.7 10^3/uL (1.5-8.5); NEUTROPHILS % 84.1 % (36.0-66.0); PLATELET COUNT, AUTOMATED 385 10^3/uL (150-450); RED BLOOD COUNT 3.13 10^6/uL (4.00-5.40); WHITE BLOOD COUNT 15.1 10^3/uL (4.0-10.0)
[2024-04-30 06:16] LABS: BLOOD UREA NITROGEN 27 MG/DL (9-23); CALCIUM LEVEL 7.7 MG/DL (8.3-10.6); CARBON DIOXIDE LEVEL 38 MMOL/L (20-31); CHLORIDE LEVEL 101 MMOL/L (98-107); CREATININE FOR GFR 0.86 MG/DL (0.55-1.30); GLOMERULAR FILTRATION RATE > 60.0 (>39); GLUCOSE, FASTING 133 MG/DL (74-106); POTASSIUM SERUM 3.5 MMOL/L (3.5-5.1); SODIUM LEVEL 139 MMOL/L (136-145)
[2024-04-30] MEDS: DOCUSATE SODIUM 100MG CAPSULE PO SCH (09:00)
[2024-04-30] MEDS ORDERED: VANCOMYCIN HCL 750 MG, VIAL MATE ADAPTER 1 EACH in D5W 250 ML IV SCH (12:00)
[2024-05-01] VITALS (8 sets, daily range): BP systolic 127–164; BP diastolic 68–86; TEMP 97–98; O2SAT 93–99
[2024-05-01 07:21] LABS: HEMATOCRIT 29.8 % (36.0-47.0); HEMOGLOBIN 8.9 g/dl (12.0-15.5); LYMPH # 0.7 10^3/uL (1.5-5.0); LYMPH % 6.9 % (24.0-44.0); MEAN CORPUSCULAR HEMOGLOBIN 27.9 pg (27.0-33.0); MEAN CORPUSCULAR HGB CONC 29.9 g/dl (32.0-36.5); MEAN CORPUSCULAR VOLUME 93.4 fl (80.0-96.0); MONO # 0.7 10^3/uL (0.0-0.8); MONO % 6.9 % (2.0-8.0); NEUTROPHILS # 8.3 10^3/uL (1.5-8.5); PLATELET COUNT, AUTOMATED 398 10^3/uL (150-450); RED BLOOD COUNT 3.19 10^6/uL (4.00-5.40); WHITE BLOOD COUNT 9.7 10^3/uL (4.0-10.0)
[2024-05-01 07:49] LABS: BLOOD UREA NITROGEN 29 MG/DL (9-23); CALCIUM LEVEL 8.1 MG/DL (8.3-10.6); CARBON DIOXIDE LEVEL 36 MMOL/L (20-31); CHLORIDE LEVEL 103 MMOL/L (98-107); CREATININE FOR GFR 0.72 MG/DL (0.55-1.30); GLOMERULAR FILTRATION RATE > 60.0 (>39); GLUCOSE, FASTING 87 MG/DL (74-106); POTASSIUM SERUM 3.8 MMOL/L (3.5-5.1); SODIUM LEVEL 141 MMOL/L (136-145)
[2024-05-01] MEDS: VANCOMYCIN HCL 750 MG, VIAL MATE ADAPTER 1 EACH in D5W 250 ML IV SCH (12:31)
[2024-05-01] MEDS: NS 500 ML IV ONE (23:23)
[2024-05-02 04:00] VITALS: BP 133/77; TEMP 97.5; O2SAT 98
[2024-05-02 07:22] LABS: BASO % 0.1 % (0.0-1.0); HEMOGLOBIN 9.3 g/dl (12.0-15.5); LYMPH # 0.9 10^3/uL (1.5-5.0); LYMPH % 7.9 % (24.0-44.0); MEAN CORPUSCULAR HEMOGLOBIN 28.8 pg (27.0-33.0); MEAN CORPUSCULAR VOLUME 92.9 fl (80.0-96.0); MONO # 0.8 10^3/uL (0.0-0.8); NEUTROPHILS % 83.3 % (36.0-66.0); PLATELET COUNT, AUTOMATED 400 10^3/uL (150-450); RED BLOOD COUNT 3.23 10^6/uL (4.00-5.40); WHITE BLOOD COUNT 10.8 10^3/uL (4.0-10.0)
[2024-05-02 07:45] LABS: BLOOD UREA NITROGEN 27 MG/DL (9-23); CALCIUM LEVEL 8.6 MG/DL (8.3-10.6); CARBON DIOXIDE LEVEL 38 MMOL/L (20-31); CHLORIDE LEVEL 102 MMOL/L (98-107); CREATININE FOR GFR 0.75 MG/DL (0.55-1.30); GLOMERULAR FILTRATION RATE > 60.0 (>39); GLUCOSE, FASTING 86 MG/DL (74-106); POTASSIUM SERUM 4.1 MMOL/L (3.5-5.1); SODIUM LEVEL 140 MMOL/L (136-145)
[2024-05-02] MEDS: DOXYCYCLINE HYCLATE 100MG TABLET PO SCH (11:50)
[2024-05-02] MEDS: BENZONATATE 100MG CAPSULE PO SCH (11:50)
[2024-05-02 12:00] VITALS: BP 161/86; TEMP 97.7; O2SAT 97
[2024-05-02] MEDS: EMLA CREAM 5GM TUBE (LIDOCAINE/PRILOCAINE) TOP ONE (16:17)
[2024-05-02 19:49] VITALS: BP 155/76; TEMP 97.7; O2SAT 98
[2024-05-02] MEDS: CEFDINIR 300 MG CAP (OMNICEF) PO SCH (20:30)
[2024-05-02] MEDS: predniSONE 20 MG TAB PO SCH (20:30)
[2024-05-03 04:00] VITALS: BP 148/78; TEMP 97.3; O2SAT 97
[2024-05-03 06:01] LABS: BASO % 0.1 % (0.0-1.0); HEMATOCRIT 30.1 % (36.0-47.0); HEMOGLOBIN 9.4 g/dl (12.0-15.5); LYMPH # 0.6 10^3/uL (1.5-5.0); LYMPH % 5.9 % (24.0-44.0); MEAN CORPUSCULAR HEMOGLOBIN 28.6 pg (27.0-33.0); MEAN CORPUSCULAR HGB CONC 31.2 g/dl (32.0-36.5); MEAN CORPUSCULAR VOLUME 91.5 fl (80.0-96.0); MONO # 0.5 10^3/uL (0.0-0.8); NEUTROPHILS # 9.1 10^3/uL (1.5-8.5); PLATELET COUNT, AUTOMATED 396 10^3/uL (150-450); RED BLOOD COUNT 3.29 10^6/uL (4.00-5.40); WHITE BLOOD COUNT 10.5 10^3/uL (4.0-10.0)
[2024-05-03 06:32] LABS: BLOOD UREA NITROGEN 31 MG/DL (9-23); CALCIUM LEVEL 8.6 MG/DL (8.3-10.6); CARBON DIOXIDE LEVEL 39 MMOL/L (20-31); CHLORIDE LEVEL 100 MMOL/L (98-107); CREATININE FOR GFR 0.69 MG/DL (0.55-1.30); GLOMERULAR FILTRATION RATE > 60.0 (>39); GLUCOSE, FASTING 102 MG/DL (74-106); POTASSIUM SERUM 4.2 MMOL/L (3.5-5.1); SODIUM LEVEL 139 MMOL/L (136-145)
[2024-05-03 12:00] VITALS: BP 164/93; TEMP 97.7; O2SAT 98
[2024-05-03 20:00] VITALS: BP 142/80; TEMP 97.3; O2SAT 98
[2024-05-04] VITALS (7 sets, daily range): BP systolic 132–244; BP diastolic 81–126; TEMP 97.3–97.9; O2SAT 86–99
[2024-05-04] MEDS ORDERED: PERMETHRIN 5% CREAM 60 GM TOP SCH
[2024-05-04] MEDS: LEVALBUTEROL 1.25MG 0.5ML CONCENTRATE NEB INH PRN (04:29)
[2024-05-04 04:31] LABS: ABG BASE EXCESS -1.1 (-2.0-2.0); ABG HCO3 30.2 MMOL/L (22.0-26.0); ABG O2 SATURATION 99.9 % (95.0-99.0); ABG PARTIAL PRESSURE O2 290.7 mmHg (75.0-100.0); ABG STANDARD HCO3 23.6 MMOL/L. (22.0-26.0)
[2024-05-04 04:33] LABS: ABG PARTIAL PRESSURE CO2 92.1 mmHg (35.0-45.0); ABG pH (ARTERIAL) 7.133 UNITS (7.350-7.450)
[2024-05-04 04:55] LABS: BASO % 0.2 % (0.0-1.0); HEMATOCRIT 36.3 % (36.0-47.0); HEMOGLOBIN 11.1 g/dl (12.0-15.5); LYMPH % 12.1 % (24.0-44.0); MEAN CORPUSCULAR HEMOGLOBIN 28.7 pg (27.0-33.0); MEAN CORPUSCULAR HGB CONC 30.6 g/dl (32.0-36.5); MEAN CORPUSCULAR VOLUME 93.8 fl (80.0-96.0); MONO # 0.8 10^3/uL (0.0-0.8); MONO % 4.5 % (2.0-8.0); NEUTROPHILS # 13.1 10^3/uL (1.5-8.5); RED BLOOD COUNT 3.87 10^6/uL (4.00-5.40); WHITE BLOOD COUNT 16.5 10^3/uL (4.0-10.0)
[2024-05-04 05:00] LABS: PARTIAL THROMBOPLASTIN TIME 24.6 SECONDS (24.8-34.2); PROTHROMBIN TIME 12.9 SECONDS (12.5-14.5)
[2024-05-04 05:04] LABS: BLOOD UREA NITROGEN 30 MG/DL (9-23); CALCIUM LEVEL 8.5 MG/DL (8.3-10.6); CARBON DIOXIDE LEVEL 34 MMOL/L (20-31); CHLORIDE LEVEL 95 MMOL/L (98-107); CREATININE FOR GFR 0.74 MG/DL (0.55-1.30); GLOMERULAR FILTRATION RATE > 60.0 (>39); GLUCOSE, FASTING 202 MG/DL (74-106); PLATELET COUNT, AUTOMATED 498 10^3/uL (150-450); POTASSIUM SERUM 3.9 MMOL/L (3.5-5.1); SODIUM LEVEL 136 MMOL/L (136-145)
[2024-05-04 05:43] LABS: ALBUMIN 3.2 G/DL (3.2-5.2); ALKALINE PHOSPHATASE 82 U/L (46-116); ALT/SGPT 22 U/L (7.0-40); AST/SGOT 17 U/L (<34); BILIRUBIN,DIRECT 0.1 MG/DL (<0.4); BILIRUBIN,TOTAL 0.4 MG/DL (0.3-1.2); TOTAL PROTEIN 6.1 G/DL (5.7-8.2)
[2024-05-04 05:50] LABS: PROCALCITONIN 0.07 ng/ml
[2024-05-04 07:03] LABS: VENOUS BASE EXCESS 8.3 (-2.0-2.0); VENOUS HCO3 34.3 MMOL/L (23.0-27.0); VENOUS O2 SATURATION 99.1 % (60.0-80.0); VENOUS PARTIAL PRESSURE CO2 55.4 mmHg (38.0-50.0); VENOUS PARTIAL PRESSURE O2 240.7 mmHg (30.0-50.0); VENOUS STANDARD HCO3 32.1 MMOL/L
[2024-05-04] MEDS: PERMETHRIN 5% CREAM 60 GM TOP ONE (17:59)
[2024-05-05 04:00] VITALS: BP 147/70; TEMP 97.3; O2SAT 94
[2024-05-05 08:06] LABS: BASO % 0.1 % (0.0-1.0); HEMATOCRIT 31.7 % (36.0-47.0); HEMOGLOBIN 10.1 g/dl (12.0-15.5); LYMPH # 0.9 10^3/uL (1.5-5.0); LYMPH % 6.9 % (24.0-44.0); MEAN CORPUSCULAR HEMOGLOBIN 28.7 pg (27.0-33.0); MEAN CORPUSCULAR HGB CONC 31.9 g/dl (32.0-36.5); MEAN CORPUSCULAR VOLUME 90.1 fl (80.0-96.0); NEUTROPHILS # 10.2 10^3/uL (1.5-8.5); NEUTROPHILS % 82.3 % (36.0-66.0); PLATELET COUNT, AUTOMATED 441 10^3/uL (150-450); RED BLOOD COUNT 3.52 10^6/uL (4.00-5.40); WHITE BLOOD COUNT 12.4 10^3/uL (4.0-10.0)
[2024-05-05 08:40] LABS: BLOOD UREA NITROGEN 29 MG/DL (9-23); CALCIUM LEVEL 8.6 MG/DL (8.3-10.6); CARBON DIOXIDE LEVEL > 40.0 MMOL/L (20-31); CHLORIDE LEVEL 96 MMOL/L (98-107); CREATININE FOR GFR 0.66 MG/DL (0.55-1.30); GLOMERULAR FILTRATION RATE > 60.0 (>39); GLUCOSE, FASTING 94 MG/DL (74-106); POTASSIUM SERUM 4.3 MMOL/L (3.5-5.1); SODIUM LEVEL 137 MMOL/L (136-145)
[2024-05-05 12:00] VITALS: BP 148/90; TEMP 97.5; O2SAT 97
[2024-05-05 20:36] VITALS: BP 144/86; TEMP 97.7; O2SAT 94
[2024-05-06 03:05] LABS: VENOUS BASE EXCESS 11.1 (-2.0-2.0); VENOUS HCO3 37.9 MMOL/L (23.0-27.0); VENOUS O2 SATURATION 99.4 % (60.0-80.0); VENOUS PARTIAL PRESSURE CO2 62.9 mmHg (38.0-50.0); VENOUS PARTIAL PRESSURE O2 177.9 mmHg (30.0-50.0); VENOUS PH 7.398 UNITS (7.330-7.430); VENOUS STANDARD HCO3 34.9 MMOL/L; VENOUS TOTAL CO2 39.8 MMOL/L (24.0-28.0)
[2024-05-06 03:09] LABS: BASO % 0.2 % (0.0-1.0); HEMATOCRIT 30.6 % (36.0-47.0); HEMOGLOBIN 9.8 g/dl (12.0-15.5); LYMPH # 0.7 10^3/uL (1.5-5.0); LYMPH % 5.2 % (24.0-44.0); MEAN CORPUSCULAR VOLUME 90.5 fl (80.0-96.0); MONO % 7.7 % (2.0-8.0); NEUTROPHILS # 10.4 10^3/uL (1.5-8.5); NEUTROPHILS % 83.1 % (36.0-66.0); PLATELET COUNT, AUTOMATED 443 10^3/uL (150-450); RED BLOOD COUNT 3.38 10^6/uL (4.00-5.40); WHITE BLOOD COUNT 12.5 10^3/uL (4.0-10.0)
[2024-05-06 04:07] LABS: ALBUMIN 2.9 G/DL (3.2-5.2); ALKALINE PHOSPHATASE 75 U/L (46-116); ALT/SGPT 21 U/L (7.0-40); AST/SGOT 17 U/L (<34); BILIRUBIN,TOTAL 0.3 MG/DL (0.3-1.2); BLOOD UREA NITROGEN 32 MG/DL (9-23); CALCIUM LEVEL 8.4 MG/DL (8.3-10.6); CARBON DIOXIDE LEVEL > 40.0 MMOL/L (20-31); CHLORIDE LEVEL 93 MMOL/L (98-107); CREATININE FOR GFR 0.66 MG/DL (0.55-1.30); GLOMERULAR FILTRATION RATE > 60.0 (>39); GLUCOSE, FASTING 115 MG/DL (74-106); MAGNESIUM LEVEL 1.9 MG/DL (1.8-2.4); POTASSIUM SERUM 4.4 MMOL/L (3.5-5.1); SODIUM LEVEL 131 MMOL/L (136-145); TOTAL PROTEIN 5.3 G/DL (5.7-8.2)
[2024-05-06 04:19] VITALS: BP 140/85; TEMP 97.5; O2SAT 93
[2024-05-06 09:36] VITALS: O2SAT 92
[2024-05-06 12:00] VITALS: BP 133/75; TEMP 97.5; O2SAT 95
[2024-05-06 19:42] VITALS: BP 135/75; TEMP 97.5; O2SAT 97
[2024-05-07 03:48] VITALS: BP 133/78; TEMP 97.3; O2SAT 95
[2024-05-07 08:05] LABS: BASO % 0.1 % (0.0-1.0); HEMATOCRIT 32.1 % (36.0-47.0); HEMOGLOBIN 10.4 g/dl (12.0-15.5); LYMPH # 0.8 10^3/uL (1.5-5.0); LYMPH % 5.6 % (24.0-44.0); MEAN CORPUSCULAR HEMOGLOBIN 28.8 pg (27.0-33.0); MEAN CORPUSCULAR HGB CONC 32.4 g/dl (32.0-36.5); MEAN CORPUSCULAR VOLUME 88.9 fl (80.0-96.0); MONO # 1.1 10^3/uL (0.0-0.8); MONO % 7.9 % (2.0-8.0); NEUTROPHILS # 11.2 10^3/uL (1.5-8.5); NEUTROPHILS % 82.1 % (36.0-66.0); PLATELET COUNT, AUTOMATED 484 10^3/uL (150-450); RED BLOOD COUNT 3.61 10^6/uL (4.00-5.40); WHITE BLOOD COUNT 13.6 10^3/uL (4.0-10.0)
[2024-05-07 08:30] LABS: BLOOD UREA NITROGEN 31 MG/DL (9-23); CALCIUM LEVEL 8.4 MG/DL (8.3-10.6); CARBON DIOXIDE LEVEL 39 MMOL/L (20-31); CHLORIDE LEVEL 91 MMOL/L (98-107); CREATININE FOR GFR 0.74 MG/DL (0.55-1.30); GLOMERULAR FILTRATION RATE > 60.0 (>39); GLUCOSE, FASTING 92 MG/DL (74-106); POTASSIUM SERUM 4.6 MMOL/L (3.5-5.1); SODIUM LEVEL 131 MMOL/L (136-145)
[2024-05-07 12:00] VITALS: BP 126/77; TEMP 97.5; O2SAT 98
[2024-05-07 20:51] VITALS: BP 139/81; TEMP 97.5; O2SAT 98
[2024-05-08 04:32] VITALS: BP 143/81; TEMP 97.3; O2SAT 94
[2024-05-08] MEDS: predniSONE 20 MG TAB PO SCH (09:50)
[2024-05-08 12:00] VITALS: BP 151/88; TEMP 97.5; O2SAT 99
[2024-05-08] MEDS: FLUTICASONE PROP 0.05% NASAL SPRAY 16 GM (FLONASE) NARES SCH (12:54)
[2024-05-08] MEDS: CEFDINIR 300 MG CAP (OMNICEF) PO SCH (14:31)
[2024-05-08 20:00] VITALS: BP 115/69; TEMP 97.5; O2SAT 98
[2024-05-09 04:00] VITALS: BP 138/74; TEMP 97.5; O2SAT 95
[2024-05-09 07:41] LABS: BASO % 0.1 % (0.0-1.0); EOS # 0.1 10^3/uL (0.0-0.5); EOS % 0.7 % (0.0-3.0); HEMATOCRIT 30.6 % (36.0-47.0); HEMOGLOBIN 9.8 g/dl (12.0-15.5); LYMPH # 1.9 10^3/uL (1.5-5.0); LYMPH % 13.2 % (24.0-44.0); MEAN CORPUSCULAR HEMOGLOBIN 28.8 pg (27.0-33.0); MONO # 2.1 10^3/uL (0.0-0.8); MONO % 14.8 % (2.0-8.0); NEUTROPHILS % 69.7 % (36.0-66.0); PLATELET COUNT, AUTOMATED 425 10^3/uL (150-450); WHITE BLOOD COUNT 14.3 10^3/uL (4.0-10.0)
[2024-05-09 08:15] LABS: BLOOD UREA NITROGEN 29 MG/DL (9-23); CALCIUM LEVEL 8.5 MG/DL (8.3-10.6); CARBON DIOXIDE LEVEL 40 MMOL/L (20-31); CHLORIDE LEVEL 98 MMOL/L (98-107); CREATININE FOR GFR 0.74 MG/DL (0.55-1.30); GLOMERULAR FILTRATION RATE > 60.0 (>39); GLUCOSE, FASTING 67 MG/DL (74-106); POTASSIUM SERUM 4.5 MMOL/L (3.5-5.1); SODIUM LEVEL 135 MMOL/L (136-145)
[2024-05-09 12:00] VITALS: BP 134/85; TEMP 97.5; O2SAT 96
[2024-05-09 20:00] VITALS: BP 109/75; TEMP 97.5; O2SAT 95
[2024-05-10 04:00] VITALS: BP 135/81; TEMP 97.3; O2SAT 92
[2024-05-10 09:30] VITALS: O2SAT 96
[2024-05-10 12:00] VITALS: BP 134/86; TEMP 97.5; O2SAT 93
[2024-05-10] MEDS: MUPIROCIN 2% OINT 22 GM TUBE TOP SCH (13:18)
[2024-05-10 20:00] VITALS: O2SAT 94
[2024-05-10 20:13] VITALS: BP 124/64; TEMP 97.5; O2SAT 94
[2024-05-11 04:25] VITALS: BP 131/70; TEMP 97.9; O2SAT 95
[2024-05-11 06:04] LABS: BASO % 0.2 % (0.0-1.0); EOS # 0.3 10^3/uL (0.0-0.5); EOS % 2.4 % (0.0-3.0); HEMATOCRIT 27.6 % (36.0-47.0); HEMOGLOBIN 8.8 g/dl (12.0-15.5); LYMPH # 2.1 10^3/uL (1.5-5.0); LYMPH % 18.9 % (24.0-44.0); MEAN CORPUSCULAR HEMOGLOBIN 28.9 pg (27.0-33.0); MEAN CORPUSCULAR HGB CONC 31.9 g/dl (32.0-36.5); MEAN CORPUSCULAR VOLUME 90.8 fl (80.0-96.0); MONO # 1.6 10^3/uL (0.0-0.8); MONO % 14.5 % (2.0-8.0); NEUTROPHILS # 6.9 10^3/uL (1.5-8.5); NEUTROPHILS % 62.2 % (36.0-66.0); PLATELET COUNT, AUTOMATED 384 10^3/uL (150-450); RED BLOOD COUNT 3.04 10^6/uL (4.00-5.40); WHITE BLOOD COUNT 11.1 10^3/uL (4.0-10.0)
[2024-05-11 06:33] LABS: BLOOD UREA NITROGEN 25 MG/DL (9-23); CALCIUM LEVEL 8.6 MG/DL (8.3-10.6); CARBON DIOXIDE LEVEL 38 MMOL/L (20-31); CHLORIDE LEVEL 101 MMOL/L (98-107); CREATININE FOR GFR 0.76 MG/DL (0.55-1.30); GLOMERULAR FILTRATION RATE > 60.0 (>39); GLUCOSE, FASTING 74 MG/DL (74-106); MAGNESIUM LEVEL 2.1 MG/DL (1.8-2.4); POTASSIUM SERUM 4.2 MMOL/L (3.5-5.1); SODIUM LEVEL 135 MMOL/L (136-145)
[2024-05-11] MEDS: predniSONE 10MG TAB PO SCH (08:00)
[2024-05-11 09:00] VITALS: O2SAT 94
[2024-05-11 12:00] VITALS: BP 148/81; TEMP 97.5; O2SAT 95
[2024-05-11 20:00] VITALS: BP 127/69; TEMP 97.9; O2SAT 93
[2024-05-12 04:00] VITALS: BP 151/88; TEMP 97.9; O2SAT 95
[2024-05-12 06:33] LABS: BASO % 0.1 % (0.0-1.0); EOS # 0.3 10^3/uL (0.0-0.5); EOS % 2.9 % (0.0-3.0); HEMATOCRIT 27.7 % (36.0-47.0); HEMOGLOBIN 8.9 g/dl (12.0-15.5); LYMPH # 2.2 10^3/uL (1.5-5.0); LYMPH % 20.8 % (24.0-44.0); MEAN CORPUSCULAR HEMOGLOBIN 29.3 pg (27.0-33.0); MEAN CORPUSCULAR HGB CONC 32.1 g/dl (32.0-36.5); MEAN CORPUSCULAR VOLUME 91.1 fl (80.0-96.0); MONO # 1.5 10^3/uL (0.0-0.8); MONO % 14.3 % (2.0-8.0); NEUTROPHILS # 6.3 10^3/uL (1.5-8.5); NEUTROPHILS % 60.6 % (36.0-66.0); PLATELET COUNT, AUTOMATED 388 10^3/uL (150-450); RED BLOOD COUNT 3.04 10^6/uL (4.00-5.40); WHITE BLOOD COUNT 10.4 10^3/uL (4.0-10.0)
[2024-05-12 06:49] LABS: BLOOD UREA NITROGEN 19 MG/DL (9-23); CALCIUM LEVEL 8.7 MG/DL (8.3-10.6); CARBON DIOXIDE LEVEL 38 MMOL/L (20-31); CHLORIDE LEVEL 98 MMOL/L (98-107); CREATININE FOR GFR 0.72 MG/DL (0.55-1.30); GLOMERULAR FILTRATION RATE > 60.0 (>39); GLUCOSE, FASTING 75 MG/DL (74-106); MAGNESIUM LEVEL 2.1 MG/DL (1.8-2.4); POTASSIUM SERUM 4.6 MMOL/L (3.5-5.1); SODIUM LEVEL 134 MMOL/L (136-145)
[2024-05-12 12:20] VITALS: BP 148/78; TEMP 97.7; O2SAT 96
[2024-05-12] MEDS: IPRATROPIUM 0.02% SOLN 0.5MG 2.5ML NEB INH PRN (19:55)
[2024-05-12 20:36] VITALS: BP 135/76; TEMP 97.5; O2SAT 96
[2024-05-12 21:00] VITALS: O2SAT 94
[2024-05-13 04:34] VITALS: BP 143/80; TEMP 97.5; O2SAT 96
[2024-05-13 06:50] LABS: BASO % 0.1 % (0.0-1.0); EOS # 0.3 10^3/uL (0.0-0.5); EOS % 3.5 % (0.0-3.0); HEMATOCRIT 25.9 % (36.0-47.0); HEMOGLOBIN 8.3 g/dl (12.0-15.5); LYMPH # 2.1 10^3/uL (1.5-5.0); LYMPH % 22.2 % (24.0-44.0); MEAN CORPUSCULAR HEMOGLOBIN 28.5 pg (27.0-33.0); MONO # 1.4 10^3/uL (0.0-0.8); MONO % 14.7 % (2.0-8.0); NEUTROPHILS # 5.5 10^3/uL (1.5-8.5); NEUTROPHILS % 58.6 % (36.0-66.0); PLATELET COUNT, AUTOMATED 343 10^3/uL (150-450); RED BLOOD COUNT 2.91 10^6/uL (4.00-5.40); WHITE BLOOD COUNT 9.3 10^3/uL (4.0-10.0)
[2024-05-13 07:22] LABS: BLOOD UREA NITROGEN 16 MG/DL (9-23); CALCIUM LEVEL 8.6 MG/DL (8.3-10.6); CARBON DIOXIDE LEVEL 37 MMOL/L (20-31); CHLORIDE LEVEL 96 MMOL/L (98-107); CREATININE FOR GFR 0.72 MG/DL (0.55-1.30); GLOMERULAR FILTRATION RATE > 60.0 (>39); GLUCOSE, FASTING 70 MG/DL (74-106); POTASSIUM SERUM 4.1 MMOL/L (3.5-5.1); SODIUM LEVEL 132 MMOL/L (136-145)
[2024-05-13 08:33] VITALS: BP 143/83
[2024-05-13] MEDS ORDERED: ALBU8.5H INH (11:04)
[2024-05-13] MEDS ORDERED: PRED20TA PO (11:04)
[2024-05-13 12:00] VITALS: BP 110/65; TEMP 98.1; O2SAT 99
[2024-05-13] MEDS: FLUBLOK(EGGFREE) TRIVAL(24-25) VACCINE PF 0.5ML SYRINGE 18YRS & OLDER IM.IMMUN ONE (12:46)
== END 2024-05-13 16:16 | disposition home health service (06) | DRG 853 ==
LOC: M ED 10:23 → EEVIPCON 13:02 → M ED INP 13:02 → M PCU 15:15 → M MSPAV 05-01 21:01
PROVIDERS: ADMIT General Practice; ATTEND Student in an Organized Health Care Education/Training Program
PROC: 0JBR0ZZ Excision of Left Foot Subcutaneous Tissue and Fascia, Open Approach (ICD-10-PCS; principal; 2024-05-02)
DX: A41.9 Sepsis, unspecified organism (principal); J96.21 Acute and chronic respiratory failure with hypoxia; J96.22 Acute and chronic respiratory failure with hypercapnia; J15.69 Pneumonia due to other Gram-negative bacteria; J15.212 Pneumonia due to Methicillin resistant Staphylococcus aureus; J44.0 Chronic obstructive pulmonary disease with (acute) lower respiratory infection; I10 Essential (primary) hypertension; Z79.52 Long term (current) use of systemic steroids; Z99.81 Dependence on supplemental oxygen; F41.9 Anxiety disorder, unspecified; F32.A Depression, unspecified; G47.00 Insomnia, unspecified; K59.00 Constipation, unspecified; Z88.8 Allergy status to other drugs, medicaments and biological substances; Z79.899 Other long term (current) drug therapy; Z87.891 Personal history of nicotine dependence; E78.00 Pure hypercholesterolemia, unspecified; D63.8 Anemia in other chronic diseases classified elsewhere; Z66 Do not resuscitate; L97.529 Non-pressure chronic ulcer of other part of left foot with unspecified severity; Z96.641 Presence of right artificial hip joint

== ENCOUNTER → 2024-05-19 | Outpatient (REF) | payer MEDICARE ==
[~2024-05-19] MED LIST changes: +LEVA1.2525 INH; +QVAR80AE8 INH
[2024-05-19 13:27] LABS: BASO % 0.4 % (0.0-1.0); EOS # 0.2 10^3/uL (0.0-0.5); EOS % 1.7 % (0.0-3.0); HEMATOCRIT 31.7 % (36.0-47.0); HEMOGLOBIN 9.9 g/dl (12.0-15.5); LYMPH % 8.9 % (24.0-44.0); MEAN CORPUSCULAR HEMOGLOBIN 29.3 pg (27.0-33.0); MEAN CORPUSCULAR HGB CONC 31.2 g/dl (32.0-36.5); MEAN CORPUSCULAR VOLUME 93.8 fl (80.0-96.0); MONO # 0.9 10^3/uL (0.0-0.8); MONO % 8.3 % (2.0-8.0); NEUTROPHILS # 8.5 10^3/uL (1.5-8.5); PLATELET COUNT, AUTOMATED 366 10^3/uL (150-450); RED BLOOD COUNT 3.38 10^6/uL (4.00-5.40); WHITE BLOOD COUNT 10.7 10^3/uL (4.0-10.0)
[2024-05-19 13:34] LABS: BLOOD UREA NITROGEN 23 MG/DL (9-23); CALCIUM LEVEL 9.2 MG/DL (8.3-10.6); CARBON DIOXIDE LEVEL 35 MMOL/L (20-31); CHLORIDE LEVEL 101 MMOL/L (98-107); CREATININE FOR GFR 0.68 MG/DL (0.55-1.30); FERRITIN 115.4 NG/ML (7.3-270.7); GLOMERULAR FILTRATION RATE > 60.0 (>39); GLUCOSE, FASTING 84 MG/DL (74-106); POTASSIUM SERUM 4.4 MMOL/L (3.5-5.1); SODIUM LEVEL 136 MMOL/L (136-145)
[2024-05-19 13:35] LABS: IRON (FE) 29 UG/DL (50-170); PERCENT SATURATION 9.8 % (13.2-45.0); TOTAL IRON BINDING CAPACITY 296 UG/DL (250-425)
== END ==
LOC: M SFHCADAM 10:09
PROVIDERS: ATTEND Physician Assistant
DX: D64.9 Anemia, unspecified (principal)

== ENCOUNTER → 2024-05-24 | Outpatient (REF) | payer MEDICARE | LOC: M LAB REF 17:15 | PROVIDERS: ATTEND Internal Medicine Pulmonary Disease | DX: J44.9 Chronic obstructive pulmonary disease, unspecified (principal); J47.9 Bronchiectasis, uncomplicated; R09.02 Hypoxemia ==

== ENCOUNTER 2024-07-03 12:10 | Emergency (ER) | payer MEDICARE ==
[~2024-07-03] VITALS: Ht 152.4 cm; Wt 44.5 kg
[~2024-07-03 12:10] MED LIST changes: -CYCL5TAB; -CYCL5TAB PO; +CYCL5TAB4; +CYCL5TAB4 PO
[2024-07-03 12:39] VITALS: TEMP 97.6
[2024-07-03 13:01] LABS: ABG BASE EXCESS 5.1 (-2.0-2.0); ABG HCO3 32.6 MMOL/L (22.0-26.0); ABG O2 SATURATION 96.1 % (95.0-99.0); ABG STANDARD HCO3 29.1 MMOL/L. (22.0-26.0); ABG TOTAL CO2 34.5 MMOL/L (23.0-31.0); ABG pH (ARTERIAL) 7.325 UNITS (7.350-7.450)
[2024-07-03 13:02] LABS: ABG PARTIAL PRESSURE CO2 63.9 mmHg (35.0-45.0)
[2024-07-03 13:15] LABS: BASO % 0.3 % (0.0-1.0); EOS # 0.2 10^3/uL (0.0-0.5); EOS % 1.6 % (0.0-3.0); HEMATOCRIT 35.2 % (36.0-47.0); HEMOGLOBIN 10.5 g/dl (12.0-15.5); MEAN CORPUSCULAR HEMOGLOBIN 29.2 pg (27.0-33.0); MEAN CORPUSCULAR HGB CONC 29.8 g/dl (32.0-36.5); MEAN CORPUSCULAR VOLUME 98.1 fl (80.0-96.0); MONO # 0.7 10^3/uL (0.0-0.8); MONO % 7.6 % (2.0-8.0); NEUTROPHILS # 7.3 10^3/uL (1.5-8.5); NEUTROPHILS % 78.9 % (36.0-66.0); PLATELET COUNT, AUTOMATED 389 10^3/uL (150-450); RED BLOOD COUNT 3.59 10^6/uL (4.00-5.40); WHITE BLOOD COUNT 9.3 10^3/uL (4.0-10.0)
[2024-07-03 13:29] LABS: INR 0.9; PROTHROMBIN TIME 12.5 SECONDS (12.5-14.5)
[2024-07-03 13:37] LABS: CPK CREATINE PHOSPHOKINASE 39 U/L (34-145)
[2024-07-03 13:41] LABS: ALKALINE PHOSPHATASE 70 U/L (35-104); ALT/SGPT 14 U/L (7.0-40); AST/SGOT 14 U/L (<34); BILIRUBIN,DIRECT 0.1 MG/DL (<0.4); BILIRUBIN,TOTAL 0.5 MG/DL (0.3-1.2); BLOOD UREA NITROGEN 19 MG/DL (9-23); CALCIUM LEVEL 8.7 MG/DL (8.3-10.6); CARBON DIOXIDE LEVEL > 40.0 MMOL/L (20-31); CHLORIDE LEVEL 101 MMOL/L (98-107); CK-MB VALUE MASS 3.3 NG/ML (<3.6); CREATININE FOR GFR 0.62 MG/DL (0.55-1.30); GLOMERULAR FILTRATION RATE > 60.0 (>39); GLUCOSE, FASTING 96 MG/DL (74-106); MB/CK RELATIVE INDEX 8.46 (< OR =4); POTASSIUM SERUM 4.3 MMOL/L (3.5-5.1); SODIUM LEVEL 142 MMOL/L (136-145); THYROID STIMULATING HORMONE 2.585 uIU/ML (0.55-4.78); THYROXINE (T4) 6.5 UG/DL (4.5-10.9)
[2024-07-03 14:52] LABS: CK-MB VALUE MASS 2.9 NG/ML (<3.6)
[2024-07-03 14:53] LABS: MB/CK RELATIVE INDEX 4.6 (< OR =4)
[2024-07-03] MEDS ORDERED: CEFD300C PO (15:38)
[2024-07-03] MEDS ORDERED: PRED20TA PO (15:39)
[2024-07-03] MEDS: CEFDINIR 300 MG CAP (OMNICEF) PO ONE (16:29)
[2024-07-03 16:37] VITALS: BP 158/87; O2SAT 96
== END 2024-07-03 16:40 | disposition home or self-care (01) ==
LOC: M ED 12:10
DX: J18.9 Pneumonia, unspecified organism (principal); J44.9 Chronic obstructive pulmonary disease, unspecified; F41.9 Anxiety disorder, unspecified; F32.A Depression, unspecified; E78.5 Hyperlipidemia, unspecified; Z90.49 Acquired absence of other specified parts of digestive tract; Z88.1 Allergy status to other antibiotic agents; Z79.52 Long term (current) use of systemic steroids; Z79.811 Long term (current) use of aromatase inhibitors; Z79.899 Other long term (current) drug therapy

== ENCOUNTER 2024-07-23 12:46 | Inpatient (IN) | payer MEDICARE ==
[~2024-07-23] VITALS: Ht 152.4 cm; Wt 47.1 kg
[~2024-07-23 12:46] MED LIST changes: +CEFD300C PO
[2024-07-23 13:13] LABS: VENOUS BASE EXCESS 16.8 (-2.0-2.0); VENOUS HCO3 46.6 MMOL/L (23.0-27.0); VENOUS O2 SATURATION 68.9 % (60.0-80.0); VENOUS PARTIAL PRESSURE CO2 90.9 mmHg (38.0-50.0); VENOUS PARTIAL PRESSURE O2 36.7 mmHg (30.0-50.0); VENOUS PH 7.328 UNITS (7.330-7.430); VENOUS STANDARD HCO3 40.1 MMOL/L; VENOUS TOTAL CO2 49.4 MMOL/L (24.0-28.0)
[2024-07-23 13:18] LABS: BASO % 0.2 % (0.0-1.0); EOS % 0.4 % (0.0-3.0); HEMATOCRIT 34.7 % (36.0-47.0); HEMOGLOBIN 10.4 g/dl (12.0-15.5); LYMPH # 0.7 10^3/uL (1.5-5.0); LYMPH % 6.2 % (24.0-44.0); MEAN CORPUSCULAR HEMOGLOBIN 28.6 pg (27.0-33.0); MEAN CORPUSCULAR VOLUME 95.3 fl (80.0-96.0); MONO # 0.6 10^3/uL (0.0-0.8); MONO % 5.4 % (2.0-8.0); NEUTROPHILS # 9.6 10^3/uL (1.5-8.5); NEUTROPHILS % 87.3 % (36.0-66.0); PLATELET COUNT, AUTOMATED 407 10^3/uL (150-450); RED BLOOD COUNT 3.64 10^6/uL (4.00-5.40); WHITE BLOOD COUNT 10.9 10^3/uL (4.0-10.0)
[2024-07-23] MEDS ORDERED: methylPREDNISolone 125MG 2ML VIAL IV ONE (13:40)
[2024-07-23 13:51] LABS: ALBUMIN 3.1 G/DL (3.2-5.2); ALKALINE PHOSPHATASE 80 U/L (35-104); ALT/SGPT 25 U/L (7.0-40); AST/SGOT 17 U/L (<34); BILIRUBIN,DIRECT 0.3 MG/DL (<0.4); BLOOD UREA NITROGEN 20 MG/DL (9-23); CALCIUM LEVEL 9.3 MG/DL (8.3-10.6); CARBON DIOXIDE LEVEL > 40.0 MMOL/L (20-31); CHLORIDE LEVEL 90 MMOL/L (98-107); CREATININE FOR GFR 0.76 MG/DL (0.55-1.30); GLOMERULAR FILTRATION RATE > 60.0 (>39); GLUCOSE, FASTING 110 MG/DL (74-106); POTASSIUM SERUM 4.3 MMOL/L (3.5-5.1); SODIUM LEVEL 133 MMOL/L (136-145); TOTAL PROTEIN 5.8 G/DL (5.7-8.2)
[2024-07-23] MEDS: IPRATROPIUM 0.5MG/ALBUTEROL 2.5MG INH SOL UD 3ML (DUONEB) NEB SCH ×2 (14:02→16:35)
[2024-07-23] MEDS ORDERED: ALBUTEROL SULFATE 2.5MG/0.5ML INH NEB SOLN NEB PRN (15:30)
[2024-07-23] MEDS: methylPREDNISolone 125MG 2ML VIAL IV SCH (15:54)
[2024-07-23] MEDS ORDERED: HOME MED LIST COMPLETE! XX SCH (16:25)
[2024-07-23 16:33] LABS: PROCALCITONIN 0.19 ng/ml
[2024-07-23 16:44] VITALS: BP 156/87; TEMP 98.6; O2SAT 100
[2024-07-23] MEDS: AZITHROMYCIN 250MG TABLET PO SCH (17:34)
[2024-07-23 18:25] VITALS: BP 172/82; O2SAT 94
[2024-07-23 19:15] VITALS: BP 144/78; O2SAT 98
[2024-07-23] MEDS: bisoproloL fumarate 5 MG TAB PO SCH (19:16)
[2024-07-23] MEDS: SYMBICORT 160/4.5MCG INHALER 6GM INH SCH (19:46)
[2024-07-23 20:00] VITALS: BP 132/77; TEMP 98.2; O2SAT 95
[2024-07-23] MEDS: HEPARIN SOD (PORCINE) 5000UNITS/ML 1ML VIAL/SYRINGE SC SCH (20:15)
[2024-07-23 21:43] VITALS: O2SAT 84
[2024-07-23 21:44] VITALS: O2SAT 94
[2024-07-24] VITALS (7 sets, daily range): BP systolic 124–155; BP diastolic 68–88; TEMP 98.4–98.9; O2SAT 95–99
[2024-07-24 04:56] LABS: HEMOGLOBIN 9.5 g/dl (12.0-15.5); MEAN CORPUSCULAR HEMOGLOBIN 28.1 pg (27.0-33.0); MEAN CORPUSCULAR HGB CONC 31.7 g/dl (32.0-36.5); MEAN CORPUSCULAR VOLUME 88.8 fl (80.0-96.0); PLATELET COUNT, AUTOMATED 343 10^3/uL (150-450); RED BLOOD COUNT 3.38 10^6/uL (4.00-5.40); WHITE BLOOD COUNT 7.6 10^3/uL (4.0-10.0)
[2024-07-24 05:53] LABS: BLOOD UREA NITROGEN 22 MG/DL (9-23); CALCIUM LEVEL 8.7 MG/DL (8.3-10.6); CARBON DIOXIDE LEVEL > 40.0 MMOL/L (20-31); CHLORIDE LEVEL 87 MMOL/L (98-107); CREATININE FOR GFR 0.73 MG/DL (0.55-1.30); GLOMERULAR FILTRATION RATE > 60.0 (>39); GLUCOSE, FASTING 119 MG/DL (74-106); MAGNESIUM LEVEL 1.7 MG/DL (1.8-2.4); POTASSIUM SERUM 4.1 MMOL/L (3.5-5.1); SODIUM LEVEL 129 MMOL/L (136-145)
[2024-07-24] MEDS ORDERED: MAG SULF 1GM/100ML (MAG RUN) 1 GM in IV 1 EA IV SCH (06:00)
[2024-07-24] MEDS: MAG SULF 1GM/100ML (MAG RUN) 1 GM in IV 1 EA IV SCH (06:29)
[2024-07-24] MEDS ORDERED: bisoproloL fumarate 5 MG TAB PO SCH (09:00)
[2024-07-24] MEDS: PARoxetine 10MG TABLET PO SCH (09:28)
[2024-07-24] MEDS: SPIRONOLACTONE 25 MG TAB PO SCH (09:28)
[2024-07-24] MEDS: LOSARTAN 50MG TABLET PO SCH (09:29)
[2024-07-24] MEDS: ASPIRIN 81MG ENTERIC TABLET PO SCH (09:29)
[2024-07-24] MEDS: VANCOMYCIN/WATER FOR INJ 1,000 MG in IV 1 EA IV ONE (16:05)
[2024-07-24 16:07] LABS: PROCALCITONIN 0.15 ng/ml
[2024-07-24] MEDS: VANCOMYCIN HCL 500 MG in DEXTROSE 5% (D5W) MINI-BAG PLU 100 ML IV SCH (20:15)
[2024-07-24] MEDS ORDERED: VANCOMYCIN 750MG/150 ML IV BAG IV SCH (22:00)
[2024-07-25] VITALS (13 sets, daily range): BP systolic 131–148; BP diastolic 73–75; TEMP 97.8–98.5; O2SAT 93–97
[2024-07-25 07:23] LABS: HEMATOCRIT 29.1 % (36.0-47.0); HEMOGLOBIN 9.6 g/dl (12.0-15.5); MEAN CORPUSCULAR HEMOGLOBIN 28.9 pg (27.0-33.0); MEAN CORPUSCULAR VOLUME 87.7 fl (80.0-96.0); PLATELET COUNT, AUTOMATED 355 10^3/uL (150-450); RED BLOOD COUNT 3.32 10^6/uL (4.00-5.40); WHITE BLOOD COUNT 11.5 10^3/uL (4.0-10.0)
[2024-07-25 07:48] LABS: BLOOD UREA NITROGEN 24 MG/DL (9-23); CALCIUM LEVEL 8.4 MG/DL (8.3-10.6); CARBON DIOXIDE LEVEL 39 MMOL/L (20-31); CHLORIDE LEVEL 87 MMOL/L (98-107); GLOMERULAR FILTRATION RATE > 60.0 (>39); GLUCOSE, FASTING 121 MG/DL (74-106); POTASSIUM SERUM 4.1 MMOL/L (3.5-5.1); SODIUM LEVEL 127 MMOL/L (136-145)
[2024-07-25] MEDS: VANCOMYCIN 1,250 MG/250 ML IV BAG IV SCH (08:59)
[2024-07-26 00:11] VITALS: BP 141/77; TEMP 98.4; O2SAT 94
[2024-07-26 04:00] VITALS: BP 136/72; TEMP 98.8; O2SAT 93
[2024-07-26 06:59] LABS: HEMATOCRIT 33.1 % (36.0-47.0); HEMOGLOBIN 10.7 g/dl (12.0-15.5); MEAN CORPUSCULAR HEMOGLOBIN 28.7 pg (27.0-33.0); MEAN CORPUSCULAR HGB CONC 32.3 g/dl (32.0-36.5); MEAN CORPUSCULAR VOLUME 88.7 fl (80.0-96.0); PLATELET COUNT, AUTOMATED 387 10^3/uL (150-450); RED BLOOD COUNT 3.73 10^6/uL (4.00-5.40); WHITE BLOOD COUNT 14.5 10^3/uL (4.0-10.0)
[2024-07-26 07:25] LABS: BLOOD UREA NITROGEN 24 MG/DL (9-23); CALCIUM LEVEL 8.6 MG/DL (8.3-10.6); CARBON DIOXIDE LEVEL 36 MMOL/L (20-31); CHLORIDE LEVEL 86 MMOL/L (98-107); CREATININE FOR GFR 0.69 MG/DL (0.55-1.30); GLOMERULAR FILTRATION RATE > 60.0 (>39); GLUCOSE, FASTING 109 MG/DL (74-106); SODIUM LEVEL 128 MMOL/L (136-145)
[2024-07-26 08:00] VITALS: BP 154/82; TEMP 98.5; O2SAT 96
[2024-07-26 16:00] VITALS: BP 171/89; TEMP 98.2; O2SAT 98
[2024-07-26] MEDS ORDERED: CEFTAROLINE FOSAMIL 600 MG in DEXTROSE 5% (D5W) ADV/MINI-BAG 50 ML IV SCH (18:00)
[2024-07-26 18:16] VITALS: BP 160/78
[2024-07-26 20:08] VITALS: BP 166/81; TEMP 97.2; O2SAT 95
[2024-07-27] VITALS (8 sets, daily range): BP systolic 152–154; BP diastolic 77–87; TEMP 97.3–99.1; O2SAT 92–99
[2024-07-27 04:24] LABS: HEMOGLOBIN 10.3 g/dl (12.0-15.5); MEAN CORPUSCULAR HEMOGLOBIN 28.7 pg (27.0-33.0); MEAN CORPUSCULAR HGB CONC 32.2 g/dl (32.0-36.5); MEAN CORPUSCULAR VOLUME 89.1 fl (80.0-96.0); PLATELET COUNT, AUTOMATED 360 10^3/uL (150-450); RED BLOOD COUNT 3.59 10^6/uL (4.00-5.40); WHITE BLOOD COUNT 12.3 10^3/uL (4.0-10.0)
[2024-07-27 04:40] LABS: SODIUM,RANDOM URINE < 10 MMOL/L
[2024-07-27 05:00] LABS: BLOOD UREA NITROGEN 26 MG/DL (9-23); CALCIUM LEVEL 8.6 MG/DL (8.3-10.6); CARBON DIOXIDE LEVEL 36 MMOL/L (20-31); CHLORIDE LEVEL 88 MMOL/L (98-107); CREATININE FOR GFR 0.65 MG/DL (0.55-1.30); GLOMERULAR FILTRATION RATE > 60.0 (>39); GLUCOSE, FASTING 105 MG/DL (74-106); POTASSIUM SERUM 4.1 MMOL/L (3.5-5.1); SODIUM LEVEL 127 MMOL/L (136-145)
[2024-07-27 05:01] LABS: OSMOLALITY URINE 372 MOSM/KG (50-1400)
[2024-07-27 05:11] LABS: PROCALCITONIN 0.04 ng/ml
[2024-07-27] MEDS: NS 500 ML IV ONE (07:45)
[2024-07-27] MEDS ORDERED: WATER FOR INJ IV SCH (08:00)
[2024-07-27] MEDS ORDERED: VANCOMYCIN IV SCH (08:00)
[2024-07-27] MEDS: VANCOMYCIN 1,250 MG/250 ML IV BAG IV SCH (09:14)
[2024-07-27] MEDS: DOCUSATE SODIUM 100MG CAPSULE PO SCH (11:20)
[2024-07-27] MEDS: SENNA 8.6 MG TAB (SENOKOT) PO SCH (11:20)
[2024-07-28] VITALS (8 sets, daily range): BP systolic 153–155; BP diastolic 76–84; TEMP 97–98.2; O2SAT 94–98
[2024-07-28 08:29] LABS: HEMATOCRIT 33.5 % (36.0-47.0); HEMOGLOBIN 10.9 g/dl (12.0-15.5); MEAN CORPUSCULAR HEMOGLOBIN 28.9 pg (27.0-33.0); MEAN CORPUSCULAR HGB CONC 32.5 g/dl (32.0-36.5); MEAN CORPUSCULAR VOLUME 88.9 fl (80.0-96.0); PLATELET COUNT, AUTOMATED 433 10^3/uL (150-450); RED BLOOD COUNT 3.77 10^6/uL (4.00-5.40); WHITE BLOOD COUNT 12.2 10^3/uL (4.0-10.0)
[2024-07-28] MEDS: methylPREDNISolone 40MG 1ML VIAL IV SCH (09:01)
[2024-07-28 09:06] LABS: BLOOD UREA NITROGEN 25 MG/DL (9-23); CALCIUM LEVEL 8.6 MG/DL (8.3-10.6); CARBON DIOXIDE LEVEL 36 MMOL/L (20-31); CHLORIDE LEVEL 94 MMOL/L (98-107); CREATININE FOR GFR 0.64 MG/DL (0.55-1.30); GLOMERULAR FILTRATION RATE > 60.0 (>39); GLUCOSE, FASTING 100 MG/DL (74-106); MAGNESIUM LEVEL 2.1 MG/DL (1.8-2.4); POTASSIUM SERUM 4.4 MMOL/L (3.5-5.1); SODIUM LEVEL 133 MMOL/L (136-145)
[2024-07-28] MEDS ORDERED: ONDANSETRON 4MG 2ML VIAL IV PRN (09:40)
[2024-07-28] MEDS ORDERED: FLEET ENEMA PR PRN (09:40)
[2024-07-28] MEDS: BISACODYL 10MG SUPP PR SCH (09:49)
[2024-07-28] MEDS: MOM 30ML SUSPENSION UDC PO SCH (09:49)
[2024-07-28] MEDS ORDERED: SODIUM CHLORIDE 0.9% NASAL GEL 15GM (AYR) PRN (14:35)
[2024-07-28] MEDS: TOBRAMYCIN INHAL 300 MG/5 ML SOLN INH SCH (20:00)
[2024-07-28] MEDS: SENNA 8.6 MG TAB (SENOKOT) PO SCH (20:52)
[2024-07-29 00:35] VITALS: BP 153/78; TEMP 97.7; O2SAT 98
[2024-07-29 04:00] VITALS: BP 156/94; TEMP 97.5; O2SAT 96
[2024-07-29 05:57] LABS: HEMATOCRIT 29.5 % (36.0-47.0); HEMOGLOBIN 9.6 g/dl (12.0-15.5); MEAN CORPUSCULAR HEMOGLOBIN 29.1 pg (27.0-33.0); MEAN CORPUSCULAR HGB CONC 32.5 g/dl (32.0-36.5); MEAN CORPUSCULAR VOLUME 89.4 fl (80.0-96.0); PLATELET COUNT, AUTOMATED 380 10^3/uL (150-450); WHITE BLOOD COUNT 11.6 10^3/uL (4.0-10.0)
[2024-07-29 06:32] LABS: BLOOD UREA NITROGEN 28 MG/DL (9-23); CALCIUM LEVEL 8.3 MG/DL (8.3-10.6); CARBON DIOXIDE LEVEL 38 MMOL/L (20-31); CHLORIDE LEVEL 95 MMOL/L (98-107); CREATININE FOR GFR 0.62 MG/DL (0.55-1.30); GLOMERULAR FILTRATION RATE > 60.0 (>39); GLUCOSE, FASTING 99 MG/DL (74-106); MAGNESIUM LEVEL 2.3 MG/DL (1.8-2.4); POTASSIUM SERUM 4.4 MMOL/L (3.5-5.1); SODIUM LEVEL 134 MMOL/L (136-145)
[2024-07-29 07:50] VITALS: BP 156/79; TEMP 97.2; O2SAT 96
[2024-07-29] MEDS: SODIUM CHLORIDE NASAL 0.65% SPRAY BTL (OCEAN) PRN (09:01)
[2024-07-29 11:45] VITALS: BP 152/81; TEMP 97.3; O2SAT 96
[2024-07-29 16:30] VITALS: BP 151/84; TEMP 97.3; O2SAT 99
[2024-07-29 20:00] VITALS: BP 140/80; TEMP 97.5; O2SAT 96
[2024-07-30] VITALS (9 sets, daily range): BP systolic 139–145; BP diastolic 79–84; TEMP 96.7–97.7; O2SAT 95–99
[2024-07-30 06:18] LABS: HEMATOCRIT 30.7 % (36.0-47.0); HEMOGLOBIN 9.6 g/dl (12.0-15.5); MEAN CORPUSCULAR HEMOGLOBIN 28.4 pg (27.0-33.0); MEAN CORPUSCULAR HGB CONC 31.3 g/dl (32.0-36.5); MEAN CORPUSCULAR VOLUME 90.8 fl (80.0-96.0); PLATELET COUNT, AUTOMATED 419 10^3/uL (150-450); RED BLOOD COUNT 3.38 10^6/uL (4.00-5.40); WHITE BLOOD COUNT 12.7 10^3/uL (4.0-10.0)
[2024-07-30 06:45] LABS: BLOOD UREA NITROGEN 31 MG/DL (9-23); CALCIUM LEVEL 8.1 MG/DL (8.3-10.6); CARBON DIOXIDE LEVEL 38 MMOL/L (20-31); CHLORIDE LEVEL 96 MMOL/L (98-107); CREATININE FOR GFR 0.61 MG/DL (0.55-1.30); GLOMERULAR FILTRATION RATE > 60.0 (>39); GLUCOSE, FASTING 119 MG/DL (74-106); MAGNESIUM LEVEL 2.3 MG/DL (1.8-2.4); POTASSIUM SERUM 4.9 MMOL/L (3.5-5.1); SODIUM LEVEL 135 MMOL/L (136-145)
[2024-07-30] MEDS: CALCIUM CARBONATE 500 MG CHEW U/D PO PRN (09:38)
[2024-07-30] MEDS: PANTOPRAZOLE 40MG TAB (PROTONIX) PO SCH (16:07)
[2024-07-30] MEDS: methylPREDNISolone 40MG 1ML VIAL IV SCH (20:09)
[2024-07-31 04:00] VITALS: BP 145/81; TEMP 97.5; O2SAT 97
[2024-07-31 07:34] LABS: VANCOMYCIN LEVEL TROUGH 14.5 UG/ML (10.0-20.0)
[2024-07-31 08:00] VITALS: BP 146/90; TEMP 96.8; O2SAT 96
[2024-07-31 12:00] VITALS: BP 136/71; TEMP 97.3; O2SAT 97
[2024-07-31 15:17] LABS: C REACTIVE PROTEIN QUANTITATIV < 0.50 MG/DL (<1.0)
[2024-07-31 16:00] VITALS: BP 142/83; TEMP 97.3; O2SAT 94
[2024-07-31 20:00] VITALS: BP 136/74; TEMP 97.2; O2SAT 93
[2024-08-01] VITALS (7 sets, daily range): BP systolic 149–167; BP diastolic 79–92; TEMP 97–97.5; O2SAT 94–98
[2024-08-01] MEDS: predniSONE 20 MG TAB PO SCH (08:17)
[2024-08-01] MEDS ORDERED: AMLO10TA PO (10:48)
[2024-08-01] MEDS ORDERED: ZYVO1TAB PO (10:48)
[2024-08-01] MEDS ORDERED: TALK1KIT MC (10:48)
[2024-08-01] MEDS ORDERED: BACI1CAP PO (10:48)
[2024-08-01] MEDS ORDERED: TOBR1NEB INH (10:52)
[2024-08-01] MEDS ORDERED: PANT40TA29 PO (10:52)
[2024-08-01] MEDS ORDERED: COLA100C5 PO (10:53)
[2024-08-01] MEDS: cloNIDine 0.1MG TABLET PO ONE (11:55)
[2024-08-01] MEDS: amLODIPine 5 MG TAB PO ONE (11:56)
== END 2024-08-01 14:09 | disposition home health service (06) | DRG 190 ==
LOC: EDBD 12:46 → M ED 12:46 → M ED INP 15:30 → M ICU 16:33 → OBSVTOIN 17:19 → M MSPAV 07-27 16:52
PROVIDERS: ADMIT Student in an Organized Health Care Education/Training Program; ATTEND General Practice
DX: J44.1 Chronic obstructive pulmonary disease with (acute) exacerbation (principal); J15.212 Pneumonia due to Methicillin resistant Staphylococcus aureus; J96.11 Chronic respiratory failure with hypoxia; J98.11 Atelectasis; J47.0 Bronchiectasis with acute lower respiratory infection; J96.12 Chronic respiratory failure with hypercapnia; D80.1 Nonfamilial hypogammaglobulinemia; E22.2 Syndrome of inappropriate secretion of antidiuretic hormone; R78.81 Bacteremia; E87.1 Hypo-osmolality and hyponatremia; M80.08XA Age-related osteoporosis with current pathological fracture, vertebra(e), initial encounter for fracture; J44.0 Chronic obstructive pulmonary disease with (acute) lower respiratory infection; E78.5 Hyperlipidemia, unspecified; I10 Essential (primary) hypertension; F32.A Depression, unspecified; M06.9 Rheumatoid arthritis, unspecified; Z99.81 Dependence on supplemental oxygen; F41.9 Anxiety disorder, unspecified; K59.00 Constipation, unspecified; K44.9 Diaphragmatic hernia without obstruction or gangrene; M40.204 Unspecified kyphosis, thoracic region; Z87.891 Personal history of nicotine dependence; Z88.8 Allergy status to other drugs, medicaments and biological substances; Z79.899 Other long term (current) drug therapy; Z79.82 Long term (current) use of aspirin; Z79.52 Long term (current) use of systemic steroids

== ENCOUNTER → 2024-09-21 | Outpatient (REF) | payer MEDICARE ==
[~2024-09-21] MED LIST changes: +AMLO10TA PO; +BACI1CAP PO; +PANT40TA29 PO; +TALK1KIT MC; +TOBR1NEB INH; +ZYVO1TAB PO
== END ==
LOC: M SFHCADAM 16:53
PROVIDERS: ATTEND Physician Assistant
DX: R09.02 Hypoxemia (principal); R05.1 Acute cough; J47.1 Bronchiectasis with (acute) exacerbation

== ENCOUNTER → 2024-09-23 | Outpatient (CLI) | payer MEDICARE | LOC: M RAD 12:40 | PROVIDERS: ATTEND Internal Medicine Pulmonary Disease | DX: J44.9 Chronic obstructive pulmonary disease, unspecified (principal) ==

== ENCOUNTER 2024-11-02 20:17 | Inpatient (IN) | payer MEDICARE ==
[~2024-11-02] VITALS: Ht 152.4 cm; Wt 46.0 kg
[2024-11-02 21:18] LABS: VENOUS BASE EXCESS 14.8 (-2.0-2.0); VENOUS HCO3 44.5 MMOL/L (23.0-27.0); VENOUS O2 SATURATION 65.2 % (60.0-80.0); VENOUS PARTIAL PRESSURE CO2 89.9 mmHg (38.0-50.0); VENOUS PARTIAL PRESSURE O2 33.3 mmHg (30.0-50.0); VENOUS PH 7.312 UNITS (7.330-7.430); VENOUS STANDARD HCO3 37.8 MMOL/L; VENOUS TOTAL CO2 47.2 MMOL/L (24.0-28.0)
[2024-11-02 21:23] LABS: BASO % 0.2 % (0.0-1.0); HEMATOCRIT 33.7 % (36.0-47.0); HEMOGLOBIN 10.1 g/dl (12.0-15.5); LYMPH # 0.6 10^3/uL (1.5-5.0); LYMPH % 6.7 % (24.0-44.0); MEAN CORPUSCULAR HEMOGLOBIN 29.3 pg (27.0-33.0); MEAN CORPUSCULAR VOLUME 97.7 fl (80.0-96.0); MONO # 0.4 10^3/uL (0.0-0.8); MONO % 4.6 % (2.0-8.0); NEUTROPHILS # 7.8 10^3/uL (1.5-8.5); NEUTROPHILS % 87.8 % (36.0-66.0); PLATELET COUNT, AUTOMATED 371 10^3/uL (150-450); RED BLOOD COUNT 3.45 10^6/uL (4.00-5.40); WHITE BLOOD COUNT 8.8 10^3/uL (4.0-10.0)
[2024-11-02 21:50] LABS: THYROID STIMULATING HORMONE 1.261 uIU/ML (0.55-4.78); THYROXINE (T4) 5.8 UG/DL (4.5-10.9)
[2024-11-02 21:53] LABS: ALBUMIN 3.4 G/DL (3.2-5.2); ALKALINE PHOSPHATASE 58 U/L (35-104); ALT/SGPT 12 U/L (7.0-40); AST/SGOT 11 U/L (<34); BILIRUBIN,DIRECT 0.1 MG/DL (<0.4); BILIRUBIN,TOTAL 0.5 MG/DL (0.3-1.2); BLOOD UREA NITROGEN 16 MG/DL (9-23); CALCIUM LEVEL 8.8 MG/DL (8.3-10.6); CARBON DIOXIDE LEVEL > 40.0 MMOL/L (20-31); CHLORIDE LEVEL 92 MMOL/L (98-107); CREATININE FOR GFR 0.61 MG/DL (0.55-1.30); GLOMERULAR FILTRATION RATE > 60.0 (>39); GLUCOSE, FASTING 115 MG/DL (74-106); POTASSIUM SERUM 5.7 MMOL/L (3.5-5.1); SODIUM LEVEL 136 MMOL/L (136-145); TOTAL PROTEIN 6.1 G/DL (5.7-8.2)
[2024-11-02] MEDS: IPRATROPIUM 0.5MG/ALBUTEROL 2.5MG INH SOL UD 3ML (DUONEB) NEB ONE (22:41)
[2024-11-02] MEDS ORDERED: HOME MED LIST COMPLETE! XX SCH (23:35)
[2024-11-02] MEDS ORDERED: DOCU100C16 PO (23:35)
[2024-11-02] MEDS ORDERED: FURO20TA2 PO (23:35)
[2024-11-03] MEDS ORDERED: FUROSEMIDE 20 MG TAB PO PRN (00:50)
[2024-11-03] MEDS ORDERED: MOM 30ML SUSPENSION UDC PO PRN (00:50)
[2024-11-03] MEDS: methylPREDNISolone 125MG 2ML VIAL IV SCH (02:01)
[2024-11-03] MEDS: IPRATROPIUM 0.5MG/ALBUTEROL 2.5MG INH SOL UD 3ML (DUONEB) NEB SCH (02:02)
[2024-11-03 04:47] VITALS: BP 129/78; TEMP 97.9; O2SAT 97
[2024-11-03] MEDS: SYMBICORT 160/4.5MCG INHALER 6GM INH SCH (07:44)
[2024-11-03 08:00] VITALS: BP 137/86; TEMP 98.2; O2SAT 96
[2024-11-03] MEDS: ASPIRIN 81MG ENTERIC TABLET PO SCH (08:59)
[2024-11-03] MEDS: bisoproloL fumarate 5 MG TAB PO SCH (09:00)
[2024-11-03] MEDS: HEPARIN SOD (PORCINE) 5000UNITS/ML 1ML VIAL/SYRINGE SC SCH (09:02)
[2024-11-03 12:00] VITALS: BP 147/84; TEMP 98.8; O2SAT 100
[2024-11-03 15:30] VITALS: BP 146/82; TEMP 98.1; O2SAT 95
[2024-11-03 20:13] VITALS: BP 142/79; TEMP 99; O2SAT 95
[2024-11-03] MEDS: LOSARTAN 50MG TABLET PO SCH (20:36)
[2024-11-03 20:51] LABS: ALBUMIN 3.1 G/DL (3.2-5.2); ALKALINE PHOSPHATASE 50 U/L (35-104); ALT/SGPT 11 U/L (7.0-40); AST/SGOT 11 U/L (<34); BILIRUBIN,TOTAL 0.4 MG/DL (0.3-1.2); BLOOD UREA NITROGEN 23 MG/DL (9-23); CALCIUM LEVEL 8.6 MG/DL (8.3-10.6); CARBON DIOXIDE LEVEL > 40.0 MMOL/L (20-31); CHLORIDE LEVEL 92 MMOL/L (98-107); CREATININE FOR GFR 0.66 MG/DL (0.55-1.30); GLOMERULAR FILTRATION RATE > 60.0 (>39); GLUCOSE, FASTING 114 MG/DL (74-106); POTASSIUM SERUM 4.9 MMOL/L (3.5-5.1); SODIUM LEVEL 136 MMOL/L (136-145); TOTAL PROTEIN 5.5 G/DL (5.7-8.2)
[2024-11-03] MEDS: ACETAMINOPHEN 325 MG TAB PO PRN (22:39)
[2024-11-03 23:44] VITALS: BP 156/82; TEMP 96.9; O2SAT 92
[2024-11-04] VITALS (8 sets, daily range): BP systolic 130–158; BP diastolic 79–89; TEMP 97.5–99; O2SAT 72–97
[2024-11-04] MEDS: ALBUTEROL 90 MCG/ACT 8GM HFA INHALER INH PRN (00:14)
[2024-11-04] MEDS: LORazepam 0.5 MG TAB PO ONE (00:16)
[2024-11-04 05:56] LABS: HEMATOCRIT 29.5 % (36.0-47.0); HEMOGLOBIN 9.3 g/dl (12.0-15.5); MEAN CORPUSCULAR HEMOGLOBIN 29.4 pg (27.0-33.0); MEAN CORPUSCULAR HGB CONC 31.5 g/dl (32.0-36.5); MEAN CORPUSCULAR VOLUME 93.4 fl (80.0-96.0); PLATELET COUNT, AUTOMATED 329 10^3/uL (150-450); RED BLOOD COUNT 3.16 10^6/uL (4.00-5.40); WHITE BLOOD COUNT 18.9 10^3/uL (4.0-10.0)
[2024-11-04 06:20] LABS: ALBUMIN 2.9 G/DL (3.2-5.2); ALKALINE PHOSPHATASE 49 U/L (35-104); ALT/SGPT 10 U/L (7.0-40); AST/SGOT 14 U/L (<34); BILIRUBIN,TOTAL 0.4 MG/DL (0.3-1.2); BLOOD UREA NITROGEN 28 MG/DL (9-23); CALCIUM LEVEL 8.5 MG/DL (8.3-10.6); CARBON DIOXIDE LEVEL > 40.0 MMOL/L (20-31); CHLORIDE LEVEL 90 MMOL/L (98-107); CREATININE FOR GFR 0.71 MG/DL (0.55-1.30); GLOMERULAR FILTRATION RATE > 60.0 (>39); GLUCOSE, FASTING 118 MG/DL (74-106); POTASSIUM SERUM 4.4 MMOL/L (3.5-5.1); SODIUM LEVEL 133 MMOL/L (136-145); TOTAL PROTEIN 5.3 G/DL (5.7-8.2)
[2024-11-04] MEDS: BUDESONIDE 0.5 MG/2 ML INHALATION SUSPENSION NEB SCH (20:14)
[2024-11-04] MEDS: DOCUSATE SODIUM 100MG CAPSULE PO PRN (20:39)
[2024-11-04] MEDS: QUEtiapine FUMARATE 12.5 MG HALF-TAB PO SCH (20:39)
[2024-11-05 04:28] VITALS: BP 148/86; TEMP 97.9; O2SAT 95
[2024-11-05] MEDS: QUEtiapine FUMARATE 12.5 MG HALF-TAB PO SCH (09:01)
[2024-11-05] MEDS: PANTOPRAZOLE 40MG TAB (PROTONIX) PO SCH (10:53)
[2024-11-05 12:00] VITALS: BP 142/90; TEMP 98.1; O2SAT 97
[2024-11-05 19:30] VITALS: BP 134/87; TEMP 97.7; O2SAT 99
[2024-11-06 03:20] VITALS: BP 129/77; TEMP 97.9; O2SAT 95
[2024-11-06 09:04] LABS: BASO % 0.1 % (0.0-1.0); HEMATOCRIT 34.4 % (36.0-47.0); HEMOGLOBIN 10.5 g/dl (12.0-15.5); LYMPH # 0.8 10^3/uL (1.5-5.0); LYMPH % 4.8 % (24.0-44.0); MEAN CORPUSCULAR HEMOGLOBIN 29.2 pg (27.0-33.0); MEAN CORPUSCULAR HGB CONC 30.5 g/dl (32.0-36.5); MEAN CORPUSCULAR VOLUME 95.8 fl (80.0-96.0); MONO # 1.3 10^3/uL (0.0-0.8); MONO % 7.3 % (2.0-8.0); NEUTROPHILS # 15.2 10^3/uL (1.5-8.5); NEUTROPHILS % 86.3 % (36.0-66.0); PLATELET COUNT, AUTOMATED 378 10^3/uL (150-450); RED BLOOD COUNT 3.59 10^6/uL (4.00-5.40); WHITE BLOOD COUNT 17.6 10^3/uL (4.0-10.0)
[2024-11-06 09:38] LABS: ALBUMIN 3.2 G/DL (3.2-5.2); ALKALINE PHOSPHATASE 49 U/L (35-104); ALT/SGPT 13 U/L (7.0-40); AST/SGOT 11 U/L (<34); BILIRUBIN,TOTAL 0.4 MG/DL (0.3-1.2); BLOOD UREA NITROGEN 30 MG/DL (9-23); CALCIUM LEVEL 8.5 MG/DL (8.3-10.6); CARBON DIOXIDE LEVEL 38 MMOL/L (20-31); CHLORIDE LEVEL 92 MMOL/L (98-107); CREATININE FOR GFR 0.67 MG/DL (0.55-1.30); GLOMERULAR FILTRATION RATE > 60.0 (>39); GLUCOSE, FASTING 88 MG/DL (74-106); POTASSIUM SERUM 4.5 MMOL/L (3.5-5.1); SODIUM LEVEL 136 MMOL/L (136-145); TOTAL PROTEIN 5.8 G/DL (5.7-8.2)
[2024-11-06] MEDS: LR 1,000 ML IV ONE (11:47)
[2024-11-06] MEDS: methylPREDNISolone 125MG 2ML VIAL IV SCH (11:48)
[2024-11-06 11:56] VITALS: BP 130/77; TEMP 97.9; O2SAT 97
[2024-11-06 19:50] VITALS: O2SAT 89
[2024-11-06 20:00] VITALS: BP 135/82; TEMP 97.7; O2SAT 97
[2024-11-07 04:03] VITALS: BP 101/70; TEMP 97.7; O2SAT 98
[2024-11-07] MEDS ORDERED: CEFEPIME HCL 1 GM in DEXTROSE 5% (D5W) ADV/MINI-BAG 50 ML IV SCH (08:35)
[2024-11-07 09:15] LABS: HEMATOCRIT 34.3 % (36.0-47.0); HEMOGLOBIN 10.8 g/dl (12.0-15.5); MEAN CORPUSCULAR HEMOGLOBIN 29.7 pg (27.0-33.0); MEAN CORPUSCULAR HGB CONC 31.5 g/dl (32.0-36.5); MEAN CORPUSCULAR VOLUME 94.2 fl (80.0-96.0); PLATELET COUNT, AUTOMATED 372 10^3/uL (150-450); RED BLOOD COUNT 3.64 10^6/uL (4.00-5.40); WHITE BLOOD COUNT 14.3 10^3/uL (4.0-10.0)
[2024-11-07] MEDS ORDERED: VANCOMYCIN HCL 1,000 MG, VIAL MATE ADAPTER 1 EACH in NS 250 ML IV SCH (09:15)
[2024-11-07 09:50] LABS: ALBUMIN 3.2 G/DL (3.2-5.2); ALKALINE PHOSPHATASE 56 U/L (35-104); ALT/SGPT 13 U/L (7.0-40); AST/SGOT 10 U/L (<34); BILIRUBIN,TOTAL 0.5 MG/DL (0.3-1.2); BLOOD UREA NITROGEN 26 MG/DL (9-23); CARBON DIOXIDE LEVEL 36 MMOL/L (20-31); CHLORIDE LEVEL 95 MMOL/L (98-107); CREATININE FOR GFR 0.65 MG/DL (0.55-1.30); GLOMERULAR FILTRATION RATE > 60.0 (>39); GLUCOSE, FASTING 129 MG/DL (74-106); POTASSIUM SERUM 4.5 MMOL/L (3.5-5.1); SODIUM LEVEL 136 MMOL/L (136-145); TOTAL PROTEIN 5.8 G/DL (5.7-8.2)
[2024-11-07 10:01] LABS: PROCALCITONIN 0.05 ng/ml
[2024-11-07] MEDS: CEFEPIME HCL 2 GM in DEXTROSE 5% (D5W) ADV/MINI-BAG 50 ML IV SCH (10:31)
[2024-11-07] MEDS: VANCOMYCIN HCL 1,000 MG, VIAL MATE ADAPTER 1 EACH in NS 250 ML IV ONE (11:08)
[2024-11-07 12:00] VITALS: BP 137/75; TEMP 98.1; O2SAT 97
[2024-11-07 20:00] VITALS: BP 136/85; TEMP 97.9; O2SAT 96
[2024-11-07] MEDS ORDERED: VANCOMYCIN HCL 750 MG, VIAL MATE ADAPTER 1 EACH in NS 250 ML IV SCH (20:00)
[2024-11-07 21:54] VITALS: TEMP 98
[2024-11-07] MEDS: LINEZOLID 600MG TABLET (ZYVOX) PO SCH (22:10)
[2024-11-07 23:58] VITALS: O2SAT 92
[2024-11-08 04:41] VITALS: BP 94/60; TEMP 97.6; O2SAT 97
[2024-11-08 05:04] LABS: HEMATOCRIT 30.9 % (36.0-47.0); HEMOGLOBIN 9.5 g/dl (12.0-15.5); MEAN CORPUSCULAR HEMOGLOBIN 29.2 pg (27.0-33.0); MEAN CORPUSCULAR HGB CONC 30.7 g/dl (32.0-36.5); MEAN CORPUSCULAR VOLUME 95.1 fl (80.0-96.0); PLATELET COUNT, AUTOMATED 362 10^3/uL (150-450); RED BLOOD COUNT 3.25 10^6/uL (4.00-5.40); WHITE BLOOD COUNT 13.1 10^3/uL (4.0-10.0)
[2024-11-08 05:29] LABS: ALBUMIN 2.7 G/DL (3.2-5.2); ALKALINE PHOSPHATASE 43 U/L (35-104); ALT/SGPT 12 U/L (7.0-40); AST/SGOT 10 U/L (<34); BILIRUBIN,TOTAL 0.4 MG/DL (0.3-1.2); BLOOD UREA NITROGEN 31 MG/DL (9-23); CALCIUM LEVEL 7.8 MG/DL (8.3-10.6); CARBON DIOXIDE LEVEL 37 MMOL/L (20-31); CHLORIDE LEVEL 97 MMOL/L (98-107); CREATININE FOR GFR 0.72 MG/DL (0.55-1.30); GLOMERULAR FILTRATION RATE > 60.0 (>39); GLUCOSE, FASTING 128 MG/DL (74-106); POTASSIUM SERUM 5.2 MMOL/L (3.5-5.1); SODIUM LEVEL 136 MMOL/L (136-145)
[2024-11-08] MEDS: TIOTROPIUM INHALER/CAPSULE (SPIRIVA) INH SCH (07:25)
[2024-11-08 08:00] VITALS: BP 116/64; TEMP 97.5; O2SAT 97
[2024-11-08] MEDS: predniSONE 20 MG TAB PO SCH (10:17)
[2024-11-08 12:00] VITALS: BP 119/75; TEMP 97.7; O2SAT 99
[2024-11-08 20:12] VITALS: BP 152/82; TEMP 98.4; O2SAT 97
[2024-11-08 21:50] VITALS: TEMP 97.7
[2024-11-09 00:21] VITALS: O2SAT 97
[2024-11-09 04:20] VITALS: BP 117/67; TEMP 97.3; O2SAT 98
[2024-11-09 06:42] LABS: ALBUMIN 2.7 G/DL (3.2-5.2); ALKALINE PHOSPHATASE 41 U/L (35-104); ALT/SGPT < 9 U/L (7.0-40); AST/SGOT 9 U/L (<34); BILIRUBIN,TOTAL 0.4 MG/DL (0.3-1.2); BLOOD UREA NITROGEN 33 MG/DL (9-23); CARBON DIOXIDE LEVEL 34 MMOL/L (20-31); CHLORIDE LEVEL 97 MMOL/L (98-107); CREATININE FOR GFR 0.73 MG/DL (0.55-1.30); GLOMERULAR FILTRATION RATE > 60.0 (>39); GLUCOSE, FASTING 112 MG/DL (74-106); POTASSIUM SERUM 4.5 MMOL/L (3.5-5.1); SODIUM LEVEL 137 MMOL/L (136-145); TOTAL PROTEIN 4.9 G/DL (5.7-8.2)
[2024-11-09] MEDS: LevoFLOXacin 750 MG TABLET PO SCH (06:56)
[2024-11-09 07:49] LABS: HEMATOCRIT 31.9 % (36.0-47.0); HEMOGLOBIN 9.8 g/dl (12.0-15.5); MEAN CORPUSCULAR HEMOGLOBIN 29.2 pg (27.0-33.0); MEAN CORPUSCULAR HGB CONC 30.7 g/dl (32.0-36.5); MEAN CORPUSCULAR VOLUME 94.9 fl (80.0-96.0); PLATELET COUNT, AUTOMATED 382 10^3/uL (150-450); RED BLOOD COUNT 3.36 10^6/uL (4.00-5.40); WHITE BLOOD COUNT 14.7 10^3/uL (4.0-10.0)
[2024-11-09] MEDS ORDERED: LEVO75TAB PO (08:29)
[2024-11-09] MEDS ORDERED: LINE1TAB6 PO (08:29)
[2024-11-09 12:00] VITALS: BP 112/66; TEMP 97.5; O2SAT 97
[2024-11-09 20:01] VITALS: O2SAT 97
[2024-11-09 20:40] VITALS: BP 124/76; TEMP 97.7; O2SAT 97
[2024-11-09] MEDS ORDERED: DOXYCYCLINE HYCLATE 100MG TABLET PO SCH (21:00)
[2024-11-10 03:46] VITALS: BP 131/64; TEMP 97.5; O2SAT 98
[2024-11-10 05:26] LABS: HEMATOCRIT 29.6 % (36.0-47.0); HEMOGLOBIN 9.1 g/dl (12.0-15.5); MEAN CORPUSCULAR HEMOGLOBIN 29.4 pg (27.0-33.0); MEAN CORPUSCULAR HGB CONC 30.7 g/dl (32.0-36.5); MEAN CORPUSCULAR VOLUME 95.5 fl (80.0-96.0); PLATELET COUNT, AUTOMATED 352 10^3/uL (150-450); WHITE BLOOD COUNT 12.1 10^3/uL (4.0-10.0)
[2024-11-10 05:55] LABS: ALBUMIN 2.6 G/DL (3.2-5.2); ALKALINE PHOSPHATASE 36 U/L (35-104); ALT/SGPT 12 U/L (7.0-40); AST/SGOT 9 U/L (<34); BILIRUBIN,TOTAL 0.5 MG/DL (0.3-1.2); BLOOD UREA NITROGEN 33 MG/DL (9-23); CARBON DIOXIDE LEVEL 36 MMOL/L (20-31); CHLORIDE LEVEL 96 MMOL/L (98-107); GLOMERULAR FILTRATION RATE > 60.0 (>39); GLUCOSE, FASTING 76 MG/DL (74-106); POTASSIUM SERUM 5.1 MMOL/L (3.5-5.1); SODIUM LEVEL 135 MMOL/L (136-145); TOTAL PROTEIN 4.7 G/DL (5.7-8.2)
[2024-11-10 08:30] VITALS: BP 117/82
== END 2024-11-10 10:38 | disposition home or self-care (01) | DRG 191 ==
LOC: M ED 20:17 → M ED INP 11-03 00:48 → M MSPAV 11-03 04:35
PROVIDERS: ADMIT Internal Medicine; ATTEND Internal Medicine
DX: J44.1 Chronic obstructive pulmonary disease with (acute) exacerbation (principal); J96.11 Chronic respiratory failure with hypoxia; Z66 Do not resuscitate; I10 Essential (primary) hypertension; E78.00 Pure hypercholesterolemia, unspecified; D63.8 Anemia in other chronic diseases classified elsewhere; F41.9 Anxiety disorder, unspecified; F32.A Depression, unspecified; Z90.79 Acquired absence of other genital organ(s); Z90.49 Acquired absence of other specified parts of digestive tract; E87.5 Hyperkalemia; Z79.82 Long term (current) use of aspirin; Z79.52 Long term (current) use of systemic steroids; Z99.81 Dependence on supplemental oxygen; Z79.899 Other long term (current) drug therapy; Z88.1 Allergy status to other antibiotic agents; Z22.322 Carrier or suspected carrier of Methicillin resistant Staphylococcus aureus; Z22.39 Carrier of other specified bacterial diseases; R91.8 Other nonspecific abnormal finding of lung field

== ENCOUNTER → 2025-01-09 | Outpatient (REF) | payer MEDICARE ==
[~2025-01-09] MED LIST changes: +AMLO-751 PO; -AMLO10TA PO; +LEVO75TAB PO; +LINE1TAB6 PO
[2025-01-09 13:00] LABS: BASO # 0.1 10^3/uL (0.0-0.2); BASO % 0.5 % (0.0-1.0); EOS # 0.2 10^3/uL (0.0-0.5); EOS % 1.1 % (0.0-3.0); HEMATOCRIT 39.1 % (36.0-47.0); HEMOGLOBIN 11.6 g/dl (12.0-15.5); LYMPH # 1.9 10^3/uL (1.5-5.0); LYMPH % 12.9 % (24.0-44.0); MEAN CORPUSCULAR HGB CONC 29.7 g/dl (32.0-36.5); MEAN CORPUSCULAR VOLUME 97.8 fl (80.0-96.0); MONO # 1.4 10^3/uL (0.0-0.8); MONO % 9.8 % (2.0-8.0); NEUTROPHILS # 10.7 10^3/uL (1.5-8.5); NEUTROPHILS % 73.8 % (36.0-66.0); PLATELET COUNT, AUTOMATED 450 10^3/uL (150-450); WHITE BLOOD COUNT 14.5 10^3/uL (4.0-10.0)
[2025-01-09 13:28] LABS: ALKALINE PHOSPHATASE 57 U/L (35-104); ALT/SGPT 11 U/L (7.0-40); AST/SGOT 16 U/L (<34); BILIRUBIN,TOTAL 0.5 MG/DL (0.3-1.2); BLOOD UREA NITROGEN 27 MG/DL (9-23); CALCIUM LEVEL 9.4 MG/DL (8.3-10.6); CARBON DIOXIDE LEVEL > 40.0 MMOL/L (20-31); CHLORIDE LEVEL 92 MMOL/L (98-107); CREATININE FOR GFR 0.91 MG/DL (0.55-1.30); GLOMERULAR FILTRATION RATE 66.2 (>39); GLUCOSE, FASTING 98 MG/DL (74-106); POTASSIUM SERUM 4.4 MMOL/L (3.5-5.1); SODIUM LEVEL 138 MMOL/L (136-145); TOTAL PROTEIN 6.8 G/DL (5.7-8.2)
== END ==
LOC: M LAB REF 12:11
PROVIDERS: ATTEND Physician Assistant
DX: J96.11 Chronic respiratory failure with hypoxia (principal); E22.2 Syndrome of inappropriate secretion of antidiuretic hormone; E78.1 Pure hyperglyceridemia; M80.00XD Age-related osteoporosis with current pathological fracture, unspecified site, subsequent encounter for fracture with routine healing; I25.10 Atherosclerotic heart disease of native coronary artery without angina pectoris; F17.211 Nicotine dependence, cigarettes, in remission

== ENCOUNTER 2025-01-24 17:48 | Inpatient (IN) | payer MEDICARE ==
[~2025-01-24] VITALS: Ht 152.4 cm; Wt 52.0 kg
[2025-01-24 20:10] LABS: BASO # 0.0 10^3/uL (0.0-0.2); BASO % 0.4 % (0.0-1.0); EOS # 0.2 10^3/uL (0.0-0.5); EOS % 2.3 % (0.0-3.0); LYMPH # 1.2 10^3/uL (1.5-5.0); LYMPH % 11.7 % (24.0-44.0); MONO # 0.8 10^3/uL (0.0-0.8); MONO % 7.4 % (2.0-8.0); NEUTROPHILS # 7.9 10^3/uL (1.5-8.5); NEUTROPHILS % 76.9 % (36.0-66.0); PLATELET COUNT, AUTOMATED 424 10^3/uL (150-450)
[2025-01-24 20:15] LABS: CK-MB VALUE MASS 2.6 NG/ML (<3.6)
[2025-01-24 20:17] LABS: ALT/SGPT 11.0 U/L (7.0-40); AST/SGOT 18.0 U/L (<34); CALCIUM LEVEL 8.6 MG/DL (8.3-10.6); CARBON DIOXIDE LEVEL 34.0 MMOL/L (20-31); CHLORIDE LEVEL 93.0 MMOL/L (98-107); CREATININE FOR GFR 0.77 MG/DL (0.55-1.30); GLOMERULAR FILTRATION RATE 80.9 (>39); POTASSIUM SERUM 4.8 MMOL/L (3.5-5.1); SODIUM LEVEL 135.0 MMOL/L (136-145)
[2025-01-24] MEDS ORDERED: LEVO1TAB39 PO (20:17)
[2025-01-24] MEDS ORDERED: BUSP10TA PO (20:17)
[2025-01-24] MEDS ORDERED: HOME MED LIST COMPLETE! XX SCH (20:20)
[2025-01-24 20:24] LABS: CPK CREATINE PHOSPHOKINASE 47.0 U/L (34-145); MB/CK RELATIVE INDEX 5.53 (< OR =4)
[2025-01-24 20:55] LABS: VENOUS BASE EXCESS 7.6 (-2.0-2.0); VENOUS HCO3 34.9 MMOL/L (23.0-27.0); VENOUS O2 SATURATION 96.1 % (60.0-80.0); VENOUS PARTIAL PRESSURE CO2 63.1 mmHg (38.0-50.0); VENOUS PARTIAL PRESSURE O2 85.8 mmHg (30.0-50.0); VENOUS PH 7.361 UNITS (7.330-7.430); VENOUS STANDARD HCO3 31.4 MMOL/L; VENOUS TOTAL CO2 36.9 MMOL/L (24.0-28.0)
[2025-01-24] MEDS: IPRATROPIUM 0.5 MG/ALBUTEROL 2.5 MG INH SOL UD 3 ML NEB ONE (21:03)
[2025-01-24 21:22] LABS: CK-MB VALUE MASS 2.4 NG/ML (<3.6)
[2025-01-24 21:23] LABS: CPK CREATINE PHOSPHOKINASE 43.0 U/L (34-145); MB/CK RELATIVE INDEX 5.58 (< OR =4)
[2025-01-24] MEDS ORDERED: ISOVUE-370 76% 100 ML VIAL As Ordered ONE (22:29)
[2025-01-25] VITALS (7 sets, daily range): BP systolic 116–128; BP diastolic 70–81; TEMP 98–99.2; O2SAT 96–100
[2025-01-25] MEDS: IPRATROPIUM 0.5 MG/ALBUTEROL 2.5 MG INH SOL UD 3 ML INH PRN (05:22)
[2025-01-25 06:05] LABS: PLATELET COUNT, AUTOMATED 358 10^3/uL (150-450)
[2025-01-25 06:35] LABS: ALT/SGPT 10.0 U/L (7.0-40); AST/SGOT 13.0 U/L (<34); CALCIUM LEVEL 8.7 MG/DL (8.3-10.6); CARBON DIOXIDE LEVEL 32.0 MMOL/L (20-31); CHLORIDE LEVEL 90.0 MMOL/L (98-107); CREATININE FOR GFR 0.89 MG/DL (0.55-1.30); GLOMERULAR FILTRATION RATE 68.0 (>39); MAGNESIUM LEVEL 1.9 MG/DL (1.8-2.4); POTASSIUM SERUM 4.9 MMOL/L (3.5-5.1); SODIUM LEVEL 128.0 MMOL/L (136-145)
[2025-01-25] MEDS: TIOTROPIUM BROM 2.5MCG/ACTUATION 4GM INH INH SCH (07:22)
[2025-01-25] MEDS: SYMBICORT 160/4.5MCG INHALER 6GM INH SCH (07:22)
[2025-01-25] MEDS: ENOXAPARIN 40 MG/0.4 ML SYRINGE (J1650 PER 10MG) SC SCH (09:35)
[2025-01-25] MEDS: DOCUSATE SODIUM 100 MG CAPSULE PO SCH (09:35)
[2025-01-25] MEDS: ASPIRIN 81 MG ENTERIC TABLET PO SCH (09:35)
[2025-01-25] MEDS: LOSARTAN 50 MG TABLET PO SCH (09:35)
[2025-01-25] MEDS: SODIUM CHLORIDE HYPERTONIC 3% 4ML NEB SOL INH SCH (15:27)
[2025-01-25] MEDS: SODIUM CHLORIDE NASAL 0.65% SPRAY BTL (OCEAN) PRN (22:02)
[2025-01-26] VITALS (11 sets, daily range): BP systolic 118–144; BP diastolic 64–88; TEMP 96.8–98.4; O2SAT 91–99
[2025-01-26 08:54] LABS: PLATELET COUNT, AUTOMATED 413 10^3/uL (150-450)
[2025-01-26] MEDS: MOM 30 ML SUSPENSION UDC PO PRN (09:09)
[2025-01-26 09:28] LABS: ALT/SGPT 11.0 U/L (7.0-40); AST/SGOT 14.0 U/L (<34); CALCIUM LEVEL 8.7 MG/DL (8.3-10.6); CARBON DIOXIDE LEVEL 35.0 MMOL/L (20-31); CHLORIDE LEVEL 89.0 MMOL/L (98-107); CREATININE FOR GFR 0.87 MG/DL (0.55-1.30); GLOMERULAR FILTRATION RATE 69.9 (>39); MAGNESIUM LEVEL 2.0 MG/DL (1.8-2.4); POTASSIUM SERUM 4.5 MMOL/L (3.5-5.1); SODIUM LEVEL 131.0 MMOL/L (136-145)
[2025-01-26] MEDS: SUCRALFATE 1 GM TAB PO SCH (13:15)
[2025-01-26] MEDS: MAGNESIUM CITRATE 300 ML BTL PO ONE (13:16)
[2025-01-26] MEDS: SENNOSIDES/DOCUSATE SODIUM 8.6 MG/50MG TAB PO ONE (13:16)
[2025-01-26] MEDS: LACTULOSE 20 GM/30 ML SYRUP UDC PO ONE (13:16)
[2025-01-26] MEDS ORDERED: SODIUM CHLORIDE NASAL 0.65% SPRAY BTL (OCEAN) PRN (14:55)
[2025-01-26] MEDS: SODIUM CHLORIDE NASAL 0.65% SPRAY BTL (OCEAN) SCH (16:00)
[2025-01-26] MEDS: ALPRAZolam 0.25 MG TAB PO ONE (17:23)
[2025-01-26] MEDS: OXYMETAZOLINE 0.05% NASAL SPRAY SCH (20:26)
[2025-01-26] MEDS: SENNOSIDES/DOCUSATE SODIUM 8.6 MG/50MG TAB PO SCH (20:26)
[2025-01-26] MEDS: MIRALAX *UNIT DOSE* 17 GM PACKET PO SCH (20:27)
[2025-01-27] VITALS: BP 135/73; TEMP 98.8; O2SAT 97
[2025-01-27] MEDS: ALPRAZolam 0.25 MG TAB PO PRN ×2 (00:03→18:20)
[2025-01-27 04:00] VITALS: BP 146/84; TEMP 97.8; O2SAT 94
[2025-01-27 08:00] VITALS: BP 157/82; TEMP 97.3; O2SAT 93
[2025-01-27] MEDS: PANTOPRAZOLE 40MG VIAL IV SCH (08:49)
[2025-01-27 12:00] VITALS: BP 127/80; TEMP 97.2; O2SAT 95
[2025-01-27 16:00] VITALS: BP 110/68; TEMP 97.3; O2SAT 98
[2025-01-27] MEDS: MAALOX 30 ML SUSP *UDC PO PRN (18:23)
[2025-01-27 20:00] VITALS: BP 143/77; TEMP 97.8; O2SAT 95
[2025-01-28] VITALS (8 sets, daily range): BP systolic 117–153; BP diastolic 58–83; TEMP 96.8–99.2; O2SAT 97–100
[2025-01-28 07:08] LABS: BASO # 0.0 10^3/uL (0.0-0.2); BASO % 0.1 % (0.0-1.0); EOS # 0.0 10^3/uL (0.0-0.5); EOS % 0.0 % (0.0-3.0); LYMPH # 0.5 10^3/uL (1.5-5.0); LYMPH % 3.3 % (24.0-44.0); MONO # 0.9 10^3/uL (0.0-0.8); MONO % 6.3 % (2.0-8.0); NEUTROPHILS # 12.5 10^3/uL (1.5-8.5); NEUTROPHILS % 89.0 % (36.0-66.0); PLATELET COUNT, AUTOMATED 389 10^3/uL (150-450)
[2025-01-28 07:32] LABS: CALCIUM LEVEL 7.9 MG/DL (8.3-10.6); CARBON DIOXIDE LEVEL 34.0 MMOL/L (20-31); CHLORIDE LEVEL 92.0 MMOL/L (98-107); CREATININE FOR GFR 0.81 MG/DL (0.55-1.30); GLOMERULAR FILTRATION RATE 76.1 (>39); POTASSIUM SERUM 5.2 MMOL/L (3.5-5.1); SODIUM LEVEL 132.0 MMOL/L (136-145)
[2025-01-28] MEDS: predniSONE 20 MG TAB PO SCH (21:32)
[2025-01-29 04:00] VITALS: BP 132/69; TEMP 98.7; O2SAT 99
[2025-01-29 06:51] LABS: CALCIUM LEVEL 8.1 MG/DL (8.3-10.6); CARBON DIOXIDE LEVEL 29 MMOL/L (20-31); CHLORIDE LEVEL 92 MMOL/L (98-107); CREATININE FOR GFR 0.70 MG/DL (0.55-1.30); GLOMERULAR FILTRATION RATE > 90.0 (>39); POTASSIUM SERUM 5.0 MMOL/L (3.5-5.1); SODIUM LEVEL 131 MMOL/L (136-145)
[2025-01-29 08:45] VITALS: BP 112/66; TEMP 98.4; O2SAT 94
[2025-01-29 12:00] VITALS: BP 129/74; TEMP 97.7; O2SAT 95
[2025-01-29] MEDS: MORPHINE 10 MG/0.5 ML ORAL CONCENTRATE SOLUTION U/D SL PRN (15:55)
[2025-01-29] MEDS: IPRATROPIUM 0.5 MG/ALBUTEROL 2.5 MG INH SOL UD 3 ML INH SCH (19:20)
[2025-01-29 20:00] VITALS: BP 121/76; TEMP 97.5; O2SAT 96
[2025-01-29 22:52] VITALS: O2SAT 99
[2025-01-30] VITALS (9 sets, daily range): BP systolic 113–141; BP diastolic 62–79; TEMP 97.1–99.7; O2SAT 96–100
[2025-01-30 07:02] LABS: BASO # 0.0 10^3/uL (0.0-0.2); BASO % 0.2 % (0.0-1.0); EOS # 0.0 10^3/uL (0.0-0.5); EOS % 0.1 % (0.0-3.0); LYMPH # 0.7 10^3/uL (1.5-5.0); LYMPH % 4.9 % (24.0-44.0); MONO # 1.2 10^3/uL (0.0-0.8); MONO % 8.6 % (2.0-8.0); NEUTROPHILS # 11.2 10^3/uL (1.5-8.5); NEUTROPHILS % 81.3 % (36.0-66.0); PLATELET COUNT, AUTOMATED 411 10^3/uL (150-450)
[2025-01-30 07:32] LABS: CALCIUM LEVEL 8.3 MG/DL (8.3-10.6); CARBON DIOXIDE LEVEL 33.0 MMOL/L (20-31); CHLORIDE LEVEL 91.0 MMOL/L (98-107); CREATININE FOR GFR 0.79 MG/DL (0.55-1.30); GLOMERULAR FILTRATION RATE 78.4 (>39); POTASSIUM SERUM 6.1 MMOL/L (3.5-5.1); SODIUM LEVEL 128.0 MMOL/L (136-145)
[2025-01-30] MEDS: HumuLIN R (REGULAR) INSULIN (NovoLIN R) **100 U/ML** PER UNIT IV STA (08:11)
[2025-01-30] MEDS: DEXTROSE 50% 50 ML SYRINGE IV STA (08:12)
[2025-01-30] MEDS: NS (Normal Saline) 0.9% 1,000 ML IV SCH (08:41)
[2025-01-30 12:44] LABS: CALCIUM LEVEL 8.4 MG/DL (8.3-10.6); CARBON DIOXIDE LEVEL 34.0 MMOL/L (20-31); CHLORIDE LEVEL 89.0 MMOL/L (98-107); CREATININE FOR GFR 0.85 MG/DL (0.55-1.30); GLOMERULAR FILTRATION RATE 71.9 (>39); POTASSIUM SERUM 5.4 MMOL/L (3.5-5.1); SODIUM LEVEL 129.0 MMOL/L (136-145)
[2025-01-30] MEDS ORDERED: DEXTROSE 50% 50 ML SYRINGE IV PRN (20:25)
[2025-01-30] MEDS ORDERED: GLUCAGON INJ 1 MG VIAL SC PRN (20:25)
[2025-01-30] MEDS ORDERED: GLUCOSE 4 GM CHEW PO PRN (20:25)
[2025-01-30] MEDS: PATIROMER SORBITEX CALCIUM 8.4GM POWDER PACKET PO ONE (21:18)
[2025-01-30] MEDS ORDERED: SOD POLYSTYRENE SULFONATE SUSP 15GM 60ML UD PO ONE (22:00)
[2025-01-31] VITALS (8 sets, daily range): BP systolic 131–165; BP diastolic 70–88; TEMP 97–97.7; O2SAT 97–100
[2025-01-31] MEDS: MORPHINE 10 MG/0.5 ML ORAL CONCENTRATE SOLUTION U/D SL PRN (03:56)
[2025-01-31 07:14] LABS: PLATELET COUNT, AUTOMATED 377 10^3/uL (150-450)
[2025-01-31 07:40] LABS: ALT/SGPT < 9 U/L (7.0-40); AST/SGOT 9 U/L (<34); CALCIUM LEVEL 8.2 MG/DL (8.3-10.6); CARBON DIOXIDE LEVEL 32 MMOL/L (20-31); CHLORIDE LEVEL 94 MMOL/L (98-107); CREATININE FOR GFR 0.70 MG/DL (0.55-1.30); GLOMERULAR FILTRATION RATE > 90.0 (>39); POTASSIUM SERUM 5.7 MMOL/L (3.5-5.1); SODIUM LEVEL 131 MMOL/L (136-145)
[2025-01-31] MEDS: PATIROMER SORBITEX CALCIUM 8.4GM POWDER PACKET PO ONE (08:57)
[2025-01-31] MEDS: predniSONE 20 MG TAB PO SCH (08:58)
[2025-01-31 12:33] LABS: CALCIUM LEVEL 8.2 MG/DL (8.3-10.6); CARBON DIOXIDE LEVEL 33.0 MMOL/L (20-31); CHLORIDE LEVEL 93.0 MMOL/L (98-107); CREATININE FOR GFR 0.71 MG/DL (0.55-1.30); GLOMERULAR FILTRATION RATE 89.2 (>39); POTASSIUM SERUM 5.3 MMOL/L (3.5-5.1); SODIUM LEVEL 130.0 MMOL/L (136-145)
[2025-01-31] MEDS ORDERED: PATIROMER SORBITEX CALCIUM 8.4GM POWDER PACKET PO ONE (14:55)
[2025-02-01 00:26] VITALS: BP 141/72; TEMP 97.2; O2SAT 97
[2025-02-01 05:39] VITALS: BP 126/71; TEMP 97.3; O2SAT 97
[2025-02-01 07:49] LABS: PLATELET COUNT, AUTOMATED 370 10^3/uL (150-450)
[2025-02-01 08:22] LABS: ALT/SGPT < 9 U/L (7.0-40); AST/SGOT 11 U/L (<34); CALCIUM LEVEL 8.2 MG/DL (8.3-10.6); CARBON DIOXIDE LEVEL 31 MMOL/L (20-31); CHLORIDE LEVEL 96 MMOL/L (98-107); CREATININE FOR GFR 0.72 MG/DL (0.55-1.30); GLOMERULAR FILTRATION RATE 87.7 (>39); POTASSIUM SERUM 5.1 MMOL/L (3.5-5.1); SODIUM LEVEL 132 MMOL/L (136-145)
[2025-02-01] MEDS: FUROSEMIDE 20 MG TAB PO SCH (08:48)
[2025-02-01 09:07] VITALS: BP 124/68; TEMP 97; O2SAT 91
[2025-02-01] MEDS ORDERED: PATIROMER SORBITEX CALCIUM 8.4GM POWDER PACKET PO SCH (12:00)
[2025-02-01 12:30] VITALS: BP 128/72; TEMP 97.6; O2SAT 98
[2025-02-01 14:00] VITALS: BP 141/82; TEMP 98; O2SAT 98
[2025-02-01] MEDS: LORazepam 0.5 MG TAB PO PRN (18:05)
[2025-02-01 19:46] VITALS: O2SAT 98
[2025-02-02] VITALS (7 sets, daily range): BP systolic 124; BP diastolic 66; TEMP 96.6–97.6; O2SAT 97–100
[2025-02-02] MEDS: MOM 30 ML SUSPENSION UDC PO PRN (23:42)
[2025-02-03] VITALS (20 sets, daily range): BP systolic 116; BP diastolic 63; TEMP 97.3; O2SAT 94–100
[2025-02-03 06:54] LABS: PLATELET COUNT, AUTOMATED 388 10^3/uL (150-450)
[2025-02-03 07:38] LABS: ALT/SGPT 10.0 U/L (7.0-40); AST/SGOT 12.0 U/L (<34); CALCIUM LEVEL 8.2 MG/DL (8.3-10.6); CARBON DIOXIDE LEVEL 39.0 MMOL/L (20-31); CHLORIDE LEVEL 91.0 MMOL/L (98-107); CREATININE FOR GFR 0.82 MG/DL (0.55-1.30); GLOMERULAR FILTRATION RATE 75.0 (>39); POTASSIUM SERUM 4.3 MMOL/L (3.5-5.1); SODIUM LEVEL 134.0 MMOL/L (136-145)
[2025-02-04] VITALS: O2SAT 99
[2025-02-04 01:00] VITALS: O2SAT 98
[2025-02-04 02:00] VITALS: O2SAT 100
[2025-02-04 03:00] VITALS: O2SAT 98
[2025-02-04 04:00] VITALS: BP 130/71; TEMP 98; O2SAT 100
[2025-02-04 07:38] LABS: PLATELET COUNT, AUTOMATED 404 10^3/uL (150-450)
[2025-02-04 08:42] LABS: ALT/SGPT 11.0 U/L (7.0-40); AST/SGOT 15.0 U/L (<34); CALCIUM LEVEL 8.3 MG/DL (8.3-10.6); CARBON DIOXIDE LEVEL 40.0 MMOL/L (20-31); CHLORIDE LEVEL 90.0 MMOL/L (98-107); CREATININE FOR GFR 0.84 MG/DL (0.55-1.30); GLOMERULAR FILTRATION RATE 72.9 (>39); POTASSIUM SERUM 4.6 MMOL/L (3.5-5.1); SODIUM LEVEL 133.0 MMOL/L (136-145)
[2025-02-04] MEDS: PANTOPRAZOLE 40MG TAB PO SCH (12:38)
[2025-02-04] MEDS: FLEET ENEMA PR PRN (12:38)
[2025-02-04 20:00] VITALS: BP 127/66; TEMP 97.4; O2SAT 100
[2025-02-05 04:00] VITALS: BP 130/69; TEMP 98.6; O2SAT 93
[2025-02-05 06:09] LABS: PLATELET COUNT, AUTOMATED 433 10^3/uL (150-450)
[2025-02-05 06:51] LABS: ALT/SGPT 11.0 U/L (7.0-40); CALCIUM LEVEL 8.4 MG/DL (8.3-10.6); CARBON DIOXIDE LEVEL 39.0 MMOL/L (20-31); CHLORIDE LEVEL 88.0 MMOL/L (98-107); CREATININE FOR GFR 0.8 MG/DL (0.55-1.30); GLOMERULAR FILTRATION RATE 77.3 (>39); POTASSIUM SERUM 4.2 MMOL/L (3.5-5.1); SODIUM LEVEL 133.0 MMOL/L (136-145)
[2025-02-05 07:08] LABS: AST/SGOT 22.0 U/L (<34)
[2025-02-05 09:26] VITALS: O2SAT 95
[2025-02-05 21:35] VITALS: O2SAT 95
[2025-02-06 03:54] VITALS: BP 149/6; TEMP 97.9; O2SAT 100
[2025-02-06 07:42] LABS: PLATELET COUNT, AUTOMATED 403 10^3/uL (150-450)
[2025-02-06 07:53] VITALS: BP 120/75; TEMP 98; O2SAT 93
[2025-02-06 08:15] LABS: ALT/SGPT 10.0 U/L (7.0-40); CALCIUM LEVEL 8.1 MG/DL (8.3-10.6); CARBON DIOXIDE LEVEL 39.0 MMOL/L (20-31); CHLORIDE LEVEL 88.0 MMOL/L (98-107); CREATININE FOR GFR 0.73 MG/DL (0.55-1.30); GLOMERULAR FILTRATION RATE 86.2 (>39); POTASSIUM SERUM 3.9 MMOL/L (3.5-5.1); SODIUM LEVEL 133.0 MMOL/L (136-145)
[2025-02-06 08:29] LABS: AST/SGOT 16.0 U/L (<34)
[2025-02-06] MEDS: LEVALBUTEROL 1.25 MG 0.5ML CONCENTRATE NEB INH PRN (10:30)
[2025-02-06] MEDS: ALPRAZolam 0.25 MG TAB PO PRN (17:10)
[2025-02-06 20:00] VITALS: BP 130/85; TEMP 96.9; O2SAT 96; O2SAT 98
[2025-02-06] MEDS: ACETAMINOPHEN 325 MG TAB PO PRN (21:25)
[2025-02-06 21:35] VITALS: BP 130/85; TEMP 96.9; O2SAT 98
[2025-02-07 04:00] VITALS: BP 143/75; TEMP 96.4; O2SAT 100
[2025-02-07] MEDS: predniSONE 10 MG TAB PO SCH (09:33)
[2025-02-07 10:18] VITALS: BP 134/85; TEMP 97.7; O2SAT 99
[2025-02-07 16:57] VITALS: BP 138/92; TEMP 97.6; O2SAT 98
[2025-02-07 19:35] VITALS: O2SAT 100
[2025-02-07 22:28] VITALS: O2SAT 96
[2025-02-08 04:00] VITALS: BP 139/76; TEMP 97.3; O2SAT 99
[2025-02-08] MEDS: FUROSEMIDE 20 MG TAB PO SCH (08:14)
[2025-02-09 03:43] VITALS: BP 101/63; TEMP 97.7; O2SAT 100
[2025-02-09] MEDS: ALPRAZolam 0.25 MG TAB PO PRN (17:24)
[2025-02-10 05:04] VITALS: BP 123/62; TEMP 97.3; O2SAT 100
[2025-02-10 08:24] LABS: CALCIUM LEVEL 8.0 MG/DL (8.3-10.6); CARBON DIOXIDE LEVEL > 40.0 MMOL/L (20-31); CHLORIDE LEVEL 89 MMOL/L (98-107); CREATININE FOR GFR 0.72 MG/DL (0.55-1.30); GLOMERULAR FILTRATION RATE 87.7 (>39); POTASSIUM SERUM 3.0 MMOL/L (3.5-5.1); SODIUM LEVEL 139 MMOL/L (136-145)
[2025-02-10] MEDS: POTASSIUM CHLORIDE 10MEQ SR TABLET PO SCH (09:19)
[2025-02-10] MEDS: DOCUSATE SODIUM 100 MG CAPSULE PO PRN (09:21)
[2025-02-10] MEDS: SENNOSIDES/DOCUSATE SODIUM 8.6 MG/50MG TAB PO PRN (09:22)
[2025-02-10 20:21] VITALS: BP 133/75; TEMP 97.3; O2SAT 100
[2025-02-10 21:00] VITALS: BP 133/75; TEMP 97.3; O2SAT 100
[2025-02-11 04:10] VITALS: BP 139/75; TEMP 97.9; O2SAT 97
[2025-02-11 07:01] VITALS: O2SAT 100
[2025-02-11] MEDS: POTASSIUM CHLORIDE 10MEQ SR TABLET PO SCH (17:02)
[2025-02-11] MEDS: FUROSEMIDE 20 MG TAB PO SCH (17:04)
[2025-02-11 21:00] VITALS: BP 128/71; TEMP 97.9; O2SAT 100
[2025-02-11] MEDS: FUROSEMIDE 20 MG/2 ML VIAL IV ONE (23:46)
[2025-02-11 23:59] LABS: VENOUS BASE EXCESS 11.3 (-2.0-2.0); VENOUS HCO3 42.7 MMOL/L (23.0-27.0); VENOUS O2 SATURATION 98.2 % (60.0-80.0); VENOUS PARTIAL PRESSURE CO2 115.9 mmHg (38.0-50.0); VENOUS PARTIAL PRESSURE O2 142.6 mmHg (30.0-50.0); VENOUS PH 7.184 UNITS (7.330-7.430); VENOUS STANDARD HCO3 35.0 MMOL/L; VENOUS TOTAL CO2 46.2 MMOL/L (24.0-28.0)
[2025-02-12] VITALS (11 sets, daily range): BP systolic 100–179; BP diastolic 69–112; TEMP 98.6; O2SAT 79–98
[2025-02-12 00:26] LABS: BASO # 0.0 10^3/uL (0.0-0.2); BASO % 0.2 % (0.0-1.0); EOS # 0.2 10^3/uL (0.0-0.5); EOS % 1.6 % (0.0-3.0); LYMPH # 3.4 10^3/uL (1.5-5.0); LYMPH % 23.9 % (24.0-44.0); MONO # 1.5 10^3/uL (0.0-0.8); MONO % 10.1 % (2.0-8.0); NEUTROPHILS # 8.9 10^3/uL (1.5-8.5); NEUTROPHILS % 62.2 % (36.0-66.0); PLATELET COUNT, AUTOMATED 493 10^3/uL (150-450)
[2025-02-12 00:36] LABS: ALT/SGPT 15 U/L (7.0-40); AST/SGOT 30 U/L (<34); CALCIUM LEVEL 8.7 MG/DL (8.3-10.6); CARBON DIOXIDE LEVEL > 40.0 MMOL/L (20-31); CHLORIDE LEVEL 91 MMOL/L (98-107); CREATININE FOR GFR 0.69 MG/DL (0.55-1.30); GLOMERULAR FILTRATION RATE > 90.0 (>39); MAGNESIUM LEVEL 2.0 MG/DL (1.8-2.4); POTASSIUM SERUM 4.6 MMOL/L (3.5-5.1); SODIUM LEVEL 138 MMOL/L (136-145)
[2025-02-12 02:01] LABS: VENOUS BASE EXCESS 15.9 (-2.0-2.0); VENOUS HCO3 46.0 MMOL/L (23.0-27.0); VENOUS O2 SATURATION 97.9 % (60.0-80.0); VENOUS PARTIAL PRESSURE CO2 99.9 mmHg (38.0-50.0); VENOUS PARTIAL PRESSURE O2 122.3 mmHg (30.0-50.0); VENOUS PH 7.281 UNITS (7.330-7.430); VENOUS STANDARD HCO3 39.7 MMOL/L; VENOUS TOTAL CO2 49.1 MMOL/L (24.0-28.0)
[2025-02-12 04:14] LABS: VENOUS BASE EXCESS 15.0 (-2.0-2.0); VENOUS HCO3 45.2 MMOL/L (23.0-27.0); VENOUS O2 SATURATION 99.2 % (60.0-80.0); VENOUS PARTIAL PRESSURE CO2 99.3 mmHg (38.0-50.0); VENOUS PARTIAL PRESSURE O2 193.7 mmHg (30.0-50.0); VENOUS PH 7.276 UNITS (7.330-7.430); VENOUS STANDARD HCO3 38.9 MMOL/L; VENOUS TOTAL CO2 48.2 MMOL/L (24.0-28.0)
[2025-02-12] MEDS ORDERED: THIAMINE 100 MG TAB PO SCH (05:00)
[2025-02-12 05:04] LABS: BASO # 0.0 10^3/uL (0.0-0.2); BASO % 0.2 % (0.0-1.0); EOS # 0.0 10^3/uL (0.0-0.5); EOS % 0.1 % (0.0-3.0); LYMPH # 0.6 10^3/uL (1.5-5.0); LYMPH % 3.0 % (24.0-44.0); MONO # 1.0 10^3/uL (0.0-0.8); MONO % 5.5 % (2.0-8.0); NEUTROPHILS # 17.0 10^3/uL (1.5-8.5); NEUTROPHILS % 90.3 % (36.0-66.0); PLATELET COUNT, AUTOMATED 527 10^3/uL (150-450)
[2025-02-12 05:16] LABS: ALT/SGPT 17 U/L (7.0-40); AST/SGOT 24 U/L (<34); CALCIUM LEVEL 8.7 MG/DL (8.3-10.6); CARBON DIOXIDE LEVEL > 40.0 MMOL/L (20-31); CHLORIDE LEVEL 90 MMOL/L (98-107); CREATININE FOR GFR 0.80 MG/DL (0.55-1.30); GLOMERULAR FILTRATION RATE 77.3 (>39); MAGNESIUM LEVEL 1.8 MG/DL (1.8-2.4); PHOSPHORUS LEVEL 4.8 MG/DL (2.4-5.1); POTASSIUM SERUM 4.2 MMOL/L (3.5-5.1); SODIUM LEVEL 138 MMOL/L (136-145)
[2025-02-12 07:29] LABS: VENOUS BASE EXCESS 14.8 (-2.0-2.0); VENOUS HCO3 42.0 MMOL/L (23.0-27.0); VENOUS O2 SATURATION 97.8 % (60.0-80.0); VENOUS PARTIAL PRESSURE CO2 68.3 mmHg (38.0-50.0); VENOUS PARTIAL PRESSURE O2 100.7 mmHg (30.0-50.0); VENOUS PH 7.407 UNITS (7.330-7.430); VENOUS STANDARD HCO3 38.6 MMOL/L; VENOUS TOTAL CO2 44.1 MMOL/L (24.0-28.0)
[2025-02-12 07:47] LABS: INR 0.83
[2025-02-12] MEDS ORDERED: FOLIC ACID 1 MG TAB PO SCH (09:00)
[2025-02-12] MEDS ORDERED: MULTIVITAMINS/MINERALS THERAP 1 TAB PO SCH (09:00)
[2025-02-12] MEDS ORDERED: ONDANSETRON 4MG ORAL DISINTEGRATING TAB PO PRN (09:30)
[2025-02-12] MEDS ORDERED: ATROPINE SULFATE 1% OPHTH SOLN 2 ML BTL SL PRN (09:30)
[2025-02-12] MEDS ORDERED: HYOSCYAMINE SULFATE 0.125 MG SUBL TABLET PO PRN (09:30)
[2025-02-12] MEDS: LORazepam 0.5 MG TAB PO SCH (13:06)
[2025-02-12] MEDS: MORPHINE 10 MG/0.5 ML ORAL CONCENTRATE SOLUTION U/D SL SCH (13:23)
[2025-02-12] MEDS: LORazepam 0.5 MG TAB PO PRN (18:06)
[2025-02-12] MEDS: MORPHINE 10 MG/0.5 ML ORAL CONCENTRATE SOLUTION U/D SL PRN (18:37)
[2025-02-13] MEDS: predniSONE 10 MG TAB PO SCH (08:42)
[2025-02-13] MEDS: MORPHINE 10 MG/0.5 ML ORAL CONCENTRATE SOLUTION U/D SL SCH (13:13)
[2025-02-14] MEDS: POTASSIUM CHLORIDE 10MEQ SR TABLET PO SCH (08:47)
[2025-02-15] MEDS: MIRALAX *UNIT DOSE* 17 GM PACKET PO PRN (10:10)
[2025-02-17 05:22] VITALS: O2SAT 2
[2025-02-18] MEDS: MORPHINE 10 MG/0.5 ML ORAL CONCENTRATE SOLUTION U/D SL PRN (15:04)
[2025-02-25 08:19] VITALS: BP 183/92
[2025-02-26] MEDS: MORPHINE 10 MG/0.5 ML ORAL CONCENTRATE SOLUTION U/D SL PRN (10:45)
[2025-02-26] MEDS: MORPHINE 10 MG/0.5 ML ORAL CONCENTRATE SOLUTION U/D SL SCH (13:59)
[2025-02-27] MEDS: LORazepam 1 MG TAB PO SCH (20:11)
[2025-03-02] MEDS: LORazepam 1 MG TAB PO PRN (08:48)
[2025-03-04 23:15] VITALS: O2SAT 92
== END 2025-03-05 11:59 | disposition expired | DRG 190 ==
LOC: M ED 17:48 → EDBD 17:48 → M ED INP 17:49 → M MS4PR 01-25 12:36 → OBSVTOIN 01-25 13:22 → M MSPAV 02-07 16:57 → M ICU 02-12 02:44 → M MSPAV 02-13 16:11
PROVIDERS: ADMIT Student in an Organized Health Care Education/Training Program; ATTEND General Practice
DX: J44.1 Chronic obstructive pulmonary disease with (acute) exacerbation (principal); J96.21 Acute and chronic respiratory failure with hypoxia; J96.22 Acute and chronic respiratory failure with hypercapnia; G93.41 Metabolic encephalopathy; F19.20 Other psychoactive substance dependence, uncomplicated; E87.1 Hypo-osmolality and hyponatremia; R64 Cachexia; I50.30 Unspecified diastolic (congestive) heart failure; M80.88XA Other osteoporosis with current pathological fracture, vertebra(e), initial encounter for fracture; F39 Unspecified mood [affective] disorder; I25.10 Atherosclerotic heart disease of native coronary artery without angina pectoris; E78.00 Pure hypercholesterolemia, unspecified; F41.0 Panic disorder [episodic paroxysmal anxiety]; J34.89 Other specified disorders of nose and nasal sinuses; E78.5 Hyperlipidemia, unspecified; E16.2 Hypoglycemia, unspecified; E87.5 Hyperkalemia; I11.0 Hypertensive heart disease with heart failure; E87.70 Fluid overload, unspecified; K21.9 Gastro-esophageal reflux disease without esophagitis; R41.82 Altered mental status, unspecified; Z99.81 Dependence on supplemental oxygen; I27.20 Pulmonary hypertension, unspecified; Z79.52 Long term (current) use of systemic steroids; Z87.891 Personal history of nicotine dependence; Z88.8 Allergy status to other drugs, medicaments and biological substances; Z79.899 Other long term (current) drug therapy; Z79.82 Long term (current) use of aspirin; Z66 Do not resuscitate